=== PATIENT | male | born 1965 | race Caucasian/White ===

== ENCOUNTER 2020-01-07 09:20 | Outpatient (CLI) | payer MEDICARE, SELFPAY | END 2020-01-07 09:21 | disposition home or self-care (01) | LOC: ONCMED 09:27 | PROVIDERS: Family Provider Internal Medicine; Visit Provider Internal Medicine Medical Oncology | DX: Z45.2 Encounter for adjustment and management of vascular access device (principal) | CPT/HCPCS: 96523 ==

== ENCOUNTER 2020-01-28 11:39 | Outpatient (CLI) | payer MEDICARE, SELFPAY ==
[2020-01-28 12:18] LABS: Basophils # 0.1 10^3/uL (0.0-0.1); Basophils % 0.7 %; Eosinophils # 0.8 10^3/uL (0.0-0.8); Eosinophils % 7.6 %; Hematocrit 38.4 % (42.0-52.0); Hemoglobin 12.4 g/dL (11.7-16.6); Lymphocytes # 4.8 10^3/uL (0.8-4.8); Lymphocytes % 44.1 %; Mean Corpuscular HGB Conc 32.3 g/dL (30.0-36.0); Mean Corpuscular Hemoglobin 28.2 pg (28.0-34.0); Mean Corpuscular Volume 87.3 fL (80-94); Mean Platelet Volume 11.1 fL (7.4-10.4); Monocytes # 0.7 10^3/uL (0.2-0.9); Neutrophils # 4.4 10^3/uL (1.8-7.7); Neutrophils % 41.2 %; Nucleated Red Blood Cells % 0 %; Platelet Count 157 10^3/cmm (130-400); Red Cell Distribution Width 13.9 % (12.1-15.1); White Blood Count 10.8 10^3/uL (4.0-10.0)
[2020-01-28 12:34] LABS: Alanine Aminotransferase 32 U/L (0-41); Albumin Level 3.8 g/dL (3.5-5.2); Alkaline Phosphatase 72 IU/L (40-130); Anion Gap 15.8 (5-19); Aspartate Amino Transferase 24 U/L (0-40); Blood Urea Nitrogen 21 mg/dL (6-20); Calcium 9.6 mg/dL (8.5-10.5); Carbon Dioxide 25 mmol/L (22-29); Chloride 102 mmol/L (98-107); Globulin 3.2 g/dL (1.3-4.6); Glomerular Filtration Rate 45.3 mL/min (90-130); Glucose 115 mg/dL (65-115); Lactate Dehydrogenase 172 U/L (135-225); Potassium 3.8 mmol/L (3.5-5.1); Sodium 139 mmol/L (136-145); Total Bilirubin 0.3 mg/dL (0.15-1.2)
--- NOTE | 2020-01-29 15:24 | ONC FU_ITS ---
Dr. Kirkland Patient Follow-Up Note Patient: Panda Rivera Unit #: [id number]: [id number] Dicatated By: Kumar Kirkland M.D.Date of Visit:Jan 28, 2020 Onc Med Follow-up/Prog Note Chief Complaint: Chronic lymphocytic leukemia. History of Present Illness: This is a 54 year-old man with chronic lymphocytic leukemia. The leukemia was diagnosed in March of 2003. He appeared to have Holcomb stage I disease, and he was initially managed with observation. He was treated with 6 cycles of fludarabine/Rituxan between August of 2008 and March of 2009. At that time his objective parameters did not meet usual criteria for treatment, but he had experienced a significant decline in performance status which appeared to be disease related. He did show a good clinical response, and he was then followed on observation. I had seen him for a follow-up visit in October 2015. At that time, his performance status appeared to be declining, and he also appeared to have some small cervical lymph nodes bilaterally. He also had shown a slight increase in his lymphocyte count. He underwent upper GI endoscopy and colonoscopy on 11/11/2015. The upper endoscopy showed mild esophagitis. There was moderate localized inflammation in the gastric body with a single ulcer present. There is a chronic appearing ulcer in the antrum. There was moderate patchy inflammation in the duodenal bulb with a few superficial benign-appearing ulcers. All the biopsies were benign, and the CLOtest was negative. He was found to have a rectal polyp on colonoscopy. It was removed endoscopically. There were no other abnormal findings. Pathology showed hyperplastic polyp. He had staging CT scans of the chest/abdomen/pelvis in November 2015. The most significant finding was the presence of bilateral lower lung zone bronchial wall thickening with scattered tree-in-bud nodular opacities. The primary consideration was atypical pneumonia or aspiration pneumonitis. There were slightly enlarged subcarinal lymph nodes which appeared reactive. Left axillary and left hilar adenopathy was unchanged compared to July 2008. There was no adenopathy in the abdomen/pelvis region. He underwent bronchoscopy on 12/30/2015. It showed generalized edema and endobronchial thickening throughout the tracheobronchial tree. There were no discrete endobronchial lesions identified. Transbronchial biopsy showed benign bronchial mucosa/submucosa with reactive lymphoid hyperplasia. All of the microbiology studies were negative. Given those findings he had just remained on observation/expectant management. In August 2018 he was taken to the emergency room after he had been found unresponsive at home. On evaluation, it was felt that he was most likely postictal from a seizure.a noncontrast head CT at that time reported no acute intracranial abnormality. The following morning around 4:30 AM he had a witnessed clonic seizure. He was taken to the emergency room and treated with IV Ativan. On a repeat PET/CT the brain volume appeared greater than typical, raising a question of cerebral edema. With that finding, he was transferred to [facility] for further management. Subsequent brain MRI showed no evidence of acute infarction, hemorrhage, or parenchymal mass lesion. Spinal tap showed just slightly elevated CSF protein of 46 mg/dL. Cell count showed 2 WBC, both lymphocytes, and 1 RBC. A cytology report was not provided. His CBC at that time did show elevated white count at 21,600 with the differential showing 43% neutrophils, 43% lymphocytes, 8% monocytes, and 4% eosinophils. The hemoglobin was borderline at 12.5 g with hematocrit 38.3%. The platelet count was normal at 187,000. His comprehensive metabolic profile was unremarkable. He was discharged home on Keppra. As of his followup visit on 09/05/2018 he was still having some cognitive dysfunction and he complained that he was awfully sore. His repeat CBC on 09/08/2018 showed only slightly increased white blood cell count at 14,000 with hemoglobin borderline at 12.7 g and platelet count normal at 182,000. Subsequent to that visit, he had neurology consultation with Dr. Jaya Gamble in [place]. He continued on treatment with Keppra 1000 mg twice a day. On 12/24/2018 he had another seizure. His Keppra dosage was increased to 1500 mg twice a day, but later adjusted to 1000 mg in the morning and 1500 mg in the evening. He continued to complain of having a bad headache above his right eye, and he then developed double vision. He was seen by Dr. Londono on 01/23/2019. 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 He was then seen by Dr. Evans, and he had further evaluation with a noncontrast head CT scan. 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 There were no other acute findings. I had seen him for a follow-up visit on 01/26/2018. A repeat [facility] at [facility] on 01/28/2019 showed no evidence of an acute intracranial process. He subsequently had a follow-up visit with Dr. Jaya Gamble, and it was felt that he was likely suffering from diabetic mononeuropathy. He was treated with gabapentin, and his symptoms gradually improved. He continued observation/expectant management for the chronic lymphocytic leukemia. His medical illnesses include hypertension, hyperlipidemia, type 2 diabetes, and GERD. He also degenerative arthritis, and he has had chronic back pain following a previous back injury. He is a nonsmoker. INTERIM HISTORY: He was seen for a scheduled follow-up visit on 05/21/2019. At that point he appeared stable clinically, though he was having increasing problems with his knees. On 06/08/2019 he underwent left total knee arthroplasty. He experienced no complications with the procedure. On 06/30/2019 he was seen in the emergency room with a febrile illness. According to his , one of their sons had initially become ill with fever, headache, and vomiting about June 25. Two days later a second son developed similar symptoms, and the following day Panda developed fever with generalized aching, nausea, and diarrhea. The fever persisted over the next several days, and it went as high as 103.4???. On evaluation in the emergency room, he was mildly anemic. His white blood cell count was normal at 8700 with the differential showing 62% neutrophils. Platelet count was normal at 150,000. His chem profile showed normal liver enzymes. His BUN and creatinine were elevated at 21 and 1.8 mg/dL. Urinalysis was unremarkable, and chest x-ray was unrevealing. He was given IV hydration he began on IV antibiotic therapy. His blood cultures have remained negative. His symptoms gradually improved on conservative management, and it did appear that he likely had a viral syndrome. On 08/02/2019 he sustained a nondisplaced fracture of the tip of the lateral malleolus. It was managed conservatively. He is seen for a follow-up visit. He has been feeling pretty good generally. His main complaint is that he had another spell 2 days ago which he thinks may have been a seizure. He got very dizzy to the point of nearly blacking out after getting up off the stool. He was able to recover after getting to the couch and resting, but he felt bad for the rest of that day. His energy has otherwise been pretty good. His ECOG score is 1. He has good appetite. He has no fever or night sweats. Within the past couple of weeks he has developed buzzing and ringing in both ears. He has had no mouth sores. He has cough productive of clear sputum. He has no shortness of breath or chest pain. He has had a little bit of nausea. He has no other GI or complaints. He has his normal back and joint pain. He has not been having headache. He has otherwise not had dizziness. He has a little numbness in his right hand. He has no other focal neurologic symptoms. Medications: Allopurinol 1 Tablet (of 300 mg) Oral daily, AmLODIPine Besylate 1 (10 mg) Tablet Oral daily, Aspirin 1 Tablet (of 81 mg) Oral daily, Atorvastatin Calcium 1 (40 mg) Tablet Oral at bedtime, Benadryl Allergy 1 Tablet (of 25 mg) Oral daily, Gabapentin 1 Capsule (of 300 mg) Oral t.i.d., GlipiZIDE 1 Tablet (of 10 mg) Oral daily, Hydrochlorothiazide 1 (25 mg) Tablet Oral daily, Keppra (500 mg) Tablet Oral Take as Directed, Lantus 90 (100 Units/mL) Subcutaneous b.i.d., Lisinopril 1 (40 mg) Tablet Oral daily, Loratadine 1 Tablet (of 10 mg) Oral daily PRN, Multivitamin Men 50+ 1 Tablet Oral daily, NovoLOG 15 (100 Units/mL) Subcutaneous t.i.d., Omeprazole 1 (40 ) Capsule Delayed Release Oral daily, Osteo Bi-Flex Regular Strength 1 Tablet Oral daily, Oxycodone-Acetaminophen 1 (5-325 mg) Tablet Oral t.i.d., Vistaril 1 (25 mg) Capsule Oral q 6 hours, Zonisamide 1 Capsule (of 100 mg) Oral t.i.d. Allergies: No Known Allergies. Review of Systems: Constitutional - His energy has been pretty good. He does light work at home. His appetite is good and his weight is stable. No fever, chills, hot flashes, or night sweats. ECOG score is 1, ENMT - He has sinus congestion/drainage with a cough. No mouth sores. No sore throat or difficulty swallowing. He has had buzzing and ringing in his ears, that started a couple weeks ago, Hematologic/Lymphatic - He bruises and bleeds easily, Respiratory - No shortness of breath. No pleuritic pain or hemoptysis, Cardiovascular - No angina pain. No palpitations, Gastrointestinal - He did have a stomach bug that lasted a day or so. No nausea or vomiting. No heartburn or acid reflux. No diarrhea or constipation. No blood in the stool or black stools, Genitourinary (M) - No dysuria or hematuria. No urinary frequency. No urgency or incontinence, Musculoskeletal - He continues to have back pain, Integumentary - No skin complications, Neurologic - No headache. He had a dizzy spell this past Saturday, where he felt like he was going to pass out. He has not had any problems, otherwise. He has some numbness and tingling in his right hand, Psychiatric - He has some anxiety and depression. He does not sleep well at night. Vital Signs: Performed on Jan 28, 2020 13:05 Height - 70.00 in Weight - 322 lbs (LOW) BSA - 2.56 sq.m BMI - 46.20 (HIGH) Temperature - 97.8 F (LOW) Pulse - 84 /min Respiration - 17 /min BP - 146/84 mm(hg) (HIGH) O2 Sat - 97 % Pain - 3 Physical Examination: Constitutional - He looks pretty good generally, Eyes - Sclerae nonicteric. Conjunctivae clear, ENMT - No lesions noted in the oral cavity, Hematologic/Lymphatic - No cervical, clavicular, or axillary adenopathy, Respiratory - Lungs sound clear with diminished air movement bilaterally, Cardiovascular - Heart rhythm is regular. There is no murmur, gallop, or rub noted, Abdomen - Moderately distended. Liver and spleen are not enlarged. There is no abdominal mass or ascites noted and there is no inguinal adenopathy, Extremities - Slight edema, Neurologic - There are no focal neurologic deficits noted. Lab/Imaging: Test performed on Jan 28, 2020 12:05 LDH (Total) 172 U/L Sodium 139 mmol/L Potassium 3.8 mmol/L Chloride 102 mmol/L CO2 25 mmol/L Anion Gap 15.8 BUN 21 mg/dL Creatinine 1.6 mg/dL Cr Clearance (Est) 106.6700 mL/min eGFR 45.3 mL/min Glucose 115 mg/dL Calcium 9.6 mg/dL Protein, Total 7.0 g/dL Albumin 3.8 g/dL Globulin 3.2 g/dL Bilirubin, Total 0.3 mg/dL ALT (SGPT) 32 U/L AST (SGOT) 24 U/L Alkaline Phosphatase 72 IU/L WBC 10.8 10 3/uL RBC 4.40 10 6/uL HGB 12.4 g/dL HCT 38.4 % MCV 87.3 fL MCH 28.2 pg MCHC 32.3 g/dL RDW 13.9 % Platelet Count 157 10 3/cmm MPV 11.1 fL Neutrophils 4.4 10 3/uL Lymphocytes 4.8 10 3/uL Monocytes 0.7 10 3/uL Eosinophils 0.8 10 3/uL Basophils 0.1 10 3/uL Neutrophil % 41.2 % Lymphocyte % 44.1 % Monocyte % 6.0 % Eosinophil % 7.6 % Basophils % 0.7 % Test performed on Nov 05, 2019 11:20 Est Avg Glucose (eAG) 169 mg/dL Hemoglobin A1C % 7.5 % Impression: 1. Patient with chronic lymphocytic leukemia, initially diagnosed in 2002 and managed with observation. 2. He ultimately did have treatment with 6 cycles of fludarabine/Rituxan, which he completed in March 2009. He had a very good clinical response. 3. He has since then continued on observation/expectant management, thus far with no obvious disease progression. 4. By October 2015 he had shown some decline in performance status. He had a fairly extensive evaluation. The most significant finding was CT evidence of bilateral lower lobe pulmonary parenchymal opacities. A subsequent bronchoscopy was nondiagnostic, and a specific cause for that was not determined. His other medical illnesses include: 4. Hypertension. 5. Hyperlipidemia. 6. Type II diabetes. 7. Chronic kidney disease. 8. GERD. 9. Degenerative arthritis/degenerative disease of the spine. During followup he had become mildly anemic. His serum iron studies were suggestive of iron deficiency despite the fact that he had been on oral iron supplementation. He was given parenteral iron replacement with a single infusion of Injectafer on 04/08/2018. He had a very good clinical response. He continued on observation/expectant management for the CLL. In August 2018 he had presented with new onset of seizures. His evaluation at [facility] included brain MRI and lumbar puncture, and a specific cause for the seizures was not determined. In the absence of any other evidence of disease progression, I felt that BLOOD [employer]LOOD [employer]CHNICIAN involvement with chronic lymphocytic leukemia was very unlikely, and I had just recommended continued observation/expectant management. On 12/24/2018 he had another seizure, requiring increasing his Keppra dosage. He had subsequently presented with a partial right third cranial nerve palsy. He has had follow-up with Dr. Gamble, and this was presumed to be a diabetic mononeuropathy. He improved on treatment with gabapentin. During followup he has had no further neurologic symptoms and no further seizures. On 06/08/2019 he underwent left total knee arthroplasty. He had no complications with the procedure. In June he was seen in the emergency room with a febrile illness. This was most likely a viral syndrome, and it resolved with conservative management. He had then sustained a fracture of the right fibular tip after stepping in a hole. It was managed conservatively. During followup it was suspected that he was having small seizures, requiring adjustment in his anticonvulsant medication. He had otherwise been stable clinically. Recently he had an episode of significant lightheadedness, thought to possibly have been due to seizure activity. Within the past couple of weeks he has also developed significant tinnitus. There has been no evidence, though, of recurrence/progression of the chronic lymphocytic leukemia. Plan: He remains on observation/expectant management for the chronic lymphocytic leukemia. At Dr. Gamble's request, we have drawn levels for monitoring his anticonvulsants. Those results will be forwarded to him. He will have further evaluation as indicated. He may require ENT referral for the tinnitus. I will tentatively plan a follow-up visit here in 6 months. Signed By: Kumar Kirkland M.D. <<Signature on File>>
== END 2020-01-28 11:40 | disposition home or self-care (01) ==
LOC: ONCMED 11:39
PROVIDERS: Family Provider Internal Medicine; PCP Internal Medicine; Visit Provider Internal Medicine Medical Oncology
DX: C91.10 Chronic lymphocytic leukemia of B-cell type not having achieved remission (principal); E78.5 Hyperlipidemia, unspecified; E11.9 Type 2 diabetes mellitus without complications; K21.9 Gastro-esophageal reflux disease without esophagitis; M19.90 Unspecified osteoarthritis, unspecified site; G89.29 Other chronic pain; M54.9 Dorsalgia, unspecified; R56.9 Unspecified convulsions; E11.22 Type 2 diabetes mellitus with diabetic chronic kidney disease; I12.9 Hypertensive chronic kidney disease with stage 1 through stage 4 chronic kidney disease, or unspecified chronic kidney disease; N18.9 Chronic kidney disease, unspecified; Z79.82 Long term (current) use of aspirin; Z79.891 Long term (current) use of opiate analgesic; Z92.25 Personal history of immunosuppression therapy; Z96.652 Presence of left artificial knee joint
CPT/HCPCS: 36591; 80053; 80177; 80203; 83615; 85025; 99214

== ENCOUNTER 2020-03-07 15:32 | Outpatient (CLI) | payer MEDICARE, SELFPAY | END 2020-03-07 15:33 | disposition home or self-care (01) | PROVIDERS: Family Provider Internal Medicine; PCP Internal Medicine; Visit Provider Internal Medicine Medical Oncology | DX: Z45.2 Encounter for adjustment and management of vascular access device (principal) | CPT/HCPCS: 96523 ==

== ENCOUNTER 2020-04-04 14:21 | Outpatient (CLI) | payer MEDICARE, SELFPAY | END 2020-04-04 14:22 | disposition home or self-care (01) | PROVIDERS: PCP Internal Medicine; Visit Provider Internal Medicine Medical Oncology | DX: Z45.2 Encounter for adjustment and management of vascular access device (principal); D50.8 Other iron deficiency anemias | CPT/HCPCS: 96523 ==

== ENCOUNTER 2020-04-29 10:49 | Outpatient (CLI) | payer MEDICARE, SELFPAY ==
[2020-04-29 11:48] LABS: Basophils # 0.1 10^3/uL (0.0-0.1); Basophils % 0.6 %; Eosinophils # 0.4 10^3/uL (0.0-0.8); Eosinophils % 4.4 %; Hematocrit 40.5 % (42.0-52.0); Hemoglobin 12.9 g/dL (11.7-16.6); Lymphocytes # 3.7 10^3/uL (0.8-4.8); Mean Corpuscular HGB Conc 31.9 g/dL (30.0-36.0); Mean Corpuscular Hemoglobin 28.7 pg (28.0-34.0); Mean Corpuscular Volume 90.2 fL (80-94); Mean Platelet Volume 10.7 fL (7.4-10.4); Monocytes # 0.4 10^3/uL (0.2-0.9); Monocytes % 4.6 %; Neutrophils # 4.7 10^3/uL (1.8-7.7); Neutrophils % 50.1 %; Nucleated Red Blood Cells % 0 %; Platelet Count 186 10^3/cmm (130-400); Red Blood Count 4.49 10^6/uL (4.1-5.3); Red Cell Distribution Width 13.8 % (12.1-15.1); White Blood Count 9.3 10^3/uL (4.0-10.0)
[2020-04-29 12:11] LABS: Alanine Aminotransferase 28 U/L (0-41); Albumin Level 4.3 g/dL (3.5-5.2); Alkaline Phosphatase 90 IU/L (40-130); Anion Gap 16.9 (5-19); Aspartate Amino Transferase 23 U/L (0-40); Blood Urea Nitrogen 28 mg/dL (6-20); Calcium 9.9 mg/dL (8.5-10.5); Carbon Dioxide 24 mmol/L (22-29); Chloride 105 mmol/L (98-107); Chol HDL Ratio 4.39 mg/dL (1.0-5.00); Cholesterol 145 mg/dL (0-200); Free T4 Free Thyroxine 1.22 ng/dL (0.82-1.77); Globulin 2.7 g/dL (1.3-4.6); Glomerular Filtration Rate 39.4 mL/min (90-130); Glucose 103 mg/dL (65-115); HDL Cholesterol 33 mg/dL (60-100); LDL Cholesterol Calculated 91 mg/dL (50-129); LDL Cholesterol Direct 91 mg/dL (0-100); LDL HDL Ratio 2.76 RATIO (0.00-3.22); Osmolality Calculated 291 mOsm/kg (285-295); Potassium 3.9 mmol/L (3.5-5.1); Sodium 142 mmol/L (136-145); Thyroid Stimulating Hormone 1.92 uIU/mL (0.27-4.20); Total Bilirubin 0.4 mg/dL (0.15-1.2); Triglycerides 107 mg/dL (0-150)
[2020-04-29 12:16] LABS: Estmated Average Glucose 154
[2020-04-29 14:46] LABS: Vitamin B12 531 pg/mL (232-1245)
[2020-05-04 10:51] LABS: Zonisamide (Zonegran) 22.9 mcg/mL (10.0-40.0)
== END 2020-04-29 10:50 | disposition home or self-care (01) ==
LOC: ONCMED 10:52
PROVIDERS: Psychiatry & Neurology Neurology; PCP Internal Medicine; Visit Provider Internal Medicine Medical Oncology
DX: C91.10 Chronic lymphocytic leukemia of B-cell type not having achieved remission (principal); D50.9 Iron deficiency anemia, unspecified; E03.9 Hypothyroidism, unspecified; E11.9 Type 2 diabetes mellitus without complications; F41.9 Anxiety disorder, unspecified; F32.9 Major depressive disorder, single episode, unspecified; K21.9 Gastro-esophageal reflux disease without esophagitis; E78.5 Hyperlipidemia, unspecified; I10 Essential (primary) hypertension
CPT/HCPCS: 36591; 80053; 80061; 80177; 80203; 82607; 83036; 83721; 84439; 84443; 85025

== ENCOUNTER 2020-06-16 10:32 | Outpatient (CLI) | payer MEDICARE, SELFPAY | END 2020-06-16 10:33 | disposition home or self-care (01) | LOC: ONCMED 10:37 | PROVIDERS: PCP Internal Medicine; Visit Provider Internal Medicine Medical Oncology | DX: Z45.2 Encounter for adjustment and management of vascular access device (principal) | CPT/HCPCS: 96523 ==

== ENCOUNTER 2020-07-14 11:17 | Outpatient (CLI) | payer MEDICARE, SELFPAY ==
[2020-07-14 11:57] LABS: Basophils # 0.1 10^3/uL (0.0-0.1); Basophils % 0.7 %; Eosinophils # 0.6 10^3/uL (0.0-0.8); Eosinophils % 5.3 %; Hematocrit 38.1 % (42.0-52.0); Lymphocytes # 4.4 10^3/uL (0.8-4.8); Lymphocytes % 38.1 %; Mean Corpuscular HGB Conc 31.5 g/dL (30.0-36.0); Mean Corpuscular Hemoglobin 28.6 pg (28.0-34.0); Mean Corpuscular Volume 90.9 fL (80-94); Mean Platelet Volume 10.8 fL (7.4-10.4); Monocytes # 0.6 10^3/uL (0.2-0.9); Monocytes % 5.4 %; Neutrophils # 5.67 10^3/uL (1.8-7.7); Neutrophils % 49.1 %; Nucleated Red Blood Cells % 0 %; Platelet Count 213 10^3/cmm (130-400); Red Blood Count 4.19 10^6/uL (4.1-5.3); Red Cell Distribution Width 13.9 % (12.1-15.1); White Blood Count 11.6 10^3/uL (4.0-10.0)
[2020-07-14 12:20] LABS: Alanine Aminotransferase 26 U/L (0-41); Albumin Level 4.1 g/dL (3.5-5.2); Alkaline Phosphatase 99 IU/L (40-130); Anion Gap 14.6 (5-19); Aspartate Amino Transferase 16 U/L (0-40); Blood Urea Nitrogen 30 mg/dL (6-20); Calcium 8.7 mg/dL (8.5-10.5); Carbon Dioxide 24 mmol/L (22-29); Chloride 105 mmol/L (98-107); Globulin 3.4 g/dL (1.3-4.6); Glucose 111 mg/dL (65-115); Lactate Dehydrogenase 142 U/L (135-225); Osmolality Calculated 288 mOsm/kg (285-295); Potassium 3.6 mmol/L (3.5-5.1); Sodium 140 mmol/L (136-145); Total Bilirubin 0.2 mg/dL (0.15-1.2); Total Protein 7.5 g/dL (6.6-8.7)
[2020-07-14 13:52] LABS: Estmated Average Glucose 143; Hemoglobin A1C 6.6 % (4.0-6.0)
--- NOTE | 2020-07-16 17:03 | ONC FU_ITS ---
Dr. Kirkland Patient Follow-Up Note Patient: Panda Rivera Unit #: [id number]: 1965 Dicatated By: Kumar Kirkland M.D.Date of Visit:Jul 14, 2020 Onc Med Follow-up/Prog Note Chief Complaint: Chronic lymphocytic leukemia. History of Present Illness: This is a 55 year-old man with chronic lymphocytic leukemia. The leukemia was diagnosed in March of 2003. He appeared to have Holcomb stage I disease, and he was initially managed with observation. He was treated with 6 cycles of fludarabine/Rituxan between August of 2008 and March of 2009. At that time his objective parameters did not meet usual criteria for treatment, but he had experienced a significant decline in performance status which appeared to be disease related. He did show a good clinical response, and he was then followed on observation. I had seen him for a follow-up visit in October 2015. At that time, his performance status appeared to be declining, and he also appeared to have some small cervical lymph nodes bilaterally. He also had shown a slight increase in his lymphocyte count. He underwent upper GI endoscopy and colonoscopy on 11/11/2015. The upper endoscopy showed mild esophagitis. There was moderate localized inflammation in the gastric body with a single ulcer present. There is a chronic appearing ulcer in the antrum. There was moderate patchy inflammation in the duodenal bulb with a few superficial benign-appearing ulcers. All the biopsies were benign, and the CLOtest was negative. He was found to have a rectal polyp on colonoscopy. It was removed endoscopically. There were no other abnormal findings. Pathology showed hyperplastic polyp. He had staging CT scans of the chest/abdomen/pelvis in November 2015. The most significant finding was the presence of bilateral lower lung zone bronchial wall thickening with scattered tree-in-bud nodular opacities. The primary consideration was atypical pneumonia or aspiration pneumonitis. There were slightly enlarged subcarinal lymph nodes which appeared reactive. Left axillary and left hilar adenopathy was unchanged compared to July 2008. There was no adenopathy in the abdomen/pelvis region. He underwent bronchoscopy on 12/30/2015. It showed generalized edema and endobronchial thickening throughout the tracheobronchial tree. There were no discrete endobronchial lesions identified. Transbronchial biopsy showed benign bronchial mucosa/submucosa with reactive lymphoid hyperplasia. All of the microbiology studies were negative. Given those findings he had just remained on observation/expectant management. In August 2018 he was taken to the emergency room after he had been found unresponsive at home. On evaluation, it was felt that he was most likely postictal from a seizure.a noncontrast head CT at that time reported no acute intracranial abnormality. The following morning around 4:30 AM he had a witnessed clonic seizure. He was taken to the emergency room and treated with IV Ativan. On a repeat PET/CT the brain volume appeared greater than typical, raising a question of cerebral edema. With that finding, he was transferred to [facility] for further management. Subsequent brain MRI showed no evidence of acute infarction, hemorrhage, or parenchymal mass lesion. Spinal tap showed just slightly elevated CSF protein of 46 mg/dL. Cell count showed 2 WBC, both lymphocytes, and 1 RBC. A cytology report was not provided. His CBC at that time did show elevated white count at 21,600 with the differential showing 43% neutrophils, 43% lymphocytes, 8% monocytes, and 4% eosinophils. The hemoglobin was borderline at 12.5 g with hematocrit 38.3%. The platelet count was normal at 187,000. His comprehensive metabolic profile was unremarkable. He was discharged home on Keppra. As of his followup visit on 09/05/2018 he was still having some cognitive dysfunction and he complained that he was awfully sore. His repeat CBC on 09/08/2018 showed only slightly increased white blood cell count at 14,000 with hemoglobin borderline at 12.7 g and platelet count normal at 182,000. Subsequent to that visit, he had neurology consultation with Dr. Jaya Gamble in [place]. He continued on treatment with Keppra 1000 mg twice a day. On 12/24/2018 he had another seizure. His Keppra dosage was increased to 1500 mg twice a day, but later adjusted to 1000 mg in the morning and 1500 mg in the evening. He continued to complain of having a bad headache above his right eye, and he then developed double vision. He was seen by Dr. Londono on 01/23/2019. 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 He was then seen by Dr. Evans, and he had further evaluation with a noncontrast head CT scan. 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 There were no other acute findings. I had seen him for a follow-up visit on 01/26/2018. A repeat brain MRI at [facility] on 01/28/2019 showed no evidence of an acute intracranial process. He subsequently had a follow-up visit with Dr. Jaya Gamble, and it was felt that he was likely suffering from diabetic mononeuropathy. He was treated with gabapentin, and his symptoms gradually improved. He continued observation/expectant management for the chronic lymphocytic leukemia. His medical illnesses include hypertension, hyperlipidemia, type 2 diabetes, and GERD. He also degenerative arthritis, and he has had chronic back pain following a previous back injury. On 06/08/2019 he underwent left total knee arthroplasty. He experienced no complications with the procedure. He is a nonsmoker. INTERIM HISTORY: On 06/30/2019 he was seen in the emergency room with a febrile illness. According to his , one of their sons had initially become ill with fever, headache, and vomiting about June 25. Two days later a second son developed similar symptoms, and the following day Panda developed fever with generalized aching, nausea, and diarrhea. The fever persisted over the next several days, and it went as high as 103.4???. On evaluation in the emergency room, he was mildly anemic. His white blood cell count was normal at 8700 with the differential showing 62% neutrophils. Platelet count was normal at 150,000. His chem profile showed normal liver enzymes. His BUN and creatinine were elevated at 21 and 1.8 mg/dL. Urinalysis was unremarkable, and chest x-ray was unrevealing. He was given IV hydration he began on IV antibiotic therapy. His blood cultures remained negative. His symptoms gradually improved on conservative management, and it appeared to have most likely been a viral syndrome. On 08/02/2019 he sustained a nondisplaced fracture of the tip of the lateral malleolus. It was managed conservatively. He is seen for a follow-up visit. He indicates that on the and on 03 of July he experienced episodes which were suspected to have been strokes. During the start of the episodes he was constantly repeating himself, and he then could not talk at all and just made a moaning sound. He went and laid down on the couch and gradually resolved. Since then he just has not felt good, like there is something wrong up in his head. He feels lightheaded and he also feels a little dizzy, as if he is drunk. His energy is poor, and he has limited activity. ECOG score is 2. Appetite is fair. He has lost some weight. He does not have fever or night sweats. He has a lot of sinus drainage and he has cough associated with it. He does not have shortness of breath or chest pain. He has no GI or complaints. He has his normal back and leg pain. He has not had headache, and he has no focal neurologic symptoms. He has been very emotional and anxious, though not depressed. He has not been sleeping well for the past 3 months. Medications: Allopurinol 1 Tablet (of 300 mg) Oral daily, AmLODIPine Besylate 1 (10 mg) Tablet Oral daily, Aspirin 1 Tablet (of 325 mg) Tablet, enteric coated Oral daily, Atorvastatin Calcium 1 (40 mg) Tablet Oral at bedtime, Benadryl Allergy 1 Tablet (of 25 mg) Oral daily, Gabapentin 1 Capsule (of 300 mg) Oral t.i.d., GlipiZIDE 1 Tablet (of 10 mg) Oral daily, Hydrochlorothiazide 1 (25 mg) Tablet Oral daily, Keppra (500 mg) Tablet Oral Take as Directed, Lantus 90 (100 Units/mL) Subcutaneous b.i.d., Lisinopril 1 (40 mg) Tablet Oral daily, Loratadine 1 Tablet (of 10 mg) Oral daily PRN, Multivitamin Men 50+ 1 Tablet Oral daily, NovoLOG 15 (100 Units/mL) Subcutaneous t.i.d., Omeprazole 1 (40 ) Capsule Delayed Release Oral daily, Osteo Bi-Flex Regular Strength 1 Tablet Oral daily, Oxycodone-Acetaminophen 1 (5-325 mg) Tablet Oral t.i.d., Vistaril 1 (25 mg) Capsule Oral q 6 hours, Zonisamide 1 Capsule (of 100 mg) Oral t.i.d. Allergies: No Known Allergies. Review of Systems: Constitutional - He feels okay. He is not doing much at home. His appetite is fair and his weight is down 16 pounds from last visit. No fever, night sweats, or hot flashes. ECOG score is 2, ENMT - He has chronic sinus congestion/drainage. No mouth sores. No sore throat or difficulty swallowing, Hematologic/Lymphatic - No abnormal bruising or bleeding, Respiratory - No shortness of breath. No cough. No pleuritic pain or hemoptysis, Cardiovascular - No angina pain. No palpitations, Gastrointestinal - No nausea or vomiting. No heartburn or acid reflux. No diarrhea or constipation. No blood in the stool or black stools, Genitourinary (M) - No dysuria or hematuria. No urinary frequency. No urgency or incontinence, Musculoskeletal - He has chronic pain in his back and legs, Integumentary - No skin complications, Neurologic - He has headaches with dizziness. He reports having a very strange feeling in the head. He feels drunk all the time. No numbness or tingling. He had 2 recent episodes which were suspected to have been strokes, Psychiatric - He has anxiety. No depression. He does not sleep well. Vital Signs: Performed on Jul 14, 2020 12:36 Height - 70.00 in Weight - 306.8 lbs (LOW) BSA - 2.50 sq.m BMI - 44.02 (HIGH) Temperature - 98.4 F Pulse - 93 /min Respiration - 19 /min BP - 121/72 mm(hg) O2 Sat - 98 % Pain - 5 Fatigue - 6 Physical Examination: Constitutional - He does not appear acutely ill, Eyes - Sclerae nonicteric. Conjunctivae clear, ENMT - No lesions noted in the oral cavity, Hematologic/Lymphatic - No cervical, clavicular, or axillary adenopathy, Respiratory - Lungs sound clear with diminished air movement bilaterally, Cardiovascular - Heart rhythm is regular. There is no murmur, gallop, or rub noted, Abdomen - Moderately distended. Liver and spleen are not enlarged. There is no abdominal mass or ascites noted and there is no inguinal adenopathy, Extremities - No edema, Neurologic - There are no focal neurologic deficits noted. Lab/Imaging: Test performed on Jul 14, 2020 11:27 LDH (Total) 142 U/L Sodium 140 mmol/L Potassium 3.6 mmol/L Chloride 105 mmol/L CO2 24 mmol/L Anion Gap 14.6 BUN 30 mg/dL Creatinine 1.9 mg/dL Cr Clearance (Est) 88.7800 mL/min eGFR 37.0 mL/min Glucose 111 mg/dL Calcium 8.7 mg/dL Protein, Total 7.5 g/dL Albumin 4.1 g/dL Globulin 3.4 g/dL Bilirubin, Total 0.2 mg/dL ALT (SGPT) 26 U/L AST (SGOT) 16 U/L Alkaline Phosphatase 99 IU/L Hemoglobin A1C % 6.6 % WBC 11.6 10 3/uL RBC 4.19 10 6/uL HGB 12.0 g/dL HCT 38.1 % MCV 90.9 fL MCH 28.6 pg MCHC 31.5 g/dL RDW 13.9 % Platelet Count 213 10 3/cmm MPV 10.8 fL Neutrophils 5.67 10 3/uL Lymphocytes 4.4 10 3/uL Monocytes 0.6 10 3/uL Eosinophils 0.6 10 3/uL Basophils 0.1 10 3/uL Neutrophil % 49.1 % Lymphocyte % 38.1 % Monocyte % 5.4 % Eosinophil % 5.3 % Basophils % 0.7 % NRBC % 0 % Impression: 1. Patient with chronic lymphocytic leukemia, initially diagnosed in 2002 and managed with observation. 2. He ultimately did have treatment with 6 cycles of fludarabine/Rituxan, which he completed in March 2009. He had a very good clinical response. 3. He has since then continued on observation/expectant management, thus far with no obvious disease progression. 4. By October 2015 he had shown some decline in performance status. He had a fairly extensive evaluation. The most significant finding was CT evidence of bilateral lower lobe pulmonary parenchymal opacities. A subsequent bronchoscopy was nondiagnostic, and a specific cause for that was not determined. His other medical illnesses include: 4. Hypertension. 5. Hyperlipidemia. 6. Type II diabetes. 7. Chronic kidney disease. 8. GERD. 9. Degenerative arthritis/degenerative disease of the spine. During followup he had become mildly anemic. His serum iron studies were suggestive of iron deficiency despite the fact that he had been on oral iron supplementation. He was given parenteral iron replacement with a single infusion of Injectafer on 04/08/2018. He had a very good clinical response. He continued on observation/expectant management for the CLL. In August 2018 he had presented with new onset of seizures. His evaluation at [facility] included brain MRI and lumbar puncture, and a specific cause for the seizures was not determined. In the absence of any other evidence of disease progression, I felt that [employer] involvement with chronic lymphocytic leukemia was very unlikely, and I had just recommended continued observation/expectant management. On 12/24/2018 he had another seizure, requiring increasing his Keppra dosage. He had subsequently presented with a partial right third cranial nerve palsy. He has had follow-up with Dr. Gamble, and this was presumed to be a diabetic mononeuropathy. He improved on treatment with gabapentin. During followup he has had no further neurologic symptoms and no further seizures. On 06/08/2019 he underwent left total knee arthroplasty. He had no complications with the procedure. In June he was seen in the emergency room with a febrile illness. This was most likely a viral syndrome, and it resolved with conservative management. He had then sustained a fracture of the right fibular tip after stepping in a hole. It was managed conservatively. During followup it was suspected that he was having small seizures, requiring adjustment in his anticonvulsant medication. He had otherwise been stable clinically. However, he describes having 2 recent episodes which were suspected to have possibly been strokes. Since then he does has not felt right in the head, and he has had decline in his performance status. There has been no evidence, though, of progression of the chronic lymphocytic leukemia and I still feel it is very unlikely that the leukemia would be contributing in any way to his [employer] symptoms. Plan: He remains on observation/expectant management for the chronic lymphocytic leukemia. He is scheduled to see his neurologist, Dr. Singh, on 08/03/2020. I will check with our office to see whether or not he wants any studies done prior to the visit. I will also ask about possibly starting him on trazodone for the insomnia. I will see him again in 3 months, or sooner as needed. Signed By: Kumar Kirkland M.D. <<Signature on File>>
== END 2020-07-14 11:18 | disposition home or self-care (01) ==
LOC: ONCMED 11:20
PROVIDERS: PCP Internal Medicine; Visit Provider Internal Medicine Medical Oncology
DX: Z08 Encounter for follow-up examination after completed treatment for malignant neoplasm (principal); Z85.6 Personal history of leukemia; I10 Essential (primary) hypertension; E78.5 Hyperlipidemia, unspecified; E11.22 Type 2 diabetes mellitus with diabetic chronic kidney disease; N18.9 Chronic kidney disease, unspecified; K21.9 Gastro-esophageal reflux disease without esophagitis; M47.9 Spondylosis, unspecified; D50.9 Iron deficiency anemia, unspecified; Z92.25 Personal history of immunosuppression therapy
CPT/HCPCS: 36591; 80053; 83036; 83615; 85025; 99214

== ENCOUNTER 2020-09-23 06:04 | Outpatient (CLI) | payer MEDICARE, SELFPAY | END 2020-09-23 06:05 | disposition home or self-care (01) | LOC: ONCMED 06:04 | PROVIDERS: PCP Internal Medicine; Visit Provider Internal Medicine Medical Oncology | DX: Z45.2 Encounter for adjustment and management of vascular access device (principal) | CPT/HCPCS: 96523 ==

== ENCOUNTER 2020-10-17 12:08 | Outpatient (CLI) | payer MEDICARE, SELFPAY ==
[2020-10-17] MEDS: alteplase 1 mg/mL SDV 2 mL 2 MG IV ×2 (12:30→14:35)
[2020-10-17 13:04] LABS: Basophils % 0.4 %; Eosinophils # 0.4 10^3/uL (0.0-0.8); Eosinophils % 4.7 %; Hematocrit 39.2 % (42.0-52.0); Hemoglobin 12.6 g/dL (11.7-16.6); Lymphocytes # 3.6 10^3/uL (0.8-4.8); Lymphocytes % 40.4 %; Mean Corpuscular HGB Conc 32.1 g/dL (30.0-36.0); Mean Corpuscular Hemoglobin 29.4 pg (28.0-34.0); Mean Corpuscular Volume 91.6 fL (80-94); Monocytes # 0.8 10^3/uL (0.2-0.9); Monocytes % 8.4 %; Neutrophils # 4.09 10^3/uL (1.8-7.7); Neutrophils % 45.7 %; Nucleated Red Blood Cells % 0 %; Platelet Count 144 10^3/cmm (130-400); Red Blood Count 4.28 10^6/uL (4.1-5.3); Red Cell Distribution Width 13.4 % (12.1-15.1)
[2020-10-17 13:21] LABS: Alanine Aminotransferase 20 U/L (0-41); Alkaline Phosphatase 80 IU/L (40-130); Anion Gap 12.9 (5-19); Aspartate Amino Transferase 17 U/L (0-40); Blood Urea Nitrogen 21 mg/dL (6-20); Calcium 9.5 mg/dL (8.5-10.5); Carbon Dioxide 27 mmol/L (22-29); Chloride 104 mmol/L (98-107); Globulin 2.3 g/dL (1.3-4.6); Glomerular Filtration Rate 48.6 mL/min (90-130); Glucose 129 mg/dL (65-115); Lactate Dehydrogenase 169 U/L (135-225); Osmolality Calculated 295 mOsm/kg (285-295); Potassium 3.9 mmol/L (3.5-5.1); Sodium 140 mmol/L (136-145); Total Bilirubin 0.3 mg/dL (0.15-1.2); Total Protein 6.3 g/dL (6.6-8.7)
[2020-10-17 20:01] LABS: Ferritin 382 ng/mL (30-400); Iron 67 ug/dL (59-158); Percent Saturation 27.1 % (20-50); Total Iron Binding Capacity 247 mcg/dl; Unsaturated Iron Binding 180 ug/dL (112-347)
--- NOTE | 2020-10-21 09:08 | ONC FU_ITS ---
Dr. Kirkland Patient Follow-Up Note Patient: Panda Rivera Unit #: [id number]: 1965 Dicatated By: Kumar Kirkland M.D.Date of Visit:Oct 17, 2020 Onc Med Follow-up/Prog Note Chief Complaint: Chronic lymphocytic leukemia. History of Present Illness: This is a 55 year-old man with chronic lymphocytic leukemia. The leukemia was diagnosed in March of 2003. He appeared to have Holcomb stage I disease, and he was initially managed with observation. He was treated with 6 cycles of fludarabine/Rituxan between August of 2008 and March of 2009. At that time his objective parameters did not meet usual criteria for treatment, but he had experienced a significant decline in performance status which appeared to be disease related. He did show a good clinical response, and he was then followed on observation. I had seen him for a follow-up visit in October 2015. At that time, his performance status appeared to be declining, and he also appeared to have some small cervical lymph nodes bilaterally. He also had shown a slight increase in his lymphocyte count. He underwent upper GI endoscopy and colonoscopy on 11/11/2015. The upper endoscopy showed mild esophagitis. There was moderate localized inflammation in the gastric body with a single ulcer present. There is a chronic appearing ulcer in the antrum. There was moderate patchy inflammation in the duodenal bulb with a few superficial benign-appearing ulcers. All the biopsies were benign, and the CLOtest was negative. He was found to have a rectal polyp on colonoscopy. It was removed endoscopically. There were no other abnormal findings. Pathology showed hyperplastic polyp. He had staging CT scans of the chest/abdomen/pelvis in November 2015. The most significant finding was the presence of bilateral lower lung zone bronchial wall thickening with scattered tree-in-bud nodular opacities. The primary consideration was atypical pneumonia or aspiration pneumonitis. There were slightly enlarged subcarinal lymph nodes which appeared reactive. Left axillary and left hilar adenopathy was unchanged compared to July 2008. There was no adenopathy in the abdomen/pelvis region. He underwent bronchoscopy on 12/30/2015. It showed generalized edema and endobronchial thickening throughout the tracheobronchial tree. There were no discrete endobronchial lesions identified. Transbronchial biopsy showed benign bronchial mucosa/submucosa with reactive lymphoid hyperplasia. All of the microbiology studies were negative. Given those findings he had just remained on observation/expectant management. In August 2018 he was taken to the emergency room after he had been found unresponsive at home. On evaluation, it was felt that he was most likely postictal from a seizure.a noncontrast head CT at that time reported no acute intracranial abnormality. The following morning around 4:30 AM he had a witnessed clonic seizure. He was taken to the emergency room and treated with IV Ativan. On a repeat PET/CT the brain volume appeared greater than typical, raising a question of cerebral edema. With that finding, he was transferred to [facility] for further management. Subsequent brain MRI showed no evidence of acute infarction, hemorrhage, or parenchymal mass lesion. Spinal tap showed just slightly elevated CSF protein of 46 mg/dL. Cell count showed 2 WBC, both lymphocytes, and 1 RBC. A cytology report was not provided. His CBC at that time did show elevated white count at 21,600 with the differential showing 43% neutrophils, 43% lymphocytes, 8% monocytes, and 4% eosinophils. The hemoglobin was borderline at 12.5 g with hematocrit 38.3%. The platelet count was normal at 187,000. His comprehensive metabolic profile was unremarkable. He was discharged home on Keppra. As of his followup visit on 09/05/2018 he was still having some cognitive dysfunction and he complained that he was awfully sore. His repeat CBC on 09/08/2018 showed only slightly increased white blood cell count at 14,000 with hemoglobin borderline at 12.7 g and platelet count normal at 182,000. Subsequent to that visit, he had neurology consultation with Dr. Jaya Gamble in [place]. He continued on treatment with Keppra 1000 mg twice a day. On 12/24/2018 he had another seizure. His Keppra dosage was increased to 1500 mg twice a day, but later adjusted to 1000 mg in the morning and 1500 mg in the evening. He continued to complain of having a bad headache above his right eye, and he then developed double vision. He was seen by Dr. Londono on 01/23/2019. 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 He was then seen by Dr. Evans, and he had further evaluation with a noncontrast head CT scan. 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 There were no other acute findings. I had seen him for a follow-up visit on 01/26/2018. A repeat brain MRI at [facility] on 01/28/2019 showed no evidence of an acute intracranial process. He subsequently had a follow-up visit with Dr. Jaya Gamble, and it was felt that he was likely suffering from diabetic mononeuropathy. He was treated with gabapentin, and his symptoms gradually improved. He continued observation/expectant management for the chronic lymphocytic leukemia. His medical illnesses include hypertension, hyperlipidemia, type 2 diabetes, and GERD. He also degenerative arthritis, and he has had chronic back pain following a previous back injury. On 06/08/2019 he underwent left total knee arthroplasty. He experienced no complications with the procedure. He is a nonsmoker. INTERIM HISTORY: On 06/30/2019 he was seen in the emergency room with a febrile illness. According to his , one of their sons had initially become ill with fever, headache, and vomiting about June 25. Two days later a second son developed similar symptoms, and the following day Panda developed fever with generalized aching, nausea, and diarrhea. The fever persisted over the next several days, and it went as high as 103.4???. On evaluation in the emergency room, he was mildly anemic. His white blood cell count was normal at 8700 with the differential showing 62% neutrophils. Platelet count was normal at 150,000. His chem profile showed normal liver enzymes. His BUN and creatinine were elevated at 21 and 1.8 mg/dL. Urinalysis was unremarkable, and chest x-ray was unrevealing. He was given IV hydration he began on IV antibiotic therapy. His blood cultures remained negative. His symptoms gradually improved on conservative management, and it appeared to have most likely been a viral syndrome. On 08/02/2019 he sustained a nondisplaced fracture of the tip of the lateral malleolus. It was managed conservatively. He is seen for a follow-up visit. I had last seen him in June. At that time he was still having problems related to his seizure disorder, but that problem has improved significantly with some changes in his medication regimen. However, he also is scheduled to have further evaluation at [facility]. He says he is feeling fairly good now. He is able to do light work. ECOG score is 1. He has good appetite. He has gained weight. He does not have fever or night sweats. He has some sinus drainage and he has cough productive of clear sputum. He does not complain of shortness of breath or chest pain. He has no GI or complaints. He continues to have pain in his back and right shoulder, and he also complains that at times he has pain all over. He does not complain of headache. He says his dizziness is better. He has some numbness in the right hand associated with carpal tunnel syndrome. He has no other focal neurologic symptoms. Medications: Allopurinol 1 Tablet (of 300 mg) Oral daily, AmLODIPine Besylate 1 (10 mg) Tablet Oral daily, Aspirin 1 Tablet (of 325 mg) Tablet, enteric coated Oral daily, Atorvastatin Calcium 1 (40 mg) Tablet Oral at bedtime, Benadryl Allergy 1 Tablet (of 25 mg) Oral daily, Depakote ER 3 Tablet (of 500 mg) Tablet SR 24 HR Oral at bedtime, GlipiZIDE 1 Tablet (of 10 mg) Oral daily, Hydrochlorothiazide 1 (25 mg) Tablet Oral daily, Keppra 1 Tablet (of 500 mg) Oral b.i.d., Lantus 90 (100 Units/mL) Subcutaneous b.i.d., Lisinopril 1 (40 mg) Tablet Oral daily, Loratadine 1 Tablet (of 10 mg) Oral daily PRN, Multivitamin Men 50+ 1 Tablet Oral daily, NovoLOG 15 (100 Units/mL) Subcutaneous t.i.d., Omeprazole 1 (40 ) Capsule Delayed Release Oral daily, Oxycodone-Acetaminophen 1 (5-325 mg) Tablet Oral t.i.d. PRN, Zonisamide 1 Capsule (of 100 mg) Oral b.i.d. Allergies: No Known Allergies. Review of Systems: Constitutional - He has been feeling fairly good since his anticonvulsant therapy was changed. He is able to do light work at home. He has good appetite. He has gained weight. He does not have fever or night sweats. ECOG score is 1, ENMT - He has sinus drainage. No mouth sores. No sore throat or difficulty swallowing, Hematologic/Lymphatic - He has easy bruising and he has noticed that he bleeds a little more easily, Respiratory - No shortness of breath. He has cough productive of clear sputum. No pleuritic pain or hemoptysis, Cardiovascular - No angina pain. No palpitations, Gastrointestinal - No nausea or vomiting. No heartburn or acid reflux. No diarrhea or constipation. No blood in the stool or black stools, Genitourinary (M) - No dysuria or hematuria. No urinary frequency. No urgency or incontinence, Musculoskeletal - He has pain in his back and right shoulder and he sometimes has pain all over, Integumentary - No skin rash, Neurologic - No headache. His dizziness is better. He has numbness in his right hand associated with carpal tunnel syndrome. No other focal neurologic symptoms, Psychiatric - He has anxiety/depression. He has been sleeping better lately. Vital Signs: Performed on Oct 17, 2020 13:56 Height - 70.00 in Weight - 320.6 lbs (HIGH) BSA - 2.55 sq.m BMI - 46.00 (HIGH) Temperature - 98.6 F Pulse - 87 /min Respiration - 22 /min BP - 135/80 mm(hg) O2 Sat - 98 % Pain - 6 Physical Examination: Constitutional - He looks pretty good generally, Eyes - Sclerae nonicteric. Conjunctivae clear, ENMT - No lesions noted in the oral cavity, Hematologic/Lymphatic - No cervical, clavicular, or axillary adenopathy, Respiratory - Lungs sound clear with some decrease in air movement bilaterally, Cardiovascular - Heart rhythm is regular. There is no murmur, gallop, or rub noted, Abdomen - Moderately distended. Liver and spleen are not enlarged. There is no abdominal mass or ascites noted and there is no inguinal adenopathy, Extremities - No edema, Neurologic - No focal neurologic deficits noted. Lab/Imaging: Test performed on Oct 17, 2020 12:35 Ferritin 382 ng/mL Iron 67 mcg/dL LDH (Total) 169 U/L Sodium 140 mmol/L Iron Binding Capacity (TIBC) 247 mcg/dl Potassium 3.9 mmol/L % Iron Saturation 27.1 % Chloride 104 mmol/L CO2 27 mmol/L UIBC 180 mcg/dL Anion Gap 12.9 BUN 21 mg/dL Creatinine 1.5 mg/dL Cr Clearance (Est) 112.4600 mL/min eGFR 48.6 mL/min Glucose 129 mg/dL Osmolality - Calculated 295 mOsm/kg Calcium 9.5 mg/dL Protein, Total 6.3 g/dL Albumin 4.0 g/dL Globulin 2.3 g/dL Bilirubin, Total 0.3 mg/dL ALT (SGPT) 20 U/L AST (SGOT) 17 U/L Alkaline Phosphatase 80 IU/L WBC 9.0 10 3/uL RBC 4.28 10 6/uL HGB 12.6 g/dL HCT 39.2 % MCV 91.6 fL MCH 29.4 pg MCHC 32.1 g/dL RDW 13.4 % Platelet Count 144 10 3/cmm MPV 11.0 fL Neutrophils 4.09 10 3/uL Lymphocytes 3.6 10 3/uL Monocytes 0.8 10 3/uL Eosinophils 0.4 10 3/uL Basophils 0.0 10 3/uL Neutrophil % 45.7 % Lymphocyte % 40.4 % Monocyte % 8.4 % Eosinophil % 4.7 % Basophils % 0.4 % NRBC % 0 % Impression: 1. Patient with chronic lymphocytic leukemia, initially diagnosed in 2002 and managed with observation. 2. He ultimately did have treatment with 6 cycles of fludarabine/Rituxan, which he completed in March 2009. He had a very good clinical response. 3. He has since then continued on observation/expectant management, thus far with no obvious disease progression. 4. By October 2015 he had shown some decline in performance status. He had a fairly extensive evaluation. The most significant finding was CT evidence of bilateral lower lobe pulmonary parenchymal opacities. A subsequent bronchoscopy was nondiagnostic, and a specific cause for that was not determined. His other medical illnesses include: 4. Hypertension. 5. Hyperlipidemia. 6. Type II diabetes. 7. Chronic kidney disease. 8. GERD. 9. Degenerative arthritis/degenerative disease of the spine. In March 2018 he had become mildly anemic. His serum iron studies were suggestive of iron deficiency. As he had already been on oral iron supplementation, he was given parenteral iron replacement with a single infusion of Injectafer. He had a very good clinical response. He continued on observation/expectant management for the CLL. In August 2018 he had presented with new onset of seizures. His evaluation at [facility] included brain MRI and lumbar puncture, and a specific cause for the seizures was not determined. In the absence of any other evidence of disease progression, I felt that [employer] involvement with chronic lymphocytic leukemia was very unlikely, and I had just recommended continued observation/expectant management. On 12/24/2018 he had another seizure, requiring increasing his Keppra dosage. He had subsequently presented with a partial right third cranial nerve palsy. He had follow-up with Dr. Gamble, and this was presumed to be a diabetic mononeuropathy. He improved on treatment with gabapentin. During subsequent followup he was having small seizures again. His neurology care was transferred to Dr. Chino Singh, and with adjustments in his medication regimen, his seizures now appear to be adequately controlled. However, he is scheduled to have further evaluation at [facility]. Plan: He remains on observation/expectant management for the chronic lymphocytic leukemia. I will see him again in 3 months. Signed By: Kumar Kirkland M.D. <<Signature on File>>
== END 2020-10-17 12:09 | disposition home or self-care (01) ==
LOC: ONCMED 12:10
PROVIDERS: PCP Internal Medicine; Visit Provider Internal Medicine Medical Oncology
DX: Z85.6 Personal history of leukemia (principal); Z08 Encounter for follow-up examination after completed treatment for malignant neoplasm; E11.22 Type 2 diabetes mellitus with diabetic chronic kidney disease; I12.9 Hypertensive chronic kidney disease with stage 1 through stage 4 chronic kidney disease, or unspecified chronic kidney disease; N18.9 Chronic kidney disease, unspecified; E78.5 Hyperlipidemia, unspecified; Z79.4 Long term (current) use of insulin
CPT/HCPCS: 36415; 36593; 80053; 82728; 83540; 83550; 83615; 85025; 96374; 96376; G0463; J2997

== ENCOUNTER 2020-11-24 12:48 | Outpatient (CLI) | payer MEDICARE, SELFPAY | END 2020-11-24 12:49 | disposition home or self-care (01) | LOC: ONCMED 12:51 | PROVIDERS: PCP Internal Medicine; Visit Provider Internal Medicine Medical Oncology | DX: Z45.2 Encounter for adjustment and management of vascular access device (principal) | CPT/HCPCS: 96523 ==

== ENCOUNTER 2021-03-27 08:04 | Outpatient (CLI) | payer MEDICARE, SELFPAY ==
[2021-03-27 09:04] LABS: Basophils # 0.1 10^3/uL (0.0-0.1); Basophils % 0.6 %; Eosinophils # 0.5 10^3/uL (0.0-0.8); Hematocrit 39.4 % (42.0-52.0); Hemoglobin 12.7 g/dL (11.7-16.6); Lymphocytes # 7.1 10^3/uL (0.8-4.8); Lymphocytes % 54.1 %; Mean Corpuscular HGB Conc 32.2 g/dL (30.0-36.0); Mean Corpuscular Hemoglobin 29.1 pg (28.0-34.0); Mean Corpuscular Volume 90.4 fL (80-94); Monocytes # 0.9 10^3/uL (0.2-0.9); Monocytes % 7.1 %; Neutrophils # 4.42 10^3/uL (1.8-7.7); Neutrophils % 33.6 %; Nucleated Red Blood Cells % 0 %; Platelet Count 151 10^3/cmm (130-400); Red Blood Count 4.36 10^6/uL (4.1-5.3); Red Cell Distribution Width 14.1 % (12.1-15.1); White Blood Count 13.2 10^3/uL (4.0-10.0)
[2021-03-27 09:30] LABS: Alanine Aminotransferase 31 U/L (0-41); Albumin Level 3.9 g/dL (3.5-5.2); Alkaline Phosphatase 70 IU/L (40-130); Chloride 104 mmol/L (98-107); Lactate Dehydrogenase 207 U/L (135-225); Potassium 3.3 mmol/L (3.5-5.1); Sodium 141 mmol/L (136-145)
[2021-03-27 09:57] LABS: Anion Gap 13.3 (5-19); Aspartate Amino Transferase 19 U/L (0-40); Blood Urea Nitrogen 20 mg/dL (6-20); Calcium 8.4 mg/dL (8.5-10.5); Carbon Dioxide 27 mmol/L (22-29); Globulin 2.2 g/dL (1.3-4.6); Glomerular Filtration Rate 48.4 mL/min (90-130); Glucose 66 mg/dL (65-115); Osmolality Calculated 293 mOsm/kg (285-295); Total Bilirubin 0.3 mg/dL (0.15-1.2); Total Protein 6.1 g/dL (6.6-8.7)
[2021-03-27 10:53] LABS: Ferritin 341 ng/mL (30-400); Iron 55 ug/dL (59-158); Thyroid Stimulating Hormone 2.43 uIU/mL (0.27-4.20); Total Iron Binding Capacity 250 mcg/dl; Unsaturated Iron Binding 195 ug/dL (112-347); Vitamin B12 666 pg/mL (232-1245)
--- NOTE | 2021-03-30 06:43 | ONC FU_ITS ---
Dr. Kirkland Patient Follow-Up Note Patient: Panda Rivera Unit #: [id number]: 1965 Dicatated By: Kumar Kirkland M.D.Date of Visit:March 27, 2021 Onc Med Follow-up/Prog Note Chief Complaint: Chronic lymphocytic leukemia. History of Present Illness: This is a 56 year-old man with chronic lymphocytic leukemia. The leukemia was diagnosed in March of 2003. He appeared to have Holcomb stage I disease, and he was initially managed with observation. He was treated with 6 cycles of fludarabine/Rituxan between August of 2008 and March of 2009. At that time his objective parameters did not meet usual criteria for treatment, but he had experienced a significant decline in performance status which appeared to be disease related. He did show a good clinical response, and he was then followed on observation. I had seen him for a follow-up visit in October 2015. At that time, his performance status appeared to be declining, and he also appeared to have some small cervical lymph nodes bilaterally. He also had shown a slight increase in his lymphocyte count. He underwent upper GI endoscopy and colonoscopy on 11/11/2015. The upper endoscopy showed mild esophagitis. There was moderate localized inflammation in the gastric body with a single ulcer present. There is a chronic appearing ulcer in the antrum. There was moderate patchy inflammation in the duodenal bulb with a few superficial benign-appearing ulcers. All the biopsies were benign, and the CLOtest was negative. He was found to have a rectal polyp on colonoscopy. It was removed endoscopically. There were no other abnormal findings. Pathology showed hyperplastic polyp. He had staging CT scans of the chest/abdomen/pelvis in November 2015. The most significant finding was the presence of bilateral lower lung zone bronchial wall thickening with scattered tree-in-bud nodular opacities. The primary consideration was atypical pneumonia or aspiration pneumonitis. There were slightly enlarged subcarinal lymph nodes which appeared reactive. Left axillary and left hilar adenopathy was unchanged compared to July 2008. There was no adenopathy in the abdomen/pelvis region. He underwent bronchoscopy on 12/30/2015. It showed generalized edema and endobronchial thickening throughout the tracheobronchial tree. There were no discrete endobronchial lesions identified. Transbronchial biopsy showed benign bronchial mucosa/submucosa with reactive lymphoid hyperplasia. All of the microbiology studies were negative. Given those findings he had just remained on observation/expectant management. In August 2018 he was taken to the emergency room after he had been found unresponsive at home. On evaluation, it was felt that he was most likely postictal from a seizure.a noncontrast head CT at that time reported no acute intracranial abnormality. The following morning around 4:30 AM he had a witnessed clonic seizure. He was taken to the emergency room and treated with IV Ativan. On a repeat PET/CT the brain volume appeared greater than typical, raising a question of cerebral edema. With that finding, he was transferred to [facility] for further management. Subsequent brain MRI showed no evidence of acute infarction, hemorrhage, or parenchymal mass lesion. Spinal tap showed just slightly elevated CSF protein of 46 mg/dL. Cell count showed 2 WBC, both lymphocytes, and 1 RBC. A cytology report was not provided. His CBC at that time did show elevated white count at 21,600 with the differential showing 43% neutrophils, 43% lymphocytes, 8% monocytes, and 4% eosinophils. The hemoglobin was borderline at 12.5 g with hematocrit 38.3%. The platelet count was normal at 187,000. His comprehensive metabolic profile was unremarkable. He was discharged home on Keppra. As of his followup visit on 09/05/2018 he was still having some cognitive dysfunction and he complained that he was awfully sore. His repeat CBC on 09/08/2018 showed only slightly increased white blood cell count at 14,000 with hemoglobin borderline at 12.7 g and platelet count normal at 182,000. Subsequent to that visit, he had neurology consultation with Dr. Jaya Gamble in [place]. He continued on treatment with Keppra 1000 mg twice a day. On 12/24/2018 he had another seizure. His Keppra dosage was increased to 1500 mg twice a day, but later adjusted to 1000 mg in the morning and 1500 mg in the evening. He continued to complain of having a bad headache above his right eye, and he then developed double vision. He was seen by Dr. Londono on 01/23/2019. 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 He was then seen by Dr. Evans, and he had further evaluation with a noncontrast head CT scan. 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 There were no other acute findings. I had seen him for a follow-up visit on 01/26/2018. A repeat brain MRI at [facility] on 01/28/2019 showed no evidence of an acute intracranial process. He subsequently had a follow-up visit with Dr. Jaya Gamble, and it was felt that he was likely suffering from diabetic mononeuropathy. He was treated with gabapentin, and his symptoms gradually improved. He continued observation/expectant management for the chronic lymphocytic leukemia. His other medical illnesses include hypertension, hyperlipidemia, type 2 diabetes, and GERD. He also degenerative arthritis, and he has had chronic back pain following a previous back injury. On 06/08/2019 he underwent left total knee arthroplasty. He experienced no complications with the procedure. He is a nonsmoker. INTERIM HISTORY: He had subsequently continued his follow-up here at 3-6 month intervals. As of his visit on 10/17/2020 there is no obvious progression of the CLL, and he continued expectant management. However, during that time he had ongoing issues with seizures. He ultimately sought treatment at [facility] in [place]. He was hospitalized there for a week in January. He is now scheduled to be seen there for follow-up in April. He says he has not been feeling good generally. He has been tired a lot and he has had a decrease in his activity tolerance. His ECOG score is 2. He has good appetite, and he has gained weight. At least some of that is due to being less active. He does not have fever or night sweats. He reports having clear sinus drainage. He has some associated cough. He does not complain of shortness of breath or chest pain. He has no GI/ complaints other than occasional heartburn. He has his normal back pain. He does not complain of headache. He tends to feel lightheaded, somewhat like his head is in a cloud. His notes that his memory is getting worse. He has numbness in his right hand associated with carpal tunnel syndrome. He has no other focal neurologic symptoms. Medications: Allopurinol 1 Tablet (of 300 mg) Oral daily, AmLODIPine Besylate 1 (10 mg) Tablet Oral daily, Aspirin 1 Tablet (of 325 mg) Tablet, enteric coated Oral daily, Atorvastatin Calcium 1 (40 mg) Tablet Oral at bedtime, Benadryl Allergy 1 Tablet (of 25 mg) Oral daily, Depakote ER 3 Tablet (of 500 mg) Tablet SR 24 HR Oral at bedtime, GlipiZIDE 1 Tablet (of 10 mg) Oral daily, Hydrochlorothiazide 1 (25 mg) Tablet Oral daily, Keppra 1 Tablet (of 500 mg) Oral b.i.d., Lantus 90 (100 Units/mL) Subcutaneous b.i.d., Lisinopril 1 (40 mg) Tablet Oral daily, Loratadine 1 Tablet (of 10 mg) Oral daily PRN, Multivitamin Men 50+ 1 Tablet Oral daily, NovoLOG 15 (100 Units/mL) Subcutaneous t.i.d., Omeprazole 1 (40 ) Capsule Delayed Release Oral daily, Oxycodone-Acetaminophen 1 (5-325 mg) Tablet Oral t.i.d. PRN, Zonisamide (100 mg) Capsule Oral Take as Directed Allergies: No Known Allergies. Vital Signs: Performed on March 27, 2021 09:36 Height - 70.00 in Weight - 335.8 lbs (HIGH) BSA - 2.60 sq.m BMI - 48.18 (HIGH) Temperature - 98.1 F (LOW) Pulse - 83 /min Respiration - 18 /min BP - 128/77 mm(hg) O2 Sat - 98 % Pain - 5 Fatigue - 0 Physical Examination: Constitutional - He looks pretty good generally, Eyes - Sclerae nonicteric. Conjunctivae clear, ENMT - No lesions noted in the oral cavity, Hematologic/Lymphatic - No cervical, clavicular, or axillary adenopathy, Respiratory - Lungs sound clear with some decrease in air movement bilaterally, Cardiovascular - Heart rhythm is regular. There is no murmur, gallop, or rub noted, Abdomen - Moderately distended. Liver and spleen are not enlarged. There is no abdominal mass or ascites noted and there is no inguinal adenopathy, Extremities - No edema, Neurologic - No focal neurologic deficits noted. Lab/Imaging: Test performed on March 27, 2021 08:20 Ferritin 341 ng/mL Iron 55 mcg/dL LDH (Total) 207 U/L Sodium 141 mmol/L TSH 2.43 uIU/mL Vitamin B12 666 pg/mL Iron Binding Capacity (TIBC) 250 mcg/dl Potassium 3.3 mmol/L % Iron Saturation 22.0 % Chloride 104 mmol/L CO2 27 mmol/L UIBC 195 mcg/dL Anion Gap 13.3 BUN 20 mg/dL Creatinine 1.5 mg/dL Cr Clearance (Est) 111.1300 mL/min eGFR 48.4 mL/min Glucose 66 mg/dL Osmolality - Calculated 293 mOsm/kg Calcium 8.4 mg/dL Protein, Total 6.1 g/dL Albumin 3.9 g/dL Globulin 2.2 g/dL Bilirubin, Total 0.3 mg/dL ALT (SGPT) 31 U/L AST (SGOT) 19 U/L Alkaline Phosphatase 70 IU/L WBC 13.2 10 3/uL RBC 4.36 10 6/uL HGB 12.7 g/dL HCT 39.4 % MCV 90.4 fL MCH 29.1 pg MCHC 32.2 g/dL RDW 14.1 % Platelet Count 151 10 3/cmm MPV 11.0 fL Neutrophils 4.42 10 3/uL Lymphocytes 7.1 10 3/uL Monocytes 0.9 10 3/uL Eosinophils 0.5 10 3/uL Basophils 0.1 10 3/uL Neutrophil % 33.6 % Lymphocyte % 54.1 % Monocyte % 7.1 % Eosinophil % 4.0 % Basophils % 0.6 % NRBC % 0 % Problem List: 1. Chronic lymphocytic leukemia, initially diagnosed in 2002 and managed with observation. 2. Hypertension. 3. Hyperlipidemia. 4. Type II diabetes. 5. Chronic kidney disease. 6. GERD. 7. Degenerative arthritis/degenerative disease of the spine. 8. In March 2018 he required treatment for iron deficiency anemia. 9. In August 2018 he had presented with new onset of epilepsy, presumed idiopathic. Problems Addressed with this Encounter and Plan: Patient with chronic lymphocytic leukemia. His disease was Holcomb stage I at initial diagnosis in 2002, and he was managed with observation. He ultimately did have treatment with 6 cycles of fludarabine/Rituxan, completed in March 2009. At that time he still appeared to have early stage disease, but he had become symptomatic. He had a very good clinical response. He has since then continued on expectant management. During follow-up he has had ongoing problems associated with the seizure disorder and he has been showing decline in his performance status. It is uncertain to what extent that decline may be related to the underlying CLL. Recently has been showing some increase in his lymphocyte count, but there has been no other evidence of progression of the CLL, and it is extremely unlikely that he would have associated [employer] involvement. At least for now he will remain on observation/expectant management. I will see him again in 3 months, or sooner as needed. Signed By: Kumar Kirkland M.D. <<Signature on File>>
== END 2021-03-27 08:05 | disposition home or self-care (01) ==
LOC: ONCMED 08:08
PROVIDERS: PCP Internal Medicine; Visit Provider Internal Medicine Medical Oncology
DX: Z08 Encounter for follow-up examination after completed treatment for malignant neoplasm (principal); C91.11 Chronic lymphocytic leukemia of B-cell type in remission; I10 Essential (primary) hypertension; E78.5 Hyperlipidemia, unspecified; E11.22 Type 2 diabetes mellitus with diabetic chronic kidney disease; N18.9 Chronic kidney disease, unspecified; K21.9 Gastro-esophageal reflux disease without esophagitis; M47.9 Spondylosis, unspecified; D50.9 Iron deficiency anemia, unspecified; G40.909 Epilepsy, unspecified, not intractable, without status epilepticus; Z79.899 Other long term (current) drug therapy; Z92.21 Personal history of antineoplastic chemotherapy
CPT/HCPCS: 36591; 80053; 82607; 82728; 83540; 83550; 83615; 84443; 85025; 99214

== ENCOUNTER 2021-05-01 14:57 | Outpatient (CLI) | payer MEDICARE, SELFPAY | END 2021-05-01 14:58 | disposition home or self-care (01) | LOC: ONCMED 15:00 | PROVIDERS: PCP Internal Medicine; Visit Provider Nurse Practitioner | DX: Z45.2 Encounter for adjustment and management of vascular access device (principal) | CPT/HCPCS: 96523 ==

== ENCOUNTER 2021-05-03 14:36 | Outpatient (CLI) | payer MEDICARE, SELFPAY ==
[2021-05-03 16:03] LABS: Basophils # 0.1 10^3/uL (0.0-0.1); Basophils % 0.5 %; Eosinophils # 0.3 10^3/uL (0.0-0.8); Eosinophils % 3.3 %; Hematocrit 38.4 % (42.0-52.0); Hemoglobin 12.5 g/dL (11.7-16.6); Lymphocytes # 4.1 10^3/uL (0.8-4.8); Lymphocytes % 40.8 %; Mean Corpuscular HGB Conc 32.6 g/dL (30.0-36.0); Mean Corpuscular Hemoglobin 29.3 pg (28.0-34.0); Mean Corpuscular Volume 89.9 fL (80-94); Mean Platelet Volume 11.4 fL (7.4-10.4); Monocytes # 0.8 10^3/uL (0.2-0.9); Monocytes % 8.1 %; Neutrophils % 46.4 %; Nucleated Red Blood Cells % 0 %; Platelet Count 119 10^3/cmm (130-400); Positive M 1; Red Blood Count 4.27 10^6/uL (4.1-5.3); Red Cell Distribution Width 14.2 % (12.1-15.1); White Blood Count 10.1 10^3/uL (4.0-10.0)
[2021-05-03 16:47] LABS: Alanine Aminotransferase 22 U/L (0-41); Albumin Level 3.8 g/dL (3.5-5.2); Alkaline Phosphatase 67 IU/L (40-130); Anion Gap 13.7 (5-19); Aspartate Amino Transferase 18 U/L (0-40); Blood Urea Nitrogen 21 mg/dL (6-20); Calcium 8.6 mg/dL (8.5-10.5); Carbon Dioxide 26 mmol/L (22-29); Chloride 101 mmol/L (98-107); Ferritin 387 ng/mL (30-400); Globulin 2.2 g/dL (1.3-4.6); Glomerular Filtration Rate 48.4 mL/min (90-130); Glucose 187 mg/dL (65-115); Iron 48 ug/dL (59-158); Osmolality Calculated 292 mOsm/kg (285-295); Percent Saturation 18.8 % (20-50); Potassium 3.7 mmol/L (3.5-5.1); Sodium 137 mmol/L (136-145); Total Bilirubin 0.3 mg/dL (0.15-1.2); Total Iron Binding Capacity 255 mcg/dl; Unsaturated Iron Binding 207 ug/dL (112-347)
[2021-05-03 16:58] LABS: Slide Review Slide Review Perform
[2021-05-03 20:00] LABS: Folate Level 12.1 ng/mL (4.5-32.2)
== END 2021-05-03 14:37 | disposition home or self-care (01) ==
LOC: ONCMED 14:37
PROVIDERS: PCP Internal Medicine; Visit Provider Internal Medicine Medical Oncology
DX: C91.10 Chronic lymphocytic leukemia of B-cell type not having achieved remission (principal); D50.9 Iron deficiency anemia, unspecified; Z79.899 Other long term (current) drug therapy
CPT/HCPCS: 36591; 80053; 82728; 82746; 83540; 83550; 85025

== ENCOUNTER 2021-05-30 15:23 | Outpatient (CLI) | payer MEDICARE, SELFPAY | END 2021-05-30 15:24 | disposition home or self-care (01) | LOC: ONCMED 15:25 | PROVIDERS: PCP Internal Medicine; Visit Provider Nurse Practitioner | DX: Z45.2 Encounter for adjustment and management of vascular access device (principal) | CPT/HCPCS: 96523 ==

== ENCOUNTER 2021-07-12 12:31 | Outpatient (CLI) | payer MEDICARE, SELFPAY ==
[2021-07-12 13:32] LABS: Basophils # 0.1 10^3/uL (0.0-0.1); Basophils % 0.4 %; Eosinophils # 0.4 10^3/uL (0.0-0.8); Eosinophils % 3.8 %; Hemoglobin 12.1 g/dL (11.7-16.6); Lymphocytes # 4.9 10^3/uL (0.8-4.8); Lymphocytes % 42.2 %; Mean Corpuscular HGB Conc 31.8 g/dL (30.0-36.0); Mean Corpuscular Hemoglobin 28.9 pg (28.0-34.0); Mean Corpuscular Volume 90.9 fl (80-94); Mean Platelet Volume 11.3 fL (7.4-10.4); Monocytes # 0.7 10^3/uL (0.2-0.9); Monocytes % 6.2 %; Neutrophils # 5.44 10^3/uL (1.8-7.7); Neutrophils % 46.4 %; Nucleated Red Blood Cells % 0 %; Platelet Count 142 10^3/cmm (130-400); Red Blood Count 4.18 10^6/uL (4.1-5.3); Red Cell Distribution Width 14.6 % (12.1-15.1); White Blood Count 11.7 10^3/uL (4.0-10.0)
[2021-07-12 13:54] LABS: Alanine Aminotransferase 27 U/L (0-41); Albumin Level 3.6 g/dL (3.5-5.2); Alkaline Phosphatase 73 IU/L (40-130); Anion Gap 13.8 (5-19); Aspartate Amino Transferase 18 U/L (0-40); Blood Urea Nitrogen 25 mg/dL (6-20); Calcium 8.4 mg/dL (8.5-10.5); Carbon Dioxide 26 mmol/L (22-29); Chloride 101 mmol/L (98-107); Globulin 2.4 g/dL (1.3-4.6); Glomerular Filtration Rate 48.4 mL/min (90-130); Glucose 150 mg/dL (65-115); Lactate Dehydrogenase 160 U/L (135-225); Osmolality Calculated 291 mOsm/kg (285-295); Potassium 3.8 mmol/L (3.5-5.1); Sodium 137 mmol/L (136-145); Total Bilirubin 0.2 mg/dL (0.15-1.2)
--- NOTE | 2021-07-12 19:56 | ONC FU_ITS ---
Dr. Kirkland Patient Follow-Up Note Patient: Panda Rivera Unit #: [id number]: [id number] Dicatated By: Kumar Kirkland M.D.Date of Visit:Jul 12, 2021 Onc Med Follow-up/Prog Note Chief Complaint: Chronic lymphocytic leukemia. History of Present Illness: This is a 56 year-old man with chronic lymphocytic leukemia. The leukemia was diagnosed in March of 2003. He appeared to have Holcomb stage I disease, and he was initially managed with observation. Between August of 2008 and March of 2009 he was treated with 6 cycles of fludarabine/Rituxan. At that time his objective parameters did not meet usual criteria for treatment, but he had experienced a significant decline in performance status which appeared to be disease related. He did show a good clinical response, and he was then followed on observation. I had seen him for a follow-up visit in October 2015. At that time, his performance status appeared to be declining, and he also appeared to have some small cervical lymph nodes bilaterally. He also had shown a slight increase in his lymphocyte count. He underwent upper GI endoscopy and colonoscopy on 11/11/2015. The upper endoscopy showed mild esophagitis. There was moderate localized inflammation in the gastric body with a single ulcer present. There was a chronic appearing ulcer in the antrum. There was moderate patchy inflammation in the duodenal bulb with a few superficial benign-appearing ulcers. All the biopsies were benign, and the CLOtest was negative. He was found to have a rectal polyp on colonoscopy. It was removed endoscopically. There were no other abnormal findings. Pathology showed hyperplastic polyp. He had staging CT scans of the chest/abdomen/pelvis in November 2015. The most significant finding was the presence of bilateral lower lung zone bronchial wall thickening with scattered tree-in-bud nodular opacities. The primary consideration was atypical pneumonia or aspiration pneumonitis. There were slightly enlarged subcarinal lymph nodes which appeared reactive. Left axillary and left hilar adenopathy was unchanged compared to July 2008. There was no adenopathy in the abdomen/pelvis region. He underwent bronchoscopy on 12/30/2015. It showed generalized edema and endobronchial thickening throughout the tracheobronchial tree. There were no discrete endobronchial lesions identified. Transbronchial biopsy showed benign bronchial mucosa/submucosa with reactive lymphoid hyperplasia. All of the microbiology studies were negative. Given those findings he had just remained on observation/expectant management. In August 2018 he was taken to the emergency room after he had been found unresponsive at home. On evaluation, it was felt that he was most likely postictal from a seizure. A noncontrast head CT at that time reported no acute intracranial abnormality. The following morning around 4:30 AM he had a witnessed clonic seizure. He was taken to the emergency room and transferred to [facility] for further management. Subsequent brain MRI showed no evidence of acute infarction, hemorrhage, or parenchymal mass lesion. Spinal tap showed just slightly elevated CSF protein of 46 mg/dL. Cell count showed 2 WBC, both lymphocytes, and 1 RBC. A cytology report was not provided. His CBC at that time did show elevated white count at 21,600 with the differential showing 43% neutrophils, 43% lymphocytes, 8% monocytes, and 4% eosinophils. The hemoglobin was borderline at 12.5 g with hematocrit 38.3%. The platelet count was normal at 187,000. His comprehensive metabolic profile was unremarkable. He was discharged home on Keppra. During subsequent follow-up he had further seizures, requiring changes in his medication regimen. 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 A repeat brain MRI at [facility] on 01/28/2019 showed no evidence of an acute intracranial process. Ultimately it was felt to be due to diabetic mononeuropathy. He was treated with gabapentin, and his symptoms gradually improved. He continued observation/expectant management for the chronic lymphocytic leukemia. His other medical illnesses include hypertension, hyperlipidemia, type 2 diabetes, and GERD. He also degenerative arthritis, and he has had chronic back pain following a previous back injury. On 06/08/2019 he underwent left total knee arthroplasty. He experienced no complications with the procedure. He is a nonsmoker. INTERIM HISTORY: As of his visit here on 10/17/2020 there was no obvious progression of the CLL, and he continued expectant management. However, he had ongoing issues with seizures, and he then began treatment for it at [facility] in [place]. In May 2021 he was diagnosed with COVID-19 virus infection. He had pretty mild symptoms, and he recovered uneventfully. He is seen for a follow-up visit. He says his energy is bad. He feels tired and worn out, and he has very limited activity. He has been feeling that way, though, even before the COVID-19 infection. His ECOG score is 2. He has good appetite. He does appear to be gaining weight. He is not having fever now, and he does not complain of night sweating. He has a lot of sinus drainage. He has just a little bit of cough. He does not complain of shortness of breath or chest pain. He has no GI complaints. He has frequent urination. He does have a lot of joint pain, and he also has chronic back pain. He does not complain of headache. He does have some dizziness. He has numbness/tingling in his right hand. He has easy bruising and his says that he also bleeds very easily from minor cuts. Medications: Allopurinol 1 Tablet (of 300 mg) Oral daily, AmLODIPine Besylate 1 (10 mg) Tablet Oral daily, Aspirin 1 Tablet (of 325 mg) Tablet, enteric coated Oral daily, Atorvastatin Calcium 1 (40 mg) Tablet Oral at bedtime, Benadryl Allergy 1 Tablet (of 25 mg) Oral daily, Depakote ER 3 Tablet (of 500 mg) Tablet SR 24 HR Oral at bedtime, GlipiZIDE 1 Tablet (of 10 mg) Oral daily, Hydrochlorothiazide 1 (25 mg) Tablet Oral daily, Keppra 1 Tablet (of 500 mg) Oral b.i.d., Lantus 90 (100 Units/mL) Subcutaneous b.i.d., Lisinopril 1 (40 mg) Tablet Oral daily, Loratadine 1 Tablet (of 10 mg) Oral daily PRN, Multivitamin Men 50+ 1 Tablet Oral daily, NovoLOG 15 (100 Units/mL) Subcutaneous t.i.d., Omeprazole 1 (40 ) Capsule Delayed Release Oral daily, Oxycodone-Acetaminophen 1 (5-325 mg) Tablet Oral t.i.d. PRN, Zonisamide (100 mg) Capsule Oral Take as Directed Allergies: No Known Allergies. Vital Signs: Performed on Jul 12, 2021 14:22 Height - 70.00 in Weight - 334.4 lbs (LOW) BSA - 2.60 sq.m BMI - 47.98 (HIGH) Temperature - 98.6 F Pulse - 98 /min Respiration - 18 /min BP - 150/81 mm(hg) (HIGH) O2 Sat - 98 % Pain - 5 Fatigue - 7 Physical Examination: Constitutional - He looks pretty good generally, Eyes - Sclerae nonicteric. Conjunctivae clear, ENMT - No lesions noted in the oral cavity, Hematologic/Lymphatic - No cervical, clavicular, or axillary adenopathy, Respiratory - Lungs sound clear, Cardiovascular - Heart rhythm is regular. There is no murmur, gallop, or rub noted, Abdomen - Moderately distended. Liver and spleen are not enlarged. There is no abdominal mass or ascites noted and there is no inguinal adenopathy, Extremities - Slight edema, Neurologic - No focal neurologic deficits noted. Lab/Imaging: Test performed on Jul 12, 2021 12:53 LDH (Total) 160 U/L Sodium 137 mmol/L Potassium 3.8 mmol/L Chloride 101 mmol/L CO2 26 mmol/L Anion Gap 13.8 BUN 25 mg/dL Creatinine 1.5 mg/dL Cr Clearance (Est) 111.1300 mL/min eGFR 48.4 mL/min Glucose 150 mg/dL Osmolality - Calculated 291 mOsm/kg Calcium 8.4 mg/dL Protein, Total 6.0 g/dL Albumin 3.6 g/dL Globulin 2.4 g/dL Bilirubin, Total 0.2 mg/dL ALT (SGPT) 27 U/L AST (SGOT) 18 U/L Alkaline Phosphatase 73 IU/L WBC 11.7 10 3/uL RBC 4.18 10 6/uL HGB 12.1 g/dL HCT 38.0 % MCV 90.9 fl MCH 28.9 pg MCHC 31.8 g/dL RDW 14.6 % Platelet Count 142 10 3/cmm MPV 11.3 fL Neutrophils 5.44 10 3/uL Lymphocytes 4.9 10 3/uL Monocytes 0.7 10 3/uL Eosinophils 0.4 10 3/uL Basophils 0.1 10 3/uL Neutrophil % 46.4 % Lymphocyte % 42.2 % Monocyte % 6.2 % Eosinophil % 3.8 % Basophils % 0.4 % NRBC % 0 % Problem List: 1. Chronic lymphocytic leukemia, initially diagnosed in 2002 and managed with observation. 2. Hypertension. 3. Hyperlipidemia. 4. Type II diabetes. 5. Chronic kidney disease. 6. GERD. 7. Degenerative arthritis/degenerative disease of the spine. 8. In March 2018 he required treatment for iron deficiency anemia. 9. In August 2018 he had presented with new onset of epilepsy, presumed idiopathic. Problems Addressed with this Encounter and Plan: Patient with chronic lymphocytic leukemia. His disease was Holcomb stage I at initial diagnosis in 2002, and he was managed with observation. He ultimately did have treatment with 6 cycles of fludarabine/Rituxan, completed in March 2009. At that time he still appeared to have early stage disease by objective parameters, but he had become symptomatic. He had a very good clinical response. He has since continued expectant management. During follow-up he has had ongoing problems associated with the seizure disorder. He is now receiving treatment for it through [facility]. He also has been showing gradual decline in his performance status. It is uncertain to what extent any of that may be due to the chronic lymphocytic leukemia. At this point he will be scheduled for restaging CT scans of the chest, abdomen, and pelvis. In the absence of any objective evidence of disease progression, I will just continue with expectant management for the CLL. Signed By: Kumar Kirkland M.D. <<Signature on File>>
== END 2021-07-12 12:32 | disposition home or self-care (01) ==
LOC: ONCMED 12:33
PROVIDERS: PCP Internal Medicine; Visit Provider Internal Medicine Medical Oncology
DX: C91.10 Chronic lymphocytic leukemia of B-cell type not having achieved remission (principal); G40.909 Epilepsy, unspecified, not intractable, without status epilepticus
CPT/HCPCS: 36591; 80053; 83615; 85025; 99214

== ENCOUNTER 2021-07-27 12:35 | Outpatient (CLI) | payer MEDICARE, SELFPAY ==
--- NOTE | 2021-07-27 12:39 | CT_ITS ---
WS: [id number] CT CHEST, ABDOMEN, AND PELVIS TECHNIQUE: Contrast-enhanced CT of the chest, abdomen, and pelvis with coronal and sagittal reformatt ed images. CLINICAL INFORMATION: CLL COMPARISON: CT September 25, 2016 and November 2015. DLP: 3543.[address] scans at [facility] use at least one of these dose optimization techniques: automated e xposure control; mA and/or kV adjustment per patient size (includes targeted exams where dose is matc hed to clinical indication); or iterative reconstruction. CT CHEST: Both lungs are well aerated. No acute pulmonary infiltrates. No focal pneumonia or pleural fluid. No suspicious pulmonary parenchymal opacities. Calcified granuloma left lower lobe. Numerous prominent bilateral axillary lymph nodes most with pres erved fatty gato. Largest on the right measures 14 mm. These are slightly progressed compared to 2016 . Normal caliber thoracic aorta. 4 mm noncalcified pulmonary nodules right lower lobe and right upper lobe unchanged since 2016. No ne w suspicious pulmonary parenchymal opacities. CT ABDOMEN AND PELVIS: Hepatomegaly. Diffuse fatty infiltration the liver. Normal gallbladder. Normal portal vein and spleni c vein. Small esophageal hiatal hernia. Normal spleen. Small splenule. Normal pancreas. Enlarged lymp h nodes along the adriana hepatis the largest measuring 10 to 11 mm in short axis dimension. These have progressed since 2016 CT. Numerous and a few enlarged left periaortic lymph nodes also progressed si nce 2016 largest measuring 11 x 15 mm. Additional shotty periaortic lymph nodes. Prominent bilateral common iliac lymph nodes measuring up to 10-11 mm. Numerous and prominent bilater al inguinal lymph nodes some with preserved fatty gato. The largest measuring 14-16 mm. Inguinal lymp h nodes progressed since 2016 Normal sigmoid colon. No evidence of small or large bowel obstruction. No free fluid in the pelvis. E nlarged lymph nodes along the central mesentery and right lower quadrant. Hypertrophic changes thorac ic spine. Disc osteophyte complexes L4-L5 and L5-S1. CT/CT chest abd pel w con* IMPRESSION: 1. No acute pulmonary infiltrates. Two stable 4 mm right upper and right lower lobe pulmonary nodules unchanged since 2016 2. Prominent bilateral axillary lymph nodes some with preserved fatty gato. La rgest axillary lymph node on the right measures 13 mm. 3. Prominent left AP window lymph node measuring 10 mm. 4. Enlarged lymph nodes in the adriana hepatis progressed since 2016. 5. Numerous periaortic lymph nodes a few of which are pathologically enlarged largest measuring 11 x 15 mm. 6. Slightly enlarged bilateral common iliac lymph nodes measuring up to 10-11 mm 7. Slightly enlarged bilateral inguinal lymph nodes some with preserved fatty gato. Largest lymph nodes on the left measuring 14-16 mm.
[2021-07-27] MEDS: iohexol 300 mg/mL 50 mL Btl PO (12:40)
[2021-07-27] MEDS: iodixanol 320 mg/mL 100mL Btl IV (14:11)
== END 2021-07-27 12:36 | disposition home or self-care (01) ==
PROVIDERS: PCP Internal Medicine; Visit Provider Internal Medicine Medical Oncology
DX: C91.10 Chronic lymphocytic leukemia of B-cell type not having achieved remission (principal); R91.8 Other nonspecific abnormal finding of lung field; R59.0 Localized enlarged lymph nodes
CPT/HCPCS: 71260; 74177; Q9967

== ENCOUNTER 2021-08-17 14:10 | Outpatient (CLI) | payer MEDICARE, SELFPAY ==
[2021-08-17 14:58] LABS: Basophils # 0.1 10^3/uL (0.0-0.1); Basophils % 0.4 %; Eosinophils # 0.4 10^3/uL (0.0-0.8); Eosinophils % 3.1 %; Lymphocytes # 3.8 10^3/uL (0.8-4.8); Lymphocytes % 29.6 %; Mean Corpuscular HGB Conc 31.6 g/dL (30.0-36.0); Mean Corpuscular Volume 91.8 fl (80-94); Mean Platelet Volume 11.2 fL (7.4-10.4); Monocytes # 0.6 10^3/uL (0.2-0.9); Neutrophils # 7.75 10^3/uL (1.8-7.7); Nucleated Red Blood Cells % 0 %; Platelet Count 122 10^3/cmm (130-400); Red Blood Count 4.14 10^6/uL (4.1-5.3); Red Cell Distribution Width 15.2 % (12.1-15.1); White Blood Count 12.7 10^3/uL (4.0-10.0)
[2021-08-17 15:41] LABS: Alanine Aminotransferase 34 U/L (0-41); Albumin Level 3.8 g/dL (3.5-5.2); Alkaline Phosphatase 71 IU/L (40-130); Aspartate Amino Transferase 27 U/L (0-40); Blood Urea Nitrogen 25 mg/dL (6-20); Calcium 9.5 mg/dL (8.5-10.5); Carbon Dioxide 25 mmol/L (22-29); Chloride 100 mmol/L (98-107); Ferritin 447 ng/mL (30-400); Globulin 2.4 g/dL (1.3-4.6); Glomerular Filtration Rate 48.4 mL/min (90-130); Glucose 264 mg/dL (65-115); Iron 56 ug/dL (59-158); Lactate Dehydrogenase 184 U/L (135-225); Osmolality Calculated 300 mOsm/kg (285-295); Percent Saturation 19.6 % (20-50); Sodium 138 mmol/L (136-145); Total Bilirubin 0.2 mg/dL (0.15-1.2); Total Iron Binding Capacity 285 mcg/dl; Total Protein 6.2 g/dL (6.6-8.7); Unsaturated Iron Binding 229 ug/dL (112-347)
--- NOTE | 2021-08-18 06:48 | ONC FU_ITS ---
Dr. Kirkland Patient Follow-Up Note Patient: Panda Rivera Unit #: [id number]: 1965 Dicatated By: Kumar Kirkland M.D.Date of Visit:Aug 17, 2021 Onc Med Follow-up/Prog Note Chief Complaint: Chronic lymphocytic leukemia. History of Present Illness: This is a 56 year-old man with chronic lymphocytic leukemia. The leukemia was diagnosed in March of 2003. He appeared to have Holcomb stage I disease, and he was initially managed with observation. Between August of 2008 and March of 2009 he was treated with 6 cycles of fludarabine/Rituxan. At that time his objective parameters did not meet usual criteria for treatment, but he had experienced a significant decline in performance status which appeared to be disease related. He did show a good clinical response, and he was then followed on observation. I had seen him for a follow-up visit in October 2015. At that time, his performance status appeared to be declining, and he also appeared to have some small cervical lymph nodes bilaterally. He also had shown a slight increase in his lymphocyte count. He underwent upper GI endoscopy and colonoscopy on 11/11/2015. The upper endoscopy showed mild esophagitis. There was moderate localized inflammation in the gastric body with a single ulcer present. There was a chronic appearing ulcer in the antrum. There was moderate patchy inflammation in the duodenal bulb with a few superficial benign-appearing ulcers. All the biopsies were benign, and the CLOtest was negative. He was found to have a rectal polyp on colonoscopy. It was removed endoscopically. There were no other abnormal findings. Pathology showed hyperplastic polyp. He had staging CT scans of the chest/abdomen/pelvis in November 2015. The most significant finding was the presence of bilateral lower lung zone bronchial wall thickening with scattered tree-in-bud nodular opacities. The primary consideration was atypical pneumonia or aspiration pneumonitis. There were slightly enlarged subcarinal lymph nodes which appeared reactive. Left axillary and left hilar adenopathy was unchanged compared to July 2008. There was no adenopathy in the abdomen/pelvis region. He underwent bronchoscopy on 12/30/2015. It showed generalized edema and endobronchial thickening throughout the tracheobronchial tree. There were no discrete endobronchial lesions identified. Transbronchial biopsy showed benign bronchial mucosa/submucosa with reactive lymphoid hyperplasia. All of the microbiology studies were negative. Given those findings he had just remained on observation/expectant management. In August 2018 he was taken to the emergency room after he had been found unresponsive at home. On evaluation, it was felt that he was most likely postictal from a seizure. A noncontrast head CT at that time reported no acute intracranial abnormality. The following morning around 4:30 AM he had a witnessed clonic seizure. He was taken to the emergency room and transferred to [facility] for further management. Subsequent brain MRI showed no evidence of acute infarction, hemorrhage, or parenchymal mass lesion. Spinal tap showed just slightly elevated CSF protein of 46 mg/dL. Cell count showed 2 WBC, both lymphocytes, and 1 RBC. A cytology report was not provided. His CBC at that time did show elevated white count at 21,600 with the differential showing 43% neutrophils, 43% lymphocytes, 8% monocytes, and 4% eosinophils. The hemoglobin was borderline at 12.5 g with hematocrit 38.3%. The platelet count was normal at 187,000. His comprehensive metabolic profile was unremarkable. He was discharged home on Keppra. During subsequent follow-up he had further seizures, requiring changes in his medication regimen. 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 A repeat brain MRI at [facility] on 01/28/2019 showed no evidence of an acute intracranial process. Ultimately it was felt to be due to diabetic mononeuropathy. He was treated with gabapentin, and his symptoms gradually improved. He continued, though, to have issues with the seizure disorder, and he has since then been undergoing evaluation at [facility]. He has continued expectant management for the chronic lymphocytic leukemia. His other medical illnesses include hypertension, hyperlipidemia, type 2 diabetes, and GERD. He also degenerative arthritis, and he has had chronic back pain following a previous back injury. On 06/08/2019 he underwent left total knee arthroplasty. He experienced no complications with the procedure. He is a nonsmoker. INTERIM HISTORY: In May 2021 he was diagnosed with COVID-19 virus infection. He had pretty mild symptoms, and he recovered uneventfully. Restaging CT scans of the chest, abdomen, and pelvis on 07/27/2021 showed prominent axillary lymph nodes bilaterally, some with preserved fatty agto and the largest measuring 13 mm on the right. Also noted were prominent left AP window lymph nodes, enlarged adriana hepatis lymph nodes, numerous periaortic lymph nodes measuring up to 11 x 15 mm, slightly enlarged bilateral common iliac lymph nodes measuring up to 11 mm, and slightly enlarged bilateral inguinal lymph nodes, the largest on the left measuring up to 16 mm. Two small nodules in the right lung measuring 4 mm appeared unchanged dating back to 2015. He is seen for a follow-up visit. He continues to the complain that he feels worn out and tired. He feels drained after any activity. His says he is not sleeping well at night. His ECOG score is 2. His appetite has been okay. He has had low-grade fever off and on, in the range of 100 to 101 degrees. He does not have night sweating. He sometimes gets cold or clammy. He has a lot of sinus drainage and he has some cough associated with it. He has not had sore mouth or throat. He does not complain of shortness of breath or chest pain. For the past couple of months his stomach has been bothering him with occasional episodes of vomiting. He also has sometimes had diarrhea. He has frequent urination. He has generalized aching along with chronic back pain. He does not complain of headache. He sometimes has dizziness. He has numbness in his right hand and in his left foot. Medications: Allopurinol 1 Tablet (of 300 mg) Oral daily, AmLODIPine Besylate 1 (10 mg) Tablet Oral daily, Aspirin 1 Tablet (of 325 mg) Tablet, enteric coated Oral daily, Atorvastatin Calcium 1 (40 mg) Tablet Oral at bedtime, Benadryl Allergy 1 Tablet (of 25 mg) Oral daily, Depakote ER 3 Tablet (of 500 mg) Tablet SR 24 HR Oral at bedtime, GlipiZIDE 1 Tablet (of 10 mg) Oral daily, Hydrochlorothiazide 1 (25 mg) Tablet Oral daily, Keppra 1 Tablet (of 500 mg) Oral b.i.d., Lantus 90 (100 Units/mL) Subcutaneous b.i.d., Lisinopril 1 (40 mg) Tablet Oral daily, Loratadine 1 Tablet (of 10 mg) Oral daily PRN, Multivitamin Men 50+ 1 Tablet Oral daily, NovoLOG 15 (100 Units/mL) Subcutaneous t.i.d., Omeprazole 1 (40 ) Capsule Delayed Release Oral daily, Oxycodone-Acetaminophen 1 (5-325 mg) Tablet Oral t.i.d. PRN, Zonisamide (100 mg) Capsule Oral Take as Directed Allergies: No Known Allergies. Vital Signs: Performed on Aug 17, 2021 16:06 Height - 70.00 in Weight - 331.2 lbs (LOW) BSA - 2.59 sq.m BMI - 47.52 (HIGH) Temperature - 99.9 F (HIGH) Pulse - 111 /min (HIGH) Respiration - 18 /min BP - 145/88 mm(hg) (HIGH) O2 Sat - 95 % (LOW) Pain - 4 Fatigue - 5 Physical Examination: Constitutional - He looks pretty good generally, Eyes - Sclerae nonicteric. Conjunctivae clear, ENMT - No lesions noted in the oral cavity, Hematologic/Lymphatic - There are small posterior cervical nodes palpable bilaterally. I do not feel any clavicular or axillary adenopathy, Respiratory - Lungs sound clear, Cardiovascular - Heart rhythm is regular. There is no murmur, gallop, or rub noted, Abdomen - Moderately distended. Liver and spleen are not enlarged. There is no abdominal mass or ascites noted and there is no inguinal adenopathy, Extremities - There is mild edema. Dorsalis pedis pulses are palpable bilaterally, Neurologic - No focal neurologic deficits noted. Lab/Imaging: Test performed on Aug 17, 2021 14:48 Ferritin 447 ng/mL Iron 56 mcg/dL LDH (Total) 184 U/L Sodium 138 mmol/L Iron Binding Capacity (TIBC) 285 mcg/dl Potassium 4.0 mmol/L % Iron Saturation 19.6 % Chloride 100 mmol/L CO2 25 mmol/L UIBC 229 mcg/dL Anion Gap 17.0 BUN 25 mg/dL Creatinine 1.5 mg/dL Cr Clearance (Est) 111.1300 mL/min eGFR 48.4 mL/min Glucose 264 mg/dL Osmolality - Calculated 300 mOsm/kg Calcium 9.5 mg/dL Protein, Total 6.2 g/dL Albumin 3.8 g/dL Globulin 2.4 g/dL Bilirubin, Total 0.2 mg/dL ALT (SGPT) 34 U/L AST (SGOT) 27 U/L Alkaline Phosphatase 71 IU/L WBC 12.7 10 3/uL RBC 4.14 10 6/uL HGB 12.0 g/dL HCT 38.0 % MCV 91.8 fl MCH 29.0 pg MCHC 31.6 g/dL RDW 15.2 % Platelet Count 122 10 3/cmm MPV 11.2 fL Neutrophils 7.75 10 3/uL Lymphocytes 3.8 10 3/uL Monocytes 0.6 10 3/uL Eosinophils 0.4 10 3/uL Basophils 0.1 10 3/uL Neutrophil % 61.0 % Lymphocyte % 29.6 % Monocyte % 5.0 % Eosinophil % 3.1 % Basophils % 0.4 % NRBC % 0 % Problem List: 1. Chronic lymphocytic leukemia, initially diagnosed in 2002 and managed with observation. 2. Hypertension. 3. Hyperlipidemia. 4. Type II diabetes. 5. Chronic kidney disease. 6. GERD. 7. Degenerative arthritis/degenerative disease of the spine. 8. In March 2018 he required treatment for iron deficiency anemia. 9. In August 2018 he had presented with new onset of epilepsy, presumed idiopathic. Problems Addressed with this Encounter and Plan: Patient with chronic lymphocytic leukemia. His disease was Holcomb stage I at initial diagnosis in 2002, and he was managed with observation. He ultimately did have treatment with 6 cycles of fludarabine/Rituxan, completed in March 2009. At that time he still appeared to have early stage disease by objective parameters, but he had become symptomatic. He had a very good clinical response. He was then managed expectantly. During follow-up he has had ongoing problems associated with his seizure disorder. He is now receiving treatment for it through [facility]. He has had gradually worsening fatigue and declining performance status. It is uncertain to what extent that may be due to the medications for his seizure disorder or to the chronic lymphocytic leukemia. However, at this point I suspect that at least some component is related to the CLL, as his CT scans are showing evidence of disease progression with increase in generalized lymphadenopathy. The adenopathy, though, is not bulky, and in and of itself it would not be an indication for treatment. Nonetheless, his performance status has been declining in a very similar fashion to what he had experienced back in 2008, and on that basis I think it would be very reasonable for him to begin second line treatment for the CLL. My recommendation would be to use a standard venetoclax/rituximab regimen for 2 years, and I did review potential side effects associated with that regimen. He is going to think about it, but at least for now he prefers to continue with expectant management. I will see him again in 3 months, or sooner as needed. Signed By: Kumar Kirkland M.D. <<Signature on File>>
== END 2021-08-17 14:11 | disposition home or self-care (01) ==
PROVIDERS: PCP Internal Medicine; Visit Provider Internal Medicine Medical Oncology
DX: C91.10 Chronic lymphocytic leukemia of B-cell type not having achieved remission (principal); E11.22 Type 2 diabetes mellitus with diabetic chronic kidney disease; I12.9 Hypertensive chronic kidney disease with stage 1 through stage 4 chronic kidney disease, or unspecified chronic kidney disease; N18.9 Chronic kidney disease, unspecified; E78.5 Hyperlipidemia, unspecified; K21.9 Gastro-esophageal reflux disease without esophagitis; M47.9 Spondylosis, unspecified; D50.9 Iron deficiency anemia, unspecified; Z79.899 Other long term (current) drug therapy; Z79.82 Long term (current) use of aspirin; Z79.4 Long term (current) use of insulin
CPT/HCPCS: 36591; 80053; 82728; 83540; 83550; 83615; 85025; 99214

== ENCOUNTER 2021-10-05 13:28 | Outpatient (CLI) | payer MEDICARE, SELFPAY | END 2021-10-05 13:29 | disposition home or self-care (01) | LOC: ONCMED 13:32 | PROVIDERS: PCP Internal Medicine; Visit Provider Internal Medicine Medical Oncology | DX: Z45.2 Encounter for adjustment and management of vascular access device (principal) | CPT/HCPCS: 96523 ==

== ENCOUNTER 2021-10-24 13:24 | Outpatient (CLI) | payer MEDICARE, SELFPAY ==
[2021-10-24 14:20] LABS: Basophils # 0.1 10^3/uL (0.0-0.1); Basophils % 0.6 %; Eosinophils # 0.6 10^3/uL (0.0-0.8); Eosinophils % 4.8 %; Hematocrit 38.3 % (42.0-52.0); Hemoglobin 12.7 g/dL (11.7-16.6); Lymphocytes # 5.5 10^3/uL (0.8-4.8); Lymphocytes % 44.4 %; Mean Corpuscular HGB Conc 33.2 g/dL (30.0-36.0); Mean Corpuscular Hemoglobin 29.5 pg (28.0-34.0); Mean Corpuscular Volume 88.9 fl (80-94); Mean Platelet Volume 10.9 fL (7.4-10.4); Monocytes # 0.7 10^3/uL (0.2-0.9); Monocytes % 5.8 %; Neutrophils # 5.38 10^3/uL (1.8-7.7); Neutrophils % 43.6 %; Nucleated Red Blood Cells % 0 %; Platelet Count 154 10^3/cmm (130-400); Red Blood Count 4.31 10^6/uL (4.1-5.3); Red Cell Distribution Width 14.7 % (12.1-15.1); White Blood Count 12.3 10^3/uL (4.0-10.0)
[2021-10-24 14:42] LABS: Alanine Aminotransferase 29 U/L (0-41); Alkaline Phosphatase 74 IU/L (40-130); Aspartate Amino Transferase 20 U/L (0-40); Blood Urea Nitrogen 26 mg/dL (6-20); Calcium 8.5 mg/dL (8.5-10.5); Carbon Dioxide 22 mmol/L (22-29); Chloride 106 mmol/L (98-107); Globulin 1.8 g/dL (1.3-4.6); Glomerular Filtration Rate 41.9 mL/min (90-130); Glucose 94 mg/dL (65-115); Lactate Dehydrogenase 200 U/L (135-225); Osmolality Calculated 297 mOsm/kg (285-295); Sodium 141 mmol/L (136-145); Total Bilirubin 0.2 mg/dL (0.15-1.2); Total Protein 5.8 g/dL (6.6-8.7)
== END 2021-10-24 13:25 | disposition home or self-care (01) ==
LOC: ONCMED 13:26
PROVIDERS: Internal Medicine Medical Oncology; PCP Internal Medicine; Visit Provider Nurse Practitioner Family
DX: C91.10 Chronic lymphocytic leukemia of B-cell type not having achieved remission (principal); D50.9 Iron deficiency anemia, unspecified
CPT/HCPCS: 36591; 80053; 83615; 85025

== ENCOUNTER 2021-10-31 09:26 | Outpatient (CLI) | payer MEDICARE, SELFPAY ==
[2021-10-31 10:07] LABS: Basophils # 0.1 10^3/uL (0.0-0.1); Basophils % 0.5 %; Eosinophils # 0.4 10^3/uL (0.0-0.8); Eosinophils % 4.2 %; Hematocrit 36.9 % (42.0-52.0); Lymphocytes # 3.7 10^3/uL (0.8-4.8); Lymphocytes % 37.2 %; Mean Corpuscular HGB Conc 32.5 g/dL (30.0-36.0); Mean Corpuscular Hemoglobin 29.1 pg (28.0-34.0); Mean Corpuscular Volume 89.3 fl (80-94); Mean Platelet Volume 10.6 fL (7.4-10.4); Monocytes # 0.8 10^3/uL (0.2-0.9); Monocytes % 8.1 %; Neutrophils # 4.88 10^3/uL (1.8-7.7); Neutrophils % 49.1 %; Nucleated Red Blood Cells % 0 %; Platelet Count 141 10^3/cmm (130-400); Red Blood Count 4.13 10^6/uL (4.1-5.3); Red Cell Distribution Width 14.7 % (12.1-15.1); White Blood Count 9.9 10^3/uL (4.0-10.0)
[2021-10-31 10:33] LABS: Alanine Aminotransferase 26 U/L (0-41); Albumin Level 3.7 g/dL (3.5-5.2); Alkaline Phosphatase 66 IU/L (40-130); Anion Gap 16.4 (5-19); Aspartate Amino Transferase 20 U/L (0-40); Blood Urea Nitrogen 20 mg/dL (6-20); Calcium 8.4 mg/dL (8.5-10.5); Carbon Dioxide 24 mmol/L (22-29); Chloride 102 mmol/L (98-107); Globulin 2.2 g/dL (1.3-4.6); Glomerular Filtration Rate 48.4 mL/min (90-130); Glucose 120 mg/dL (65-115); Osmolality Calculated 292 mOsm/kg (285-295); Potassium 3.4 mmol/L (3.5-5.1); Sodium 139 mmol/L (136-145); Total Bilirubin 0.2 mg/dL (0.15-1.2); Total Protein 5.9 g/dL (6.6-8.7)
== END 2021-10-31 09:27 | disposition home or self-care (01) ==
PROVIDERS: PCP Internal Medicine; Visit Provider Nurse Practitioner Family
DX: Z08 Encounter for follow-up examination after completed treatment for malignant neoplasm (principal); Z85.6 Personal history of leukemia; I10 Essential (primary) hypertension; E78.5 Hyperlipidemia, unspecified; E11.22 Type 2 diabetes mellitus with diabetic chronic kidney disease; N18.9 Chronic kidney disease, unspecified; K21.9 Gastro-esophageal reflux disease without esophagitis; M47.9 Spondylosis, unspecified; G40.802 Other epilepsy, not intractable, without status epilepticus; Z86.2 Personal history of diseases of the blood and blood-forming organs and certain disorders involving the immune mechanism; Z92.21 Personal history of antineoplastic chemotherapy
CPT/HCPCS: 36591; 80053; 85025; 99214

== ENCOUNTER 2021-11-14 06:25 | Outpatient (RCR) | payer MEDICARE, SELFPAY ==
[2021-11-07 13:38] LABS: Basophils % 0.4 %; Eosinophils # 0.4 10^3/uL (0.0-0.8); Eosinophils % 4.1 %; Hematocrit 36.3 % (42.0-52.0); Hemoglobin 11.7 g/dL (11.7-16.6); Lymphocytes # 3.4 10^3/uL (0.8-4.8); Lymphocytes % 40.1 %; Mean Corpuscular HGB Conc 32.2 g/dL (30.0-36.0); Mean Corpuscular Hemoglobin 29.1 pg (28.0-34.0); Mean Corpuscular Volume 90.3 fl (80-94); Mean Platelet Volume 11.1 fL (7.4-10.4); Monocytes # 0.7 10^3/uL (0.2-0.9); Monocytes % 8.6 %; Neutrophils # 3.89 10^3/uL (1.8-7.7); Neutrophils % 46.1 %; Nucleated Red Blood Cells % 0 %; Platelet Count 137 10^3/cmm (130-400); Red Blood Count 4.02 10^6/uL (4.1-5.3); Red Cell Distribution Width 14.6 % (12.1-15.1); White Blood Count 8.5 10^3/uL (4.0-10.0)
[2021-11-07 13:53] LABS: Alanine Aminotransferase 26 U/L (0-41); Albumin Level 3.6 g/dL (3.5-5.2); Alkaline Phosphatase 70 IU/L (40-130); Anion Gap 17.7 (5-19); Aspartate Amino Transferase 19 U/L (0-40); Blood Urea Nitrogen 18 mg/dL (6-20); Calcium 7.6 mg/dL (8.5-10.5); Carbon Dioxide 22 mmol/L (22-29); Chloride 106 mmol/L (98-107); Globulin 2.1 g/dL (1.3-4.6); Glomerular Filtration Rate 48.4 mL/min (90-130); Glucose 254 mg/dL (65-115); Osmolality Calculated 305 mOsm/kg (285-295); Potassium 3.7 mmol/L (3.5-5.1); Sodium 142 mmol/L (136-145); Total Bilirubin 0.2 mg/dL (0.15-1.2); Total Protein 5.7 g/dL (6.6-8.7)
[2021-11-13 11:29] LABS: Basophils % 0.3 %; Eosinophils # 0.2 10^3/uL (0.0-0.8); Hematocrit 35.5 % (42.0-52.0); Hemoglobin 11.7 g/dL (11.7-16.6); Lymphocytes # 4.1 10^3/uL (0.8-4.8); Lymphocytes % 44.9 %; Mean Corpuscular Hemoglobin 29.7 pg (28.0-34.0); Mean Corpuscular Volume 90.1 fl (80-94); Mean Platelet Volume 10.2 fL (7.4-10.4); Monocytes # 0.9 10^3/uL (0.2-0.9); Monocytes % 9.3 %; Neutrophils # 3.87 10^3/uL (1.8-7.7); Neutrophils % 42.5 %; Nucleated Red Blood Cells % 0 %; Platelet Count 155 10^3/cmm (130-400); Red Blood Count 3.94 10^6/uL (4.1-5.3); Red Cell Distribution Width 14.6 % (12.1-15.1); White Blood Count 9.1 10^3/uL (4.0-10.0)
[2021-11-13 12:03] LABS: Alanine Aminotransferase 23 U/L (0-41); Albumin Level 3.4 g/dL (3.5-5.2); Alkaline Phosphatase 66 IU/L (40-130); Anion Gap 17.5 (5-19); Aspartate Amino Transferase 16 U/L (0-40); Blood Urea Nitrogen 19 mg/dL (6-20); Calcium 7.8 mg/dL (8.5-10.5); Carbon Dioxide 22 mmol/L (22-29); Chloride 102 mmol/L (98-107); Globulin 2.1 g/dL (1.3-4.6); Glomerular Filtration Rate 44.9 mL/min (90-130); Glucose 230 mg/dL (65-115); Osmolality Calculated 296 mOsm/kg (285-295); Potassium 3.5 mmol/L (3.5-5.1); Sodium 138 mmol/L (136-145); Total Bilirubin 0.2 mg/dL (0.15-1.2); Total Protein 5.5 g/dL (6.6-8.7)
--- NOTE | 2021-11-14 18:33 | ONC FU_ITS ---
Dr. Kirkland Patient Follow-Up Note Patient: Panda Rivera Unit #: [id number]: 1965 Dicatated By: Kumar Kirkland M.D.Date of Visit:Nov 14, 2021 Onc Med Follow-up/Prog Note Chief Complaint: Chronic lymphocytic leukemia. History of Present Illness: This is a 56 year-old man with chronic lymphocytic leukemia. The leukemia was diagnosed in March of 2003. He appeared to have Holcomb stage I disease, and he was initially managed with observation. Between August of 2008 and March of 2009 he was treated with 6 cycles of fludarabine/Rituxan. At that time his objective parameters did not meet usual criteria for treatment, but he had experienced a significant decline in performance status which appeared to be disease related. He did show a good clinical response, and he was then followed on observation. I had seen him for a follow-up visit in October 2015. At that time, his performance status appeared to be declining, and he also appeared to have some small cervical lymph nodes bilaterally. He also had shown a slight increase in his lymphocyte count. He underwent upper GI endoscopy and colonoscopy on 11/11/2015. The upper endoscopy showed mild esophagitis. There was moderate localized inflammation in the gastric body with a single ulcer present. There was a chronic appearing ulcer in the antrum. There was moderate patchy inflammation in the duodenal bulb with a few superficial benign-appearing ulcers. All the biopsies were benign, and the CLOtest was negative. He was found to have a rectal polyp on colonoscopy. It was removed endoscopically. There were no other abnormal findings. Pathology showed hyperplastic polyp. He had staging CT scans of the chest/abdomen/pelvis in November 2015. The most significant finding was the presence of bilateral lower lung zone bronchial wall thickening with scattered tree-in-bud nodular opacities. The primary consideration was atypical pneumonia or aspiration pneumonitis. There were slightly enlarged subcarinal lymph nodes which appeared reactive. Left axillary and left hilar adenopathy was unchanged compared to July 2008. There was no adenopathy in the abdomen/pelvis region. He underwent bronchoscopy on 12/30/2015. It showed generalized edema and endobronchial thickening throughout the tracheobronchial tree. There were no discrete endobronchial lesions identified. Transbronchial biopsy showed benign bronchial mucosa/submucosa with reactive lymphoid hyperplasia. All of the microbiology studies were negative. Given those findings he had just remained on observation/expectant management. In August 2018 he was taken to the emergency room after he had been found unresponsive at home. On evaluation, it was felt that he was most likely postictal from a seizure. A noncontrast head CT at that time reported no acute intracranial abnormality. The following morning around 4:30 AM he had a witnessed clonic seizure. He was taken to the emergency room and transferred to [facility] for further management. Subsequent brain MRI showed no evidence of acute infarction, hemorrhage, or parenchymal mass lesion. Spinal tap showed just slightly elevated CSF protein of 46 mg/dL. Cell count showed 2 WBC, both lymphocytes, and 1 RBC. A cytology report was not provided. His CBC at that time did show elevated white count at 21,600 with the differential showing 43% neutrophils, 43% lymphocytes, 8% monocytes, and 4% eosinophils. The hemoglobin was borderline at 12.5 g with hematocrit 38.3%. The platelet count was normal at 187,000. His comprehensive metabolic profile was unremarkable. He was discharged home on Keppra. During subsequent follow-up he had further seizures, requiring changes in his medication regimen. 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 A repeat brain MRI at [facility] on 01/28/2019 showed no evidence of an acute intracranial process. Ultimately it was felt to be due to diabetic mononeuropathy. He was treated with gabapentin, and his symptoms gradually improved. He continued, though, to have issues with the seizure disorder, and he has since then been undergoing evaluation at [facility]. He has continued expectant management for the chronic lymphocytic leukemia. His other medical illnesses include hypertension, hyperlipidemia, type 2 diabetes, and GERD. He also degenerative arthritis, and he has had chronic back pain following a previous back injury. On 06/08/2019 he underwent left total knee arthroplasty. He experienced no complications with the procedure. He is a nonsmoker. INTERIM HISTORY: In May 2021 he was diagnosed with COVID-19 virus infection. He had pretty mild symptoms, and he recovered uneventfully. Restaging CT scans of the chest, abdomen, and pelvis on 07/27/2021 showed prominent axillary lymph nodes bilaterally, some with preserved fatty gato and the largest measuring 13 mm on the right. Also noted were prominent left AP window lymph nodes, enlarged adriana hepatis lymph nodes, numerous periaortic lymph nodes measuring up to 11 x 15 mm, slightly enlarged bilateral common iliac lymph nodes measuring up to 11 mm, and slightly enlarged bilateral inguinal lymph nodes, the largest on the left measuring up to 16 mm. Two small nodules in the right lung measuring 4 mm appeared unchanged dating back to 2015. He was having increasing symptoms, predominantly fatigue, and I did opt to have him restart treatment for the CLL with the second line venetoclax/rituximab combination regimen. He began the venetoclax dose escalation on 10/25/2021. He will now be starting his 4th week of treatment with the dosage increased to 200 mg daily. Thus far he has been tolerating it well other than it had initially caused him to have some low blood sugars, and he has had to adjust his insulin regimen. His energy is variable. At times he does feel exhausted. He mostly is able to do light work. ECOG score is 1. He has good appetite. He had low-grade fever, maximum 100.4 degrees, when he initially started the venetoclax. The fever subsequently resolved. He still sometimes has sweating. He is having a lot of clear sinus drainage and he has associated cough productive of clear sputum. He has been using a nasal spray, Benadryl, and Claritin. He does not complain of shortness of breath or chest pain. He says his stomach occasionally feels queasy. He has had a little diarrhea at times he also complains of having intestinal gas. He is also having more frequent urination. He has chronic musculoskeletal pain, which is about the same. He does not complain of headache. He has a little bit of dizziness. He has had a little bit of numbness in his right hand. His notes that he also has some mild tremor. He has had occasional zoning out , but he has had no generalized seizures. Medications: Allopurinol 1 Tablet (of 300 mg) Oral daily, AmLODIPine Besylate 1 (10 mg) Tablet Oral daily, Aspirin 1 Tablet (of 325 mg) Tablet, enteric coated Oral daily, Atorvastatin Calcium 1 (40 mg) Tablet Oral at bedtime, Benadryl Allergy 1 Tablet (of 25 mg) Oral daily, Depakote ER 3 Tablet (of 500 mg) Tablet SR 24 HR Oral at bedtime, GlipiZIDE 1 Tablet (of 10 mg) Oral daily, Hydrochlorothiazide 1 (25 mg) Tablet Oral daily, Keppra 1 Tablet (of 500 mg) Oral b.i.d., Lantus 90 (100 Units/mL) Subcutaneous b.i.d., Lisinopril 1 (40 mg) Tablet Oral daily, Loratadine 1 Tablet (of 10 mg) Oral daily PRN, Multivitamin Men 50+ 1 Tablet Oral daily, NovoLOG 15 (100 Units/mL) Subcutaneous t.i.d., Omeprazole 1 (40 ) Capsule Delayed Release Oral daily, Oxycodone-Acetaminophen 1 (5-325 mg) Tablet Oral t.i.d. PRN, Zonisamide (100 mg) Capsule Oral Take as Directed Allergies: No Known Allergies. Vital Signs: Performed on Nov 14, 2021 08:58 Height - 70.00 in Weight - 338.0 lbs (HIGH) BSA - 2.61 sq.m BMI - 48.50 (HIGH) Temperature - 98.6 F Pulse - 94 /min Respiration - 16 /min BP - 145/83 mm(hg) (HIGH) O2 Sat - 96 % Pain - 5 Fatigue - 6 Physical Examination: Constitutional - He looks pretty good generally, Eyes - Sclerae nonicteric. Conjunctivae clear, ENMT - No lesions noted in the oral cavity, Hematologic/Lymphatic - There are small posterior cervical nodes palpable bilaterally. I do not feel any clavicular or axillary adenopathy, Respiratory - Lungs sound clear, Cardiovascular - Heart rhythm is regular. There is no murmur, gallop, or rub noted, Abdomen - Moderately distended. Liver and spleen are not enlarged. There is no abdominal mass or ascites noted and there is no inguinal adenopathy, Extremities - There are venous stasis changes bilaterally. There is slight edema, Neurologic - No focal neurologic deficits noted. Lab/Imaging: CBC shows hemoglobin 11.7 g, white blood cell count 9100, and platelet count 155,000. Comprehensive metabolic profile shows stable renal function with BUN 19 and creatinine 1.6 mg/dL. Bilirubin and liver enzymes are normal. Problem List: 1. Chronic lymphocytic leukemia, initially diagnosed in 2002 and managed with observation. 2. Hypertension. 3. Hyperlipidemia. 4. Type II diabetes. 5. Chronic kidney disease. 6. GERD. 7. Degenerative arthritis/degenerative disease of the spine. 8. In March 2018 he required treatment for iron deficiency anemia. 9. In August 2018 he had presented with new onset of epilepsy, presumed idiopathic. Problems Addressed with this Encounter and Plan: Patient with chronic lymphocytic leukemia. His disease was Holcomb stage I at initial diagnosis in 2002, and he was managed with observation. He ultimately did have treatment with 6 cycles of fludarabine/Rituxan, completed in March 2009. At that time he still appeared to have early stage disease by objective parameters, but he had become symptomatic. He had a very good clinical response. He was then managed expectantly. During follow-up he had ongoing problems associated with his seizure disorder. He is receiving treatment for it through [facility]. He also had gradually worsening fatigue and declining performance status. It was uncertain to what extent his symptoms may have been due to the medications for his seizure disorder or to the chronic lymphocytic leukemia. However, I did appear that at least some component was related to the CLL, as his restaging CT scans had shown evidence of disease progression with increase in generalized lymphadenopathy. With those findings, he was recommended to begin second line treatment with the venetoclax/rituximab combination regimen. He began the venetoclax dose escalation on 10/25/2021. He is due to begin his 4th week of treatment tomorrow with the venetoclax dosage increased to 200 mg daily. Thus far he has been tolerating it well. He will return in 2 weeks. At that point the venetoclax will increase to 400 mg a day also will begin his first cycle of rituximab. In the meantime, I also will try adding montelukast 10 mg at bedtime. Signed By: Kumar Kirkland M.D. <<Signature on File>>
== END 2021-11-24 23:59 | disposition home or self-care (01) ==
LOC: ONCMED 06:25
PROVIDERS: Nurse Practitioner Family; PCP Internal Medicine; Visit Provider Internal Medicine Medical Oncology
DX: C91.10 Chronic lymphocytic leukemia of B-cell type not having achieved remission (principal); E78.5 Hyperlipidemia, unspecified; I12.9 Hypertensive chronic kidney disease with stage 1 through stage 4 chronic kidney disease, or unspecified chronic kidney disease; E11.22 Type 2 diabetes mellitus with diabetic chronic kidney disease; N18.9 Chronic kidney disease, unspecified; K21.9 Gastro-esophageal reflux disease without esophagitis; G31.89 Other specified degenerative diseases of nervous system; D50.9 Iron deficiency anemia, unspecified; G40.802 Other epilepsy, not intractable, without status epilepticus; Z79.899 Other long term (current) drug therapy; Z79.84 Long term (current) use of oral hypoglycemic drugs
CPT/HCPCS: 36591; 80053; 85025; 99214

== ENCOUNTER 2021-12-18 06:39 | Outpatient (RCR) | payer MEDICARE, SELFPAY ==
[2021-11-28 10:49] LABS: Basophils % 0.5 %; Eosinophils % 0.5 %; Hematocrit 36.2 % (42.0-52.0); Hemoglobin 11.7 g/dL (11.7-16.6); Lymphocytes # 2.1 10^3/uL (0.8-4.8); Lymphocytes % 31.9 %; Mean Corpuscular HGB Conc 32.3 g/dL (30.0-36.0); Mean Corpuscular Volume 89.8 fl (80-94); Mean Platelet Volume 10.8 fL (7.4-10.4); Monocytes # 0.7 10^3/uL (0.2-0.9); Monocytes % 10.1 %; Neutrophils # 3.76 10^3/uL (1.8-7.7); Neutrophils % 56.7 %; Nucleated Red Blood Cells % 0 %; Platelet Count 128 10^3/cmm (130-400); Red Blood Count 4.03 10^6/uL (4.1-5.3); Red Cell Distribution Width 14.4 % (12.1-15.1); White Blood Count 6.6 10^3/uL (4.0-10.0)
[2021-11-28 11:08] LABS: Alanine Aminotransferase 32 U/L (0-41); Albumin Level 3.6 g/dL (3.5-5.2); Alkaline Phosphatase 62 IU/L (40-130); Anion Gap 17.7 (5-19); Aspartate Amino Transferase 26 U/L (0-40); Blood Urea Nitrogen 21 mg/dL (6-20); Calcium 8.5 mg/dL (8.5-10.5); Carbon Dioxide 23 mmol/L (22-29); Chloride 102 mmol/L (98-107); Globulin 2.5 g/dL (1.3-4.6); Glomerular Filtration Rate 52.4 mL/min (90-130); Glucose 143 mg/dL (65-115); Lactate Dehydrogenase 186 U/L (135-225); Osmolality Calculated 293 mOsm/kg (285-295); Potassium 3.7 mmol/L (3.5-5.1); Sodium 139 mmol/L (136-145); Total Bilirubin 0.3 mg/dL (0.15-1.2); Total Protein 6.1 g/dL (6.6-8.7)
[2021-11-29] MEDS: sodium chloride 0.9% 500 ML 75 ML IV (08:35)
[2021-11-29] MEDS: acetaminophen 325 mg Tablet 650 MG PO (08:35)
[2021-11-29] MEDS: diphenhydrAMINE 50 mg/mL SDV 1mL 25 MG IVP (08:38)
[2021-11-29 09:22] LABS: Hepatitis A Antibody IgM Non-Reactive (Nonreactive); Hepatitis B Core AB, Total Non-Reactive (Nonreactive); Hepatitis B Surface AB 3.5 (11.5-1000); Hepatitis B Surface Antigen Non-Reactive (Nonreactive); Hepatitis C Virus Antibody Non-Reactive (Nonreactive)
[2021-12-04 08:38] LABS: Basophils % 0.4 %; Eosinophils % 0.4 %; Hematocrit 36.2 % (42.0-52.0); Hemoglobin 11.9 g/dL (11.7-16.6); Lymphocytes # 1.5 10^3/uL (0.8-4.8); Lymphocytes % 30.6 %; Mean Corpuscular HGB Conc 32.9 g/dL (30.0-36.0); Mean Corpuscular Hemoglobin 29.2 pg (28.0-34.0); Mean Corpuscular Volume 88.9 fl (80-94); Mean Platelet Volume 10.7 fL (7.4-10.4); Monocytes # 0.6 10^3/uL (0.2-0.9); Monocytes % 11.9 %; Neutrophils # 2.65 10^3/uL (1.8-7.7); Neutrophils % 55.7 %; Nucleated Red Blood Cells % 0 %; Platelet Count 124 10^3/cmm (130-400); Red Blood Count 4.07 10^6/uL (4.1-5.3); Red Cell Distribution Width 14.2 % (12.1-15.1); White Blood Count 4.8 10^3/uL (4.0-10.0)
[2021-12-04 08:54] LABS: Alanine Aminotransferase 39 U/L (0-41); Albumin Level 3.7 g/dL (3.5-5.2); Alkaline Phosphatase 62 IU/L (40-130); Anion Gap 17.4 (5-19); Aspartate Amino Transferase 29 U/L (0-40); Blood Urea Nitrogen 21 mg/dL (6-20); Calcium 9.4 mg/dL (8.5-10.5); Carbon Dioxide 23 mmol/L (22-29); Chloride 104 mmol/L (98-107); Globulin 2.2 g/dL (1.3-4.6); Glomerular Filtration Rate 57.1 mL/min (90-130); Glucose 102 mg/dL (65-115); Osmolality Calculated 295 mOsm/kg (285-295); Potassium 3.4 mmol/L (3.5-5.1); Sodium 141 mmol/L (136-145); Total Bilirubin 0.2 mg/dL (0.15-1.2); Total Protein 5.9 g/dL (6.6-8.7)
--- NOTE | 2021-12-04 18:15 | ONC FU_ITS ---
Dr. Kirkland Patient Follow-Up Note Patient: Panda Rivera Unit #: [id number]: 1965 Dicatated By: Kumar Kirkland M.D.Date of Visit:Dec 04, 2021 Onc Med Follow-up/Prog Note Chief Complaint: Chronic lymphocytic leukemia. History of Present Illness: This is a 56 year-old man with chronic lymphocytic leukemia. The leukemia was diagnosed in March of 2003. He appeared to have Holcomb stage I disease, and he was initially managed with observation. Between August of 2008 and March of 2009 he was treated with 6 cycles of fludarabine/Rituxan. At that time his objective parameters did not meet usual criteria for treatment, but he had experienced a significant decline in performance status which appeared to be disease related. He did show a good clinical response, and he was then followed on observation. I had seen him for a follow-up visit in October 2015. At that time, his performance status appeared to be declining, and he also appeared to have some small cervical lymph nodes bilaterally. He also had shown a slight increase in his lymphocyte count. He underwent upper GI endoscopy and colonoscopy on 11/11/2015. The upper endoscopy showed mild esophagitis. There was moderate localized inflammation in the gastric body with a single ulcer present. There was a chronic appearing ulcer in the antrum. There was moderate patchy inflammation in the duodenal bulb with a few superficial benign-appearing ulcers. All the biopsies were benign, and the CLOtest was negative. He was found to have a rectal polyp on colonoscopy. It was removed endoscopically. There were no other abnormal findings. Pathology showed hyperplastic polyp. He had staging CT scans of the chest/abdomen/pelvis in November 2015. The most significant finding was the presence of bilateral lower lung zone bronchial wall thickening with scattered tree-in-bud nodular opacities. The primary consideration was atypical pneumonia or aspiration pneumonitis. There were slightly enlarged subcarinal lymph nodes which appeared reactive. Left axillary and left hilar adenopathy was unchanged compared to July 2008. There was no adenopathy in the abdomen/pelvis region. He underwent bronchoscopy on 12/30/2015. It showed generalized edema and endobronchial thickening throughout the tracheobronchial tree. There were no discrete endobronchial lesions identified. Transbronchial biopsy showed benign bronchial mucosa/submucosa with reactive lymphoid hyperplasia. All of the microbiology studies were negative. Given those findings he had just remained on observation/expectant management. In August 2018 he was taken to the emergency room after he had been found unresponsive at home. On evaluation, it was felt that he was most likely postictal from a seizure. A noncontrast head CT at that time reported no acute intracranial abnormality. The following morning around 4:30 AM he had a witnessed clonic seizure. He was taken to the emergency room and transferred to [facility] for further management. Subsequent brain MRI showed no evidence of acute infarction, hemorrhage, or parenchymal mass lesion. Spinal tap showed just slightly elevated CSF protein of 46 mg/dL. Cell count showed 2 WBC, both lymphocytes, and 1 RBC. A cytology report was not provided. His CBC at that time did show elevated white count at 21,600 with the differential showing 43% neutrophils, 43% lymphocytes, 8% monocytes, and 4% eosinophils. The hemoglobin was borderline at 12.5 g with hematocrit 38.3%. The platelet count was normal at 187,000. His comprehensive metabolic profile was unremarkable. He was discharged home on Keppra. During subsequent follow-up he had further seizures, requiring changes in his medication regimen. 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 A repeat brain MRI at [facility] on 01/28/2019 showed no evidence of an acute intracranial process. Ultimately it was felt to be due to diabetic mononeuropathy. He was treated with gabapentin, and his symptoms gradually improved. He continued, though, to have issues with the seizure disorder, and he has since then been undergoing evaluation at [facility]. He has continued expectant management for the chronic lymphocytic leukemia. His other medical illnesses include hypertension, hyperlipidemia, type 2 diabetes, and GERD. He also degenerative arthritis, and he has had chronic back pain following a previous back injury. On 06/08/2019 he underwent left total knee arthroplasty. He experienced no complications with the procedure. He is a nonsmoker. INTERIM HISTORY: In May 2021 he was diagnosed with COVID-19 virus infection. He had pretty mild symptoms, and he recovered uneventfully. Restaging CT scans of the chest, abdomen, and pelvis on 07/27/2021 showed prominent axillary lymph nodes bilaterally, some with preserved fatty gato and the largest measuring 13 mm on the right. Also noted were prominent left AP window lymph nodes, enlarged adriana hepatis lymph nodes, numerous periaortic lymph nodes measuring up to 11 x 15 mm, slightly enlarged bilateral common iliac lymph nodes measuring up to 11 mm, and slightly enlarged bilateral inguinal lymph nodes, the largest on the left measuring up to 16 mm. Two small nodules in the right lung measuring 4 mm appeared unchanged dating back to 2015. He was having increasing symptoms, predominantly fatigue, and I did opt to have him restart treatment for the CLL with the second line venetoclax/rituximab combination regimen. He began the venetoclax dose escalation on 10/25/2021. He tolerated the venetoclax without adverse effect other than hypoglycemia, necessitating a reduction in his insulin dosage. As of 11/29/2021 he was tolerating it at 400 mg daily, and he then began cycle 1 of rituximab. He had some chills during the infusion, which resolved with some extra Benadryl and a dose of IV Solu-Medrol. He otherwise tolerated it well. He is seen for a follow-up visit. He has been feeling pretty good generally, though he has been tired and he has not been sleeping well. He has limited activity, but he is able to do some light work. ECOG score is 1. He has good appetite. He has no fever or night sweats. He has some sinus drainage, that has improved with allergy medication. He has not had sore mouth or throat. He has just a little bit of cough. He does not complain of shortness of breath or chest pain. He occasionally has a little bit of nausea. He has no other GI or complaints. He has generalized joint pain and chronic back pain, but that has not changed significantly. He does not complain of headache. He occasionally has dizziness. He has a little bit of numbness in his right hand. He has no other focal neurologic symptoms. He did have a blackout on [place], presumed to have been a minor seizure. He has not had any other seizure activity. Medications: Allopurinol 1 Tablet (of 300 mg) Oral daily, AmLODIPine Besylate 1 (10 mg) Tablet Oral daily, Aspirin 1 Tablet (of 325 mg) Tablet, enteric coated Oral daily, Atorvastatin Calcium 1 (40 mg) Tablet Oral at bedtime, Benadryl Allergy 1 Tablet (of 25 mg) Oral daily, Depakote ER 3 Tablet (of 500 mg) Tablet SR 24 HR Oral at bedtime, GlipiZIDE 1 Tablet (of 10 mg) Oral daily, Hydrochlorothiazide 1 (25 mg) Tablet Oral daily, Keppra (500 mg) Tablet Oral Take as Directed, Lantus 90 (100 Units/mL) Subcutaneous b.i.d., Lisinopril 1 (40 mg) Tablet Oral daily, Loratadine 1 Tablet (of 10 mg) Oral daily PRN, Multivitamin Men 50+ 1 Tablet Oral daily, NovoLOG 15 (100 Units/mL) Subcutaneous t.i.d., Omeprazole 1 (40 ) Capsule Delayed Release Oral daily, Oxycodone-Acetaminophen 1 (5-325 mg) Tablet Oral t.i.d. PRN, Zonisamide (100 mg) Capsule Oral Take as Directed Allergies: No Known Allergies. Vital Signs: Performed on Dec 04, 2021 09:31 Height - 70.00 in Weight - 336.8 lbs (LOW) BSA - 2.60 sq.m BMI - 48.33 (HIGH) Temperature - 97.1 F (LOW) Pulse - 98 /min Respiration - 19 /min BP - 129/79 mm(hg) O2 Sat - 98 % Pain - 4 Fatigue - 4 Physical Examination: Constitutional - He looks pretty good generally, Eyes - Sclerae nonicteric. Conjunctivae clear, ENMT - No lesions noted in the oral cavity, Hematologic/Lymphatic - I do not feel any cervical, clavicular, or axillary adenopathy, Respiratory - Lungs sound clear, Cardiovascular - Heart rhythm is regular. There is no murmur, gallop, or rub noted, Abdomen - Moderately distended. Liver and spleen are not enlarged. There is no abdominal mass or ascites noted and there is no inguinal adenopathy, Extremities - There are venous stasis changes bilaterally. There is slight edema, Neurologic - No focal neurologic deficits noted. Lab/Imaging: Test performed on Dec 04, 2021 08:16 Sodium 141 mmol/L Potassium 3.4 mmol/L Chloride 104 mmol/L CO2 23 mmol/L Anion Gap 17.4 BUN 21 mg/dL Creatinine 1.3 mg/dL Cr Clearance (Est) 137.3500 mL/min eGFR 57.1 mL/min Glucose 102 mg/dL Osmolality - Calculated 295 mOsm/kg Calcium 9.4 mg/dL Protein, Total 5.9 g/dL Albumin 3.7 g/dL Globulin 2.2 g/dL Bilirubin, Total 0.2 mg/dL ALT (SGPT) 39 U/L AST (SGOT) 29 U/L Alkaline Phosphatase 62 IU/L WBC 4.8 10 3/uL RBC 4.07 10 6/uL HGB 11.9 g/dL HCT 36.2 % MCV 88.9 fl MCH 29.2 pg MCHC 32.9 g/dL RDW 14.2 % Platelet Count 124 10 3/cmm MPV 10.7 fL Neutrophils 2.65 10 3/uL Lymphocytes 1.5 10 3/uL Monocytes 0.6 10 3/uL Eosinophils 0.0 10 3/uL Basophils 0.0 10 3/uL Neutrophil % 55.7 % Lymphocyte % 30.6 % Monocyte % 11.9 % Eosinophil % 0.4 % Basophils % 0.4 % NRBC % 0 % Problem List: 1. Chronic lymphocytic leukemia, initially diagnosed in 2002 and managed with observation. 2. Hypertension. 3. Hyperlipidemia. 4. Type II diabetes. 5. Chronic kidney disease. 6. GERD. 7. Degenerative arthritis/degenerative disease of the spine. 8. In March 2018 he required treatment for iron deficiency anemia. 9. In August 2018 he had presented with new onset of epilepsy, presumed idiopathic. Problems Addressed with this Encounter and Plan: Patient with chronic lymphocytic leukemia. His disease was Holcomb stage I at initial diagnosis in 2002, and he was managed with observation. He ultimately did have treatment with 6 cycles of fludarabine/Rituxan, completed in March 2009. At that time he still appeared to have early stage disease by objective parameters, but he had become symptomatic. He had a very good clinical response. He was then managed expectantly. During follow-up he had ongoing problems associated with his seizure disorder. He is receiving treatment for it through [facility]. He also had gradually worsening fatigue and declining performance status. It was uncertain to what extent his symptoms may have been due to the medications for his seizure disorder or to the chronic lymphocytic leukemia. However, I did appear that at least some component was related to the CLL, as his restaging CT scans had shown evidence of disease progression with increase in generalized lymphadenopathy. With those findings, he was recommended to begin second line treatment with the venetoclax/rituximab combination regimen. He began the venetoclax dose escalation on 10/25/2021. During treatment he required a reduction in his insulin dosage due to hypoglycemia. He had no other adverse effects. As of 11/29/2021 he was tolerating it at the 400 mg dosage, and he then began cycle 1 of rituximab. It caused a mild infusion reaction, managed adequately with extra Benadryl and a dose of IV Solu-Medrol. Overall, he appears to be tolerating his treatment well, and he does appear to be showing response. He continues venetoclax 400 mg daily. He will be scheduled for a repeat CBC in 2 weeks and for a follow-up visit at a 4-week interval from the rituximab infusion. Signed By: Kumar Kirkland M.D. <<Signature on File>>
[2021-12-18 14:11] LABS: Basophils % 0.2 %; Hematocrit 35.5 % (42.0-52.0); Hemoglobin 11.7 g/dL (11.7-16.6); Lymphocytes # 1.4 10^3/uL (0.8-4.8); Lymphocytes % 28.5 %; Mean Corpuscular Hemoglobin 29.5 pg (28.0-34.0); Mean Corpuscular Volume 89.6 fl (80-94); Mean Platelet Volume 10.4 fL (7.4-10.4); Monocytes # 0.5 10^3/uL (0.2-0.9); Monocytes % 9.1 %; Neutrophils # 3.05 10^3/uL (1.8-7.7); Neutrophils % 61.8 %; Nucleated Red Blood Cells % 0 %; Platelet Count 144 10^3/cmm (130-400); Red Blood Count 3.96 10^6/uL (4.1-5.3); Red Cell Distribution Width 14.5 % (12.1-15.1); White Blood Count 4.9 10^3/uL (4.0-10.0)
== END 2021-12-25 23:59 | disposition home or self-care (01) ==
LOC: ONCMED 06:39
PROVIDERS: PCP Internal Medicine; Visit Provider Internal Medicine Medical Oncology
DX: Z51.12 Encounter for antineoplastic immunotherapy (principal); C91.10 Chronic lymphocytic leukemia of B-cell type not having achieved remission; E11.22 Type 2 diabetes mellitus with diabetic chronic kidney disease; I12.9 Hypertensive chronic kidney disease with stage 1 through stage 4 chronic kidney disease, or unspecified chronic kidney disease; N18.9 Chronic kidney disease, unspecified; E78.5 Hyperlipidemia, unspecified; K21.9 Gastro-esophageal reflux disease without esophagitis; M19.90 Unspecified osteoarthritis, unspecified site; M47.9 Spondylosis, unspecified; D50.9 Iron deficiency anemia, unspecified; G40.909 Epilepsy, unspecified, not intractable, without status epilepticus; E11.649 Type 2 diabetes mellitus with hypoglycemia without coma; Z79.899 Other long term (current) drug therapy; Z79.4 Long term (current) use of insulin; Z79.52 Long term (current) use of systemic steroids; Z20.5 Contact with and (suspected) exposure to viral hepatitis; Z01.89 Encounter for other specified special examinations
CPT/HCPCS: 36591; 80053; 83615; 85025; 86705; 86706; 86709; 86803; 87340; 96375; 96413; 96415; 99214; 99215; J1200; J2920; J7040; J9312

== ENCOUNTER → 2022-01-01 12:00 | Outpatient (BNVA) | payer MEDICARE, SELFPAY | PROVIDERS: PCP Internal Medicine; Visit Provider Internal Medicine Medical Oncology | DX: Z20.828 Contact with and (suspected) exposure to other viral communicable diseases (principal) | CPT/HCPCS: 87635 ==

== ENCOUNTER 2022-01-09 16:49 | Outpatient (CLI) | payer MEDICARE, SELFPAY ==
--- NOTE | 2022-01-09 16:54 | XR_ITS ---
WS: [id number] CHEST 2 VIEWS HISTORY: covid COMPARISON: 06/30/2019 Lungs: Lungs are clear. Benign granuloma at the LEFT costophrenic angle. No pneumonia. Normal vascula ture. Cardiac size: Normal. Mediastinum/Aorta: Normal mediastinum. Bones: Normal. LEFT subclavian Mediport with tip in the distal SVC is similar to the prior study. XR/XR chest 2V* [id number] IMPRESSION: Normal chest.
[2022-01-09 17:33] LABS: Basophils % 0.4 %; Eosinophils % 0.2 %; Hematocrit 38.8 % (42.0-52.0); Hemoglobin 12.6 g/dL (11.7-16.6); Lymphocytes # 2.3 10^3/uL (0.8-4.8); Lymphocytes % 27.6 %; Mean Corpuscular HGB Conc 32.5 g/dL (30.0-36.0); Mean Corpuscular Hemoglobin 29.3 pg (28.0-34.0); Mean Corpuscular Volume 90.2 fl (80-94); Mean Platelet Volume 10.5 fL (7.4-10.4); Monocytes # 1.1 10^3/uL (0.2-0.9); Monocytes % 13.3 %; Neutrophils # 4.77 10^3/uL (1.8-7.7); Neutrophils % 57.4 %; Nucleated Red Blood Cells % 0 %; Platelet Count 165 10^3/cmm (130-400); Red Cell Distribution Width 14.7 % (12.1-15.1); White Blood Count 8.3 10^3/uL (4.0-10.0)
== END 2022-01-09 16:50 | disposition home or self-care (01) ==
PROVIDERS: PCP Internal Medicine; Visit Provider Nurse Practitioner
DX: U07.1 COVID-19 (principal)
CPT/HCPCS: 36415; 71046; 85025

== ENCOUNTER 2022-01-17 06:54 | Outpatient (RCR) | payer MEDICARE, SELFPAY ==
[2021-12-27 07:46] LABS: Basophils % 0.4 %; Eosinophils % 0.2 %; Hematocrit 35.7 % (42.0-52.0); Hemoglobin 11.6 g/dL (11.7-16.6); Lymphocytes # 1.7 10^3/uL (0.8-4.8); Mean Corpuscular HGB Conc 32.5 g/dL (30.0-36.0); Mean Corpuscular Hemoglobin 29.6 pg (28.0-34.0); Mean Corpuscular Volume 91.1 fl (80-94); Mean Platelet Volume 10.6 fL (7.4-10.4); Monocytes # 0.7 10^3/uL (0.2-0.9); Monocytes % 13.6 %; Neutrophils # 2.47 10^3/uL (1.8-7.7); Neutrophils % 50.8 %; Nucleated Red Blood Cells % 0 %; Platelet Count 139 10^3/cmm (130-400); Red Blood Count 3.92 10^6/uL (4.1-5.3); Red Cell Distribution Width 14.4 % (12.1-15.1); White Blood Count 4.9 10^3/uL (4.0-10.0)
[2021-12-27 08:21] LABS: Alanine Aminotransferase 29 U/L (0-41); Albumin Level 3.6 g/dL (3.5-5.2); Alkaline Phosphatase 78 IU/L (40-130); Anion Gap 18.5 (5-19); Aspartate Amino Transferase 22 U/L (0-40); Blood Urea Nitrogen 24 mg/dL (6-20); Calcium 9.3 mg/dL (8.5-10.5); Carbon Dioxide 23 mmol/L (22-29); Chloride 107 mmol/L (98-107); Globulin 2.3 g/dL (1.3-4.6); Glomerular Filtration Rate 41.9 mL/min (90-130); Glucose 129 mg/dL (65-115); Osmolality Calculated 306 mOsm/kg (285-295); Potassium 3.5 mmol/L (3.5-5.1); Sodium 145 mmol/L (136-145); Total Bilirubin 0.2 mg/dL (0.15-1.2); Total Protein 5.9 g/dL (6.6-8.7)
--- NOTE | 2021-12-27 10:53 | ONC FU_ITS ---
Dr. Kirkland Patient Follow-Up Note Patient: Panda Rivera Unit #: [id number]: [id number] Dicatated By: Kumar Kirkland M.D.Date of Visit:Dec 27, 2021 Onc Med Follow-up/Prog Note Chief Complaint: Chronic lymphocytic leukemia. History of Present Illness: This is a 56 year-old man with chronic lymphocytic leukemia. The leukemia was diagnosed in March of 2003. He appeared to have Holcomb stage I disease, and he was initially managed with observation. Between August of 2008 and March of 2009 he was treated with 6 cycles of fludarabine/Rituxan. At that time his objective parameters did not meet usual criteria for treatment, but he had experienced a significant decline in performance status which appeared to be disease related. He did show a good clinical response, and he was then followed on observation. I had seen him for a follow-up visit in October 2015. At that time, his performance status appeared to be declining, and he also appeared to have some small cervical lymph nodes bilaterally. He also had shown a slight increase in his lymphocyte count. He underwent upper GI endoscopy and colonoscopy on 11/11/2015. The upper endoscopy showed mild esophagitis. There was moderate localized inflammation in the gastric body with a single ulcer present. There was a chronic appearing ulcer in the antrum. There was moderate patchy inflammation in the duodenal bulb with a few superficial benign-appearing ulcers. All the biopsies were benign, and the CLOtest was negative. He was found to have a rectal polyp on colonoscopy. It was removed endoscopically. There were no other abnormal findings. Pathology showed hyperplastic polyp. He had staging CT scans of the chest/abdomen/pelvis in November 2015. The most significant finding was the presence of bilateral lower lung zone bronchial wall thickening with scattered tree-in-bud nodular opacities. The primary consideration was atypical pneumonia or aspiration pneumonitis. There were slightly enlarged subcarinal lymph nodes which appeared reactive. Left axillary and left hilar adenopathy was unchanged compared to July 2008. There was no adenopathy in the abdomen/pelvis region. He underwent bronchoscopy on 12/30/2015. It showed generalized edema and endobronchial thickening throughout the tracheobronchial tree. There were no discrete endobronchial lesions identified. Transbronchial biopsy showed benign bronchial mucosa/submucosa with reactive lymphoid hyperplasia. All of the microbiology studies were negative. Given those findings he had just remained on observation/expectant management. In August 2018 he was taken to the emergency room after he had been found unresponsive at home. On evaluation, it was felt that he was most likely postictal from a seizure. A noncontrast head CT at that time reported no acute intracranial abnormality. The following morning around 4:30 AM he had a witnessed clonic seizure. He was taken to the emergency room and transferred to [facility] for further management. Subsequent brain MRI showed no evidence of acute infarction, hemorrhage, or parenchymal mass lesion. Spinal tap showed just slightly elevated CSF protein of 46 mg/dL. Cell count showed 2 WBC, both lymphocytes, and 1 RBC. A cytology report was not provided. His CBC at that time did show elevated white count at 21,600 with the differential showing 43% neutrophils, 43% lymphocytes, 8% monocytes, and 4% eosinophils. The hemoglobin was borderline at 12.5 g with hematocrit 38.3%. The platelet count was normal at 187,000. His comprehensive metabolic profile was unremarkable. He was discharged home on Kera. During subsequent follow-up he had further seizures, requiring changes in his medication regimen. 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 A repeat brain MRI at [facility] on 01/28/2019 showed no evidence of an acute intracranial process. Ultimately it was felt to be due to diabetic mononeuropathy. He was treated with gabapentin, and his symptoms gradually improved. He continued, though, to have issues with the seizure disorder, and he has since then been undergoing evaluation at [facility]. He has continued expectant management for the chronic lymphocytic leukemia. His other medical illnesses include hypertension, hyperlipidemia, type 2 diabetes, and GERD. He also degenerative arthritis, and he has had chronic back pain following a previous back injury. On 06/08/2019 he underwent left total knee arthroplasty. He experienced no complications with the procedure. He is a nonsmoker. INTERIM HISTORY: In May 2021 he was diagnosed with COVID-19 virus infection. He had pretty mild symptoms, and he recovered uneventfully. Restaging CT scans of the chest, abdomen, and pelvis on 07/27/2021 showed prominent axillary lymph nodes bilaterally, some with preserved fatty gato and the largest measuring 13 mm on the right. Also noted were prominent left AP window lymph nodes, enlarged adriana hepatis lymph nodes, numerous periaortic lymph nodes measuring up to 11 x 15 mm, slightly enlarged bilateral common iliac lymph nodes measuring up to 11 mm, and slightly enlarged bilateral inguinal lymph nodes, the largest on the left measuring up to 16 mm. Two small nodules in the right lung measuring 4 mm appeared unchanged dating back to 2015. He was having increasing symptoms, predominantly fatigue, and I did opt to have him restart treatment for the CLL with the second line venetoclax/rituximab combination regimen. He began the venetoclax dose escalation on 10/25/2021. He tolerated the venetoclax without adverse effect other than hypoglycemia, necessitating a reduction in his insulin dosage. As of 11/29/2021 he was tolerating it at 400 mg daily, and he then began cycle 1 of rituximab. He had some chills during the infusion, which resolved with some extra Benadryl and a dose of IV Solu-Medrol. He otherwise tolerated it well. He then continued the venetoclax at 400 mg daily. He is seen for a follow-up visit. He has been feeling pretty good generally. His energy is somewhat variable. He tends to be tired by evening, and some days he feels completely wore out. His activity is also limited due to his back pain. He is able to do some light work. ECOG score is 1. He has good appetite. He has no fever or night sweats. He has had occasional episodes in which she spaces out for a few minutes. He has not had any generalized seizures. He has a little bit of sinus drainage, and he does have some cough associated with it. He does not complain of shortness of breath or chest pain. He has a little bit of nausea and he also reports having some gas and some diarrhea, but that is all tolerable. Bladder function has been okay. He says his back pain is bad, and he also has some joint pain. He does not complain of headache. He occasionally has lightheadedness and he sometimes has difficulty with balance. He has some numbness in his right hand. He has no other focal neurologic symptoms. Medications: Allopurinol 1 Tablet (of 300 mg) Oral daily, AmLODIPine Besylate 1 (10 mg) Tablet Oral daily, Aspirin 1 Tablet (of 325 mg) Tablet, enteric coated Oral daily, Atorvastatin Calcium 1 (40 mg) Tablet Oral at bedtime, Benadryl Allergy 1 Tablet (of 25 mg) Oral daily, Depakote ER 3 Tablet (of 500 mg) Tablet SR 24 HR Oral at bedtime, GlipiZIDE 1 Tablet (of 10 mg) Oral daily, Hydrochlorothiazide 1 (25 mg) Tablet Oral daily, Keppra (500 mg) Tablet Oral Take as Directed, Lantus 90 (100 Units/mL) Subcutaneous b.i.d., Lisinopril 1 (40 mg) Tablet Oral daily, Loratadine 1 Tablet (of 10 mg) Oral daily PRN, Multivitamin Men 50+ 1 Tablet Oral daily, NovoLOG 15 (100 Units/mL) Subcutaneous t.i.d., Omeprazole 1 (40 ) Capsule Delayed Release Oral daily, Oxycodone-Acetaminophen 1 (5-325 mg) Tablet Oral t.i.d. PRN, Zonisamide (100 mg) Capsule Oral Take as Directed Allergies: No Known Allergies. Vital Signs: Performed on Dec 27, 2021 08:48 Height - 70.00 in Weight - 335 lbs (LOW) BSA - 2.60 sq.m BMI - 48.07 (HIGH) Temperature - 98.0 F (LOW) Pulse - 93 /min Respiration - 18 /min BP - 138/79 mm(hg) O2 Sat - 98 % Pain - 5 Fatigue - 2 Physical Examination: Constitutional - He looks pretty good generally, Eyes - Sclerae nonicteric. Conjunctivae clear, ENMT - No lesions noted in the oral cavity, Hematologic/Lymphatic - I do not feel any cervical, clavicular, or axillary adenopathy, Respiratory - Lungs sound clear, Cardiovascular - Heart rhythm is regular. There is no murmur, gallop, or rub noted, Abdomen - Moderately distended. Liver and spleen are not enlarged. There is no abdominal mass or ascites noted and there is no inguinal adenopathy, Extremities - There are venous stasis changes bilaterally. There is mild edema, Neurologic - No focal neurologic deficits noted. Lab/Imaging: CBC shows hemoglobin 11.6 g, white blood cell count 4900, and platelet count 139,000. The absolute neutrophil count is 2500. Comprehensive metabolic profile shows a decline in renal function with BUN 24 and creatinine 1.7 mg/dL. Bilirubin and liver enzymes are normal. Problem List: 1. Chronic lymphocytic leukemia, initially diagnosed in 2002 and managed with observation. 2. Hypertension. 3. Hyperlipidemia. 4. Type II diabetes. 5. Chronic kidney disease. 6. GERD. 7. Degenerative arthritis/degenerative disease of the spine. 8. In March 2018 he required treatment for iron deficiency anemia. 9. In August 2018 he had presented with new onset of epilepsy, presumed idiopathic. Problems Addressed with this Encounter and Plan: Patient with chronic lymphocytic leukemia. His disease was Holcomb stage I at initial diagnosis in 2002, and he was managed with observation. He ultimately did have treatment with 6 cycles of fludarabine/Rituxan, completed in March 2009. At that time he still appeared to have early stage disease by objective parameters, but he had become symptomatic. He had a very good clinical response. He was then managed expectantly. During follow-up he had ongoing problems associated with his seizure disorder. He is receiving treatment for it through [facility]. He also had gradually worsening fatigue and declining performance status. It was uncertain to what extent his symptoms may have been due to the medications for his seizure disorder or to the chronic lymphocytic leukemia. However, I did appear that at least some component was related to the CLL, as his restaging CT scans had shown evidence of disease progression with increase in generalized lymphadenopathy. With those findings, he was recommended to begin second line treatment with the venetoclax/rituximab combination regimen. He began the venetoclax dose escalation on 10/25/2021. During treatment he required a reduction in his insulin dosage due to hypoglycemia. He had no other adverse effects. As of 11/29/2021 he was tolerating it at the 400 mg dosage, and he then began cycle 1 of rituximab. It caused a mild infusion reaction, managed adequately with extra Benadryl and a dose of IV Solu-Medrol. He then continued the venetoclax at 400 mg daily. During follow-up his blood counts have remained adequate and he has continued to tolerate the venetoclax with no significant adverse effects. He will return later this week for cycle 2 of rituximab at 375 mg/m??? by IV infusion. He will continue venetoclax 400 mg daily. He will have a repeat CBC in 2 weeks, and he will be scheduled for a follow-up visit in 4 weeks. Signed By: Kumar Kirkland M.D. <<Signature on File>>
[2022-01-16 15:19] LABS: Basophils % 0.7 %; Eosinophils # 0.1 10^3/uL (0.0-0.8); Eosinophils % 1.3 %; Hematocrit 36.8 % (42.0-52.0); Hemoglobin 11.8 g/dL (11.7-16.6); Lymphocytes # 1.3 10^3/uL (0.8-4.8); Mean Corpuscular HGB Conc 32.1 g/dL (30.0-36.0); Mean Corpuscular Hemoglobin 29.4 pg (28.0-34.0); Mean Corpuscular Volume 91.8 fl (80-94); Mean Platelet Volume 10.8 fL (7.4-10.4); Monocytes % 18.7 %; Neutrophils # 2.87 10^3/uL (1.8-7.7); Neutrophils % 53.6 %; Nucleated Red Blood Cells % 0 %; Platelet Count 132 10^3/cmm (130-400); Red Blood Count 4.01 10^6/uL (4.1-5.3); White Blood Count 5.4 10^3/uL (4.0-10.0)
[2022-01-16 15:45] LABS: Alanine Aminotransferase 45 U/L (0-41); Albumin Level 4.1 g/dL (3.5-5.2); Alkaline Phosphatase 69 IU/L (40-130); Anion Gap 14.8 (5-19); Aspartate Amino Transferase 36 U/L (0-40); Blood Urea Nitrogen 29 mg/dL (6-20); Calcium 9.2 mg/dL (8.5-10.5); Carbon Dioxide 27 mmol/L (22-29); Chloride 102 mmol/L (98-107); Globulin 2.6 g/dL (1.3-4.6); Glomerular Filtration Rate 48.4 mL/min (90-130); Glucose 124 mg/dL (65-115); Lactate Dehydrogenase 306 U/L (135-225); Osmolality Calculated 297 mOsm/kg (285-295); Potassium 3.8 mmol/L (3.5-5.1); Sodium 140 mmol/L (136-145); Total Bilirubin 0.2 mg/dL (0.15-1.2); Total Protein 6.7 g/dL (6.6-8.7)
--- NOTE | 2022-01-17 10:36 | ONC FU_ITS ---
Dr. Kirkland Patient Follow-Up Note Patient: Panda Rivera Unit #: [id number]: 1965 Dicatated By: Kumar Kirkland M.D.Date of Visit:Jan 17, 2022 Onc Med Follow-up/Prog Note Chief Complaint: Chronic lymphocytic leukemia. History of Present Illness: This is a 56 year-old man with chronic lymphocytic leukemia. The leukemia was diagnosed in March of 2003. He appeared to have Holcomb stage I disease, and he was initially managed with observation. Between August of 2008 and March of 2009 he was treated with 6 cycles of fludarabine/Rituxan. At that time his objective parameters did not meet usual criteria for treatment, but he had experienced a significant decline in performance status which appeared to be disease related. He did show a good clinical response, and he was then followed on observation. I had seen him for a follow-up visit in October 2015. At that time, his performance status appeared to be declining, and he also appeared to have some small cervical lymph nodes bilaterally. He also had shown a slight increase in his lymphocyte count. He underwent upper GI endoscopy and colonoscopy on 11/11/2015. The upper endoscopy showed mild esophagitis. There was moderate localized inflammation in the gastric body with a single ulcer present. There was a chronic appearing ulcer in the antrum. There was moderate patchy inflammation in the duodenal bulb with a few superficial benign-appearing ulcers. All the biopsies were benign, and the CLOtest was negative. He was found to have a rectal polyp on colonoscopy. It was removed endoscopically. There were no other abnormal findings. Pathology showed hyperplastic polyp. He had staging CT scans of the chest/abdomen/pelvis in November 2015. The most significant finding was the presence of bilateral lower lung zone bronchial wall thickening with scattered tree-in-bud nodular opacities. The primary consideration was atypical pneumonia or aspiration pneumonitis. There were slightly enlarged subcarinal lymph nodes which appeared reactive. Left axillary and left hilar adenopathy was unchanged compared to July 2008. There was no adenopathy in the abdomen/pelvis region. He underwent bronchoscopy on 12/30/2015. It showed generalized edema and endobronchial thickening throughout the tracheobronchial tree. There were no discrete endobronchial lesions identified. Transbronchial biopsy showed benign bronchial mucosa/submucosa with reactive lymphoid hyperplasia. All of the microbiology studies were negative. Given those findings he had just remained on observation/expectant management. In August 2018 he was taken to the emergency room after he had been found unresponsive at home. On evaluation, it was felt that he was most likely postictal from a seizure. A noncontrast head CT at that time reported no acute intracranial abnormality. The following morning around 4:30 AM he had a witnessed clonic seizure. He was taken to the emergency room and transferred to [facility] for further management. Subsequent brain MRI showed no evidence of acute infarction, hemorrhage, or parenchymal mass lesion. Spinal tap showed just slightly elevated CSF protein of 46 mg/dL. Cell count showed 2 WBC, both lymphocytes, and 1 RBC. A cytology report was not provided. His CBC at that time did show elevated white count at 21,600 with the differential showing 43% neutrophils, 43% lymphocytes, 8% monocytes, and 4% eosinophils. The hemoglobin was borderline at 12.5 g with hematocrit 38.3%. The platelet count was normal at 187,000. His comprehensive metabolic profile was unremarkable. He was discharged home on [place]. During subsequent follow-up he had further seizures, requiring changes in his medication regimen. 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 A repeat brain MRI at [facility] on 01/28/2019 showed no evidence of an acute intracranial process. Ultimately it was felt to be due to diabetic mononeuropathy. He was treated with gabapentin, and his symptoms gradually improved. He continued, though, to have issues with the seizure disorder, and he has since then been undergoing evaluation at [facility]. He has continued expectant management for the chronic lymphocytic leukemia. His other medical illnesses include hypertension, hyperlipidemia, type 2 diabetes, and GERD. He also degenerative arthritis, and he has had chronic back pain following a previous back injury. On 06/08/2019 he underwent left total knee arthroplasty. He experienced no complications with the procedure. He is a nonsmoker. INTERIM HISTORY: In May 2021 he was diagnosed with COVID-19 virus infection. He had pretty mild symptoms, and he recovered uneventfully. Restaging CT scans of the chest, abdomen, and pelvis on 07/27/2021 showed prominent axillary lymph nodes bilaterally, some with preserved fatty gato and the largest measuring 13 mm on the right. Also noted were prominent left AP window lymph nodes, enlarged adriana hepatis lymph nodes, numerous periaortic lymph nodes measuring up to 11 x 15 mm, slightly enlarged bilateral common iliac lymph nodes measuring up to 11 mm, and slightly enlarged bilateral inguinal lymph nodes, the largest on the left measuring up to 16 mm. Two small nodules in the right lung measuring 4 mm appeared unchanged dating back to 2015. He was having increasing symptoms, predominantly fatigue, and I did opt to have him restart treatment for the CLL with the second line venetoclax/rituximab combination regimen. He began the venetoclax dose escalation on 10/25/2021. He tolerated the venetoclax without adverse effect other than hypoglycemia, necessitating a reduction in his insulin dosage. As of 11/29/2021 he was tolerating it at 400 mg daily, and he then began cycle 1 of rituximab. He had some chills during the infusion, which resolved with some extra Benadryl and a dose of IV Solu-Medrol. He otherwise tolerated it well. He then continued the venetoclax at 400 mg daily. As of 01/01/2022 his treatment was put on hold, as he tested positive for COVID-19 virus infection. He was treated with Paxlovid for 5 days. He is seen for a follow-up visit. He had doing pretty well until last evening, but since then he just has not felt good. He has had a slight fever and he has just felt tired and blah. He had chills during the night. He has always had some aching in the right shoulder, recently he has had pretty severe burning pain which is mainly in the area of the right shoulder blade. He had been doing light work until this started. ECOG score is 1. Appetite has still been good. He has been having sinus drainage and he has been having lots of cough, but it is productive of clear sputum. He is not having shortness of breath or chest pain. He has had a little nausea. Bowel and bladder function have been okay. He has pain in his left knee off and on and he has his normal back pain. He does not complain of headache. He occasionally has dizziness. He has numbness in his right arm, which is chronic. Medications: Allopurinol 1 Tablet (of 300 mg) Oral daily, AmLODIPine Besylate 1 (10 mg) Tablet Oral daily, Aspirin 1 Tablet (of 325 mg) Tablet, enteric coated Oral daily, Benadryl Allergy 1 Tablet (of 25 mg) Oral daily, Depakote ER 3 Tablet (of 500 mg) Tablet SR 24 HR Oral at bedtime, GlipiZIDE 1 Tablet (of 10 mg) Oral daily, Hydrochlorothiazide 1 (25 mg) Tablet Oral daily, Insulin Lispro 15 Unit(s) (of 100 Units/mL) Subcutaneous t.i.d., Keppra (500 mg) Tablet Oral Take as Directed, Lantus 90 (100 Units/mL) Subcutaneous b.i.d., Lisinopril 1 (40 mg) Tablet Oral daily, Montelukast Sodium 1 Tablet (of 5 mg) Tablet, chewable Oral daily, Multivitamin Men 50+ 1 Tablet Oral daily, Omeprazole 1 (40 ) Capsule Delayed Release Oral daily, Oxycodone-Acetaminophen 1 (5-325 mg) Tablet Oral t.i.d. PRN, Zonisamide (100 mg) Capsule Oral Take as Directed Allergies: No Known Allergies. Vital Signs: Performed on Jan 17, 2022 08:00 Height - 70.00 in BP - 179/100 mm(hg) (HIGH) Performed on Jan 17, 2022 08:00 Height - 70.00 in Weight - 339.6 lbs (HIGH) BSA - 2.61 sq.m BMI - 48.73 (HIGH) Temperature - 99.5 F (HIGH) Pulse - 105 /min (HIGH) Respiration - 20 /min BP - 188/110 mm(hg) (HIGH) O2 Sat - 93 % (LOW) Pain - 9 Fatigue - 7 Physical Examination: Constitutional - He looks pretty good generally, Eyes - Sclerae nonicteric. Conjunctivae clear, ENMT - No lesions noted in the oral cavity, Hematologic/Lymphatic - No cervical, clavicular, or axillary adenopathy, Respiratory - Lungs sound clear, Cardiovascular - Heart rhythm is regular. There is no murmur, gallop, or rub noted, Abdomen - Moderately distended. Liver and spleen are not enlarged. There is no abdominal mass or ascites noted and there is no inguinal adenopathy, Extremities - There are venous stasis changes bilaterally and there is mild lower extremity edema, Neurologic - No focal neurologic deficits noted. Lab/Imaging: CBC shows hemoglobin 11.8 g, white blood cell count 5400, and platelet count 132,000. The absolute neutrophil count is 2800. Comprehensive metabolic profile shows stable renal function with BUN 29 and creatinine 1.5 mg/dL. SGOT is slightly elevated at 45/41 U/L. The other liver enzymes are normal. Problem List: 1. Chronic lymphocytic leukemia, initially diagnosed in 2002 and managed with observation. 2. Hypertension. 3. Hyperlipidemia. 4. Type II diabetes. 5. Chronic kidney disease. 6. GERD. 7. Degenerative arthritis/degenerative disease of the spine. 8. In March 2018 he required treatment for iron deficiency anemia. 9. In August 2018 he had presented with new onset of epilepsy, presumed idiopathic. Problems Addressed with this Encounter and Plan: Patient with chronic lymphocytic leukemia. His disease was Holcomb stage I at initial diagnosis in 2002, and he was managed with observation. He ultimately did have treatment with 6 cycles of fludarabine/Rituxan, completed in March 2009. At that time he still appeared to have early stage disease by objective parameters, but he had become symptomatic. He had a very good clinical response. He was then managed expectantly. During follow-up he had ongoing problems associated with his seizure disorder. He is receiving treatment for it through [facility]. He also had gradually worsening fatigue and declining performance status. It was uncertain to what extent his symptoms may have been due to the medications for his seizure disorder or to the chronic lymphocytic leukemia. However, I did appear that at least some component was related to the CLL, as his restaging CT scans had shown evidence of disease progression with increase in generalized lymphadenopathy. With those findings, he was recommended to begin second line treatment with the venetoclax/rituximab combination regimen. He began the venetoclax dose escalation on 10/25/2021. During treatment he required a reduction in his insulin dosage due to hypoglycemia. He had no other adverse effects. As of 11/29/2021 he was tolerating it at the 400 mg dosage, and he then began cycle 1 of rituximab. It caused a mild infusion reaction, managed adequately with extra Benadryl and a dose of IV Solu-Medrol. He then continued the venetoclax at 400 mg daily. During follow-up his blood counts remained adequate and he continued to tolerate the venetoclax with no significant adverse effects. However, ss of 01/01/2022 his treatment was put on hold, as he had tested positive for COVID-19 virus infection. He was treated with Paxlovid for 5 days. He recovered uneventfully, but his treatment thus far has remained on hold. He was scheduled to proceed with his cycle 2 of rituximab today, but within the past 24 hours he has developed new symptoms including fatigue, malaise, low-grade fever, and chills. He has some sinus drainage and cough, but his symptoms thus far do not seem to warrant antibiotic therapy. His treatment, though, will remain on hold, and he will be scheduled to return for treatment next week. Signed By: Kumar iKrkland M.D. <<Signature on File>>
== END 2022-01-18 09:00 | disposition home or self-care (01) ==
LOC: ONCMED 06:54
PROVIDERS: PCP Internal Medicine; Visit Provider Internal Medicine Medical Oncology
DX: C91.10 Chronic lymphocytic leukemia of B-cell type not having achieved remission (principal); I12.9 Hypertensive chronic kidney disease with stage 1 through stage 4 chronic kidney disease, or unspecified chronic kidney disease; E78.5 Hyperlipidemia, unspecified; E11.22 Type 2 diabetes mellitus with diabetic chronic kidney disease; N18.9 Chronic kidney disease, unspecified; K21.9 Gastro-esophageal reflux disease without esophagitis; G31.89 Other specified degenerative diseases of nervous system; G40.802 Other epilepsy, not intractable, without status epilepticus; Z86.2 Personal history of diseases of the blood and blood-forming organs and certain disorders involving the immune mechanism; Z79.899 Other long term (current) drug therapy
CPT/HCPCS: 36591; 80053; 83615; 85025; 99214; 99215

== ENCOUNTER 2022-01-18 21:01 | Emergency (ER) | payer MEDICARE, SELFPAY ==
[2022-01-18 21:15] VITALS: BP 169/94; PULSE 101; RESP 20; TEMP 37.2; O2SAT 97; BMI 48.0
--- NOTE | 2022-01-18 21:34 | USR_ITS ---
PROCEDURE INFORMATION: Exam: US Duplex Left Lower Extremity Veins, Limited Exam date and time: 01/18/2022 9:34 PM Age: 56 years old Clinical indication: Pain; Edema, localized; Lower extremity, left; Leg, upper; Patient HX: PT has diabetes and leukemia and has recovered from covid approximately 4-5 weeks prior; Additional info: Redness, swelling TECHNIQUE: Imaging protocol: Real-time Duplex ultrasound of the Left Lower Extremity with 2-D abdullahi scale, color Doppler flow and spectral waveform analysis with image documentation. Limited exam focused on the left lower extremity veins. COMPARISON: CR (LOW EXM, ) 01/18/2022 9:53 PM FINDINGS: Left deep veins: There is decreased venous flow in the proximal profunda femoral vein and mid femoral vein with at least partial compressibility. The common femoral, proximal and distal femoral, and popliteal veins are patent without thrombus. Normal Doppler waveforms. Normal compressibility and/or augmentation response. Left superficial veins: Unremarkable. Saphenofemoral junction is patent without thrombus. Soft tissues: Unremarkable. US/CV venous duplex [facility] [id number] IMPRESSION: 1. Findings are suspicious for partial nonocclusive thrombus in the proximal profunda femoral vein and mid femoral vein.
--- NOTE | 2022-01-18 21:37 | XRR_ITS ---
PROCEDURE INFORMATION: Exam: XR Chest Exam date and time: 01/18/2022 9:37 PM Age: 56 years old Clinical indication: Fever; Prior surgery; Surgery date: 6+ months; Surgery type: Port; Additional info: Fevers TECHNIQUE: Imaging protocol: XR of the chest. Views: 1 view. COMPARISON: CR XR chest 2V* [id number] 01/09/2022 5:07 PM FINDINGS: Tubes, catheters and devices: Stable left [id number] with tip over the proximal SVC. Lungs: Calcified granuloma in the left lung base. The lungs are otherwise clear. Pleural spaces: Unremarkable. No pleural effusion. No pneumothorax. Heart/Mediastinum: Unremarkable. No cardiomegaly. Bones/joints: Unremarkable. XR/XR chest 1V portable [id number] IMPRESSION: No acute findings.
--- NOTE | 2022-01-18 21:37 | XRR_ITS ---
PROCEDURE INFORMATION: Exam: XR Left Toe(s) Exam date and time: 01/18/2022 9:37 PM Age: 56 years old Clinical indication: Pain; Toes; Left; Additional info: Infection; 2nd toe TECHNIQUE: Imaging protocol: XR Left toes. Views: Minimum 2 views. COMPARISON: No relevant prior studies available. FINDINGS: Bones/joints: The bones appear intact and in normal alignment. No fracture or bone destruction identified. Soft tissues: Soft tissue swelling in the dorsal foot and toes. No visualized foreign body. XR/XR toe LT min 2V [id number] IMPRESSION: No acute skeletal abnormality.
--- NOTE | 2022-01-18 21:42 | ED_ITS ---
Documented by User: GENE Rios 01/19/22 00:59 HPI - Extremity Problem General: Chief complaint: Extremity Problem,Nontraumatic Stated complaint: Left Side Toe infection up to Groin Time Seen by Provider: 01/18/22 21:22 Source: patient and family () Mode of arrival: ambulatory Limitations: no limitations History of Present Illness: Patient is a nice 56-year-old male with a history of morbid obesity, diabetes, HTN, HLD, CKD, and CLL (being followed by Dr. Kirkland) here along with his for concerns of infection to his left lower extremity. states that he began noticing some redness to his right second toe 2 to 3 days ago and states this has progressively worsened. She states today she began noticing redness and swelling to his foot and ankle and also noticed red streaking up his left leg. Patient states he has been having low-grade fevers as high as 100.4 over the past few days and generally has felt unwell. He does not complain of abdominal pain, nausea, vomiting. No URI symptoms. No cough. No rash. states he is undergoing chemotherapy treatment for his CLL. MD Complaint: extremity pain and extremity swelling Onset (ago): hour(s) Pain Consistency: constant Location: left and lower extremity Radiation: proximal Relieving factors: nothing Exacerbating factors: nothing Associated symptoms: Reports fever(s) and other (fever); Deny chest pain Review of Systems Const: Reports: fever(s) and malaise ENMT: Denies: throat pain, odynophagia, nasal discharge or nasal congestion Card: Denies: chest pain Resp: Denies: dyspnea, productive cough, non-productive cough or chest congestion GI: Denies: abdominal pain, nausea or vomiting Musc: Reports: extremity pain and extremity swelling; Denies: neck pain, back pain, joint pain or joint swelling Neuro: Denies: headache(s), numbness in extremities, weakness in extremities or sensory changes PFSH ED PFSH: Medical History Chronic lymphocytic leukemia Diabetes Social History Smoking and tobacco status: never smoked Physical Exam Const: COMMON NORMALS: no acute distress, patient oriented x3, no limitations and alert GENERAL APPEARANCE: cooperative NUTRITIONAL APPEARANCE: obese ORIENTATION/CONSCIOUSNESS: Yes awake, Yes oriented to person, Yes oriented to place and Yes oriented to time HENMT: COMMON NORMALS: normocephalic and atraumatic HEAD & SCALP: normocephalic and atraumatic Lymph: LYMPHATIC: no lymphadenopathy noted Resp: COMMON NORMALS: normal respiratory effort and clear to auscultation bilaterally AUSCULTATION: clear to auscultation bilaterally Cardio: COMMON NORMALS: regular rate and regular rhythm RATE: regular rate RHYTHM: regular rhythm GI: COMMON NORMALS: Normal to inspection, nondistended, normoactive bowel sounds present, Soft to palpation, non-tender, No hepatosplenomegaly present and no masses PALPATION: Yes Soft to palpation and Yes No hepatosplenomegaly present Extremity: GENERAL: Yes normal exam except as noted LEFT LOWER EXTREMITY: Yes upper leg, Yes lower leg, Yes ankle joint and Yes foot & digits OTHER: pt has edema and erythema noted to dorsum of R 2nd toe; he has generalized edema and warmth affecting foot, ankle and calf; calf appears swollen when compared to L; he has lymphangitic streaking to his mid medial thigh; no inguinal lymphadenopathy palpated Neuro: ROSS COMA SCALE: document GCS findings Ross coma scale eye opening: Spontaneous [place] coma scale verbal response: Orientated Ross coma scale motor response: Obey commands Ross coma scale total score: 15 COMMON NORMALS: patient oriented x3, moves all extremities, no focal motor deficits and no sensory deficits noted SENSORIUM/ORIENTATION: Yes alert, Yes oriented to person, Yes oriented to place and Yes oriented to time Skin: NARRATIVE SKIN EXAM: see extremity assessment for pertinent skin findings Course Consultations: Consultation #1: Dr. Hartmann-recommends adding IV Zosyn; accepts admit Vital Signs: Vital signs: Vital Signs Temperature 98.9 F 01/18/22 21:15 Pulse Rate 96 01/19/22 00:58 Respiratory Rate 18 01/19/22 00:58 Blood Pressure 165/92 01/19/22 00:58 Pulse Oximetry 97 01/19/22 00:58 MDM - Extremity (Nontraumatic) Medical Decision Making Patient is a nice 56-year-old male here with his for concerns of a left lower extremity infection. On exam he does have a severely edematous and erythematous left second toe could be early osteonecrosis. XR shows no bony involvement. He has edema to the foot, ankle, and calf with overlying warmth. He is lymphangitis to his mid medial thigh. I think given his comorbidities he would benefit from hospitalization. Dr. Heller has also evaluated patient and agrees. I spoke to Dr. Hartmann who recommends IV Zofran in addition to the IV vancomycin he was started on here. US venous of [place] ASH[place] pending. Lab Data : 01/18/22 22:05 01/18/22 22:05 Radiology Impressions Venous Duplex 01/18/22 21:34 IMPRESSION: 1. Findings are suspicious for partial nonocclusive thrombus in the proximal profunda femoral vein and mid femoral vein. ADDENDUM: 01/19/22 0015 THIS REPORT CONTAINS FINDINGS THAT MAY BE CRITICAL TO PATIENT CARE. The findings were verbally communicated via telephone conference with Mallika Murdock at 12:13 AM CHEST PAIN COORDINATOR on 01/19/2022. The findings were acknowledged and understood. Chest X-Ray 01/18/22 21:37 IMPRESSION: No acute findings. Toe X-Ray 01/18/22 21:37 IMPRESSION: No acute skeletal abnormality. Laboratory Results WBC 5.4 10^3/uL (4.0-10.0) 01/18/22 22:05 RBC 3.93 10^6/uL (4.1-5.3) L 01/18/22 22:05 Hgb 11.7 g/dL (11.7-16.6) 01/18/22 22:05 Hct 35.5 % (42.0-52.0) L 01/18/22 22:05 MCV 90.3 fl (80-94) 01/18/22 22:05 MCH 29.8 pg (28.0-34.0) 01/18/22 22:05 MCHC 33.0 g/dL (30.0-36.0) 01/18/22 22:05 RDW 15.2 % (12.1-15.1) H 01/18/22 22:05 Plt Count 122 10^3/cmm (130-400) L 01/18/22 22:05 MPV 10.7 fL (7.4-10.4) H 01/18/22 22:05 Neut % (Auto) 53.7 % 01/18/22 22:05 Lymph % (Auto) 23.0 % 01/18/22 22:05 [place] % (Auto) 20.3 % 01/18/22 22:05 Eos % (Auto) 0.9 % 01/18/22 22:05 Baso % (Auto) 0.4 % 01/18/22 22:05 Neut # (Auto) 2.89 10^3/uL (1.8-7.7) 01/18/22 22:05 Lymph # (Auto) 1.2 10^3/uL (0.8-4.8) 01/18/22 22:05 [place] # (Auto) 1.1 10^3/uL (0.2-0.9) H 01/18/22 22:05 Eos # (Auto) 0.1 10^3/uL (0.0-0.8) 01/18/22 22:05 Baso # (Auto) 0.0 10^3/uL (0.0-0.1) 01/18/22 22:05 Nucleated RBC % (auto) 0 % 01/18/22 22:05 Nucleated RBCs # 0.0 /100WBC 01/18/22 22:05 ESR 33 mm/hr (0-10) H 01/18/22 22:05 Sodium 140 mmol/L (136-145) 01/18/22 22:05 Potassium 3.7 mmol/L (3.5-5.1) 01/18/22 22:05 Chloride 101 mmol/L (98-107) 01/18/22 22:05 Carbon Dioxide 24 mmol/L (22-29) 01/18/22 22:05 Anion Gap 18.7 (5-19) 01/18/22 22:05 BUN 21 mg/dL (6-20) H 01/18/22 22:05 Creatinine 1.8 mg/dL (0.7-1.2) H 01/18/22 22:05 GFR Calculation 39.2 mL/min (90-130) L 01/18/22 22:05 Glucose 221 mg/dL (65-115) H 01/18/22 22:05 Calculated Osmolality 300 mOsm/kg (285-295) H 01/18/22 22:05 Lactic Acid 1.9 mmol/L (0.5-2.2) 01/18/22 22:05 Calcium 9.1 mg/dL (8.5-10.5) 01/18/22 22:05 Total Bilirubin 0.2 mg/dL (0.15-1.2) 01/18/22 22:05 AST 22 U/L (0-40) 01/18/22 22:05 ALT 33 U/L (0-41) 01/18/22 22:05 Alkaline Phosphatase 74 IU/L (40-130) 01/18/22 22:05 C-Reactive Protein 55.3 mg/L (0.0-4.9) H 01/18/22 22:05 Total Protein 6.5 g/dL (6.6-8.7) L 01/18/22 22:05 Albumin 4.0 g/dL (3.5-5.2) 01/18/22 22: Globulin 2.5 g/dL (1.3-4.6) 01/18/22 22: Urine Color Yellow (Yellow) 01/18/22: Urine Appearance Clear (CLEAR) 01/18/22: Urine pH 5 (5-7) 01/18/22:25 Ur Specific [place] 1.015 (1.005-1.030) 01/18/22: Urine Protein 2+ (Negative) H 01/18/22: Urine Glucose (UA) 2+ (Normal) H 01/18/22: Urine Ketones Negative (Negative) 01/18/22: Urine Blood 2+ (Negative) H 01/18/22: Urine Nitrate Negative (Negative) 01/18/22: Urine Bilirubin Neg (Negative) 01/18/22: Urine Urobilinogen 1 mg/dL (Negative) H 01/18/22 22:25 Ur Leukocyte Esterase Negative (Negative) 01/18/22 22: Urine RBC 0-4 /hpf (0-2) H 01/18/22 22:25 Urine WBC 0-4 /hpf (0-5) H 01/18/22 22:25 Ur Squamous Epith Cells 0-4 /hpf (0-5) H 01/18/22 22:25 Amorphous Sediment Not Reportable 01/18/22: Urine Bacteria Trace /hpf (NONE) 01/18/22 22: Discharge Plan Discharge Patient Disposition: Left Against Medical Advice Clinical Impression: Acute lymphangitis of left lower limb, Cellulitis of left toe, Diabetes, 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 Condition: Stable Prescriptions: No Action Lantus U-100 Insulin 100 unit/mL solution 90 unit SUBCUT BID 0RF insulin aspart U-100 [Novolog Flexpen U-100 Insulin] 100 unit/mL (3 mL) insulin pen 20 unit SUBCUT TID 0RF atorvastatin 40 mg tablet 40 mg PO DAILY 0RF montelukast [Singulair] 10 mg tablet 10 mg PO DAILY 0RF aspirin [Adult Aspirin Regimen] 81 mg tablet,delayed release (DR/EC) 81 mg PO DAILY 0RF allopurinol 300 mg tablet 300 mg PO DAILY 0RF omeprazole 40 mg capsule,delayed release(DR/EC) 40 mg PO BID 0RF lisinopril 40 mg tablet 40 mg PO DAILY 0RF amlodipine 10 mg tablet 10 mg PO DAILY 0RF hydrochlorothiazide 25 mg tablet 25 mg PO DAILY 0RF levetiracetam 500 mg tablet 500 mg PO BID 0RF zonisamide 100 mg capsule 100 mg PO BID 0RF rituximab 10 mg/mL concentrate IV 0RF Venclexta 50 mg tablet 50 mg PO DAILY 0RF Referrals: Kumar Evans DO [Primary Care Provider] - Patient Instructions: Opioid Safety Coding Level of Care Code ED Coding Clerk for Chg Fwd Exam Comprehensive Documented by User: Sonido Morgan MD 01/26/22 11:45 HPI - Extremity Problem General: Chief complaint: Extremity Problem,Nontraumatic Stated complaint: Left Side Toe infection up to Groin Time Seen by Provider: 01/18/22 21:22 [facility] ED PFSH: Medical History Chronic lymphocytic leukemia Diabetes Social History Smoking and tobacco status: never smoked Physical Exam Neuro: ROSS COMA SCALE: document GCS findings Ross coma scale total score: 15 Course Vital Signs: Vital signs: Vital Signs Temperature 98.9 F 01/18/22 21:15 Pulse Rate 96 01/19/22 00:58 Respiratory Rate 18 01/19/22 00:58 Blood Pressure 165/92 01/19/22 00:58 Pulse Oximetry 97 01/19/22 00:58 MDM - Extremity (Nontraumatic) Medical Decision Making Patient is a nice 56-year-old male here with his for concerns of a left lower extremity infection. On exam he does have a severely edematous and erythematous left second toe could be early osteonecrosis. XR shows no bony involvement. He has edema to the foot, ankle, and calf with overlying warmth. He is lymphangitis to his mid medial thigh. I think given his comorbidities he would benefit from hospitalization. Dr. Heller has also evaluated patient and agrees. I spoke to Dr. Hartmann who recommends IV Zofran in addition to the IV vancomycin he was started on here. US venous of L LE pending. I discussed this case with GENE Rios. I personally saw and evaluated the patient, I reperformed moyer portions of E/M. I recommended admission for IV antibiotics. Patient initially agreeable to admission however apparently changed his mind and ended up leaving AGAINST MEDICAL ADVICE. Sonido Morgan MD Emergency Medicine Lab Data : 01/18/22 22:05 01/18/22 22:05 Radiology Impressions Venous Duplex 01/18/22 21:34 IMPRESSION: 1. Findings are suspicious for partial nonocclusive thrombus in the proximal profunda femoral vein and mid femoral vein. ADDENDUM: 01/19/22 0015 THIS REPORT CONTAINS FINDINGS THAT MAY BE CRITICAL TO PATIENT CARE. The findings were verbally communicated via telephone conference with Mallika Murdock at 12:13 AM CHEST PAIN COORDINATOR on 01/19/2022. The findings were acknowledged and understood. Chest X-Ray 01/18/22 21:37 IMPRESSION: No acute findings. Toe X-Ray 01/18/22 21:37 IMPRESSION: No acute skeletal abnormality. Laboratory Results WBC 5.4 10^3/uL (4.0-10.0) 01/18/22 22:05 RBC 3.93 10^6/uL (4.1-5.3) L 01/18/22 22:05 Hgb 11.7 g/dL (11.7-16.6) 01/18/22 22:05 Hct 35.5 % (42.0-52.0) L 01/18/22 22:05 MCV 90.3 fl (80-94) 01/18/22 22:05 MCH 29.8 pg (28.0-34.0) 01/18/22:05 MCHC 33.0 g/dL (30.0-36.0) 01/18/22 22:05 RDW 15.2 % (12.1-15.1) H 01/18/22 22:05 Plt Count 122 10^3/cmm (130-400) L 01/18/22:05 MPV 10.7 fL (7.4-10.4) H 01/18/22 22:05 Neut % (Auto) 53.7 % 01/18/22:05 Lymph % (Auto) 23.0 % 01/18/22:05 [place] % (Auto) 20.3 % 01/18/22 22:05 Eos % (Auto) 0.9 % 01/18/22 22:05 Baso % (Auto) 0.4 % 01/18/22:05 Neut # (Auto) 2.89 10^3/uL (1.8-7.7) 01/18/22 22:05 Lymph # (Auto) 1.2 10^3/uL (0.8-4.8) 01/18/22:05 [place] # (Auto) 1.1 10^3/uL (0.2-0.9) H 01/18/22 22:05 Eos # (Auto) 0.1 10^3/uL (0.0-0.8) 01/18/22 22:05 Baso # (Auto) 0.0 10^3/uL (0.0-0.1) 01/18/22 22:05 Nucleated RBC % (auto) 0 % 01/18/22:05 Nucleated RBCs # 0.0 /100WBC 01/18/22 22:05 ESR 33 mm/hr (0-10) H 01/18/22 22:05 Sodium 140 mmol/L (136-145) 01/18/22 22:05 Potassium 3.7 mmol/L (3.5-5.1) 01/18/22 22:05 Chloride 101 mmol/L (98-107) 01/18/22 22:05 Carbon Dioxide 24 mmol/L (22-29) 01/18/22 22:05 Anion Gap 18.7 (5-19) 01/18/22 22:05 BUN 21 mg/dL (6-20) H 01/18/22 22:05 Creatinine 1.8 mg/dL (0.7-1.2) H 01/18/22 22:05 GFR Calculation 39.2 mL/min (90-130) L 01/18/22 22:05 Glucose 221 mg/dL (65-115) H 01/18/22 22:05 Calculated Osmolality 300 mOsm/kg (285-295) H 01/18/22 22:05 Lactic Acid 1.9 mmol/L (0.5-2.2) 01/18/22 22:05 Calcium 9.1 mg/dL (8.5-10.5) 01/18/22 22:05 Total Bilirubin 0.2 mg/dL (0.15-1.2) 01/18/22 22:05 AST 22 U/L (0-40) 01/18/22 22:05 ALT 33 U/L (0-41) 01/18/22 22:05 Alkaline Phosphatase 74 IU/L (40-130) 01/18/22 22:05 C-Reactive Protein 55.3 mg/L (0.0-4.9) H 01/18/22 22:05 Total Protein 6.5 g/dL (6.6-8.7) L 01/18/22 22:05 Albumin 4.0 g/dL (3.5-5.2) 01/18/22 22:05 Globulin 2.5 g/dL (1.3-4.6) 01/18/22 22:05 Urine Color Yellow (Yellow) 01/18/22:25 Urine Appearance Clear (CLEAR) 01/18/22:25 Urine pH 5 (5-7) 01/18/22 22:25 Ur Specific [place] 1.015 (1.005-1.030) 01/18/22:25 Urine Protein 2+ (Negative) H 02/24/22 22:25 Urine Glucose (UA) 2+ (Normal) H 01/18/22 22:25 Urine Ketones Negative (Negative) 01/18/22 22:25 Urine Blood 2+ (Negative) H 01/18/22 22:25 Urine Nitrate Negative (Negative) 01/18/22 22:25 Urine Bilirubin Neg (Negative) 01/18/22 22:25 Urine Urobilinogen 1 mg/dL (Negative) H 01/18/22 22:25 Ur Leukocyte Esterase Negative (Negative) 01/18/22 22:25 Urine RBC 0-4 /hpf (0-2) H 01/18/22 22:25 Urine WBC 0-4 /hpf (0-5) H 01/18/22 22:25 Ur Squamous Epith Cells 0-4 /hpf (0-5) H 01/18/22 22:25 Amorphous Sediment Not Reportable 01/18/22 22:25 Urine Bacteria Trace /hpf (NONE) 01/18/22 22:25 Discharge Plan Discharge Patient Disposition: Left Against Medical Advice Clinical Impression: Acute lymphangitis of left lower limb, Cellulitis of left toe, Diabetes, Chronic lymphocytic leukemia Condition: Stable Prescriptions: No Action Lantus U-100 Insulin 100 unit/mL solution 90 unit SUBCUT BID 0RF insulin aspart U-100 [Novolog Flexpen U-100 Insulin] 100 unit/mL (3 mL) insuli n pen 20 unit SUBCUT TID 0RF atorvastatin 40 mg tablet 40 mg PO DAILY 0RF montelukast [Singulair] 10 mg tablet 10 mg PO DAILY 0RF aspirin [Adult Aspirin Regimen] 81 mg tablet,delayed release (DR/EC) 81 mg PO DAILY 0RF allopurinol 300 mg tablet 300 mg PO DAILY 0RF omeprazole 40 mg capsule,delayed release(DR/EC) 40 mg PO BID 0RF lisinopril 40 mg tablet 40 mg PO DAILY 0RF amlodipine 10 mg tablet 10 mg PO DAILY 0RF hydrochlorothiazide 25 mg tablet 25 mg PO DAILY 0RF levetiracetam 500 mg tablet 500 mg PO BID 0RF zonisamide 100 mg capsule 100 mg PO BID 0RF rituximab 10 mg/mL concentrate IV 0RF Venclexta 50 mg tablet 50 mg PO DAILY 0RF Referrals: Kumar Evans DO [Primary Care Provider] - Patient Instructions: Opioid Safety Coding Level of Care Code ED Coding Clerk for Chg Fwd Exam Comprehensive
[2022-01-18] MEDS: vancomycin 1,000 MG in sodium chloride 0.9% 250 ML 250 MG IV (22:06)
[2022-01-18 22:28] LABS: Basophils % 0.4 %; Eosinophils # 0.1 10^3/uL (0.0-0.8); Eosinophils % 0.9 %; Hematocrit 35.5 % (42.0-52.0); Hemoglobin 11.7 g/dL (11.7-16.6); Lymphocytes # 1.2 10^3/uL (0.8-4.8); Mean Corpuscular Hemoglobin 29.8 pg (28.0-34.0); Mean Corpuscular Volume 90.3 fl (80-94); Mean Platelet Volume 10.7 fL (7.4-10.4); Monocytes # 1.1 10^3/uL (0.2-0.9); Monocytes % 20.3 %; Neutrophils # 2.89 10^3/uL (1.8-7.7); Neutrophils % 53.7 %; Nucleated Red Blood Cells % 0 %; Platelet Count 122 10^3/cmm (130-400); Red Blood Count 3.93 10^6/uL (4.1-5.3); Red Cell Distribution Width 15.2 % (12.1-15.1); White Blood Count 5.4 10^3/uL (4.0-10.0)
[2022-01-18 22:42] LABS: Add Urine Culture? No; Add Urine Microscopic? YES; Bacteria Urine TRACE /hpf; Bilirubin Urine Neg (Negative); Blood Urine 2+ (Negative); Glucose Urine UA 2+ (Normal); Ketones Urine Negative (Negative); Leukocyte Esterase Urine Negative (Negative); Nitrate Urine Negative (Negative); Protein Urine 2+ (Negative); RBC Urine 0-4 /hpf (0-2); Specific Gravity, Urine 1.015 (1.005-1.030); Squamous Epithelial Cell Urine 0-4 /hpf (0-5); Urine Appearance Clear (CLEAR); Urine Color Yellow (Yellow); Urobilinogen Urine 1 mg/dL (Negative); WBC Urine 0-4 /hpf (0-5); pH Urine 5 (5-7)
[2022-01-18 22:47] LABS: Lactic Sepsis W/Reflex 1.9 mmol/L (0.5-2.2)
[2022-01-18 22:48] LABS: Alanine Aminotransferase 33 U/L (0-41); Alkaline Phosphatase 74 IU/L (40-130); Anion Gap 18.7 (5-19); Aspartate Amino Transferase 22 U/L (0-40); Blood Urea Nitrogen 21 mg/dL (6-20); C Reactive Protein 55.3 mg/L (0.0-4.9); Calcium 9.1 mg/dL (8.5-10.5); Carbon Dioxide 24 mmol/L (22-29); Chloride 101 mmol/L (98-107); Globulin 2.5 g/dL (1.3-4.6); Glomerular Filtration Rate 39.2 mL/min (90-130); Glucose 221 mg/dL (65-115); Osmolality Calculated 300 mOsm/kg (285-295); Potassium 3.7 mmol/L (3.5-5.1); Sodium 140 mmol/L (136-145); Total Bilirubin 0.2 mg/dL (0.15-1.2); Total Protein 6.5 g/dL (6.6-8.7)
[2022-01-18 22:55] LABS: Erythrocyte Sedimentation Rate 33 mm/hr (0-10)
[2022-01-18] MEDS: piperacillin-tazobactam 3.375 GM in sodium chloride 0.9% (plus) 50 ML IV (23:40)
[2022-01-19 00:36] VITALS: BP 161/94; PULSE 100; RESP 18; O2SAT 97
[2022-01-19] MEDS: enoxaparin 150 mg/mL Syringe SUBCUT (00:38)
[2022-01-19 00:58] VITALS: BP 165/92; PULSE 96; RESP 18; O2SAT 97
== END 2022-01-19 01:00 | disposition left against medical advice (07) ==
PROVIDERS: Emergency Provider Physician Assistant; PCP Internal Medicine
DX: L03.126 Acute lymphangitis of left lower limb (principal); L03.032 Cellulitis of left toe; E11.9 Type 2 diabetes mellitus without complications; C91.10 Chronic lymphocytic leukemia of B-cell type not having achieved remission; Z79.82 Long term (current) use of aspirin; Z79.4 Long term (current) use of insulin; I10 Essential (primary) hypertension; E78.5 Hyperlipidemia, unspecified; R60.0 Localized edema
CPT/HCPCS: 71045; 73660; 80053; 81001; 83605; 85025; 85651; 86140; 87040; 93971; 96365; 96367; 96372; 99284; J1650; J2543; J3370; J7050

== ENCOUNTER 2022-01-22 07:26 | Outpatient (RCR) | payer MEDICARE, SELFPAY ==
[2022-01-20 12:28] VITALS: BP 165/86; PULSE 90; RESP 18; TEMP 37.3; O2SAT 98
--- NOTE | 2022-01-20 12:37 | PC.NURSE ---
PORT ACCESSED PER PROTOCOL
--- NOTE | 2022-01-20 13:00 | PC.NURSE ---
PORT ACCESS KEPT IN PLACE FOR INFUSION TOMORROW.
[2022-01-21 10:53] VITALS: BP 149/82; PULSE 89; RESP 16; TEMP 36.6; O2SAT 96
--- NOTE | 2022-01-21 11:57 | PC.NURSE ---
Deacces port per protocol. Patient tolerated well.
[2022-01-22] MEDS: alteplase 1 mg/mL SDV 2 mL 2 MG IV ×2 (11:05→12:17)
--- NOTE | 2022-01-30 10:40 | ONC FU_ITS ---
Dr. Kirkland Patient Follow-Up Note Patient: Panda Rivera Unit #: [id number]: 1965 Dicatated By: Kumar Kirkland M.D.Date of Visit:Jan 19, 2022 Onc Med Follow-up/Prog Note Chief Complaint: Chronic lymphocytic leukemia. History of Present Illness: This is a 56 year-old man with chronic lymphocytic leukemia. The leukemia was diagnosed in March of 2003. He appeared to have Holcomb stage I disease, and he was initially managed with observation. Between August of 2008 and March of 2009 he was treated with 6 cycles of fludarabine/Rituxan. At that time his objective parameters did not meet usual criteria for treatment, but he had experienced a significant decline in performance status which appeared to be disease related. He did show a good clinical response, and he was then followed on observation. I had seen him for a follow-up visit in October 2015. At that time, his performance status appeared to be declining, and he also appeared to have some small cervical lymph nodes bilaterally. He also had shown a slight increase in his lymphocyte count. He underwent upper GI endoscopy and colonoscopy on 11/11/2015. The upper endoscopy showed mild esophagitis. There was moderate localized inflammation in the gastric body with a single ulcer present. There was a chronic appearing ulcer in the antrum. There was moderate patchy inflammation in the duodenal bulb with a few superficial benign-appearing ulcers. All the biopsies were benign, and the CLOtest was negative. He was found to have a rectal polyp on colonoscopy. It was removed endoscopically. There were no other abnormal findings. Pathology showed hyperplastic polyp. He had staging CT scans of the chest/abdomen/pelvis in November 2015. The most significant finding was the presence of bilateral lower lung zone bronchial wall thickening with scattered tree-in-bud nodular opacities. The primary consideration was atypical pneumonia or aspiration pneumonitis. There were slightly enlarged subcarinal lymph nodes which appeared reactive. Left axillary and left hilar adenopathy was unchanged compared to July 2008. There was no adenopathy in the abdomen/pelvis region. He underwent bronchoscopy on 12/30/2015. It showed generalized edema and endobronchial thickening throughout the tracheobronchial tree. There were no discrete endobronchial lesions identified. Transbronchial biopsy showed benign bronchial mucosa/submucosa with reactive lymphoid hyperplasia. All of the microbiology studies were negative. Given those findings he had just remained on observation/expectant management. In August 2018 he was taken to the emergency room after he had been found unresponsive at home. On evaluation, it was felt that he was most likely postictal from a seizure. A noncontrast head CT at that time reported no acute intracranial abnormality. The following morning around 4:30 AM he had a witnessed clonic seizure. He was taken to the emergency room and transferred to [facility] for further management. Subsequent brain MRI showed no evidence of acute infarction, hemorrhage, or parenchymal mass lesion. Spinal tap showed just slightly elevated CSF protein of 46 mg/dL. Cell count showed 2 WBC, both lymphocytes, and 1 RBC. A cytology report was not provided. His CBC at that time did show elevated white count at 21,600 with the differential showing 43% neutrophils, 43% lymphocytes, 8% monocytes, and 4% eosinophils. The hemoglobin was borderline at 12.5 g with hematocrit 38.3%. The platelet count was normal at 187,000. His comprehensive metabolic profile was unremarkable. He was discharged home on [place]. During subsequent follow-up he had further seizures, requiring changes in his medication regimen. 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 A repeat brain MRI at [facility] on 01/28/2019 showed no evidence of an acute intracranial process. Ultimately it was felt to be due to diabetic mononeuropathy. He was treated with gabapentin, and his symptoms gradually improved. He continued, though, to have issues with the seizure disorder, and he has since then been undergoing evaluation at [facility]. He has continued expectant management for the chronic lymphocytic leukemia. His other medical illnesses include hypertension, hyperlipidemia, type 2 diabetes, and GERD. He also degenerative arthritis, and he has had chronic back pain following a previous back injury. On 06/08/2019 he underwent left total knee arthroplasty. He experienced no complications with the procedure. He is a nonsmoker. INTERIM HISTORY: In May 2021 he was diagnosed with COVID-19 virus infection. He had pretty mild symptoms, and he recovered uneventfully. Restaging CT scans of the chest, abdomen, and pelvis on 07/27/2021 showed prominent axillary lymph nodes bilaterally, some with preserved fatty gato and the largest measuring 13 mm on the right. Also noted were prominent left AP window lymph nodes, enlarged adriana hepatis lymph nodes, numerous periaortic lymph nodes measuring up to 11 x 15 mm, slightly enlarged bilateral common iliac lymph nodes measuring up to 11 mm, and slightly enlarged bilateral inguinal lymph nodes, the largest on the left measuring up to 16 mm. Two small nodules in the right lung measuring 4 mm appeared unchanged dating back to 2015. He was having increasing symptoms, predominantly fatigue, and I did opt to have him restart treatment for the CLL with the second line venetoclax/rituximab combination regimen. He began the venetoclax dose escalation on 10/25/2021. He tolerated the venetoclax without adverse effect other than hypoglycemia, necessitating a reduction in his insulin dosage. As of 11/29/2021 he was tolerating it at 400 mg daily, and he then began cycle 1 of rituximab. He had some chills during the infusion, which resolved with some extra Benadryl and a dose of IV Solu-Medrol. He otherwise tolerated it well. He then continued the venetoclax at 400 mg daily. As of 01/01/2022 his treatment was put on hold, as he tested positive for COVID-19 virus infection. He was treated with Paxlovid for 5 days. As of his follow-up visit on 01/17/2022 he was still having low-grade fever, and I opted to keep his treatment on hold. Yesterday he was seen in the emergency room after his temperature had gone back up to 100.4 degrees and he noticed some redness in his second left toe. He also had increased swelling in the left leg and pain in the medial aspect of the left thigh. His evaluation was suspicious for cellulitis/lymphangitis. His x-ray of the left toes showed no acute skeletal abnormality. His venous Doppler, though, did show evidence of nonocclusive thrombosis thrombus in the proximal profunda femoral vein and mid femoral vein. His CRP was significantly elevated at 55.3 mg/L. He was given a Lovenox injection and he began on antibiotic coverage with Zosyn and vancomycin. He refused hospital admission. He is feeling pretty good today. He says his energy is not bad. He has good appetite. He has had no recurrence of fever, and he has not been having chills or sweating. He does not complain of sore mouth or throat. He does have some cough. He has not been having shortness of breath or chest pain. He has no GI or complaints. He is still having some pain in the left thigh and he has his normal back pain. Medications: Allopurinol 1 Tablet (of 300 mg) Oral daily, AmLODIPine Besylate 1 (10 mg) Tablet Oral daily, Aspirin 1 Tablet (of 325 mg) Tablet, enteric coated Oral daily, Benadryl Allergy 1 Tablet (of 25 mg) Oral daily, Depakote ER 3 Tablet (of 500 mg) Tablet SR 24 HR Oral at bedtime, GlipiZIDE 1 Tablet (of 10 mg) Oral daily, Hydrochlorothiazide 1 (25 mg) Tablet Oral daily, Insulin Lispro 15 Unit(s) (of 100 Units/mL) Subcutaneous t.i.d., Keppra (500 mg) Tablet Oral Take as Directed, Lantus 90 (100 Units/mL) Subcutaneous b.i.d., Lisinopril 1 (40 mg) Tablet Oral daily, Montelukast Sodium 1 Tablet (of 5 mg) Tablet, chewable Oral daily, Multivitamin Men 50+ 1 Tablet Oral daily, Omeprazole 1 (40 ) Capsule Delayed Release Oral daily, Oxycodone-Acetaminophen 1 (5-325 mg) Tablet Oral t.i.d. PRN, Zonisamide (100 mg) Capsule Oral Take as Directed Allergies: No Known Allergies. Vital Signs: Performed on Jan 19, 2022 09:53 Height - 70.00 in Weight - 336.2 lbs (LOW) BSA - 2.60 sq.m BMI - 48.24 (HIGH) Temperature - 98.3 F (LOW) Pulse - 97 /min Respiration - 97 /min (HIGH) BP - 145/86 mm(hg) (HIGH) O2 Sat - 97 % Pain - 6 Fatigue - 0 Physical Examination: Constitutional - He does not appear acutely ill, Eyes - Sclerae nonicteric. Conjunctivae clear, ENMT - No lesions noted in the oral cavity, Hematologic/Lymphatic - No cervical, clavicular, or axillary adenopathy, Respiratory - Lungs sound clear, Cardiovascular - Heart rhythm is regular. There is no murmur, gallop, or rub noted, Abdomen - Moderately distended. Liver and spleen are not enlarged. There is no abdominal mass or ascites noted and there is no inguinal adenopathy, Extremities - There are venous stasis changes bilaterally. There is mild lower extremity edema. It is a little worse on the left. There is bright erythema involving the second left toe, and the left foot is warm to touch. There is a palpable dorsalis pedis pulse, Neurologic - No focal neurologic deficits noted. Lab/Imaging: CBC shows hemoglobin 11.7 g, white blood cell count 5400, and platelet count 122,000. Problem List: 1. Chronic lymphocytic leukemia, initially diagnosed in 2002 and managed with observation. 2. Hypertension. 3. Hyperlipidemia. 4. Type II diabetes. 5. Chronic kidney disease. 6. GERD. 7. Degenerative arthritis/degenerative disease of the spine. 8. In March 2018 he required treatment for iron deficiency anemia. 9. In August 2018 he had presented with new onset of epilepsy, presumed idiopathic. Problems Addressed with this Encounter and Plan: Patient with chronic lymphocytic leukemia. His disease was Holcomb stage I at initial diagnosis in 2002, and he was managed with observation. He ultimately did have treatment with 6 cycles of fludarabine/Rituxan, completed in March 2009. At that time he still appeared to have early stage disease by objective parameters, but he had become symptomatic. He had a very good clinical response. He was then managed expectantly. During follow-up he had ongoing problems associated with his seizure disorder. He is receiving treatment for it through [facility]. He also had gradually worsening fatigue and declining performance status. It was uncertain to what extent his symptoms may have been due to the medications for his seizure disorder or to the chronic lymphocytic leukemia. However, I did appear that at least some component was related to the CLL, as his restaging CT scans had shown evidence of disease progression with increase in generalized lymphadenopathy. With those findings, he was recommended to begin second line treatment with the venetoclax/rituximab combination regimen. He began the venetoclax dose escalation on 10/25/2021. During treatment he required a reduction in his insulin dosage due to hypoglycemia. He had no other adverse effects. As of 11/29/2021 he was tolerating it at the 400 mg dosage, and he then began cycle 1 of rituximab. It caused a mild infusion reaction, managed adequately with extra Benadryl and a dose of IV Solu-Medrol. He then continued the venetoclax at 400 mg daily. During follow-up his blood counts remained adequate and he continued to tolerate the venetoclax with no significant adverse effects. However, as of 01/01/2022 his treatment was put on hold, as he had tested positive for COVID-19 virus infection. He was treated with Paxlovid for 5 days. He recovered uneventfully, but his treatment thus far has remained on hold. In the meantime, he was seen in the emergency room yesterday with persistence of low-grade fever and with development of new erythema in his second left toe. The appearance is consistent with cellulitis. In addition, he had pain in the medial left thigh, and his venous Doppler did show evidence of nonocclusive thrombus in the left proximal profunda femoral vein and mid femoral vein. He was given an injection of Lovenox and he was started on antibiotic coverage with Zosyn and vancomycin. He declined hospital admission. He has since then remained afebrile. Given the appearance of the left second toe, I will have him continue antibiotic coverage with Invanz 1 g IV daily for 7 days. He will start anticoagulation with apixaban, 10 mg twice daily for 7 days then 5 mg twice daily. I will see him for follow-up visit next week. Signed By: Kumar Kirkland M.D. <<Signature on File>>
== END 2022-01-22 23:59 | disposition home or self-care (01) ==
LOC: OPS 07:26
PROVIDERS: PCP Internal Medicine; Visit Provider Nurse Practitioner
DX: D50.8 Other iron deficiency anemias (principal); C91.10 Chronic lymphocytic leukemia of B-cell type not having achieved remission
CPT/HCPCS: 36593; 96365; J1335; J2997

== ENCOUNTER 2022-02-20 06:47 | Outpatient (RCR) | payer MEDICARE, SELFPAY ==
[2022-01-23] MEDS: ertapenem 1,000 MG in sodium chloride 0.9% (100 ml) 100 ML 250 MG IV (11:55)
[2022-01-24] MEDS: ertapenem 1,000 MG in sodium chloride 0.9% (100 ml) 100 ML 200 MG IV (11:16)
[2022-01-25] MEDS: ertapenem 1,000 MG in sodium chloride 0.9% (100 ml) 100 ML 200 MG IV (10:55)
[2022-01-25] MEDS: sodium chloride 0.9% (100 ml) 100 ML 200 ML (10:55)
[2022-01-30 08:57] LABS: Basophils % 0.4 %; Eosinophils # 0.3 10^3/uL (0.0-0.8); Eosinophils % 4.7 %; Hematocrit 33.3 % (42.0-52.0); Hemoglobin 10.9 g/dL (11.7-16.6); Lymphocytes # 1.7 10^3/uL (0.8-4.8); Mean Corpuscular HGB Conc 32.7 g/dL (30.0-36.0); Mean Corpuscular Hemoglobin 29.9 pg (28.0-34.0); Mean Corpuscular Volume 91.2 fl (80-94); Mean Platelet Volume 10.4 fL (7.4-10.4); Monocytes # 0.6 10^3/uL (0.2-0.9); Neutrophils # 4.52 10^3/uL (1.8-7.7); Neutrophils % 63.2 %; Nucleated Red Blood Cells % 0 %; Platelet Count 216 10^3/cmm (130-400); Red Blood Count 3.65 10^6/uL (4.1-5.3); Red Cell Distribution Width 14.9 % (12.1-15.1); White Blood Count 7.2 10^3/uL (4.0-10.0)
[2022-01-30] MEDS: sodium chloride 0.9% 500 ML 75 ML IV (09:00)
[2022-01-30] MEDS: diphenhydrAMINE 50 mg/mL SDV 1mL 25 MG IVP (09:05)
[2022-01-30] MEDS: acetaminophen 325 mg Tablet 650 MG PO (09:10)
[2022-01-30 09:17] LABS: Alanine Aminotransferase 24 U/L (0-41); Albumin Level 3.8 g/dL (3.5-5.2); Alkaline Phosphatase 72 IU/L (40-130); Anion Gap 15.5 (5-19); Aspartate Amino Transferase 19 U/L (0-40); Blood Urea Nitrogen 28 mg/dL (6-20); Calcium 9.3 mg/dL (8.5-10.5); Carbon Dioxide 24 mmol/L (22-29); Chloride 103 mmol/L (98-107); Globulin 2.4 g/dL (1.3-4.6); Glomerular Filtration Rate 48.4 mL/min (90-130); Glucose 167 mg/dL (65-115); Lactate Dehydrogenase 215 U/L (135-225); Osmolality Calculated 297 mOsm/kg (285-295); Potassium 3.5 mmol/L (3.5-5.1); Sodium 139 mmol/L (136-145); Total Bilirubin 0.2 mg/dL (0.15-1.2); Total Protein 6.2 g/dL (6.6-8.7)
[2022-01-30 09:38] LABS: Erythrocyte Sedimentation Rate 23 mm/hr (0-10)
--- NOTE | 2022-01-30 11:11 | ONC FU_ITS ---
Dr. Kirkland Patient Follow-Up Note Patient: Panda Rivera Unit #: [id number]: 1965 Dicatated By: Kumar Kirkland M.D.Date of Visit:Jan 30, 2022 Onc Med Follow-up/Prog Note Chief Complaint: Chronic lymphocytic leukemia. History of Present Illness: This is a 56 year-old man with chronic lymphocytic leukemia. The leukemia was diagnosed in March of 2003. He appeared to have Holcomb stage I disease, and he was initially managed with observation. Between August of 2008 and March of 2009 he was treated with 6 cycles of fludarabine/Rituxan. At that time his objective parameters did not meet usual criteria for treatment, but he had experienced a significant decline in performance status which appeared to be disease related. He did show a good clinical response, and he was then followed on observation. I had seen him for a follow-up visit in October 2015. At that time, his performance status appeared to be declining, and he also appeared to have some small cervical lymph nodes bilaterally. He also had shown a slight increase in his lymphocyte count. He underwent upper GI endoscopy and colonoscopy on 11/11/2015. The upper endoscopy showed mild esophagitis. There was moderate localized inflammation in the gastric body with a single ulcer present. There was a chronic appearing ulcer in the antrum. There was moderate patchy inflammation in the duodenal bulb with a few superficial benign-appearing ulcers. All the biopsies were benign, and the CLOtest was negative. He was found to have a rectal polyp on colonoscopy. It was removed endoscopically. There were no other abnormal findings. Pathology showed hyperplastic polyp. He had staging CT scans of the chest/abdomen/pelvis in November 2015. The most significant finding was the presence of bilateral lower lung zone bronchial wall thickening with scattered tree-in-bud nodular opacities. The primary consideration was atypical pneumonia or aspiration pneumonitis. There were slightly enlarged subcarinal lymph nodes which appeared reactive. Left axillary and left hilar adenopathy was unchanged compared to July 2008. There was no adenopathy in the abdomen/pelvis region. He underwent bronchoscopy on 12/30/2015. It showed generalized edema and endobronchial thickening throughout the tracheobronchial tree. There were no discrete endobronchial lesions identified. Transbronchial biopsy showed benign bronchial mucosa/submucosa with reactive lymphoid hyperplasia. All of the microbiology studies were negative. Given those findings he had just remained on observation/expectant management. In August 2018 he was taken to the emergency room after he had been found unresponsive at home. On evaluation, it was felt that he was most likely postictal from a seizure. A noncontrast head CT at that time reported no acute intracranial abnormality. The following morning around 4:30 AM he had a witnessed clonic seizure. He was taken to the emergency room and transferred to [facility] for further management. Subsequent brain MRI showed no evidence of acute infarction, hemorrhage, or parenchymal mass lesion. Spinal tap showed just slightly elevated CSF protein of 46 mg/dL. Cell count showed 2 WBC, both lymphocytes, and 1 RBC. A cytology report was not provided. His CBC at that time did show elevated white count at 21,600 with the differential showing 43% neutrophils, 43% lymphocytes, 8% monocytes, and 4% eosinophils. The hemoglobin was borderline at 12.5 g with hematocrit 38.3%. The platelet count was normal at 187,000. His comprehensive metabolic profile was unremarkable. He was discharged home on Keppra. During subsequent follow-up he had further seizures, requiring changes in his medication regimen. 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 A repeat brain MRI at [facility] on 01/28/2019 showed no evidence of an acute intracranial process. Ultimately it was felt to be due to diabetic mononeuropathy. He was treated with gabapentin, and his symptoms gradually improved. He continued, though, to have issues with the seizure disorder, and he has since then been undergoing evaluation at [facility]. He has continued expectant management for the chronic lymphocytic leukemia. His other medical illnesses include hypertension, hyperlipidemia, type 2 diabetes, and GERD. He also degenerative arthritis, and he has had chronic back pain following a previous back injury. On 06/08/2019 he underwent left total knee arthroplasty. He experienced no complications with the procedure. He is a nonsmoker. INTERIM HISTORY: In May 2021 he was diagnosed with COVID-19 virus infection. He had pretty mild symptoms, and he recovered uneventfully. Restaging CT scans of the chest, abdomen, and pelvis on 07/27/2021 showed prominent axillary lymph nodes bilaterally, some with preserved fatty gato and the largest measuring 13 mm on the right. Also noted were prominent left AP window lymph nodes, enlarged adriana hepatis lymph nodes, numerous periaortic lymph nodes measuring up to 11 x 15 mm, slightly enlarged bilateral common iliac lymph nodes measuring up to 11 mm, and slightly enlarged bilateral inguinal lymph nodes, the largest on the left measuring up to 16 mm. Two small nodules in the right lung measuring 4 mm appeared unchanged dating back to 2015. He was having increasing symptoms, predominantly fatigue, and I did opt to have him restart treatment for the CLL with the second line venetoclax/rituximab combination regimen. He began the venetoclax dose escalation on 10/25/2021. He tolerated the venetoclax without adverse effect other than hypoglycemia, necessitating a reduction in his insulin dosage. As of 11/29/2021 he was tolerating it at 400 mg daily, and he then began cycle 1 of rituximab. He had some chills during the infusion, which resolved with some extra Benadryl and a dose of IV Solu-Medrol. He otherwise tolerated it well. He then continued the venetoclax at 400 mg daily. As of 01/01/2022 his treatment was put on hold, as he had tested positive for COVID-19 virus infection. He was treated with Paxlovid for 5 days. As of his follow-up visit on 01/17/2022 he was still having low-grade fever, and I opted to keep his treatment on hold. On 01/18/2022 he was seen in the emergency room with pain and swelling in the left leg. He had clinical evidence of cellulitis involving the left second toe. His venous Doppler showed findings suspicious for partial nonocclusive thrombus involving the proximal profunda femoral vein and mid femoral vein. He declined hospital admission. He was seen in the office the following day, and at that point he began antibiotic coverage with IV Invanz daily for 7 days. He also started anticoagulation with apixaban. He is seen now for a follow-up visit. He has been off antibiotics since . Thus far there has been no recurrence of fever. His energy is fair. He is doing light work. He has good appetite. He has no fever or night sweats. He still has a little sinus drainage and cough. He does not complain of shortness of breath or chest pain. He has no GI or complaints. He has some joint pain and some chronic back pain, which is the same. He does not complain of headache. He occasionally has dizziness. He thinks he is still having minor seizure activity, but he has had no major seizures. He has some numbness in his right hand. Medications: Allopurinol 1 Tablet (of 300 mg) Oral daily, AmLODIPine Besylate 1 (10 mg) Tablet Oral daily, Aspirin 1 Tablet (of 325 mg) Tablet, enteric coated Oral daily, Benadryl Allergy 1 Tablet (of 25 mg) Oral daily, Depakote ER 3 Tablet (of 500 mg) Tablet SR 24 HR Oral at bedtime, GlipiZIDE 1 Tablet (of 10 mg) Oral daily, Hydrochlorothiazide 1 (25 mg) Tablet Oral daily, Insulin Lispro 15 Unit(s) (of 100 Units/mL) Subcutaneous t.i.d., Keppra (500 mg) Tablet Oral Take as Directed, Lantus 90 (100 Units/mL) Subcutaneous b.i.d., Lisinopril 1 (40 mg) Tablet Oral daily, Montelukast Sodium 1 Tablet (of 5 mg) Tablet, chewable Oral daily, Multivitamin Men 50+ 1 Tablet Oral daily, Omeprazole 1 (40 ) Capsule Delayed Release Oral daily, Oxycodone-Acetaminophen 1 (5-325 mg) Tablet Oral t.i.d. PRN, Zonisamide (100 mg) Capsule Oral Take as Directed Allergies: No Known Allergies. Vital Signs: Performed on Jan 30, 2022 08:40 Height - 70.00 in Weight - 337.4 lbs (HIGH) BSA - 2.61 sq.m BMI - 48.41 (HIGH) Temperature - 98.0 F (LOW) Pulse - 83 /min Respiration - 18 /min BP - 144/83 mm(hg) (HIGH) O2 Sat - 98 % Pain - 4 Fatigue - 3 Physical Examination: Constitutional - He looks pretty good generally, Eyes - Sclerae nonicteric. Conjunctivae clear, ENMT - No lesions noted in the oral cavity, Hematologic/Lymphatic - No cervical, clavicular, or axillary adenopathy, Respiratory - Lungs sound clear, Cardiovascular - Heart rhythm is regular. There is no murmur, gallop, or rub noted, Abdomen - Moderately distended. Liver and spleen are not enlarged. There is no abdominal mass or ascites noted and there is no inguinal adenopathy, Extremities - There are venous stasis changes bilaterally. There is mild lower extremity edema. There is some desquamation and some mild residual erythema involving the left second toe, Neurologic - No focal neurologic deficits noted. Lab/Imaging: Test performed on Jan 30, 2022 08:20 LDH (Total) 215 U/L Sodium 139 mmol/L Potassium 3.5 mmol/L Chloride 103 mmol/L CO2 24 mmol/L Anion Gap 15.5 BUN 28 mg/dL Creatinine 1.5 mg/dL Cr Clearance (Est) 119.0300 mL/min eGFR 48.4 mL/min Glucose 167 mg/dL Osmolality - Calculated 297 mOsm/kg Calcium 9.3 mg/dL Protein, Total 6.2 g/dL Albumin 3.8 g/dL Globulin 2.4 g/dL Bilirubin, Total 0.2 mg/dL ALT (SGPT) 24 U/L AST (SGOT) 19 U/L Alkaline Phosphatase 72 IU/L ESR (Sed Rate) 23 mm/hr WBC 7.2 10 3/uL RBC 3.65 10 6/uL HGB 10.9 g/dL HCT 33.3 % MCV 91.2 fl MCH 29.9 pg MCHC 32.7 g/dL RDW 14.9 % Platelet Count 216 10 3/cmm MPV 10.4 fL Neutrophils 4.52 10 3/uL Lymphocytes 1.7 10 3/uL Monocytes 0.6 10 3/uL Eosinophils 0.3 10 3/uL Basophils 0.0 10 3/uL Neutrophil % 63.2 % Lymphocyte % 23.0 % Monocyte % 8.0 % Eosinophil % 4.7 % Basophils % 0.4 % NRBC % 0 % Problem List: 1. Chronic lymphocytic leukemia, initially diagnosed in 2002 and managed with observation. 2. Hypertension. 3. Hyperlipidemia. 4. Type II diabetes. 5. Chronic kidney disease. 6. GERD. 7. Degenerative arthritis/degenerative disease of the spine. 8. In March 2018 he required treatment for iron deficiency anemia. 9. In August 2018 he had presented with new onset of epilepsy, presumed idiopathic. Problems Addressed with this Encounter and Plan: 1. Patient with chronic lymphocytic leukemia. His disease was Holcomb stage I at initial diagnosis in 2002, and he was managed with observation. He ultimately did have treatment with 6 cycles of fludarabine/Rituxan, completed in March 2009. At that time he still appeared to have early stage disease by objective parameters, but he had become symptomatic. He had a very good clinical response. He was then managed expectantly. During follow-up he had ongoing problems associated with his seizure disorder. He is receiving treatment for it through [facility]. He also had gradually worsening fatigue and declining performance status. It was uncertain to what extent his symptoms may have been due to the medications for his seizure disorder or to the chronic lymphocytic leukemia. However, I did appear that at least some component was related to the CLL, as his restaging CT scans had shown evidence of disease progression with increase in generalized lymphadenopathy. With those findings, he was recommended to begin second line treatment with the venetoclax/rituximab combination regimen. He began the venetoclax dose escalation on 10/25/2021. During treatment he required a reduction in his insulin dosage due to hypoglycemia. He had no other adverse effects. As of 11/29/2021 he was tolerating it at the 400 mg dosage, and he then began cycle 1 of rituximab. It caused a mild infusion reaction, managed adequately with extra Benadryl and a dose of IV Solu-Medrol. He then continued the venetoclax at 400 mg daily. During follow-up his blood counts remained adequate and he continued to tolerate the venetoclax with no significant adverse effects. However, as of 01/01/2022 his treatment was put on hold, as he had tested positive for COVID-19 virus infection. He was treated with Paxlovid for 5 days. He recovered uneventfully, but his treatment remained on hold due to persistent, low-grade fever. Initially there did not appear to be any obvious cause for the fever. However, on 01/18/2022 he presented to the emergency room with pain and swelling in the left leg. He had clinical evidence of cellulitis involving the left second toe. With those findings, he was given antibiotic coverage with Invanz 1 g daily for 7 day. He is now afebrile and there has been significant improvement in the appearance of the cellulitis. As a precaution, I will have him continue antibiotic coverage with Bactrim for another couple of weeks. In the meantime, he will now proceed with cycle 2 of rituximab at 375 mg/m??? by IV infusion. He will restart venetoclax, initially at 100 mg daily for 7 days, then increasing to 200 mg daily. Blood counts will be monitored weekly. He will be scheduled for a follow-up visit in 4 weeks. 2. His venous Doppler on 01/18/2022 was suspicious for partial nonocclusive thrombus involving the proximal profundofemoral vein and mid femoral vein. He began on anticoagulation with apixaban. He will continue the apixaban at 5 mg twice daily, subject to verification of insurance coverage. Signed By: Kumar Kirkland M.D. <<Signature on File>>
[2022-02-06 13:43] LABS: Basophils % 0.4 %; Eosinophils # 0.1 10^3/uL (0.0-0.8); Eosinophils % 2.7 %; Hematocrit 34.6 % (42.0-52.0); Hemoglobin 11.1 g/dL (11.7-16.6); Lymphocytes # 1.1 10^3/uL (0.8-4.8); Lymphocytes % 23.3 %; Mean Corpuscular HGB Conc 32.1 g/dL (30.0-36.0); Mean Corpuscular Hemoglobin 29.3 pg (28.0-34.0); Mean Corpuscular Volume 91.3 fl (80-94); Mean Platelet Volume 10.4 fL (7.4-10.4); Monocytes # 0.7 10^3/uL (0.2-0.9); Monocytes % 14.5 %; Neutrophils # 2.84 10^3/uL (1.8-7.7); Neutrophils % 58.7 %; Nucleated Red Blood Cells % 0 %; Platelet Count 162 10^3/cmm (130-400); Red Blood Count 3.79 10^6/uL (4.1-5.3); Red Cell Distribution Width 15.5 % (12.1-15.1); White Blood Count 4.8 10^3/uL (4.0-10.0)
[2022-02-13 15:10] LABS: Basophils % 0.5 %; Eosinophils # 0.2 10^3/uL (0.0-0.8); Hematocrit 34.7 % (42.0-52.0); Hemoglobin 11.3 g/dL (11.7-16.6); Lymphocytes # 1.5 10^3/uL (0.8-4.8); Lymphocytes % 25.1 %; Mean Corpuscular HGB Conc 32.6 g/dL (30.0-36.0); Mean Corpuscular Hemoglobin 29.3 pg (28.0-34.0); Mean Corpuscular Volume 89.9 fl (80-94); Mean Platelet Volume 11.1 fL (7.4-10.4); Monocytes # 0.8 10^3/uL (0.2-0.9); Monocytes % 12.8 %; Neutrophils # 3.47 10^3/uL (1.8-7.7); Neutrophils % 57.8 %; Nucleated Red Blood Cells % 0 %; Platelet Count 126 10^3/cmm (130-400); Red Blood Count 3.86 10^6/uL (4.1-5.3); Red Cell Distribution Width 15.1 % (12.1-15.1)
[2022-02-20 15:54] LABS: Basophils % 0.6 %; Eosinophils # 0.2 10^3/uL (0.0-0.8); Eosinophils % 3.5 %; Hematocrit 35.2 % (42.0-52.0); Hemoglobin 11.5 g/dL (11.7-16.6); Lymphocytes # 1.7 10^3/uL (0.8-4.8); Lymphocytes % 27.3 %; Mean Corpuscular HGB Conc 32.7 g/dL (30.0-36.0); Mean Corpuscular Hemoglobin 29.8 pg (28.0-34.0); Mean Corpuscular Volume 91.2 fl (80-94); Mean Platelet Volume 10.4 fL (7.4-10.4); Monocytes # 0.8 10^3/uL (0.2-0.9); Monocytes % 12.3 %; Neutrophils # 3.46 10^3/uL (1.8-7.7); Neutrophils % 55.3 %; Nucleated Red Blood Cells % 0 %; Platelet Count 165 10^3/cmm (130-400); Red Blood Count 3.86 10^6/uL (4.1-5.3); Red Cell Distribution Width 15.3 % (12.1-15.1); White Blood Count 6.3 10^3/uL (4.0-10.0)
== END 2022-02-22 23:59 | disposition home or self-care (01) ==
LOC: ONCMED 06:47
PROVIDERS: PCP Internal Medicine; Visit Provider Internal Medicine Medical Oncology
DX: Z51.12 Encounter for antineoplastic immunotherapy (principal); C91.10 Chronic lymphocytic leukemia of B-cell type not having achieved remission; I12.9 Hypertensive chronic kidney disease with stage 1 through stage 4 chronic kidney disease, or unspecified chronic kidney disease; E78.5 Hyperlipidemia, unspecified; E11.22 Type 2 diabetes mellitus with diabetic chronic kidney disease; N18.9 Chronic kidney disease, unspecified; K21.9 Gastro-esophageal reflux disease without esophagitis; M19.90 Unspecified osteoarthritis, unspecified site; M47.9 Spondylosis, unspecified; D50.9 Iron deficiency anemia, unspecified; G40.909 Epilepsy, unspecified, not intractable, without status epilepticus; Z79.01 Long term (current) use of anticoagulants; Z79.899 Other long term (current) drug therapy
CPT/HCPCS: 36591; 80053; 83615; 85025; 85651; 96365; 96367; 96413; 96415; 99215; J1200; J1335; J2920; J7040; J9312

== ENCOUNTER 2022-03-13 06:44 | Outpatient (RCR) | payer MEDICARE, SELFPAY ==
[2022-02-27 08:19] LABS: Basophils # 0.1 10^3/uL (0.0-0.1); Eosinophils # 0.1 10^3/uL (0.0-0.8); Eosinophils % 2.3 %; Hematocrit 34.6 % (42.0-52.0); Lymphocytes # 1.5 10^3/uL (0.8-4.8); Lymphocytes % 28.1 %; Mean Corpuscular HGB Conc 31.8 g/dL (30.0-36.0); Mean Corpuscular Hemoglobin 29.2 pg (28.0-34.0); Mean Corpuscular Volume 91.8 fl (80-94); Mean Platelet Volume 11.2 fL (7.4-10.4); Monocytes # 0.7 10^3/uL (0.2-0.9); Neutrophils # 2.87 10^3/uL (1.8-7.7); Neutrophils % 54.8 %; Nucleated Red Blood Cells % 0 %; Platelet Count 133 10^3/cmm (130-400); Red Blood Count 3.77 10^6/uL (4.1-5.3); Red Cell Distribution Width 15.3 % (12.1-15.1); White Blood Count 5.2 10^3/uL (4.0-10.0)
[2022-02-27 08:31] LABS: Alanine Aminotransferase 41 U/L (0-41); Albumin Level 3.9 g/dL (3.5-5.2); Alkaline Phosphatase 69 IU/L (40-130); Anion Gap 16.2 (5-19); Aspartate Amino Transferase 32 U/L (0-40); Blood Urea Nitrogen 29 mg/dL (6-20); Carbon Dioxide 23 mmol/L (22-29); Chloride 103 mmol/L (98-107); Globulin 2.1 g/dL (1.3-4.6); Glomerular Filtration Rate 26.8 mL/min (90-130); Glucose 155 mg/dL (65-115); Lactate Dehydrogenase 180 U/L (135-225); Osmolality Calculated 295 mOsm/kg (285-295); Potassium 4.2 mmol/L (3.5-5.1); Sodium 138 mmol/L (136-145); Total Bilirubin 0.2 mg/dL (0.15-1.2)
--- NOTE | 2022-02-27 09:14 | ONC FU_ITS ---
Sarah Sevilla Progress Note Patient: Panda Rivera Unit #: [id number]: 1965 Dicatated By: Sarah Sevilla N.P.Date of Visit:Feb 27, 2022 Onc MED Follow-up/Prog Note Chief Complaint: Chronic lymphocytic leukemia. History of Present Illness: This is a 56 year-old man with chronic lymphocytic leukemia. The leukemia was diagnosed in March of 2003. He appeared to have Holcomb stage I disease, and he was initially managed with observation. Between August of 2008 and March of 2009 he was treated with 6 cycles of fludarabine/Rituxan. At that time his objective parameters did not meet usual criteria for treatment, but he had experienced a significant decline in performance status which appeared to be disease related. He did show a good clinical response, and he was then followed on observation. I had seen him for a follow-up visit in October 2015. At that time, his performance status appeared to be declining, and he also appeared to have some small cervical lymph nodes bilaterally. He also had shown a slight increase in his lymphocyte count. He underwent upper GI endoscopy and colonoscopy on 11/11/2015. The upper endoscopy showed mild esophagitis. There was moderate localized inflammation in the gastric body with a single ulcer present. There was a chronic appearing ulcer in the antrum. There was moderate patchy inflammation in the duodenal bulb with a few superficial benign-appearing ulcers. All the biopsies were benign, and the CLOtest was negative. He was found to have a rectal polyp on colonoscopy. It was removed endoscopically. There were no other abnormal findings. Pathology showed hyperplastic polyp. He had staging CT scans of the chest/abdomen/pelvis in November 2015. The most significant finding was the presence of bilateral lower lung zone bronchial wall thickening with scattered tree-in-bud nodular opacities. The primary consideration was atypical pneumonia or aspiration pneumonitis. There were slightly enlarged subcarinal lymph nodes which appeared reactive. Left axillary and left hilar adenopathy was unchanged compared to July 2008. There was no adenopathy in the abdomen/pelvis region. He underwent bronchoscopy on 12/30/2015. It showed generalized edema and endobronchial thickening throughout the tracheobronchial tree. There were no discrete endobronchial lesions identified. Transbronchial biopsy showed benign bronchial mucosa/submucosa with reactive lymphoid hyperplasia. All of the microbiology studies were negative. Given those findings he had just remained on observation/expectant management. In August 2018 he was taken to the emergency room after he had been found unresponsive at home. On evaluation, it was felt that he was most likely postictal from a seizure. A noncontrast head CT at that time reported no acute intracranial abnormality. The following morning around 4:30 AM he had a witnessed clonic seizure. He was taken to the emergency room and transferred to [facility] for further management. Subsequent brain MRI showed no evidence of acute infarction, hemorrhage, or parenchymal mass lesion. Spinal tap showed just slightly elevated CSF protein of 46 mg/dL. Cell count showed 2 WBC, both lymphocytes, and 1 RBC. A cytology report was not provided. His CBC at that time did show elevated white count at 21,600 with the differential showing 43% neutrophils, 43% lymphocytes, 8% monocytes, and 4% eosinophils. The hemoglobin was borderline at 12.5 g with hematocrit 38.3%. The platelet count was normal at 187,000. His comprehensive metabolic profile was unremarkable. He was discharged home on Keppra. During subsequent follow-up he had further seizures, requiring changes in his medication regimen. 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 A repeat brain MRI at [facility] on 01/28/2019 showed no evidence of an acute intracranial process. Ultimately it was felt to be due to diabetic mononeuropathy. He was treated with gabapentin, and his symptoms gradually improved. He continued, though, to have issues with the seizure disorder, and he has since then been undergoing evaluation at [facility]. He has continued expectant management for the chronic lymphocytic leukemia. His other medical illnesses include hypertension, hyperlipidemia, type 2 diabetes, and GERD. He also degenerative arthritis, and he has had chronic back pain following a previous back injury. On 06/08/2019 he underwent left total knee arthroplasty. He experienced no complications with the procedure. He is a nonsmoker. INTERIM HISTORY: In May 2021 he was diagnosed with COVID-19 virus infection. He had pretty mild symptoms, and he recovered uneventfully. Restaging CT scans of the chest, abdomen, and pelvis on 07/27/2021 showed prominent axillary lymph nodes bilaterally, some with preserved fatty gato and the largest measuring 13 mm on the right. Also noted were prominent left AP window lymph nodes, enlarged adriana hepatis lymph nodes, numerous periaortic lymph nodes measuring up to 11 x 15 mm, slightly enlarged bilateral common iliac lymph nodes measuring up to 11 mm, and slightly enlarged bilateral inguinal lymph nodes, the largest on the left measuring up to 16 mm. Two small nodules in the right lung measuring 4 mm appeared unchanged dating back to 2015. He was having increasing symptoms, predominantly fatigue, and I did opt to have him restart treatment for the CLL with the second line venetoclax/rituximab combination regimen. He began the venetoclax dose escalation on 10/25/2021. He tolerated the venetoclax without adverse effect other than hypoglycemia, necessitating a reduction in his insulin dosage. As of 11/29/2021 he was tolerating it at 400 mg daily, and he then began cycle 1 of rituximab. He had some chills during the infusion, which resolved with some extra Benadryl and a dose of IV Solu-Medrol. He otherwise tolerated it well. He then continued the venetoclax at 400 mg daily. As of 01/01/2022 his treatment was put on hold, as he had tested positive for COVID-19 virus infection. He was treated with Paxlovid for 5 days. As of his follow-up visit on 01/17/2022 he was still having low-grade fever, and I opted to keep his treatment on hold. On 01/18/2022 he was seen in the emergency room with pain and swelling in the left leg. He had clinical evidence of cellulitis involving the left second toe. His venous Doppler showed findings suspicious for partial nonocclusive thrombus involving the proximal profunda femoral vein and mid femoral vein. He declined hospital admission. He was seen in the office the following day, and at that point he began antibiotic coverage with IV Invanz daily for 7 days. He also started anticoagulation with apixaban. Patient presents today for follow-up. He states he has been feeling pretty good. He is able to participate in some activity his ECOG is 1. His appetite has been good. He denies fever, chills, night sweats. No sinus drainage or sore throat. No shortness of breath, cough, chest pain. No GI problems no problems he has generalized joint pain and back pain which is chronic. He has numbness in his right hand secondary to carpal tunnel. He is currently on venetoclax 100 mg p.o. daily. Review Of Symptoms: See above. Past Medical History: Anxiety Chronic back pain Depression (Treated) Diabetes type II (Treated) Gastroesophageal reflux disease (Treated) Hyperlipidemia (Treated) Hypertension (Treated) Iron deficiency anemia Covid in 2020 Flu vaccine in 2013 Past Surgical History: Left total knee arthroplasty in 2019 FLu vaccine 2018 in 2017 Pneumovac 23 in 2017 Arthroscopic left knee surgery in 2017 Carpal tunnel surgery in 2016 Flu Vaccine in 2015 Flu vaccine in 2014 Flu vaccine in 2013 Pneumovaccine in 2012 Bone marrow aspiration/biopsy in 2010 Placement of Port-A-Cath venous access device in 2007 Allergies: No Known Allergies. Medications: Allopurinol 1 Tablet (of 300 mg) Oral daily AmLODIPine Besylate 1 (10 mg) Tablet Oral daily Aspirin 1 Tablet (of 325 mg) Tablet, enteric coated Oral daily Benadryl Allergy 1 Tablet (of 25 mg) Oral daily Depakote ER 3 Tablet (of 500 mg) Tablet SR 24 HR Oral at bedtime GlipiZIDE 1 Tablet (of 10 mg) Oral daily Hydrochlorothiazide 1 (25 mg) Tablet Oral daily Insulin Lispro 15 Unit(s) (of 100 Units/mL) Subcutaneous t.i.d. Keppra (500 mg) Tablet Oral Take as Directed Lantus 90 (100 Units/mL) Subcutaneous b.i.d. Lisinopril 1 (40 mg) Tablet Oral daily Montelukast Sodium 1 Tablet (of 5 mg) Tablet, chewable Oral daily Multivitamin Men 50+ 1 Tablet Oral daily Omeprazole 1 (40 ) Capsule Delayed Release Oral daily Oxycodone-Acetaminophen 1 (5-325 mg) Tablet Oral t.i.d. PRN Zonisamide (100 mg) Capsule Oral Take as Directed Family History: Father of cerebral aneurysm. Mother of lung cancer. A brother has diabetes. Social History: Mr. Rivera is and he is an on disability. Mr. Rivera has never smoked. Mr. Rivera reports the following support systems: lives with spouse, significant other, family, or friends, lives in own house, supportive family/friends willing to assist with needs, and adequate transportation available for expected visits. His diet consists of regular meals. He indicates his activity level as: daily activities. He is a nonsmoker. He does not drink alcohol. Physical Examination: Performed on Feb 27, 2022 08:52: Height - 70.00 in, Weight - 334 lbs (LOW), BSA - 2.60 sq.m, BMI - 47.92 (HIGH), Temperature - 98.4 F, Pulse - 82 /min, Respiration - 20 /min, BP - 115/74 mm(hg), O2 Sat - 96 %, Pain - 4, and Fatigue - 5. Performance Status: 1 - No physically strenuous activity, but ambulatory and able to carry out light or sedentary work (e.g. office work, light house work). (ECOG) Constitutional Alert, cooperative, oriented. Mood and affect appropriate. Appears close to chronological age. Well nourished. Well developed. Head Normocephalic; no scars. Respiratory Lungs are clear to auscultation without rhonchi or wheezing. Cardiovascular Regular rate and rhythm of heart without murmurs, gallops or rubs. Abdomen Non-tender, non-distended, no masses, ascites or hepatosplenomegaly. Good bowel sounds. No guarding or rebound tenderness. Extremities 1+ edema bilateral lower extremities Musculoskeletal No tenderness or swelling, normal range of motion without obvious weakness. Psychiatric Alert and oriented times three. Coherent speech. Verbalizes understanding of our discussions today. Laboratory: Test performed on Feb 27, 2022 07:55 LDH (Total) 180 U/L Sodium 138 mmol/L Potassium 4.2 mmol/L Chloride 103 mmol/L CO2 23 mmol/L Anion Gap 16.2 BUN 29 mg/dL Creatinine 2.5 mg/dL Cr Clearance (Est) 70.5700 mL/min eGFR 26.8 mL/min Glucose 155 mg/dL Osmolality - Calculated 295 mOsm/kg Calcium 9.0 mg/dL Protein, Total 6.0 g/dL Albumin 3.9 g/dL Globulin 2.1 g/dL Bilirubin, Total 0.2 mg/dL ALT (SGPT) 41 U/L AST (SGOT) 32 U/L Alkaline Phosphatase 69 IU/L WBC 5.2 10 3/uL RBC 3.77 10 6/uL HGB 11.0 g/dL HCT 34.6 % MCV 91.8 fl MCH 29.2 pg MCHC 31.8 g/dL RDW 15.3 % Platelet Count 133 10 3/cmm MPV 11.2 fL Neutrophils 2.87 10 3/uL Lymphocytes 1.5 10 3/uL Monocytes 0.7 10 3/uL Eosinophils 0.1 10 3/uL Basophils 0.1 10 3/uL Neutrophil % 54.8 % Lymphocyte % 28.1 % Monocyte % 13.0 % Eosinophil % 2.3 % Basophils % 1.0 % NRBC % 0 % Test performed on Jan 30, 2022 08:20 ESR (Sed Rate) 23 mm/hr Test performed on Nov 29, 2021 08:20 Hepatitis A Ab, IgM Non-Reactive Hepatitis B Core Ab, Total Non-Reactive Hepatitis B Surf Antigen Non-Reactive Hepatitis B Surface Ab 3.5 STATUS of IMMUINITY Inconsistent with Immunity 0.0 - 8.4 mIU/mL Consistent with Indeterminate Immunity 8.5 - 11.4 mIU/mL Consistent with Immunity >= 11.5 mIU/mL Hepatitis C Ab Non-Reactive Test performed on Nov 07, 2021 14:48 Manual Lymphocytes 40.1 % Manual Monocytes 8.6 % Manual Eosinophils 4.1 % Manual Basophils 0.4 % Test performed on Oct 31, 2021 14:54 NRBC 0 /100 WBC Impression: 1. Chronic lymphocytic leukemia, initially diagnosed in 2002 and managed with observation. 2. Hypertension. 3. Hyperlipidemia. 4. Type II diabetes. 5. Chronic kidney disease. 6. GERD. 7. Degenerative arthritis/degenerative disease of the spine. 8. In March 2018 he required treatment for iron deficiency anemia. 9. In August 2018 he had presented with new onset of epilepsy, presumed idiopathic. Plan: 1. Patient with chronic lymphocytic leukemia. His disease was Holcomb stage I at initial diagnosis in 2002, and he was managed with observation. He ultimately did have treatment with 6 cycles of fludarabine/Rituxan, completed in March 2009. At that time he still appeared to have early stage disease by objective parameters, but he had become symptomatic. He had a very good clinical response. He was then managed expectantly. During follow-up he had ongoing problems associated with his seizure disorder. He is receiving treatment for it through [facility]. He also had gradually worsening fatigue and declining performance status. It was uncertain to what extent his symptoms may have been due to the medications for his seizure disorder or to the chronic lymphocytic leukemia. However, I did appear that at least some component was related to the CLL, as his restaging CT scans had shown evidence of disease progression with increase in generalized lymphadenopathy. With those findings, he was recommended to begin second line treatment with the venetoclax/rituximab combination regimen. He began the venetoclax dose escalation on 10/25/2021. During treatment he required a reduction in his insulin dosage due to hypoglycemia. He had no other adverse effects. As of 11/29/2021 he was tolerating it at the 400 mg dosage, and he then began cycle 1 of rituximab. It caused a mild infusion reaction, managed adequately with extra Benadryl and a dose of IV Solu-Medrol. He then continued the venetoclax at 400 mg daily. During follow-up his blood counts remained adequate and he continued to tolerate the venetoclax with no significant adverse effects. However, as of 01/01/2022 his treatment was put on hold, as he had tested positive for COVID-19 virus infection. He was treated with Paxlovid for 5 days. He recovered uneventfully, but his treatment remained on hold due to persistent, low-grade fever. Initially there did not appear to be any obvious cause for the fever. However, on 01/18/2022 he presented to the emergency room with pain and swelling in the left leg. He had clinical evidence of cellulitis involving the left second toe. With those findings, he was given antibiotic coverage with Invanz 1 g daily for 7 day. Patient presents today for follow-up. He is currently taking venetoclax 100 mg p.o. daily. Labs were reviewed and his creatinine is elevated at 2.5 his BUN is 29. 1 month ago it was 28 and creatinine was 1.5. Patient denies any changes in medications. We will hold his Rituxan treatment today and refer him to nephrology to be evaluated RYAN. He will continue his venetoclax at 100 mg p.o. daily. We will monitor renal function every 2 weeks until evaluated by nephrology. He will follow-up in 1 month. Patient has a history of seizure disorder and is followed by neurologist in [place]. He continues to have seizures 1-2 times per month. He was last evaluated yesterday and medication was adjusted. 2. His venous Doppler on 01/18/2022 was suspicious for partial nonocclusive thrombus involving the proximal profundofemoral vein and mid femoral vein. He began on anticoagulation with apixaban. He will continue the apixaban at 5 mg twice daily. Signed By: Sarah Sevilla NJennifer <<Signature on File>>
[2022-03-13 11:47] LABS: Basophils % 0.4 %; Eosinophils # 0.2 10^3/uL (0.0-0.8); Eosinophils % 3.2 %; Hematocrit 33.2 % (42.0-52.0); Hemoglobin 10.8 g/dL (11.7-16.6); Lymphocytes # 1.3 10^3/uL (0.8-4.8); Lymphocytes % 23.5 %; Mean Corpuscular HGB Conc 32.5 g/dL (30.0-36.0); Mean Corpuscular Hemoglobin 29.7 pg (28.0-34.0); Mean Corpuscular Volume 91.2 fl (80-94); Mean Platelet Volume 10.5 fL (7.4-10.4); Monocytes # 0.7 10^3/uL (0.2-0.9); Neutrophils # 3.39 10^3/uL (1.8-7.7); Neutrophils % 59.8 %; Nucleated Red Blood Cells % 0 %; Platelet Count 122 10^3/cmm (130-400); Red Blood Count 3.64 10^6/uL (4.1-5.3); Red Cell Distribution Width 15.8 % (12.1-15.1); White Blood Count 5.7 10^3/uL (4.0-10.0)
[2022-03-13 12:26] LABS: Alanine Aminotransferase 37 U/L (0-41); Albumin Level 3.9 g/dL (3.5-5.2); Alkaline Phosphatase 59 IU/L (40-130); Anion Gap 15.7 (5-19); Aspartate Amino Transferase 32 U/L (0-40); Blood Urea Nitrogen 28 mg/dL (6-20); Calcium 9.3 mg/dL (8.5-10.5); Carbon Dioxide 24 mmol/L (22-29); Chloride 105 mmol/L (98-107); Globulin 2.8 g/dL (1.3-4.6); Glomerular Filtration Rate 36.7 mL/min (90-130); Glucose 123 mg/dL (65-115); Osmolality Calculated 299 mOsm/kg (285-295); Potassium 3.7 mmol/L (3.5-5.1); Sodium 141 mmol/L (136-145); Total Bilirubin 0.3 mg/dL (0.15-1.2); Total Protein 6.7 g/dL (6.6-8.7)
== END 2022-03-24 23:59 | disposition home or self-care (01) ==
LOC: ONCMED 06:44
PROVIDERS: Nurse Practitioner Family; PCP Internal Medicine; Visit Provider Internal Medicine Medical Oncology
DX: C91.10 Chronic lymphocytic leukemia of B-cell type not having achieved remission (principal); I12.9 Hypertensive chronic kidney disease with stage 1 through stage 4 chronic kidney disease, or unspecified chronic kidney disease; E78.5 Hyperlipidemia, unspecified; E11.22 Type 2 diabetes mellitus with diabetic chronic kidney disease; N18.9 Chronic kidney disease, unspecified; K21.9 Gastro-esophageal reflux disease without esophagitis; M19.90 Unspecified osteoarthritis, unspecified site; M47.9 Spondylosis, unspecified; G40.802 Other epilepsy, not intractable, without status epilepticus; Z86.2 Personal history of diseases of the blood and blood-forming organs and certain disorders involving the immune mechanism; I82.419 Acute embolism and thrombosis of unspecified femoral vein; I82.890 Acute embolism and thrombosis of other specified veins; Z79.01 Long term (current) use of anticoagulants; Z79.899 Other long term (current) drug therapy
CPT/HCPCS: 36591; 80053; 83615; 85025; 99214

== ENCOUNTER 2022-03-28 08:00 | Oncology outpatient (recurring) (ONCR) | payer MEDICARE, SELFPAY ==
[2022-03-28 09:02] LABS: Basophils % 0.4 %; Eosinophils # 0.1 10^3/uL (0.0-0.8); Eosinophils % 1.7 %; Hematocrit 34.5 % (42.0-52.0); Hemoglobin 11.2 g/dL (11.7-16.6); Lymphocytes # 1.5 10^3/uL (0.8-4.8); Mean Corpuscular HGB Conc 32.5 g/dL (30.0-36.0); Mean Corpuscular Hemoglobin 29.8 pg (28.0-34.0); Mean Corpuscular Volume 91.8 fl (80-94); Mean Platelet Volume 10.4 fL (7.4-10.4); Monocytes # 0.6 10^3/uL (0.2-0.9); Monocytes % 11.2 %; Neutrophils # 3.14 10^3/uL (1.8-7.7); Neutrophils % 57.8 %; Nucleated Red Blood Cells % 0 %; Platelet Count 146 10^3/cmm (130-400); Red Blood Count 3.76 10^6/uL (4.1-5.3); Red Cell Distribution Width 15.4 % (12.1-15.1); White Blood Count 5.4 10^3/uL (4.0-10.0)
[2022-03-28 09:13] LABS: Alanine Aminotransferase 36 U/L (0-41); Albumin Level 3.9 g/dL (3.5-5.2); Alkaline Phosphatase 71 IU/L (40-130); Anion Gap 15.5 (5-19); Aspartate Amino Transferase 24 U/L (0-40); Blood Urea Nitrogen 21 mg/dL (6-20); Calcium 9.1 mg/dL (8.5-10.5); Carbon Dioxide 25 mmol/L (22-29); Chloride 101 mmol/L (98-107); Globulin 2.1 g/dL (1.3-4.6); Glomerular Filtration Rate 41.8 mL/min (90-130); Glucose 231 mg/dL (65-115); Osmolality Calculated 296 mOsm/kg (285-295); Potassium 3.5 mmol/L (3.5-5.1); Sodium 138 mmol/L (136-145); Total Bilirubin 0.2 mg/dL (0.15-1.2)
--- NOTE | 2022-03-28 10:27 | PC.NURSE ---
Vitals signs obtained by office nurse
--- NOTE | 2022-03-28 15:36 | PC.NURSE ---
Rituxan tx on hold per Dr. Kirkland till pt sees kidney specialist in [place]
== END 2022-04-24 23:59 | disposition home or self-care (01) ==
PROVIDERS: Nurse Practitioner Family; PCP Internal Medicine; Visit Provider Internal Medicine Medical Oncology
DX: C91.10 Chronic lymphocytic leukemia of B-cell type not having achieved remission (principal); R53.82 Chronic fatigue, unspecified; N28.89 Other specified disorders of kidney and ureter; G40.909 Epilepsy, unspecified, not intractable, without status epilepticus; I82.412 Acute embolism and thrombosis of left femoral vein; Z79.01 Long term (current) use of anticoagulants; Z79.899 Other long term (current) drug therapy; Z86.16 Personal history of COVID-19; Z92.25 Personal history of immunosuppression therapy
CPT/HCPCS: 36591; 80053; 85025; 99214; 99999

== ENCOUNTER 2022-05-07 13:00 | Outpatient (CLI) | payer MEDICARE, SELFPAY | END 2022-05-07 13:01 | disposition home or self-care (01) | LOC: SLEEP 05-08 10:25 | PROVIDERS: PCP Internal Medicine; Visit Provider Internal Medicine | DX: G47.33 Obstructive sleep apnea (adult) (pediatric) (principal) | CPT/HCPCS: G0399 ==

== ENCOUNTER 2022-05-09 12:15 | Oncology outpatient (recurring) (ONCR) | payer MEDICARE, SELFPAY ==
[2022-05-09 12:45] LABS: Basophils % 0.5 %; Eosinophils # 0.4 10^3/uL (0.0-0.8); Hematocrit 34.6 % (42.0-52.0); Hemoglobin 11.6 g/dL (11.7-16.6); Lymphocytes # 1.3 10^3/uL (0.8-4.8); Lymphocytes % 21.1 %; Mean Corpuscular HGB Conc 33.5 g/dL (30.0-36.0); Mean Corpuscular Hemoglobin 29.8 pg (28.0-34.0); Mean Corpuscular Volume 88.9 fl (80-94); Mean Platelet Volume 10.8 fL (7.4-10.4); Monocytes # 0.7 10^3/uL (0.2-0.9); Monocytes % 10.5 %; Neutrophils # 3.75 10^3/uL (1.8-7.7); Neutrophils % 59.3 %; Nucleated Red Blood Cells % 0 %; Platelet Count 138 10^3/cmm (130-400); Red Blood Count 3.89 10^6/uL (4.1-5.3); Red Cell Distribution Width 15.6 % (12.1-15.1); White Blood Count 6.3 10^3/uL (4.0-10.0)
[2022-05-09 13:17] LABS: Alanine Aminotransferase 41 U/L (0-41); Albumin Level 3.9 g/dL (3.5-5.2); Alkaline Phosphatase 69 IU/L (40-130); Anion Gap 14.5 (5-19); Aspartate Amino Transferase 35 U/L (0-40); Blood Urea Nitrogen 29 mg/dL (6-20); Calcium 9.2 mg/dL (8.5-10.5); Carbon Dioxide 26 mmol/L (22-29); Chloride 101 mmol/L (98-107); Globulin 2.4 g/dL (1.3-4.6); Glomerular Filtration Rate 41.8 mL/min (90-130); Glucose 219 mg/dL (65-115); Lactate Dehydrogenase 187 U/L (135-225); Osmolality Calculated 299 mOsm/kg (285-295); Potassium 3.5 mmol/L (3.5-5.1); Sodium 138 mmol/L (136-145); Total Bilirubin 0.2 mg/dL (0.15-1.2); Total Protein 6.3 g/dL (6.6-8.7)
== END 2022-05-24 23:59 | disposition home or self-care (01) ==
PROVIDERS: PCP Internal Medicine; Visit Provider Internal Medicine Medical Oncology
DX: C91.10 Chronic lymphocytic leukemia of B-cell type not having achieved remission (principal); I82.412 Acute embolism and thrombosis of left femoral vein; Z79.01 Long term (current) use of anticoagulants
CPT/HCPCS: 36591; 80053; 83615; 85025; 99214

== ENCOUNTER → 2022-05-24 15:24 | Outpatient (BNVA) | payer MEDICARE, SELFPAY | PROVIDERS: PCP Internal Medicine; Visit Provider Internal Medicine Medical Oncology | DX: C91.10 Chronic lymphocytic leukemia of B-cell type not having achieved remission (principal); R53.83 Other fatigue; N28.89 Other specified disorders of kidney and ureter; Z79.899 Other long term (current) drug therapy; Z92.25 Personal history of immunosuppression therapy | CPT/HCPCS: 99214 ==

== ENCOUNTER 2022-06-19 13:38 | Oncology outpatient (recurring) (ONCR) | payer MEDICARE, SELFPAY ==
[2022-06-19 14:46] LABS: Hematocrit 32.2 % (42.0-52.0); Hemoglobin 10.4 g/dL (11.7-16.6); Mean Corpuscular HGB Conc 32.3 g/dL (30.0-36.0); Mean Corpuscular Hemoglobin 29.1 pg (28.0-34.0); Mean Corpuscular Volume 90.2 fl (80-94); Mean Platelet Volume 10.6 fL (7.4-10.4); Platelet Count 190 10^3/cmm (130-400); Red Blood Count 3.57 10^6/uL (4.1-5.3); Red Cell Distribution Width 15.4 % (12.1-15.1)
[2022-06-19 15:05] LABS: Urine Creatinine 129 mg/dL (39-259)
[2022-06-19 15:09] LABS: Alanine Aminotransferase 40 U/L (0-41); Albumin Level 3.7 g/dL (3.5-5.2); Alkaline Phosphatase 75 IU/L (40-130); Anion Gap 15.7 (5-19); Aspartate Amino Transferase 31 U/L (0-40); Blood Urea Nitrogen 36 mg/dL (6-20); Calcium 9.2 mg/dL (8.5-10.5); Carbon Dioxide 25 mmol/L (22-29); Chloride 104 mmol/L (98-107); Globulin 2.4 g/dL (1.3-4.6); Glomerular Filtration Rate 41.8 mL/min (90-130); Glucose 161 mg/dL (65-115); Osmolality Calculated 304 mOsm/kg (285-295); Phosphorus 3.2 mg/dL (2.5-4.5); Potassium 3.7 mmol/L (3.5-5.1); Sodium 141 mmol/L (136-145); Total Bilirubin 0.2 mg/dL (0.15-1.2); Total Protein 6.1 g/dL (6.6-8.7)
[2022-06-19 15:19] LABS: UPRO/UCREAT Ratio 1.57 mg/mg CR; Urine Protein Random 203 mg/dL
[2022-06-19 15:48] LABS: Slide Review Slide Review Perform; Total Cells Counted 100 (0-100)
[2022-06-19 15:49] LABS: Absolute Eosinophils 0.4 10^3/cmm (0.0-0.7); Absolute Segmented Neutrophil 6.7 10/cmm (1.6-7.1); Eosinophils 4 %; Lymphocytes 16 %; Lymphocytes Absolute 2.2 10^3/cmm (1.2-3.4); Monocytes Absolute 0.5 10^3/cmm (0.1-0.6); Segmented Neutrophils 67 %
[2022-06-19 15:50] LABS: Absolute Neutrophil 6.7 10^3/cmm (1.4-6.5); Platelet Estimate Normal (Normal)
== END 2022-06-24 23:59 | disposition home or self-care (01) ==
PROVIDERS: Internal Medicine Nephrology; PCP Internal Medicine; Visit Provider Internal Medicine Medical Oncology
DX: C91.10 Chronic lymphocytic leukemia of B-cell type not having achieved remission (principal)
CPT/HCPCS: 36591; 80053; 80069; 82570; 84156; 85007; 85025

== ENCOUNTER 2022-07-05 09:06 | Oncology outpatient (recurring) (ONCR) | payer MEDICARE, SELFPAY ==
[2022-07-05] MEDS: sodium chloride 0.9% 500 ML 999 ML IV (10:04)
[2022-07-05 10:05] LABS: Basophils % 0.5 %; Eosinophils # 0.5 10^3/uL (0.0-0.8); Eosinophils % 8.4 %; Hematocrit 32.5 % (42.0-52.0); Hemoglobin 10.3 g/dL (11.7-16.6); Lymphocytes # 1.4 10^3/uL (0.8-4.8); Lymphocytes % 21.1 %; Mean Corpuscular HGB Conc 31.7 g/dL (30.0-36.0); Mean Corpuscular Hemoglobin 28.7 pg (28.0-34.0); Mean Corpuscular Volume 90.5 fl (80-94); Mean Platelet Volume 10.3 fL (7.4-10.4); Monocytes # 0.7 10^3/uL (0.2-0.9); Monocytes % 11.2 %; Neutrophils # 3.74 10^3/uL (1.8-7.7); Neutrophils % 57.9 %; Nucleated Red Blood Cells % 0 %; Platelet Count 145 10^3/cmm (130-400); Red Blood Count 3.59 10^6/uL (4.1-5.3); Red Cell Distribution Width 15.9 % (12.1-15.1); White Blood Count 6.5 10^3/uL (4.0-10.0)
[2022-07-05] MEDS: ondansetron 2 mg/ML SDV 2 mL 8 MG IVP (10:05)
[2022-07-05 10:09] LABS: Bilirubin Urine Neg (Negative); Blood Urine Neg (Negative); Glucose Urine UA Norm (Normal); Ketones Urine Negative (Negative); Leukocyte Esterase Urine Negative (Negative); Nitrate Urine Negative (Negative); Protein Urine 3+ (Negative); Specific Gravity, Urine 1.025 (1.005-1.030); Urine Appearance Clear (CLEAR); Urine Color Yellow (Yellow); Urobilinogen Urine Norm (Negative); pH Urine 5 (5-7)
[2022-07-05 10:10] LABS: Add Urine Microscopic? YES
[2022-07-05 10:12] LABS: Add Urine Culture? No; RBC Urine 0-4 /hpf (0-2); Squamous Epithelial Cell Urine 0-4 /hpf (0-5); WBC Urine 0-4 /hpf (0-5)
[2022-07-05 10:45] VITALS: BP 126/76; PULSE 74; RESP 18; TEMP 36.2; O2SAT 98
[2022-07-05 10:48] LABS: Alanine Aminotransferase 34 U/L (0-41); Albumin Level 3.8 g/dL (3.5-5.2); Alkaline Phosphatase 61 IU/L (40-130); Anion Gap 16.8 (5-19); Aspartate Amino Transferase 32 U/L (0-40); Blood Urea Nitrogen 20 mg/dL (6-20); Calcium 9.4 mg/dL (8.5-10.5); Carbon Dioxide 25 mmol/L (22-29); Chloride 103 mmol/L (98-107); Globulin 2.5 g/dL (1.3-4.6); Glomerular Filtration Rate 48.2 mL/min (90-130); Glucose 153 mg/dL (65-115); Iron 51 ug/dL (59-158); Lactate Dehydrogenase 187 U/L (135-225); Osmolality Calculated 298 mOsm/kg (285-295); Percent Saturation 18.4 % (20-50); Potassium 3.8 mmol/L (3.5-5.1); Sodium 141 mmol/L (136-145); Thyroid Stimulating Hormone 2.67 uIU/mL (0.27-4.20); Total Bilirubin 0.2 mg/dL (0.15-1.2); Total Iron Binding Capacity 276 mcg/dl; Total Protein 6.3 g/dL (6.6-8.7); Unsaturated Iron Binding 225 ug/dL (112-347); Vitamin B12 858 pg/mL (232-1245)
[2022-07-05 18:14] LABS: Ferritin 178 ng/mL (30-400)
== END 2022-07-25 23:59 | disposition home or self-care (01) ==
PROVIDERS: PCP Internal Medicine; Visit Provider Internal Medicine Medical Oncology
DX: C91.10 Chronic lymphocytic leukemia of B-cell type not having achieved remission (principal)
CPT/HCPCS: 80053; 81001; 82607; 82728; 83540; 83550; 83615; 84443; 85025; 96365; 99214; J2405; J7040

== ENCOUNTER 2022-07-18 08:25 | Outpatient (CLI) | payer MEDICARE, SELFPAY ==
--- NOTE | 2022-07-18 08:33 | US_ITS ---
WS: [id number] ULTRASOUND RENAL TECHNIQUE: Ultrasound examination of both kidneys. CLINICAL INFORMATION: RENAL INSUFFICIENCY/STAGE 3B CHRONIC KIDNEY DZ COMPARISON: CT July 27, 2021 FINDINGS: RIGHT: Right kidney is normal in size and appearance. Echogenicity: Normal. Cortical thickness: 1.9 cm; Normal. Hydronephrosis: None. Perinephric fluid: None. Right kidney measures: 13.4 cm x 7.3 cm x 6.4 cm. LEFT: Slightly complex lobulated inferior pole LEFT renal cyst measuring 2.5 x 2 0. x 1.2 cm with a few sep tations. Echogenicity: Normal. Cortical thickness: 2.0 cm; Normal. Hydronephrosis: None. Perinephric fluid: None. Left kidney measures: 13.7 cm x 5.8 cm x 6.7 cm. Normal visualized aorta. Normal bladder. US/US renal BI* [id number] IMPRESSION: 1. Normal RIGHT kidney. 2. Slightly complex lobulated inferior pole LEFT renal cyst measuring 2.5 x 2 0. x 1.2 cm with a few septations. Recommend 12 month follow-up. 3. No hydronephrosis in either kidney. 4. Normal bladder.
== END 2022-07-18 08:26 | disposition home or self-care (01) ==
LOC: RAD 08:26
PROVIDERS: PCP Internal Medicine; Visit Provider Internal Medicine Nephrology
DX: Z96.652 Presence of left artificial knee joint (principal); T84.50XA Infection and inflammatory reaction due to unspecified internal joint prosthesis, initial encounter
CPT/HCPCS: 73560; 73565; 76770; 80503; 87070; 87075; 87077; 87186; 87205; 89050; 99214

== ENCOUNTER 2022-07-20 08:36 | Day surgery (SDC) | payer MEDICARE, SELFPAY ==
[2022-07-20 08:40] VITALS: BP 177/78; PULSE 110; RESP 18; TEMP 36.1; O2SAT 96; BMI 47.9
--- NOTE | 2022-07-20 08:44 | XR_ITS ---
WS: [id number] Left knee, 3 views, 07/20/2022 Clinical Data: L knee pain; hx of replacement Comparison: AP both knees, left knee, 07/18/2022. Findings: The arthroplastic components are in good position. No fractures or dislocations are seen. The soft tissues are unremarkable. No loosening is seen. XR/XR knee LT 3V* [id number] Impression: No change in left knee arthroplasty.
--- NOTE | 2022-07-20 08:45 | W.ED.EXTPRO ---
HPI - Extremity Problem General: Chief complaint: Extremity Injury, Lower Stated complaint: Left knee pain Time Seen by Provider: 07/20/22 08:45 Source: patient Mode of arrival: ambulatory Limitations: no limitations History of Present Illness: 57-year-old male presents to the ER today for worsening left knee pain. Patient reports a history of a left knee replacement. Review of Systems General: Reports: 10 or more systems reviewed and unremarkable except in HPI and below PFSH ED PFSH: Medical History Acute embolism and thrombosis of left femoral vein Chronic kidney disease Chronic lymphocytic leukemia Degenerative arthritis Degenerative arthritis of spine Diabetes mellitus, type II Epilepsy In August 2018 he had presented with new onset of epilepsy, presumed idiopathic GERD (gastroesophageal reflux disease) Hyperlipidemia Hypertension Iron deficiency anemia In March 2018 he required treatment for iron deficiency anemia Surgical History S/P total knee arthroplasty (~05/2019) Family History Mother Cancer Lung Unknown Cancer Aunt - Leukemia, AML Brother Diabetes Hypertension Sister Hypertension Denies family history of CAD (coronary artery disease) Clotting disorder Dementia Hyperlipidemia Psychiatric illness Chronic kidney disease (CKD) Suicide Anesthesia complication Bleeding disorder Lung disease Stroke Social History Smoking and tobacco status: never smoked Alcohol intake: current Alcohol intake frequency: holidays/special occasions only Course Vital Signs: Vital signs: Vital Signs Temperature 97 F L 07/20/22 08:40 Pulse Rate 110 H 07/20/22 08:40 Respiratory Rate 18 07/20/22 08:40 Blood Pressure 177/78 07/20/22 08:40 Pulse Oximetry 96 07/20/22 08:40 Oxygen Delivery Me thod 07/20/22 08:40 Critical Care Time Critical Care Time: Critical Care Time: No Discharge Plan Discharge Condition: Stable Prescriptions: No Action Lantus U-100 Insulin 100 unit/mL solution 100 unit SUBCUT BID atorvastatin 40 mg tablet 40 mg PO DAILY aspirin [Adult Aspirin Regimen] 81 mg tablet,delayed release (DR/EC) 81 mg PO DAILY allopurinol 300 mg tablet 300 mg PO DAILY omeprazole 40 mg capsule,delayed release(DR/EC) 40 mg PO BID amlodipine 10 mg tablet 10 mg PO DAILY levetiracetam 500 mg tablet 500 mg PO BID zonisamide 100 mg capsule 100 mg PO BID Eliquis 5 mg tablet 5 mg PO DAILY montelukast [Singulair] 10 mg tablet 10 mg PO DAILY Qty: 90 2RF insulin lispro [Humalog U-100 Insulin] 100 unit/mL solution See Rx Instructions SUBCUT TID Rx Instructions: Up to 25 units per sliding scale SUBCUT three times daily; divalproex 500 mg tablet,delayed release (DR/EC) 1,500 mg PO BEDTIME Rx Instructions: 1500mg at bedtime PO twice a day; spironolactone 25 mg tablet 50 mg PO DAILY Rx Instructions: strength unknown orally daily; hydrocodone-acetaminophen 5-325 mg tablet 1 tab PO Q4H PRN (Reason: pain) 7 Days Qty: 30 0RF Benadryl 25 mg Capsule 25 mg PO DAILY Calcium + Vitamin D 600 mg calcium- 200 unit Tablet 1 tab PO DAILY One-A-Day Men's 50 Plus 400-20-370 mcg Tablet 1 tab PO DAILY duloxetine 30 mg Capsule, Delayed Rel Sprinkle 30 mg PO DAILY Referrals: Kumar Evans DO [Primary Care Provider] - Coding Level of Care Code ED Private Duty Aide for Sheyla Cha
--- NOTE | 2022-07-20 08:49 | ED_ITS ---
HPI - Extremity Problem General: Chief complaint: Extremity Injury, Lower Stated complaint: Left knee pain Time Seen by Provider: 07/20/22 08:45 History of Present Illness: Mr. Rivera is a 57-year-old gentleman with history of CLL, diabetes, obesity, hypertension, hyperlipidemia who presents to the ER for worsening knee pain. Underwent knee replacement approximately 2 years ago and was doing well until approximately 6 months ago. He developed a toe infection and subsequently DVT treated with Eliquis. He subsequently developed knee pain which has been progressively worsening. He was evaluated in the outpatient clinic by Dr. Lanza and arthrocentesis concerning for septic joint. He has moderate to severe intensity pain worse with ambulation. Denies signs of systemic illness. Overall course is worsened. No other specific changes in health, exacerbating, or alleviating factors identified. Onset (ago): week(s) Pain Consistency: constant Location: left and knee Radiation: none Exacerbating factors: weight bearing and walking Associated symptoms: Reports no associated symptoms Review of Systems General: Reports: 10 or more systems reviewed and unremarkable except in HPI and below PFSH ED PFSH: Medical History Acute embolism and thrombosis of left femoral vein Chronic kidney disease Chronic lymphocytic leukemia Degenerative arthritis Degenerative arthritis of spine Diabetes mellitus, type II Epilepsy In August 2018 he had presented with new onset of epilepsy, presumed idiopathic GERD (gastroesophageal reflux disease) Hyperlipidemia Hypertension Iron deficiency anemia In March 2018 he required treatment for iron deficiency anemia Surgical History History of left knee replacement S/P total knee arthroplasty (~05/2019) Family History Mother Cancer Lung Unknown Cancer Aunt - Leukemia, AML Brother Diabetes Hypertension Sister Hypertension Denies family history of CAD (coronary artery disease) Clotting disorder Dementia Hyperlipidemia Psychiatric illness Chronic kidney disease (CKD) Suicide Anesthesia complication Bleeding disorder Lung disease Stroke Social History Smoking and tobacco status: never smoked Alcohol intake: current Alcohol intake frequency: holidays/special occasions only Physical Exam Const: COMMON NORMALS: alert GENERAL APPEARANCE: cooperative and well developed HENMT: COMMON NORMALS: normocephalic and atraumatic HEAD & SCALP: normocephalic and atraumatic Eye: COMMON NORMALS: conjunctivae normal CONJUNCTIVA: Yes conjunctivae normal SCLERA: sclerae normal Neck/C-Spine: COMMON NORMALS: supple GENERAL: Yes trachea midline Resp: COMMON NORMALS: normal respiratory effort and clear to auscultation bilaterally EFFORT & INSPECTION: Yes able to speak in complete sentences AUSCULTATION: clear to auscultation bilaterally Cardio: COMMON NORMALS: regular rhythm RATE: tachycardic RHYTHM: regular rhythm GI: COMMON NORMALS: Soft to palpation PALPATION: Yes Soft to palpation and No Tenderness to palpation present (GI) Extremity: NARRATIVE EXTREMITY EXAM: Warmth and swelling noted to left knee, distal CMS intact GENERAL: Yes normal exam except as noted and No edema Neuro: COMMON NORMALS: moves all extremities SENSORIUM/ORIENTATION: Yes alert and No Orientation impaired Psych: COMMON NORMALS: mental status grossly normal and Normal thought process present THOUGHT PROCESS: Normal thought process present Course ED course: - Patient was seen and evaluated by me at bedside - Patient placed on cardiac monitors, IV access obtained - Initial evaluation notable for exam as above. Arthrocentesis results reviewed. - Labs personally interpreted by me -Analgesia given - Labs notable for leukocytosis, elevated inflammatory markers. CKD. -Prior imaging reviewed - Upon serial reexamination after treatment the patient was improved - Based on patient history, evaluation, and testing as interpreted the most likely cause of the patient's condition is septic joint with prosthetic joint history - The results of ED evaluation were discussed with the patient including plan for admission due to requirement for level of care not available if discharged to prevent significant worsening/deterioration. - Admitting service was contacted and Dr Lanza with orthopedic service agreed to admit the patient. Infectious disease/hospital service also consulted. - Patient was admitted without further deterioration or significant events. Note: Click bubbles or prepopulated marcano in note writing are used for assistance with data collection and billing and are inherently more limited than narrative and other text portions of this note. Please use narrative for additional clinical history and defer to narrative/free test for any case of contradictory information. If information appears in only free text or click bubble it should be considered present or absent as reported. Please contact note automatic typewriter inspector for clarifications of clinical information or contradictory information. MDM is a brief summary, contradictory or erroneous seeming information should be clarified and full note should be reviewed. Vital Signs: Vital signs: Vital Signs Temperature 97 F L 07/20/22 08:40 Pulse Rate 110 H 07/20/22 08:40 Respiratory Rate 16 07/20/22 10:05 Blood Pressure 177/78 07/20/22 08:40 Pulse Oximetry 97 07/20/22 10:05 Oxygen Delivery Me thod 07/20/22 08:40 MDM - Extremity (Nontraumatic) Medical Decision Making 57-year-old gentleman with remote history of knee replacement presenting with outpatient evaluation concerning for septic joint. Admitted for further management. Medical Records I reviewed the patient's medical records. Lab Data I reviewed the patient's lab results. : 07/20/22 09:45 07/20/22 09:45 Radiology Impressions Knee X-Ray 07/20/22 08:44 Impression: No change in left knee arthroplasty. Laboratory Results WBC 10.4 10^3/uL (4.0-10.0) H 07/20/22 09:45 RBC 3.47 10^6/uL (4.1-5.3) L 07/20/22 09:45 Hgb 10.0 g/dL (11.7-16.6) L 07/20/22 09:45 Hct 30.8 % (42.0-52.0) L 07/20/22 09:45 MCV 88.8 fl (80-94) 07/20/22 09:45 MCH 28.8 pg (28.0-34.0) 07/20/22 09:45 MCHC 32.5 g/dL (30.0-36.0) 07/20/22 09:45 RDW 15.6 % (12.1-15.1) H 07/20/22 09:45 Plt Count 255 10^3/cmm (130-400) 07/20/22 09:45 MPV 9.8 fL (7.4-10.4) 07/20/22 09:45 Neut % (Auto) 70.3 % 07/20/22 09:45 Lymph % (Auto) 13.8 % 07/20/22 09:45 [place] % (Auto) 9.5 % 07/20/22 09:45 Eos % (Auto) 4.9 % 07/20/22 09:45 Baso % (Auto) 0.4 % 07/20/22 09:45 Neut # (Auto) 7.29 10^3/uL (1.8-7.7) 07/20/22 09:45 Lymph # (Auto) 1.4 10^3/uL (0.8-4.8) 07/20/22 09:45 [place] # (Auto) 1.0 10^3/uL (0.2-0.9) H 07/20/22 09:45 Eos # (Auto) 0.5 10^3/uL (0.0-0.8) 07/20/22 09:45 Baso # (Auto) 0.0 10^3/uL (0.0-0.1) 07/20/22 09:45 Nucleated RBC % (auto) 0 % 07/20/22 09:45 Nucleated RBCs # 0.0 /100WBC 07/20/22 09:45 ESR 72 mm/hr (0-10) H 07/20/22 09:45 PT 13.70 SECONDS (12.1-14.9) 07/20/22 09:45 INR 1.02 (0.8-1.2) 07/20/22 09:45 APTT 35.6 SECONDS (23.9-36.7) 07/20/22 09:45 Sodium 138 mmol/L (136-145) 07/20/22 09:45 Potassium 4.3 mmol/L (3.5-5.1) 07/20/22 09:45 Chloride 100 mmol/L (98-107) 07/20/22 09:45 Carbon Dioxide 26 mmol/L (22-29) 07/20/22 09:45 Anion Gap 16.3 (5-19) 07/20/22 09:45 BUN 26 mg/dL (6-20) H 07/20/22 09:45 Creatinine 1.7 mg/dL (0.7-1.2) H 07/20/22 09:45 GFR Calculation 41.8 mL/min (90-130) L 07/20/22 09:45 Glucose 134 mg/dL (65-115) H 07/20/22 09:45 POC Glucose 251 mg/dL (70-110) H 07/20/22 18:48 Calculated Osmolality 293 mOsm/kg (285-295) 07/20/22 09:45 Lactate 1.4 mmol/L (0.5-2.2) 07/20/22 09:45 Calcium 9.3 mg/dL (8.5-10.5) 07/20/22 09:45 Total Bilirubin 0.2 mg/dL (0.15-1.2) 07/20/22 09:45 AST 18 U/L (0-40) 07/20/22 09:45 ALT 24 U/L (0-41) 07/20/22 09:45 Alkaline Phosphatase 76 U/L (40-130) 07/20/22 09:45 C-Reactive Protein 103.9 mg/L (0.0-4.9) H 07/20/22 09:45 Total Protein 7.1 g/dL (6.6-8.7) 07/20/22 09:45 Albumin 3.5 g/dL (3.5-5.2) 07/20/22 09:45 Globulin 3.6 g/dL (1.3-4.6) 07/20/22 09:45 Procalcitonin 0.20 ng/mL (0-0.5) 07/20/22 09:45 Discharge Plan Discharge Patient Disposition: Admitted As Inpatient Clinical Impression: Septic joint of left knee joint Condition: Stable Coding Level of Care Code ED Jacquard Loom Card Changer for Sheyla Fwyan Exam Comprehensive
--- NOTE | 2022-07-20 09:54 | PC.PHAR ---
PT AND HIS STATED CHANGES IN DOSAGE ON - LEVETIRACETAM AND ZONISAMIDE IN LATE MAY EARLY JUNE. PT ALSO STATES ELIQUIS AND 81MG ASPIRIN ON HOLD OF A FEW DAYS AGO. ALSO DISC. LISINOPRIL 40MG DAILY AND HYDROCHLOROTHIAZIDE 25MG DAILY AND REPLACED THESE TWO MEDS WITH SPIRONOLACTONE 50MG ONCE DAILY
[2022-07-20 10:02] LABS: Basophils % 0.4 %; Eosinophils # 0.5 10^3/uL (0.0-0.8); Eosinophils % 4.9 %; Hematocrit 30.8 % (42.0-52.0); Lymphocytes # 1.4 10^3/uL (0.8-4.8); Lymphocytes % 13.8 %; Mean Corpuscular HGB Conc 32.5 g/dL (30.0-36.0); Mean Corpuscular Hemoglobin 28.8 pg (28.0-34.0); Mean Corpuscular Volume 88.8 fl (80-94); Mean Platelet Volume 9.8 fL (7.4-10.4); Monocytes % 9.5 %; Neutrophils # 7.29 10^3/uL (1.8-7.7); Neutrophils % 70.3 %; Nucleated Red Blood Cells % 0 %; Platelet Count 255 10^3/cmm (130-400); Red Blood Count 3.47 10^6/uL (4.1-5.3); Red Cell Distribution Width 15.6 % (12.1-15.1); White Blood Count 10.4 10^3/uL (4.0-10.0)
[2022-07-20 10:05] VITALS: RESP 16; O2SAT 97
[2022-07-20] MEDS: morphine 4 mg/mL SDV 1 mL IVP (10:05)
[2022-07-20 10:15] LABS: INR 1.02 (0.8-1.2)
[2022-07-20 10:16] LABS: Partial Thromboplastin Time 35.6 SECONDS (23.9-36.7)
[2022-07-20 10:19] LABS: Lactate (Lactic Acid level) 1.4 mmol/L (0.5-2.2)
[2022-07-20 10:32] LABS: Alanine Aminotransferase 24 U/L (0-41); Albumin Level 3.5 g/dL (3.5-5.2); Alkaline Phosphatase 76 U/L (40-130); Anion Gap 16.3 (5-19); Aspartate Amino Transferase 18 U/L (0-40); Blood Urea Nitrogen 26 mg/dL (6-20); C Reactive Protein 103.9 mg/L (0.0-4.9); Calcium 9.3 mg/dL (8.5-10.5); Carbon Dioxide 26 mmol/L (22-29); Chloride 100 mmol/L (98-107); Globulin 3.6 g/dL (1.3-4.6); Glomerular Filtration Rate 41.8 mL/min (90-130); Glucose 134 mg/dL (65-115); Osmolality Calculated 293 mOsm/kg (285-295); Potassium 4.3 mmol/L (3.5-5.1); Sodium 138 mmol/L (136-145); Total Bilirubin 0.2 mg/dL (0.15-1.2); Total Protein 7.1 g/dL (6.6-8.7)
--- NOTE | 2022-07-20 11:10 | P.HP_ITS ---
Providers/Chief Complaint Primary Care Provider: Kumar Evans DO Chief Complaint: Left knee pain History of Present Illness This is an established 57 year old male patient, he is here today for an evaluation of his left knee pain. He is known to our clinic after an elective left total knee arthroplasty on 06/08/2019.? He had a completely unremarkable course.? He used a cane no more than a few days and had no problems.? He states he was doing well until 2 weeks ago when he developed a severe pain in the left knee.? He describes associated swelling.? He describes the pain as constant and so bad that he feels he would want to cut his leg. ? He denies any trauma.? He has a fairly complicated history.? He has a history of chronic lymphocytic B cell leukemia.? He also has a history of gout which is involved his left foot in the past.? In December of this year he was seen in the emergency room with low- grade temperatures as high as 100.4.? erythema and swelling of the second toe and lymphangitis extending up he has leg.? Patient left the emergency room AGAINST MEDICAL ADVICE.? He states he was treated a 7-day course of IV Invanz per direction of Dr. Kirkland. He was started on apixaban for treatment of the deep venous thrombosis. He was seen in my clinic on 07/18/2022. The knee was aspirated with greater than 108,000 white blood cells. Cultures at this point are showing slow growing presumptive Streptococcus species. A single uric accident Crystal was seen on polarized light microscopy. Patient presents today complaining of increasing pain today. He states he is absolutely miserable and requires treatment Medications/Allergies Home Medications Medication Instructions Recorded Confirmed Last Taken Type allopurinol 300 mg tablet 300 mg PO DAILY 01/09/22 07/20/22 07/20/22 History amlodipine 10 mg tablet 10 mg PO DAILY 01/09/22 07/20/22 07/20/22 History aspirin 81 mg tablet,delayed 81 mg PO DAILY 01/09/22 07/20/22 01/19/22 History release (Adult Aspirin Regimen) atorvastatin 40 mg tablet 40 mg PO BEDTIME 01/09/22 07/20/22 07/19/22 History insulin glargine 100 unit/mL 100 unit SUBCUT BID 01/09/22 07/20/22 07/19/22 History subcutaneous solution (Lantus U-100 Insulin) levetiracetam 500 mg tablet 1,000 mg PO BID 01/09/22 07/20/22 07/20/22 History omeprazole 40 mg capsule,delayed 40 mg PO DAILY 01/09/22 07/20/22 07/20/22 History release zonisamide 100 mg capsule 200 mg PO BEDTIME 01/09/22 07/20/22 07/19/22 History apixaban 5 mg tablet (Eliquis) 5 mg PO BID 03/28/22 07/20/22 07/18/22 History montelukast 10 mg tablet 10 mg PO DAILY #90 tabs 03/28/22 07/20/22 07/20/22 Rx (Singulair) spironolactone 25 mg tablet 50 mg PO DAILY 07/05/22 07/20/22 07/20/22 History hydrocodone 5 mg-acetaminophen 325 1 tab PO Q4H PRN pain 7 days #30 07/18/22 07/20/22 07/20/22 Rx mg tablet tabs calcium carb-ergocalciferol (vit 1 tab PO DAILY 07/19/22 07/20/22 07/20/22 History D2) 600 mg calcium-200 unit tablet diphenhydramine HCl 25 mg capsule 25 mg PO DAILY 07/19/22 07/20/22 07/20/22 History (Benadryl) duloxetine 30 mg capsule,delayed 30 mg PO DAILY 07/19/22 07/20/22 07/20/22 History release sprinkle wpbeklsdzbgq-dme-yslnz acid-vit 1 tab PO DAILY 07/19/22 07/20/22 07/20/22 History K-lycop 400 mcg-20 mcg-370 mcg tablet (One-A-Day Men's 50 Plus) divalproex 500 mg tablet,delayed 1,500 mg PO BEDTIME 07/20/22 07/20/22 07/19/22 History release insulin lispro 200 unit/mL (3 mL) 25 unit SUBCUT TID 07/20/22 07/20/22 07/19/22 History subcutaneous pen (Humalog KwikPen U-200 Insulin) Allergies Allergy/AdvReac Type Severity Reaction Status Date / Time No Known Allergies Allergy Verified 07/20/22 09:54 PFSH Acute PFSH: Medical History Acute embolism and thrombosis of left femoral vein Chronic kidney disease Chronic lymphocytic leukemia Degenerative arthritis Degenerative arthritis of spine Diabetes mellitus, type II Epilepsy In August 2018 he had presented with new onset of epilepsy, presumed idiopathic GERD (gastroesophageal reflux disease) Hyperlipidemia Hypertension Iron deficiency anemia In March 2018 he required treatment for iron deficiency anemia Surgical History S/P total knee arthroplasty (~05/2019) Family History Mother Cancer Lung Unknown Cancer Aunt - Leukemia, AML Brother Diabetes Hypertension Sister Hypertension Denies family history of CAD (coronary artery disease) Clotting disorder Dementia Hyperlipidemia Psychiatric illness Chronic kidney disease (CKD) Suicide Anesthesia complication Bleeding disorder Lung disease Stroke Social History Smoking and tobacco status: never smoked Alcohol intake: current Alcohol intake frequency: holidays/special occasions only Vitals/I&O/Wt Last Vital Signs Temp 97 F L 07/20/22 08:40 Pulse 110 H 07/20/22 08:40 Resp 16 07/20/22 10:05 BP 177/78 07/20/22 08:40 Pulse Ox 97 07/20/22 10:05 O2 Del Method 07/20/22 08:40 Weight last 48 hrs Weight 334 lb Physical Exam Narrative: HEAD: Normocephalic/atraumatic. NECK: Soft supple nontender. HEART: Normal heart sounds, regular rhythm. CHEST: Clear to auscultation. ABDOMEN: Soft nontender nondistended. On examination of the left knee there is clear swelling about the knee and what appears to be a palpable effusion. There is no erythema over the overlying skin. His knee can be fully extended and flexed to 70 degrees with some pain with all extremes of motion Cruciate and collateral ligaments are stable. His patella tracks well. He has a palpable dorsalis pedis pulse. Is no ulcerations or erythema over his left foot that I can see. Data : 07/20/22 09:45 07/20/22 09:45 Micro: Microbiology 07/20/22 09:49 Blood Culture - Preliminary Blood SPECIMEN COLLECTED 07/20/22 09:45 Blood Culture - Preliminary Blood SPECIMEN COLLECTED A&P Assessment and plan (1) Infection of total left knee replacement: Panda appears to have infection left total knee. I suspect the source would have been the left foot infection that occurred earlier this year. There is some level of immunocompromise with his B cell lymphoma. There has been some duration of time since the initial infection. I told Panda that is extremely unlikely that we would be able to save his current components. I think the best option at this point would be a two-stage exchange. We need to go to the operating room and aggressively address the infection. This will include an aggressive debridement and removal of components. We can place antibiotic spacers. We will need to consider reimplantation once the infection is completely eradicated. I discussed the magnitude of the procedure with him. I discussed the risk of a recurrent infection even despite aggressive debridement, local treatment with antibiotics, and prolonged IV antibiotics. I discussed the complexity of revision and possible need even for amputation in the future. He understands all these and agrees to to proceed. I have spoken to Dr. Veronica her infectious disease specialist who will assist with his care. Status: Acute Attestations Medical Necessity Statement*: Patient needs aggressive debridement of a left knee infection and initiation of long-term IV antibiotics. Coding Level of Care Code Acute Production Associate for Sheyla Cha Diagnoses Infection of total left knee replacement T84.54XA
[2022-07-20 11:19] LABS: Glucose Point of Care 125 mg/dL (70-110)
[2022-07-20 11:24] LABS: Erythrocyte Sedimentation Rate 72 mm/hr (0-10)
--- NOTE | 2022-07-20 17:00 | PM.CONSULT ---
Providers/Reason For Consult Consulting Physician/Specialty*: Susannah Veronica, Infectious Disease Reason for Consult*: Prosthetic joint infection Requesting Physician: Dr. Lanza Attending Physician: Nirmal Lanza MD Primary Care Provider: Kumar Evans DO History of Present Illness History of Present Illness Panda Rivera is a 57 year old male with a past medical history of CLL, status post fludarabine/rituximab until March 2009, found to have disease progression in July 2021 status post venetoclax and rituximab between November to March 2022 with multiple interruptions in therapy due to COVID-19, CKD, declining performance status. In Dec 2021 he was seen in the emergency room with pain and swelling in the left leg.? He had clinical evidence of cellulitis involving the left second toe.? His venous Doppler showed findings suspicious for partial nonocclusive thrombus involving the proximal profunda femoral vein and mid femoral vein.? He declined hospital admission.? He was seen in the oncology office the following day, and at that point he began antibiotic coverage with IV Invanz daily for 7 days.? He also started anticoagulation with apixaban.? He is currently admitted after developing severe pain in his left knee 2 weeks ago. he has a h/o elective left total knee arthroplasty on 06/08/2019 from which he recovered well. He also has a history of gout which is involved his left foot in the past. He was seen by Dr. Lanza from [facility] on 07/18 as outpatient and underwent knee aspiration which showed greater than 108,000 white blood cells. Cultures thus far with slow growing presumptive Streptococcus species. Susceptibility awaited. ? A single uric accident Crystal was seen. ROS + for subjective low grade fever. He was admitted today and is undergoing Removal infected left total knee with placement of articulating antibiotic spacer blocks. Review of Systems General: Reports: Other (patient unable to be seen as he is in the OR. Chart reveiwed. ) Medications/Allergies Home Medications Medication Instructions Recorded Confirmed Last Taken Type allopurinol 300 mg tablet 300 mg PO DAILY 01/09/22 07/20/22 07/20/22 History amlodipine 10 mg tablet 10 mg PO DAILY 01/09/22 07/20/22 07/20/22 History atorvastatin 40 mg tablet 40 mg PO BEDTIME 01/09/22 07/20/22 07/20/22 History insulin glargine 100 unit/mL 100 unit SUBCUT BID 01/09/22 07/20/22 07/19/22 History subcutaneous solution (Lantus U-100 Insulin) levetiracetam 500 mg tablet 1,000 mg PO BID 01/09/22 07/20/22 07/20/22 History (Keppra) omeprazole 40 mg capsule,delayed 40 mg PO DAILY 01/09/22 07/20/22 07/20/22 History release zonisamide 100 mg capsule 200 mg PO BEDTIME 01/09/22 07/20/22 07/19/22 History (Zonegran) apixaban 5 mg tablet (Eliquis) 5 mg PO BID 03/28/22 07/20/22 07/18/22 History montelukast 10 mg tablet 10 mg PO DAILY #90 tabs 03/28/22 07/20/22 07/20/22 Rx (Singulair) spironolactone 25 mg tablet 50 mg PO DAILY 07/05/22 07/20/22 07/20/22 History hydrocodone 5 mg-acetaminophen 325 1 tab PO Q4H PRN pain 7 days #30 07/18/22 07/20/22 07/20/22 Rx mg tablet tabs calcium carb-ergocalciferol (vit 1 tab PO DAILY 07/19/22 07/20/22 07/20/22 History D2) 600 mg calcium-200 unit tablet diphenhydramine HCl 25 mg capsule 25 mg PO DAILY 07/19/22 07/20/22 07/20/22 History (Benadryl) jiavoojtjchm-kwk-mcris acid-vit 1 tab PO DAILY 07/19/22 07/20/22 07/20/22 History K-lycop 400 mcg-20 mcg-370 mcg tablet (One-A-Day Men's 50 Plus) divalproex 500 mg tablet,delayed 1,500 mg PO BEDTIME 07/20/22 07/21/22 07/19/22 History release (Depakote) insulin lispro 200 unit/mL (3 mL) 25 unit SUBCUT TID 07/20/22 07/21/22 07/19/22 History subcutaneous pen (Humalog KwikPen U-200 Insulin) albuterol sulfate 90 mcg/actuation 2 puff inhalation Q4H PRN 07/21/22 07/21/22 Unknown History aerosol inhaler Shortness Of Breath aspirin 325 mg tablet 325 mg PO DAILY 07/21/22 07/21/22 Unknown History duloxetine 30 mg capsule,delayed 30 mg PO DAILY 07/21/22 07/21/22 Unknown History release Allergies Allergy/AdvReac Type Severity Reaction Status Date / Time No Known Allergies Allergy Verified 07/20/22 09:54 PFSH Acute PFSH: Medical History Acute embolism and thrombosis of left femoral vein Chronic kidney disease Chronic lymphocytic leukemia Degenerative arthritis Degenerative arthritis of spine Diabetes mellitus, type II Epilepsy In August 2018 he had presented with new onset of epilepsy, presumed idiopathic GERD (gastroesophageal reflux disease) Hyperlipidemia Hypertension Iron deficiency anemia In March 2018 he required treatment for iron deficiency anemia Surgical History S/P total knee arthroplasty (~05/2019) Family History Mother Cancer Lung Unknown Cancer Aunt - Leukemia, AML Brother Diabetes Hypertension Sister Hypertension Denies family history of CAD (coronary artery disease) Clotting disorder Dementia Hyperlipidemia Psychiatric illness Chronic kidney disease (CKD) Suicide Anesthesia complication Bleeding disorder Lung disease Stroke Social History Smoking and tobacco status: never smoked Alcohol intake: current Alcohol intake frequency: holidays/special occasions only Vitals/I&O/Wt Last Vital Signs Temp 97 F L 07/20/22 08:40 Pulse 110 H 07/20/22 08:40 Resp 16 07/20/22 10:05 BP 177/78 07/20/22 08:40 Pulse Ox 97 07/20/22 10:05 O2 Del Method 07/20/22 08:40 Weight last 48 hrs Weight 151.5 kg Physical Exam Narrative: Attempt made twice to see patient, however he is in the OR therefore not seen and examined today. Data : 07/20/22 09:45 07/20/22 09:45 Micro: Microbiology 07/20/22 09:49 Blood Culture - Preliminary Blood SPECIMEN COLLECTED 07/20/22 09:45 Blood Culture - Preliminary Blood SPECIMEN COLLECTED A&P Assessment and plan (1) Infection of total left knee replacement: Status: Acute (2) Septic joint of left knee joint: Status: Acute Plan Patient admitted today for PJI of the left knee. Outpatient aspirate cx thus far with anerobic streptococcus ap, awaiting final identification Blood cx taken today Pending OR cx from today received iv vancomycin perioperatively Will add ceftriaxone 2g iv q24h while awaiting culture date ESR 72, CRP 103 Consult Attestations Medical Necessity Statement: prothetic joint inection, need for surgery and iv abx Coding Level of Care Code Acute Crocheter Hand for [facility] Hayley Diagnoses Infection of total left knee replacement T84.54XA Septic joint of left knee joint M00.9
[2022-07-20 17:35] LABS: Glucose Point of Care 247 mg/dL (70-110)
[2022-07-20 18:52] LABS: Glucose Point of Care 251 mg/dL (70-110)
--- NOTE | 2022-07-21 12:55 | P.PN_ITS ---
Subjective Subjective: Overnight events reviewed. It appears that patient overnight had an episode of left hand numbness for which stroke evaluation was performed. NIH stroke scale was 2, no tPA was indicated at the time. He will be undergoing an MRI of the brain. Cardiac echo TTE was with poor windows. Valves were not well visualized. 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
== END 2022-07-20 10:52 ==
LOC: ER 10:21 → OR 10:52
PROVIDERS: Emergency Provider Emergency Medicine; PCP Internal Medicine; Visit Provider Orthopaedic Surgery
DX: T84.54XA Infection and inflammatory reaction due to internal left knee prosthesis, initial encounter (principal); M00.9 Pyogenic arthritis, unspecified; Z96.652 Presence of left artificial knee joint; I12.9 Hypertensive chronic kidney disease with stage 1 through stage 4 chronic kidney disease, or unspecified chronic kidney disease; E11.22 Type 2 diabetes mellitus with diabetic chronic kidney disease; N18.9 Chronic kidney disease, unspecified; Z79.4 Long term (current) use of insulin; K21.9 Gastro-esophageal reflux disease without esophagitis; E78.5 Hyperlipidemia, unspecified
CPT/HCPCS: 36415; 36416; 73562; 80053; 82962; 83605; 84145; 85025; 85610; 85651; 85730; 86140; 87040; 87077; 87186; 87205; J2270

== ENCOUNTER 2022-07-20 16:25 | Inpatient (IN) | payer MEDICARE, SELFPAY ==
[2022-07-19 13:30] VITALS: BMI 47.6
--- NOTE | 2022-07-19 13:55 | ECG_ITS ---
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 Measurements Intervals [place] Rate: 87 P: 54 [place]: 169 QRS: -7 QRSD: 94 T: 52 QT: 345 QTc: 417 Interpretive Statements SINUS RHYTHM NONSPECIFIC T-WAVE ABNORMALITY Compared to ECG 05/29/2019 11:30:25 T-wave abnormality now present Electronically Signed On 07-20-2022 6:29:40 CDT by Alice Marquis M.D. [email or web address] [email or web address] Direct [id number]
[2022-07-19 14:01] LABS: Basophils % 0.5 %; Eosinophils # 0.5 10^3/uL (0.0-0.8); Eosinophils % 5.5 %; Hematocrit 31.2 % (42.0-52.0); Hemoglobin 9.8 g/dL (11.7-16.6); Lymphocytes # 1.4 10^3/uL (0.8-4.8); Lymphocytes % 15.3 %; Mean Corpuscular HGB Conc 31.4 g/dL (30.0-36.0); Mean Corpuscular Volume 89.1 fl (80-94); Mean Platelet Volume 9.8 fL (7.4-10.4); Monocytes # 0.9 10^3/uL (0.2-0.9); Monocytes % 10.2 %; Neutrophils # 5.91 10^3/uL (1.8-7.7); Neutrophils % 67.1 %; Nucleated Red Blood Cells % 0 %; Platelet Count 229 10^3/cmm (130-400); Red Cell Distribution Width 15.6 % (12.1-15.1); White Blood Count 8.8 10^3/uL (4.0-10.0)
[2022-07-19 14:23] LABS: Anion Gap 16.5 (5-19); Blood Urea Nitrogen 23 mg/dL (6-20); Carbon Dioxide 25 mmol/L (22-29); Chloride 101 mmol/L (98-107); Glomerular Filtration Rate 39.1 mL/min (90-130); Glucose 231 mg/dL (65-115); Osmolality Calculated 297 mOsm/kg (285-295); Potassium 4.5 mmol/L (3.5-5.1); Sodium 138 mmol/L (136-145)
[2022-07-19 15:39] LABS: INR 1.04 (0.8-1.2)
--- NOTE | 2022-07-19 16:33 | P.ANESASSM_ITS ---
Pre-Anesthetic Assessment Height/Weight: Height 1.78 m Weight 150.593 kg Operation Date: 07/20/22 12:00 Proposed Procedures p removal of left total knee prosthesis and insertion of spacer/ 03220,T84.50XA(Left) - Nirmal Lanza MD Familial anesthetic complications: None Was Beta Rosa taken within 24 hours: N/A Was Clonidine taken within 24 hours: N/A Social No alcohol and No tobacco Exam alert, oriented x 3, clear to auscultation bilaterally and regular rate & rhythm Airway Submandibular: within normal limits Cervical ROM: within normal limits Mallampati: Class I Dentition: chipped Pulmonary Sleep Apnea CV/HEM Anemia, Coronary Artery Disease, Deep Vein Thrombosis and Hypertension leukemia Chronic Renal Insufficiency Cr 1.8 GI Gastroesophageal Reflux Disease Metabolic Diabetes Mellitus, Hyperlipidemia and Morbid Obesity Musc/skel Lower Back Pain and Osteoarthritis/DJD Anesthetic Plan ASA status: 3 Anesthesia: General and Regional (specify below) (Discussed SAB as option pending lab--WBC not elevated, afebrile and no shift in diff) Medications/Allergies Home Medications Medication Instructions Recorded Confirmed Last Taken Type allopurinol 300 mg tablet 300 mg PO DAILY 01/09/22 07/19/22 01/19/22 History amlodipine 10 mg tablet 10 mg PO DAILY 01/09/22 07/19/22 01/19/22 History aspirin 81 mg tablet,delayed 81 mg PO DAILY 01/09/22 07/19/22 01/19/22 History release (Adult Aspirin Regimen) atorvastatin 40 mg tablet 40 mg PO DAILY 01/09/22 07/19/22 01/19/22 History insulin glargine 100 unit/mL 100 unit SUBCUT BID 01/09/22 07/19/22 01/19/22 History subcutaneous solution (Lantus U-100 Insulin) levetiracetam 500 mg tablet 500 mg PO BID 01/09/22 07/19/22 01/19/22 History omeprazole 40 mg capsule,delayed 40 mg PO BID 01/09/22 07/19/22 01/19/22 History release zonisamide 100 mg capsule 100 mg PO BID 01/09/22 07/19/22 01/19/22 History apixaban 5 mg tablet (Eliquis) 5 mg PO DAILY 03/28/22 07/19/22 07/18/22 History montelukast 10 mg tablet 10 mg PO DAILY #90 tabs 03/28/22 07/19/22 Unknown Rx (Singulair) divalproex 500 mg tablet,delayed 1,500 mg PO BEDTIME 05/24/22 07/19/22 Unknown History release insulin lispro 100 unit/mL See Rx Instructions SUBCUT TID 05/24/22 07/19/22 Unknown History subcutaneous solution (Humalog U-100 Insulin) spironolactone 25 mg tablet 50 mg PO DAILY 07/05/22 07/19/22 Unknown History hydrocodone 5 mg-acetaminophen 325 1 tab PO Q4H PRN pain 7 days #30 07/18/22 07/19/22 Unknown Rx mg tablet tabs calcium carb-ergocalciferol (vit 1 tab PO DAILY 07/19/22 07/19/22 Unknown History D2) 600 mg calcium-200 unit tablet diphenhydramine HCl 25 mg capsule 25 mg PO DAILY 07/19/22 07/19/22 Unknown History (Benadryl) duloxetine 30 mg capsule,delayed 30 mg PO DAILY 07/19/22 07/19/22 Unknown History release sprinkle yysxjwpezdtc-ahi-nqhgo acid-vit 1 tab PO DAILY 07/19/22 07/19/22 Unknown History K-lycop 400 mcg-20 mcg-370 mcg tablet (One-A-Day Men's 50 Plus) Allergies Allergy/AdvReac Type Severity Reaction Status Date / Time No Known Allergies Allergy Verified 07/18/22 09:48 [facility] Anesthesia Medical History Acute embolism and thrombosis of left femoral vein Chronic kidney disease Chronic lymphocytic leukemia Degenerative arthritis Degenerative arthritis of spine Diabetes mellitus, type II Epilepsy In August 2018 he had presented with new onset of epilepsy, presumed idiopathic GERD (gastroesophageal reflux disease) Hyperlipidemia Hypertension Iron deficiency anemia In March 2018 he required treatment for iron deficiency anemia Surgical History S/P total knee arthroplasty (~05/2019) Family History Mother Cancer Lung Unknown Cancer Aunt - Leukemia, AML Brother Diabetes Hypertension Sister Hypertension Denies family history of CAD (coronary artery disease) Clotting disorder Dementia Hyperlipidemia Psychiatric illness Chronic kidney disease (CKD) Suicide Anesthesia complication Bleeding disorder Lung disease Stroke Social History Smoking and tobacco status: never smoked Alcohol intake: current Alcohol intake frequency: holidays/special occasions only Data Anesthesia : 07/19/22 13:44 07/19/22 13:44 Short CBC 07/19/22 Range/Units 13:44 WBC 8.8 (4.0-10.0) 10^3/uL Hgb 9.8 L (11.7-16.6) g/dL Hct 31.2 L (42.0-52.0) % MCV 89.1 (80-94) fl Plt Count 229 (130-400) 10^3/cmm Neut % (Auto) 67.1 % Neut # (Auto) 5.91 (1.8-7.7) 10^3/uL BMP 07/19/22 13:44 Sodium 138 Potassium 4.5 Chloride 101 Carbon Dioxide 25 BUN 23 H Creatinine 1.8 H Glucose 231 H Calcium 9.0 Coags 07/19/22 13:44 PT 13.90 INR 1.04 Cardiac Studies: No Data to Display
[2022-07-20] VITALS (26 sets, daily range): BP systolic 107–182; BP diastolic 57–141; PULSE 76–112; RESP 9–20; TEMP 36.4–36.8; O2SAT 92–99; BMI 48.1
--- NOTE | 2022-07-20 09:49 | P.ANESUD_ITS ---
Pre-Anesthetic Update Pre-Anesthetic Assessment: Date of Surgery/Procedure: 07/20/22 Preop Joan gnosis: knee infection Proposed Procedure: Operation Date: 07/20/22 12:00 Proposed Procedures p removal of left total knee prosthesis and insertion of spacer/ 33520,T84.50XA(Left) - Nirmal Lanza MD Any changes to Pre-Anesthetic Assessment?: No Changes from Pre-Anesthetic Assessment: Went to ED for poorly controlled pain Last Intake: 07/19/22 Labs Last 48hrs: Short CBC 07/19/22 Range/Units 13:44 WBC 8.8 (4.0-10.0) 10^3/ uL Hgb 9.8 L (11.7-16.6) g/dL Hct 31.2 L (42.0-52.0) % MCV 89.1 (80-94) fl Plt Count 229 (130-400) 10^3/c mm Neut % (Auto) 67.1 % Neut # (Auto) 5.91 (1.8-7.7) 10^3/u L BMP 07/19/22 13:44 Sodium 138 Potassium 4.5 Chloride 101 Carbon Dioxide 25 BUN 23 H Creatinine 1.8 H Glucose 231 H Calcium 9.0 Coags 07/19/22 13:44 PT 13.90 INR 1.04 Exam: Pre-Anes Outpt Exam: alert, oriented x 3, clear to auscultation bilaterally and regular rate & rhythm Cardiac Studies: No Data to Display
[2022-07-20] MEDS: HYDROmorphone 1 mg/mL INJ 1 mL 0.5 MG IVP (11:52)
[2022-07-20] MEDS: sodium chloride 0.9% 1,000 ML 30 ML IV (11:57)
[2022-07-20] MEDS: acetaminophen 1,000 MG/100 ML PIGGYBACK 400 MG IV (11:57)
[2022-07-20] MEDS: CELEcoxib 200 mg Capsule 400 MG PO (11:58)
[2022-07-20] MEDS: gabapentin 300 mg Capsule PO ×2 (11:58→19:04)
[2022-07-20] MEDS: magnesium sulfate premix 2 GM/50 ML PIGGYBACK IV (11:59)
[2022-07-20] MEDS: vancomycin 1,000 MG in sodium chloride 0.9% 250 ML 250 MG IV (13:10)
[2022-07-20] MEDS: vancomycin 1,000 MG SDV 1000 MG XX (13:46)
[2022-07-20] MEDS: tobramycin 40 mg/mL SDV 2mL 240 MG XX (13:47)
[2022-07-20] MEDS: vancomycin 1,000 MG SDV 6000 MG XX (14:46)
--- NOTE | 2022-07-20 16:23 | XRR_ITS ---
PROCEDURE INFORMATION: Exam: XR Left Knee Exam date and time: 07/20/2022 4:28 PM Age: 57 years old Clinical indication: Screening exam; Post op; Additional info: Left total knee arthroplasty TECHNIQUE: Imaging protocol: Radiologic exam of the Left knee. Views: 1 or 2 views. COMPARISON: [place] [id number] 01/18/2022 10:17 PM FINDINGS: Bones/joints: Status post placement of distal femoral metallic prosthesis and patellar resurfacing. A non metallic tibial prosthesis is probably present. There is normal alignment. Next item no acute fracture dislocation or osseous erosions. Soft tissues: There is diffuse anterior soft tissue swelling and trace amount of soft tissue air along with moderate joint effusion and intra-articular air, presumably related to recent surgical procedure. Several small round radiopaque antibiotic beads are noted. XR/XR knee LT 1-2V [id number] IMPRESSION: 1. Postop changes in good alignment. See discussion above. 2. Several abnormalities are probably related to recent postsurgical status. See discussion above.
--- NOTE | 2022-07-20 16:25 | P.OP_ITS ---
Operative Report Date of procedure: July 20, 2022 Pre-op diagnosis: Preop Diagnosis infected left total knee arthroplasty Post-op diagnosis: same Post-op findings: Same Procedure done: Removal infected left total knee with placement of articulating antibiotic spacer blocks Implants: Depuy size 6 cruciate retaining femoral component, size 7 all polyethylene tibial baseplate, 2 bags Simplex bone cement with tobramycin with 6 g of vancomycin added. Stimulon beads with 240mg tobramycin liquid with 1 gm vancomycin powder. Specimens removed/disposition: Routine and anaerobic cultures were sent purulent fluid from the knee, synovium from the knee, and bone from the prosthetic femoral interface Surgeon: Nirmal Lanza Anesthesia: General Estimated blood loss (mL): 400 Tourniquet time (min): 53 Complications: None Findings: Patient had a well fixed left total knee arthroplasty with purulent fluid and densest synovitis within the knee joint Condition: stable Disposition: PACU Procedure: The patient was taken to the operating room and given a general anesthesia. He is prepped and draped in the supine position with a tourniquet on the left thigh. A timeout was performed. Initially the knee was approached through an anterior incision through the previous scar and the knee entered through a medial parapatellar approach. Once within the capsule purulent fluid was identified and a swab of this fluid was sent for routine and anaerobic culture. Abundant synovial tissue was then removed from the suprapatellar pouch medial lateral gutters and the patella displaced laterally. Specimen of synovial tissue was sent for routine and anaerobic cultures. Scar tissue posterior to t he patella tendon was excised. The proximal medial collateral ligament was released from the medial tibia to allow better mobilization. Sharp osteotome was used to remove the tibial insert. Utilizing sharp osteotomes dissection was accomplished between the femoral component and the femoral bone. The femoral bone was then elevated after some time and manipulation off the femur really with minimal bone loss. Next the tibia was exposed anteriorly medially and as far laterally as the patellar tendon would allow. Again using osteotomes working anteriorly medially and for the medial aspect tibial component was freed from the proximal tibia and with the extraction handle look removed again with minimal loss of tibial bone. Finally osteotomes were used to elevate the patellar component from the patella again with minimal bone loss. An aggressive synovectomy and debridement was accomplished the knee removing all apparent inflamed tissue. Really no necrosis or focal area layers of purulence were identified. Finally bone from the femoral component femoral interface was sent for routine and anaerobic cultures. The knee was irrigated with 3 L of saline. Once all cultures were obtained the patient was given 1 g of vancomycin. After allowing 5 minutes of circulation time the tourniquet was briefly inflated for the remainder of the debridement involving preparation. The size 6 femoral component fit over the resected bone surfaces nicely. The femur was prepared for the pegs of the component. The tibia was sized for a size 7 tibial baseplate and prepared for that stem. On the back table 2 bags of Simplex tobramycin cement were mixed with 6 g of vancomycin. The cement was allowed to incompletely harden. A layer was placed over the tibia and the all polytibial component placed. The antibiotic cement was packed along the femoral component and as it became less sticky the femoral component was press-fit into place. The knee was brought into full extension with a stable knee noted. Excessive cement was removed. Stimulant antibiotic beads were then passed in the medial gutters and suprapatellar pouch. The tourniquet was deflated with minimal bleeding. The extensor retinaculum was closed with 1 Vicryl in the deep tissues with 2-0 Vicryl. The skin was closed with interrupted #1 and 0 Prolene sutures. Xeroform gauze 4 x 4's ABD pad. Patient was taken to recovery room in stable condition.
--- NOTE | 2022-07-20 16:40 | ANE.PACU2 ---
Inpatient post-anesthesia follow up: Airway intact: Yes Vital signs: Temperature 98.3 F Pulse Rate 78 Respiratory Rate 13 Blood Pressure 137/95 Pulse Oximetry 96 Oxygen Delivery Me thod Nasal Cannula Oxygen Flow Rate 2 Fraction of Inspir ed Oxygen Hydration adequate: Yes Nausea and vomiting: No Pain level: 2 Mental status: Baseline
[2022-07-20] MEDS: insulin lispro 100 unit/1 mL SUBCUT ×2 (19:00→21:44)
[2022-07-20] MEDS: levETIRAcetam 500 mg Tablet 1000 MG PO (19:01)
[2022-07-20] MEDS: sodium chloride 0.9% 1,000 ML 100 ML IV (19:15)
[2022-07-20] MEDS: zonisamide 100 MG Capsule 200 MG PO (20:05)
[2022-07-20] MEDS: divalproex DR 500 mg Tablet 1500 MG PO (20:05)
[2022-07-20] MEDS: acetaminophen 500 mg Tablet 1000 MG PO (20:06)
[2022-07-20] MEDS: atorvastatin 40 mg Tablet PO ×2 (20:07→23:42)
[2022-07-20] MEDS: insulin glargine 100 units/1 mL 100 UNIT SUBCUT (21:44)
[2022-07-20 22:15] LABS: Glucose Point of Care 259 mg/dL (70-110)
--- NOTE | 2022-07-20 22:25 | ECG_ITS ---
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 Measurements Intervals [place] Rate: 87 P: 75 GA: 185 QRS: 31 QRSD: 95 T: 80 QT: 349 QTc: 421 Interpretive Statements SINUS RHYTHM INTERPRETATION BASED ON A DEFAULT AGE OF 40 YEARS Compared to ECG 07/19/2022 13:55:57 T-wave abnormality no longer present Electronically Signed On 07-21-2022 9:24:26 CDT by Tex Walden M.D. [email or web address].[employer]/store/NU/[id number]
--- NOTE | 2022-07-20 22:29 | CTR_ITS ---
PROCEDURE INFORMATION: Exam: CT Head Without Contrast Exam date and time: 07/20/2022 11:01 PM Age: 57 years old Clinical indication: Stroke-like symptoms; Lt upper extremity weakness; Additional info: Sudden onset of left arm numbness. Very recent knee surgery. History of leukemia. TECHNIQUE: Imaging protocol: Computed tomography of the head without contrast. Radiation optimization: All CT scans at this facility use at least one of these dose optimization techniques: automated exposure control; mA and/or kV adjustment per patient size (includes targeted exams where dose is matched to clinical indication); or iterative reconstruction. Other technique: STROKE PROTOCOL was implemented. COMPARISON: CT head wo con* [id number] 01/23/2019 11:53 AM RADIATION DOSE METRICS: Total DLP (mGy-cm): 272 FINDINGS: Brain: Mild hypodense changes are noted in the bilateral periventricular regions, likely related to chronic microvascular ischemic disease. There is mild brain parenchymal atrophy which has progressed slightly since prior exam. No acute intracranial hemorrhage, mass effect or midline shift. Cerebral ventricles: No pathologic ventricular dilatation. Paranasal sinuses: Visualized sinuses are unremarkable. No fluid levels. Mastoid air cells: Visualized mastoid air cells are well aerated. Bones/joints: Unremarkable. No acute fracture. Soft tissues: Unremarkable. CT/CT head wo con* [id number] IMPRESSION: 1. Slight interval progression of brain parenchymal atrophy. 2. No acute intracranial findings. Other nonacute findings as described. ASSESSMENT: ASPECTS ([place] Stroke Program Early CT Score) is 10.
--- NOTE | 2022-07-20 22:47 | CTR_ITS ---
PROCEDURE INFORMATION: Exam: CT Cervical Spine Without Contrast Exam date and time: 07/20/2022 11:04 PM Age: 57 years old Clinical indication: Patient HX: C/O neck pain TECHNIQUE: Imaging protocol: Computed tomography of the cervical spine without contrast. Radiation optimization: All CT scans at this facility use at least one of these dose optimization techniques: automated exposure control; mA and/or kV adjustment per patient size (includes targeted exams where dose is matched to clinical indication); or iterative reconstruction. COMPARISON: CT head wo con* [id number] 07/20/2022 11:01 PM RADIATION DOSE METRICS: Total DLP (mGy-cm): 462.17 FINDINGS: Bones/joints: Multilevel endplate/uncovertebral osteophytes and facet arthropathy are noted. No acute spine fracture or subluxation. Lungs: Lung apices are normal. Soft tissues: Unremarkable. CT/CT cervical spin wo con* [id number] IMPRESSION: No acute spine findings.
[2022-07-20 22:54] LABS: Glucose Point of Care 245 mg/dL (70-110)
[2022-07-20 23:01] LABS: Basophils % 0.1 %; Hematocrit 28.2 % (42.0-52.0); Hemoglobin 8.6 g/dL (11.7-16.6); Lymphocytes # 0.8 10^3/uL (0.8-4.8); Lymphocytes % 5.6 %; Mean Corpuscular HGB Conc 30.5 g/dL (30.0-36.0); Mean Corpuscular Hemoglobin 27.9 pg (28.0-34.0); Mean Corpuscular Volume 91.6 fl (80-94); Mean Platelet Volume 9.5 fL (7.4-10.4); Monocytes # 0.6 10^3/uL (0.2-0.9); Monocytes % 4.1 %; Neutrophils # 12.17 10^3/uL (1.8-7.7); Neutrophils % 89.5 %; Nucleated Red Blood Cells % 0 %; Platelet Count 254 10^3/cmm (130-400); Red Blood Count 3.08 10^6/uL (4.1-5.3); Red Cell Distribution Width 15.4 % (12.1-15.1); White Blood Count 13.6 10^3/uL (4.0-10.0)
[2022-07-20 23:13] LABS: INR 1.04 (0.8-1.2)
[2022-07-20 23:22] LABS: Troponin(5th) Baseline 28 ng/L (0-15)
[2022-07-20 23:31] LABS: Alanine Aminotransferase 19 U/L (0-41); Albumin Level 3.1 g/dL (3.5-5.2); Alkaline Phosphatase 72 U/L (40-130); Anion Gap 18.2 (5-19); Aspartate Amino Transferase 15 U/L (0-40); Blood Urea Nitrogen 35 mg/dL (6-20); Carbon Dioxide 23 mmol/L (22-29); Chloride 103 mmol/L (98-107); Globulin 2.2 g/dL (1.3-4.6); Glomerular Filtration Rate 32.7 mL/min (90-130); Glucose 234 mg/dL (65-115); Magnesium 2.2 mg/dL (1.7-2.3); NT Pro B Type Natriuretic Pept 91 pg/mL (0-125); Osmolality Calculated 302 mOsm/kg (285-295); Potassium 6.2 mmol/L (3.5-5.1); Sodium 138 mmol/L (136-145); Thyroid Stimulating Hormone 1.83 uIU/mL (0.27-4.20); Total Bilirubin 0.2 mg/dL (0.15-1.2); Total Protein 5.3 g/dL (6.6-8.7)
[2022-07-20] MEDS: oxyCODONE 5 mg IR Tab/Cap PO (23:41)
[2022-07-20] MEDS: aspirin 325 mg Tablet PO (23:42)
--- NOTE | 2022-07-20 23:43 | P.PNCC_ITS ---
Critical Care Event Note The high probability of a clinically significant, sudden or life threatening deterioration of the patient's [] system(s) required my full and direct attention, intervention and personal management. The critical care time is as shown. This time is in addition to time spent performing any reported procedures but includes the following: [x] Data and vital sign review and interpretation [x] Patient assessment, examination and intervention [x] Documentation [x] Medication orders and management I was called at 10:30 PM by nursing staff as patient was complaining of left hand numbness, progressing up the left hand, left forearm, to left elbow, no trouble coordinating, no loss of strength, no other focal neurologic deficits. I promptly evaluated patient a few minutes later, at that time was at bedside, patient is alert oriented x3, following all commands, no slurring of his words, no facial droop, no visual deficits, no visual field deficits, no shoulder, forearm, hand weakness. No trouble coordinating of the left hand,, no right lower extremity weakness, is able to lift right lower extremity off the bed, no numbness or tingling. He can to some degree move the left leg, plantar dorsiflexion is intact, but he has had a left knee TKA revision with removal and antibiotic spacer. So his motion in the left lower extremity is limited, but no numbness or tingling, good dorsi and plantarflexion, and is able to move it to some degree. Does not complain of weakness in the left lower extremity. He has had left hand carpal tunnel surgery, but is never bothered him since surgery. Tinel Phalen sign were relatively unremarkable. He has been bumping his left elbow up against the bed, so I was thinking possible tarsal tunnel syndrome, however compression over the elbow joint, does not reproduce any symptoms. However his owxjmg-hq-qcrw on the left side is quite grossly positive,, its difficult for him to do [id number] given his recent surgery, at 5 PM. Given his NIH stroke scale of 2, stroke alert was called. CT of the head negative for acute bleed, CT of the neck no acute nerve compression. Patient was moved to the ICU. I examined patient again, continues to complain of numbness, from the head all the way up to the elbow, he is able to work the remote on the left side, able to dial the numbers, change the channels, good strength, no trouble coordinating. [place] neurology telestroke was on the line, I spoke to Dr. Sullivan, given patient's recent surgery, history of Eliquis use, and relatively mild stroke symptoms after joint decision-making, decision was made not to pursue tPA. Patient's family was at bedside, including patient and , I discussed risks and benefits of tPA, currently his symptoms are mild in respect, no significant trouble coordinating, no strength issues, just the numbness, treating tPA for this could carry significant risks given his recent surgery, risk of bleeding diathesis, and given that he is also anemic, he has not taken Eliquis since Saturday, but does have a significant risk of bleeding. After discussing the risks and benefits of tPA, all parties voiced understanding, joint decision-making, all questions answered, agreed to not give tPA. In my mind, I discussed with patient that giving tPA to treat his mild symptoms, carry significant risks of bleeding. Patient voices understanding, and agrees. However there is still question if he is having a CVA versus ulnar neuropathy or other neuropathy otherwise nonspecified. Its quite strange that his symptoms are only below the elbow joint, do not involve the shoulder or the bicep area, no numbness no tingling, no loss of strength. There are not involving the lower extremities, he does not have any numbness from the thighs, from the knee, from the rhodes, or the feet. It is difficult to determine the strength of the left lower extremity given his recent surgery, on at 5 PM, and he is in a binder. After discussing the risks and benefits, they both presented all questions answered agreed to proceed with medical management. No trouble swallowing, will give aspirin, statin order carotid artery ultrasound, cardiac echo, MRI of the brain for tomorrow. Patient is already receiving PT OT, will resume Eliquis tomorrow for his history of DVT. We will continue to monitor the next 24 hours in the ICU, if his symptoms worsen, develops new focal neurologic deficits, can reassess. Allow for permissive hypertension, hold blood pressure medications, will continue to monitor closely Critical Care Time Code activated: No Critical Care Time (min): 60 Coding Level of Care Code Acute Capacity Planning Analyst for Sheyla Cha
--- NOTE | 2022-07-20 23:58 | PC.NURSE ---
Pt family member came to me in the matt around 2214 to tell me that her loved one was experiencing left arm numbness. Vitals were taken at this time 132/82 HR 89 o2 98, no complaints of chest pain or any other symptoms, pt alert and oriented. Phys notified and EKG obtained and CT of head and neck ordered. Phys stated he would be to the floor for assessment. After phys assessment stroke-code called. Pt was taken down for stat CT and taken to ICU, Report given at bedside to charge nurse Tisha STOREY and bedside nurse. Family briefed and escorted to ICU waiting room.
[2022-07-21] VITALS (60 sets, daily range): BP systolic 101–186; BP diastolic 68–129; PULSE 81–134; RESP 6–25; TEMP 36.2–36.6; O2SAT 89–100
--- NOTE | 2022-07-21 00:31 | PC.NURSE ---
Bedside report received from Gail From Med Surg unit.
--- NOTE | 2022-07-21 00:36 | ECG_ITS ---
[facility] Test Date: 2022-07-21 Pat Name: Panda Rivera Department: Room: ICU09 Gender: Male Tribunal Member: : 1965 Requested By: Sergei Kenny Order Number: [id number] Raymond MD: Tex Walden M.D. Measurements Intervals [place] Rate: 88 P: 64 NV: 176 QRS: 2 QRSD: 102 T: 68 QT: 356 QTc: 433 Interpretive Statements SINUS RHYTHM POSSIBLE ANTERIOR MYOCARDIAL INFARCTION , OF INDETERMINATE AGE [30 ms Q WAVE IN V3/V4, OR R < 0.2 mV IN V4] Compared to ECG 07/20/2022 22:25:22 Myocardial infarct finding now present Electronically Signed On 07-21-2022 9:28:12 CDT by Tex Walden M.D. [email or web address].[employer]/store/[id number]
[2022-07-21] MEDS: dextrose 50% syringe 50 mL IVP ×2 (00:45→11:15)
[2022-07-21] MEDS: insulin regular-human 10 UNIT in SYRINGE 1 EACH IVP ×2 (00:45→11:16)
[2022-07-21 00:51] LABS: Ionized Calcium 1.1 mmol/L (1.1-1.4)
[2022-07-21 01:08] LABS: Troponin 5 2HR 22.25 ng/L (0-15)
[2022-07-21 01:18] LABS: Troponin 5 2HR Delta -5.75 ABS# (0-10)
[2022-07-21] MEDS: sodium chloride 0.9% 1,000 ML 100 ML IV ×3 (02:12→21:05)
[2022-07-21 02:39] LABS: Glucose Point of Care 240 mg/dL (70-110)
[2022-07-21] MEDS: acetaminophen 500 mg Tablet 1000 MG PO ×3 (03:58→20:03)
--- NOTE | 2022-07-21 04:34 | ECG_ITS ---
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 Measurements Intervals [place] Rate: 84 P: 61 MD: 190 QRS: 7 QRSD: 100 T: 69 QT: 365 QTc: 432 Interpretive Statements SINUS RHYTHM LOW QRS VOLTAGE IN PRECORDIAL LEADS [QRS DEFLECTION < 1.0 mV IN CHEST LEADS] Compared to ECG 07/21/2022 01:19:48 Low QRS voltage now present Myocardial infarct finding no longer present Electronically Signed On 07-21-2022 9:29:59 CDT by Tex Walden M.D. [id number]
[2022-07-21 04:45] LABS: Calcium 8.3 mg/dL (8.5-10.5)
--- NOTE | 2022-07-21 04:49 | PC.NURSE ---
Sent secure message to Dr Kenny regarding lack of urine output since surgery, which was verified by . This RN Bladder scanned patient which showed a volume of 561mL. Received order to straight cath x1. Procedure performed with return of 250cc andrey urine. Patient tolerated.
[2022-07-21 04:52] LABS: Parathyroid Hormone 183.1 pg/mL (15-65)
[2022-07-21 05:03] LABS: Basophils % 0.2 %; Hematocrit 26.4 % (42.0-52.0); Lymphocytes # 0.9 10^3/uL (0.8-4.8); Lymphocytes % 7.7 %; Mean Corpuscular HGB Conc 30.3 g/dL (30.0-36.0); Mean Corpuscular Hemoglobin 28.2 pg (28.0-34.0); Monocytes # 0.8 10^3/uL (0.2-0.9); Neutrophils # 9.86 10^3/uL (1.8-7.7); Neutrophils % 84.3 %; Nucleated Red Blood Cells % 0 %; Platelet Count 248 10^3/cmm (130-400); Red Blood Count 2.84 10^6/uL (4.1-5.3); Red Cell Distribution Width 15.5 % (12.1-15.1); White Blood Count 11.7 10^3/uL (4.0-10.0)
[2022-07-21 05:07] LABS: INR 1.09 (0.8-1.2)
[2022-07-21 05:25] LABS: Troponin 5 6HR 23.26 ng/L (0-15)
[2022-07-21 05:27] LABS: Anion Gap 17.8 (5-19); Blood Urea Nitrogen 38 mg/dL (6-20); Calcium 8.1 mg/dL (8.5-10.5); Carbon Dioxide 24 mmol/L (22-29); Chloride 103 mmol/L (98-107); Glomerular Filtration Rate 29.5 mL/min (90-130); Glucose 210 mg/dL (65-115); Osmolality Calculated 303 mOsm/kg (285-295); Potassium 5.8 mmol/L (3.5-5.1); Sodium 139 mmol/L (136-145); Troponin 5 6HR Delta -4.74 ng/L (0-12)
[2022-07-21 05:28] LABS: Magnesium 2.2 mg/dL (1.7-2.3); Phosphorus 4.9 mg/dL (2.5-4.5)
[2022-07-21 05:32] LABS: NT Pro B Type Natriuretic Pept 139 pg/mL (0-125)
--- NOTE | 2022-07-21 06:17 | ECG_ITS ---
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 Measurements Intervals [place] Rate: 89 P: 63 MI: 177 QRS: 11 QRSD: 96 T: 73 QT: 361 QTc: 440 Interpretive Statements SINUS RHYTHM LOW QRS VOLTAGE IN PRECORDIAL LEADS [QRS DEFLECTION < 1.0 mV IN CHEST LEADS] NONSPECIFIC T-WAVE ABNORMALITY Compared to ECG 07/21/2022 04:34:43 T-wave abnormality now present Electronically Signed On 07-21-2022 9:30:06 CDT by Tex Walden M.D. [id number]
[2022-07-21 07:52] LABS: Glucose Point of Care 203 mg/dL (70-110)
--- NOTE | 2022-07-21 08:31 | P.PN_ITS ---
Subjective Subjective: Patient's left knee pain tolerable with meds. Work-up for possible cerebrovascular accident today Vitals/I&O/Wt Last Vital Signs Temp 97.2 F L 07/21/22 04:00 Pulse 86 07/21/22 06:30 Resp 6 L 07/21/22 06:30 BP 127/75 07/21/22 06:30 Pulse Ox 96 07/21/22 06:30 O2 Del Method 07/21/22 04:00 O2 Flow Rate 2 07/20/22 22:32 07/20/22 07/21/22 07/21/22 22:59 06:59 14:59 Intake Total 1300 / 1450 1360.1 / 2810.1 Output Total 400 / 400 250 / 650 Balance 900 / 1050 1110.1 / 2160.1 Weight last 48 hrs Weight 335 lb 3.2 oz Weight 335 lb 5 oz Weight 332 lb Physical Exam Narrative: Right blood staining left knee dressing. Moves toes and ankle left foot Data : 07/21/22 04:17 07/21/22 04:17 A&P Assessment and plan (1) Infection of total left knee replacement: All of infected knee joint has been removed. Patient has been begun on IV an tibiotics. Dr. Veronica will assist with IV antibiotic management. Will likely need 6 weeks of IV antibiotics. Can proceed with second stage reimplantation if clinical response adequate. Supportive medical care for now. Status: Acute Attestations Medical Necessity Statement*: Medical work-up in process Coding Level of Care Code Acute Academic Computing Director for Sheyla Cha Diagnoses Infection of total left knee replacement T84.54XA
[2022-07-21] MEDS: montelukast sodium 10 mg Tablet PO (08:43)
[2022-07-21] MEDS: diphenhydrAMINE 25 mg Capsule PO (08:43)
[2022-07-21] MEDS: gabapentin 300 mg Capsule PO ×2 (08:43→17:06)
[2022-07-21] MEDS: apixaban 5 mg Tablet PO ×2 (08:43→17:06)
[2022-07-21] MEDS: aspirin 81 mg EC Tablet PO (08:43)
[2022-07-21] MEDS: pantoprazole DR 40 mg Tablet PO (08:43)
[2022-07-21] MEDS: levETIRAcetam 500 mg Tablet 1000 MG PO ×2 (08:43→17:06)
[2022-07-21] MEDS: allopurinol 300 mg Tablet PO (08:43)
[2022-07-21] MEDS: insulin lispro 100 unit/1 mL SUBCUT ×4 (08:44→20:58)
[2022-07-21] MEDS: cefTRIAXone 2,000 MG in sodium chloride 0.9% (plus) 50 ML 100 MG IV (08:44)
[2022-07-21] MEDS: perflutren protein-a microsphr 0.22 mg/mL SDV 3 mL IV (08:59)
[2022-07-21] MEDS: insulin glargine 100 units/1 mL 100 UNIT SUBCUT (09:08)
--- NOTE | 2022-07-21 10:11 | PM.CONSULT ---
Providers/Reason For Consult Consulting Physician/Specialty*: Dr. Johnson/internal medicine Reason for Consult*: Medical comorbidities Requesting Physician: Dr. Lanza Attending Physician: Nirmal Lanza MD Primary Care Provider: Kumar Evans DO History of Present Illness History of Present Illness Panda Rivera is a 57 year old male with past medical history of CLL, type 2 diabetes mellitus, hypertension, CKD, left leg DVT he was admitted under orthopedics for infected left knee prosthesis and underwent OR on 07/20. Overnight patient developed numbness and has first 3 fingers on the left arm radiating up to the elbow. Hospital service was asked to see the patient for concerns of stroke. NIH scale was 2. Case was discussed with [facility] at neurology service who decided for medical management without tPA under observation and reinitiation of Eliquis. Cultures from the OR has been sent. Today morning examination patient denies any nausea vomiting, headache. States for around 2 weeks he started having swelling in his left leg for which she followed up with orthopedics and outpatient arthrocentesis was consistent with infection so he was asked to get admitted for further evaluation and management. Prior to this he denies of having any fever. Only thing he can remember is infection to the left second toe in December for which he took antibiotics for either 2 or 3 weeks. He cannot remember the kind of antibiotic he was on. He has a port which was placed many years ago. Denies any discharge or pain at the port site. Blood work done today appreciated. Review of Systems General: Reports: 10 or more systems reviewed and unremarkable except in HPI and below Const: Denies: fever(s), chills, body aches, change in appetite, change in weight, malaise, night sweats, diaphoresis, change in sleep pattern, daytime sleepiness or snoring Eyes: Denies: change in vision, blurry vision, photophobia, eye discomfort or eye discharge ENMT: Denies: throat pain, enlarged tonsils, hoarseness, mouth pain, oral sores, dry mouth, tinnitus, nasal congestion or post nasal drip Card: Denies: chest pain, palpitations, irregular heart rhythm, edema, swelling of feet/ankles, lightheadedness, syncope, pre-syncope, dyspnea on exertion, orthopnea, leg pain with exertion or acrocyanosis Resp: Denies: dyspnea, productive cough, non-productive cough, wheezing, stridor, pain on inspiration, change in phlegm color, hemoptysis or chest congestion GI: Denies: abdominal pain, nausea, vomiting, hematemesis, coffee ground emesis, dysphagia, heartburn, diarrhea, constipation, bloating, GI cramping, change in bowel habits, pain on defecation, hematochezia or melena : Denies: flank pain, difficulty urinating, dysuria, urinary frequency, urinary urgency, urinary hesitancy, urinary dribbling, difficulty starting urination, change in urine stream, nocturia or hematuria Musc: Denies: neck pain, back pain, extremity pain, joint pain, joint swelling, joint redness, joint stiffness or limited range of motion Neuro: Denies: headache(s), numbness in extremities, weakness in extremities, sensory changes, lack of coordination, difficulty walking, frequent falls, dizziness, vertigo, confusion, Slurred speech present, difficulty communicating thoughts or seizure-like activity Psych: Denies: anxiety, depression, mood swings, panic attacks, hopelessness or irritability Endo: Denies: polyuria, polydipsia, tired all the time, cold intolerance, excessive sweating, flushing or heat intolerance Ej/Lymph: Denies: easy bruising or easy bleeding All/Imm: Denies: tongue swelling, facial swelling or acute wheezing Medications/Allergies Home Medications Medication Instructions Recorded Confirmed Last Taken Type allopurinol 300 mg tablet 300 mg PO DAILY 01/09/22 07/20/22 07/20/22 History amlodipine 10 mg tablet 10 mg PO DAILY 01/09/22 07/20/22 07/20/22 History aspirin 81 mg tablet,delayed 81 mg PO DAILY 01/09/22 07/20/22 07/18/22 History release (Adult Aspirin Regimen) atorvastatin 40 mg tablet 40 mg PO BEDTIME 01/09/22 07/20/22 07/20/22 History insulin glargine 100 unit/mL 100 unit SUBCUT BID 01/09/22 07/20/22 07/19/22 History subcutaneous solution (Lantus U-100 Insulin) levetiracetam 500 mg tablet 1,000 mg PO BID 01/09/22 07/20/22 07/20/22 History (Keppra) omeprazole 40 mg capsule,delayed 40 mg PO DAILY 01/09/22 07/20/22 07/20/22 History release zonisamide 100 mg capsule 200 mg PO BEDTIME 01/09/22 07/20/22 07/19/22 History (Zonegran) apixaban 5 mg tablet (Eliquis) 5 mg PO BID 03/28/22 07/20/22 07/18/22 History montelukast 10 mg tablet 10 mg PO DAILY #90 tabs 03/28/22 07/20/22 07/20/22 Rx (Singulair) spironolactone 25 mg tablet 50 mg PO DAILY 07/05/22 07/20/22 07/20/22 History hydrocodone 5 mg-acetaminophen 325 1 tab PO Q4H PRN pain 7 days #30 07/18/22 07/20/22 07/20/22 Rx mg tablet tabs calcium carb-ergocalciferol (vit 1 tab PO DAILY 07/19/22 07/20/22 07/20/22 History D2) 600 mg calcium-200 unit tablet diphenhydramine HCl 25 mg capsule 25 mg PO DAILY 07/19/22 07/20/22 07/20/22 History (Benadryl) duloxetine 30 mg capsule,delayed 30 mg PO DAILY 07/19/22 07/20/22 07/20/22 History release sprinkle (Drizalma Sprinkle) upotmtsaezae-fkq-bwcvq acid-vit 1 tab PO DAILY 07/19/22 07/20/22 07/20/22 History K-lycop 400 mcg-20 mcg-370 mcg tablet (One-A-Day Men's 50 Plus) divalproex 500 mg tablet,delayed 1,500 mg PO BEDTIME 07/20/22 07/20/22 07/19/22 History release (Depakote) insulin lispro 200 unit/mL (3 mL) 25 unit SUBCUT TID 07/20/22 07/20/22 07/19/22 History subcutaneous pen (Humalog KwikPen U-200 Insulin) Allergies Allergy/AdvReac Type Severity Reaction Status Date / Time No Known Allergies Allergy Verified 07/20/22 09:54 Current Medications Generic Name Dose Route Start Last Admin Trade Name Freq PRN Reason Stop Dose Admin Acetaminophen 1,000 mg 07/20/22 20:00 07/21/22 03:58 Acetaminophen 500 Mg Tablet PO 1,000 mg Q8H FRANCISCO Administration Allopurinol 300 mg 07/21/22 09:00 07/21/22 08:43 Allopurinol 300 Mg Tablet PO 300 mg DAILY FRANCISCO Administration Apixaban 5 mg 07/21/22 10:00 07/21/22 08:43 Apixaban 5 Mg Tablet PO 5 mg BID FRANCISCO Administration Aspirin 81 mg 07/21/22 09:00 07/21/22 08:43 Aspirin 81 Mg Ec Tablet PO 81 mg DAILY FRANCISCO Administration Atorvastatin Calcium 40 mg 07/20/22 21:00 07/20/22 20:07 Atorvastatin 40 Mg Tablet PO 40 mg BEDTIME FRANCISCO Administration Atorvastatin Calcium 40 mg 07/20/22 23:45 07/20/22 23:42 Atorvastatin 40 Mg Tablet PO 40 mg ONCE FRANCISCO Administration Diphenhydramine HCl 25 mg 07/21/22 09:00 07/21/22 08:43 Diphenhydramine 25 Mg Capsule PO 25 mg DAILY FRANCISCO Administration Divalproex Sodium 1,500 mg 07/20/22 21:00 07/20/22 20:[address] 500 Mg Tablet PO 1,500 mg BEDTIME FRANCISCO Administration Gabapentin 300 mg 07/20/22 18:00 07/21/22 08:43 Gabapentin 300 Mg Capsule PO 300 mg BID FRANCISCO Administration Sodium Chloride 1,000 mls @ 100 mls/hr 07/20/22 16:58 07/21/22 02:12 Sodium Chloride 0.9% IV 100 mls/hr .Q10H FRANCISCO Administration Ceftriaxone Sodium 2,000 mg/ 50 mls @ 100 mls/hr 07/21/22 08:00 07/21/22 08:44 Sodium Chloride IV 100 mls/hr Q24H FRANCISCO Administration Protocol Insulin Human Lispro 0 unit 07/20/22 18:00 07/21/22 08:44 Insulin Lispro 100 Unit/1 Ml SUBCUT 6 unit WM&BEDTIME FRANCISCO Administration Protocol Levetiracetam 1,000 mg 07/20/22 18:00 07/21/22 08:43 Levetiracetam 500 Mg Tablet PO 1,000 mg BID FRANCISCO Administration Montelukast Sodium 10 mg 07/21/22 09:00 07/21/22 08:43 Montelukast Sodium 10 Mg Tablet PO 10 mg DAILY FRANCISCO Administration Oxycodone HCl 5 mg 07/20/22 16:58 07/20/22 23:41 Oxycodone 5 Mg Ir Tab/Cap PO 5 mg Q4H PRN Administration MODERATE PAIN Pantoprazole Sodium 40 mg 07/21/22 09:00 07/21/22 08:[address] 40 Mg Tablet PO 40 mg DAILY FRANCISCO Administration Zonisamide 200 mg 07/20/22 21:00 07/20/22 20:05 Zonisamide 100 Mg Capsule PO 200 mg BEDTIME FRANCISCO Administration PFSH Acute PFSH: Medical History (Updated 07/21/22 @ 10:50 by Sandor Johnson MD) Acute embolism and thrombosis of left femoral vein Chronic kidney disease Chronic lymphocytic leukemia Degenerative arthritis Degenerative arthritis of spine Diabetes mellitus, type II Epilepsy In August 2018 he had presented with new onset of epilepsy, presumed idiopathic GERD (gastroesophageal reflux disease) Hyperlipidemia Hypertension Iron deficiency anemia In March 2018 he required treatment for iron deficiency anemia Surgical History S/P total knee arthroplasty (~05/2019) Family History Mother Cancer Lung Unknown Cancer Aunt - Leukemia, AML Brother Diabetes Hypertension Sister Hypertension Denies family history of CAD (coronary artery disease) Clotting disorder Dementia Hyperlipidemia Psychiatric illness Chronic kidney disease (CKD) Suicide Anesthesia complication Bleeding disorder Lung disease Stroke Social History Smoking and tobacco status: never smoked Alcohol intake: current Alcohol intake frequency: holidays/special occasions only Vitals/I&O/Wt Last Vital Signs Temp 97.2 F L 07/21/22 04:00 Pulse 89 07/21/22 08:00 Resp 17 07/21/22 08:00 BP 127/75 07/21/22 06:30 Pulse Ox 100 07/21/22 08:00 O2 Del Method 07/21/22 08:00 O2 Flow Rate 2 07/21/22 08:00 07/20/22 07/21/22 07/21/22 22:59 06:59 14:59 Intake Total 1300 / 1450 1360.1 / 2810.1 Output Total 400 / 400 250 / 650 Balance 900 / 1050 1110.1 / 2160.1 Weight last 48 hrs Weight 152.044 kg Weight 152.095 kg Weight 150.593 kg Physical Exam Narrative: General: No acute distress, AO x3, pleasant, morbidly obese HEENT: PERRLA, pupils bilaterally equal and reactive Chest: Normal vesicular breath sounds bilaterally, decreased air entry bilateral lower zone, MediPort present in left thorax without any signs of infection CVS: S1-S2 regular, no murmurs, no tachycardia, no gallops, no rubs Abdomen: Soft, nontender, no organomegaly, bowel sounds present, morbidly obese Neuro: No focal deficits, no facial deformity, AO x3, power 5/5 in all limbs Data : 07/21/22 04:17 07/21/22 04:17 A&P Assessment and plan (1) Infection of total left knee replacement: Patient underwent removal of infected left total knee with placement of articulating antibiotic spacer on 07/20. Follow-up cultures. Check blood cultures, MRSA swab, procalcitonin. Antibiotics as per ID. Most likely can stop vancomycin. Outpatient cultures consistent with Streptococcus. Physical therapy, weightbearing as per orthopedic team. Status: Acute (2) Chronic kidney disease: Baseline creatinine 1.7-1.8. Currently 2.2-2.3. Persaud catheter. Normal saline 100 cc/h. Urinalysis, urine creatinine, urine eosinophils. Monitor BMP daily. Medical reconstruction done for nephrotoxic drugs. Hold off on spironolactone for now. Status: Acute (3) Hyperkalemia: In setting of CKD. Kayexalate every 6 hourly for now. D50 along with 10 units insulin one-time Repeat BMP in evening. Status: Acute (4) Diabetes mellitus, type II: Check A1c Takes 100 units lantus BID, ISS and novolog 25 BID For now lantus 75 unit BID, ISS. Carb consistent diet Status: Acute (5) Numbness of finger: Less likely CVA. Echocardiogram, carotid Doppler, CT results appreciated. NIH scale 2. Neuro at [facility] recommends observation. Neurochecks. Continue with home dose of Eliquis. Status: Acute (6) Acute embolism and thrombosis of left femoral vein: On Eliquis as an outpatient. Continue with same. Status: Chronic (7) Chronic lymphocytic leukemia of B-cell type not having achieved remission: Follows up with Dr. Kirkland as an outpatient. Status: Acute (8) History of left knee replacement: Status: Acute Plan Full code Carb consistent diet Eliquis suffice for DVT prophylaxis Famotidine for PUD prophylaxis Continue other chronic home medication including allopurinol, atorvastatin, Depakote, Keppra, zonisamide. Can transfer to [facility] surgical floor Consult Attestations Medical Necessity Statement: As per admitting team Time Spent in Patient Care: Greater than 35 minutes Coding Level of Care Code Acute Manager Loss Prevention for g Fwd Diagnoses Infection of total left knee replacement T84.54XA Chronic kidney disease N18.9 Hyperkalemia E87.5 Diabetes mellitus, type II E11.9 Numbness of finger R20.0 Acute embolism and thrombosis of left femoral vein I82.412 Chronic lymphocytic leukemia of B-cell type not having achieved remission C91.10 History of left knee replacement Z96.652
[2022-07-21 10:34] LABS: Procalcitonin 0.29 ng/mL (0-0.5)
[2022-07-21 10:45] LABS: Iron 18 ug/dL (59-158); Percent Saturation 8.2 % (20-50); Total Iron Binding Capacity 219 mcg/dl; Unsaturated Iron Binding 201 ug/dL (112-347)
[2022-07-21 10:52] LABS: NT Pro B Type Natriuretic Pept 139 pg/mL (0-125)
[2022-07-21 11:15] LABS: Glucose Point of Care 205 mg/dL (70-110)
[2022-07-21] MEDS: sodium polystyrene sulfonate 15 gm/60 mL Btl PO ×3 (11:16→22:29)
[2022-07-21 11:21] LABS: Thyroid Stimulating Hormone 1.91 uIU/mL (0.27-4.20)
--- NOTE | 2022-07-21 11:56 | PC.OT ---
OT order received. OT spoke with patient's RN who stated they are ruling out possible CVA. Per RN, physician reported no therapies at this time until testing is completed. Will attempt evaluation at later time when appropriate. Graham Lewis, OTR/L
--- NOTE | 2022-07-21 12:00 | PC.NURSE ---
Dressing on leg saturated. Dr. Lanza aware and gave verbal order to reinforce the dressing.
--- NOTE | 2022-07-21 15:57 | PC.NURSE ---
3.5 second pause noted on monitor. Dr Johnson aware. Stat BMP ordered.
--- NOTE | 2022-07-21 16:21 | PC.NURSE ---
lab called culture results to ER, results faxed to ICU since pt is still inpatient at this time
[2022-07-21 16:56] LABS: Glucose Point of Care 234 mg/dL (70-110)
--- NOTE | 2022-07-21 17:43 | PM.PN ---
Subjective Subjective: Infectious disease progress note: [place]right events noted. Patient had a concern for CVA with reported left limb numbness. CT head did not reveal any acute intracranial findings. OR cultures are still pending. Preliminary blood culture from admission is reported as positive for gram-positive cocci in 1 out of 4 bottles. Will await identification. Port cultures have been requested today. Medications: Reviewed: Yes Vitals/I&O/Wt Last Vital Signs Temp 97.2 F L 07/21/22 04:00 Pulse 85 07/21/22 16:00 Resp 15 07/21/22 08:30 BP 174/107 07/21/22 16:00 Pulse Ox 95 07/21/22 16:00 O2 Del Method 07/21/22 08:00 O2 Flow Rate 2 07/21/22 08:00 07/21/22 07/21/22 07/21/22 06:59 14:59 22:59 Intake Total 1360.1 / 2810.1 1146.667 / 1146.667 Output Total 250 / 650 Balance 1110.1 / 2160.1 1146.667 / 1146.667 Weight last 48 hrs Weight 152.044 kg Weight 152.095 kg Physical Exam Narrative: General: No acute distress, currently lying in bed with CPAP in place awake alert oriented x3 HEENT: PERRLA, pupils bilaterally equal and reactive, pallors not present Chest: Normal vesicular breath sounds, no added sounds, equal good air entry bilaterally CVS: S1-S2 regular, no murmurs, no tachycardia, no gallops, no rubs Abdomen: Soft, nontender, no organomegaly, bowel sounds present Neuro: No focal motor deficits, no facial deformity, AO x3, power 5/5 in all limbs Extremities: Surgical dressing over left leg, not open for exam by me Urinary Catheter Management: Persaud: Cath Placed During This Visit: yes Urinary Catheter Date of Insertion: 07/21/22 Urinary Catheter Time of Insertion: 11:08 Data : 07/21/22 04:17 07/21/22 04:17 Micro: Microbiology 07/20/22 13:07 Anaerobic Culture - Preliminary Synovial Fluid Body Fluid Culture - Preliminary 07/21/22 13:51 Blood Culture - Preliminary Blood SPECIMEN COLLECTED 07/20/22 13:07 Gram Stain - Final Other Source 07/20/22 13:07 Gram Stain - Final Other Source 824 body fluid culture from synovial aspirate: FEW SLOW-GROWING PRESUMPTIVE STREPTOCOCCUS SPECIES ON DAY 1, last update on 07/19 A&P Assessment and plan (1) Infection of total left knee replacement: Status: Acute (2) Septic joint of left knee joint: Status: Acute Plan Patient admitted today for PJI of the left knee. Outpatient aspirate cx thus far with anerobic streptococcus ap, awaiting final identification s/p Removal infected left total knee with placement of articulating antibiotic spacer blocks on 07/20 Pending OR cx Blood cx from 07/20 thus far with 1/4 positive for GPC, awaiting final identification Port cx have been requested today, peripheral blood culture to be repeated with morning labs. If blood culture turns out to be positive with same organism as synovial cx, suspect that patient may have port involvement. 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
[2022-07-21 18:36] LABS: Add Urine Microscopic? YES; Bilirubin Urine Neg (Negative); Blood Urine 3+ (Negative); Glucose Urine UA 1+ (Normal); Ketones Urine 1+ (Negative); Leukocyte Esterase Urine Negative (Negative); Nitrate Urine Negative (Negative); Protein Urine 1+ (Negative); Urine Appearance SL Hazy (CLEAR); Urine Color Yellow (Yellow); Urobilinogen Urine Norm (Negative); pH Urine 5 (5-7)
[2022-07-21 18:38] LABS: RBC Urine 15-25 /hpf (0-2)
[2022-07-21 18:39] LABS: Add Urine Culture? Yes; Bacteria Urine 1+ /hpf; Mucus Urine 1+ /hpf; Potassium, Radom Urine 75 mmol/L; Squamous Epithelial Cell Urine RARE /hpf (0-5); Urine Creatinine 152 mg/dL (39-259); WBC Urine RARE /hpf (0-5)
[2022-07-21 18:41] LABS: Urine Random Chloride 11 mmol/L; Urine Random Sodium 11 mmol/L
--- NOTE | 2022-07-21 18:57 | PC.PHAR ---
Pharmacokinetic dosing service Date: 07/21/22 Time: 1899 Objective: Patient: Panda Rivera Floor: ICU-9 Age: 57 yo Serum creatinine: 2.3 mg/dL Height: 70.0 Inches Weight (kg): 152.044 Diagnosis: Relevant medical/social history: Cultures and sensitivities: Other labs: Assessment: IBW (kg): 73.00 Dosing wt(kg): 152.044 Estimated Creatinine clearance (ml/min): 36.6 CRCL method: Cockcroft and Gault using ibw(default). Drug selected: Vancomycin Loading dose (mg): 0 Vd (liters): 136.8 (factor used: 0.9 L/kg) Justin (hr-1): 0.035 Half life (hrs): 19.80 Recommended dose: 2000 mg Interval: 24 hrs Infusion time (hrs): 1.5 Predicted peak (mcg/mL): 25.1 Predicted trough (mcg/mL): 11.42 Total body weight is being used for vancomycin dosing. Renal function is stable [ ] /unstable [ ] Recommendations: Give Vancomycin 2000 mg q 24 hrs with an expected Cpeak of 25.1 mcg/ml and an expected Ctrough of 11.42 mcg/ml Renal dosing of other antibiotics (review renal dosing of other medications and list guidelines here): Thank you for the consult, will continue to follow. Signature: Karlee Senior [facility]
[2022-07-21 19:23] LABS: Anion Gap 17.5 (5-19); Blood Urea Nitrogen 42 mg/dL (6-20); Carbon Dioxide 20 mmol/L (22-29); Chloride 106 mmol/L (98-107); Glomerular Filtration Rate 29.5 mL/min (90-130); Glucose 186 mg/dL (65-115); Osmolality Calculated 303 mOsm/kg (285-295); Potassium 4.5 mmol/L (3.5-5.1); Sodium 139 mmol/L (136-145)
[2022-07-21] MEDS: atorvastatin 40 mg Tablet PO (20:45)
[2022-07-21] MEDS: divalproex DR 500 mg Tablet 1500 MG PO (20:58)
[2022-07-21] MEDS: zonisamide 100 MG Capsule 200 MG PO (20:58)
[2022-07-21] MEDS: insulin glargine 100 units/1 mL 75 UNIT SUBCUT (20:59)
[2022-07-21 21:37] LABS: Eosinophil Urine No Eosinophils Seen
[2022-07-21 22:07] LABS: Glucose Point of Care 239 mg/dL (70-110)
--- NOTE | 2022-07-21 23:50 | USR_ITS ---
PROCEDURE INFORMATION: Exam: US Duplex Bilateral Extracranial Arteries, Carotid Arteries Exam date and time: 07/21/2022 8:09 AM Age: 57 years old Clinical indication: Pain; Other: CVA TECHNIQUE: Imaging protocol: Real-time Duplex ultrasound scan of the bilateral carotid and vertebral arteries combining abdullahi scale, color Doppler and spectral waveform analysis. Bilateral exam. Exam focused on the carotid arteries. Other technique: Any reported ICA stenoses indirectly reference the distal internal carotid diameter as the denominator for the stenosis measurement, utilizing consensus panel criteria. COMPARISON: CT cervical spin wo con* [id number] 07/20/2022 11:04 PM FINDINGS: RIGHT: Mild bulb plaque. ICA PSV: 101.4 cm/sec CCA PSV: 87.1 cm/sec ICA/CCA ratio: 1.16 Vertebral flow is antegrade. The peak systolic velocity is 49.6 cm/s. External carotid artery is patent. LEFT: Mild bulb plaque. ICA PSV: 88.2 cm/sec CCA PSV: 101.2 cm/sec ICA/CCA ratio: 0.87 Vertebral flow is antegrade. The the peak systolic velocity is 59 cm/s. External carotid artery is patent. US/CV carotid duplex BI* [id number] IMPRESSION: 1. Right ICA < 50% stenosis by Carotid Stenosis Reference using SRU criteria. 2. Left ICA < 50% stenosis by Carotid Stenosis Reference using SRU criteria. 3. Antegrade flow in bilateral vertebral arteries. REFERENCES: SRU CRITERIA. The degree of internal carotid artery stenosis is based on criteria defined by the Society of Radiologists in Ultrasound (SRU). Normal is no stenosis. Mild is less than 50% stenosis. Moderate is 50-69% stenosis. Severe is greater than 69% stenosis to near occlusion. Near occlusion is a markedly narrowed lumen. Total occlusion is no detectable patent lumen.
--- NOTE | 2022-07-21 23:50 | USCV_ITS ---
Rivera Panda Age: 57 Gender: M : 1965 Exam Date: 07/21/2022 08:23 Ordering Phys: Sergei Kenny MD Technologist: CAMELIA Exam Location: [facility] – [place] Indication: CVA BP: 112 / 78 HR: 86 Rhythm: Sinus Technical Quality: Very poor MEASUREMENTS (Male / Female) Normal Values 2D ECHO LV Ejection Fraction MOD 2C 64.7 % LV Ejection Fraction 2C AL 64.3 % LA Width 3.7 cm LA Height 4.8 cm RA Width 3.8 cm RA Height 4.9 cm DOPPLER AV Peak Velocity 155.0 cm/s LVOT Peak Velocity 120.0 cm/s MV Peak Velocity 92.0 cm/s MV Area PHT 4.9 cm squared Mitral E to A Ratio 0.8 MV E' Velocity 80.0 cm/s Mitral E to LV E' Septal Ratio 11.3 TR Peak Velocity 209.2 cm/s TR Peak Gradient 17.5 mmHg TR Mean Velocity 175.3 cm/s TR Mean Gradient 13.1 mmHg TR Velocity Time Integral 51.9 cm TV Peak E Velocity 29.0 cm/s Right Atrial Pressure 8.0 mmHg Pulmonary Artery Systolic Pressu 25.5 mmHg PV Peak Velocity 134.0 cm/s RV Acceleration Time 0.1 s RV Ejection Time 0.3 s RV AcT/ET 0.4 FINDINGS Left Ventricle This examination is technically very poor and uninterpretable without echo contrast. Contrast echo suggest normal LV function and wall motion. Diastolic G not evaluated. Ejection fraction is well within normal limits. Right Ventricle Right ventricle not well visualized. Right Atrium Right atrium not well visualized. Left Atrium Left atrium not well visualized. Mitral Valve Mitral valve not well visualized. Aortic Valve Aortic valve not well visualized. Tricuspid Valve Tricuspid valve not well visualized. Pulmonic Valve Pulmonic valve not well visualized. Pericardium Normal pericardium without effusion. Aorta Aorta not well visualized. IVC Inferior vena cava not visualized. CONCLUSIONS This examination is technically very poor and uninterpretable without echo contrast. Contrast echo suggest normal LV function and wall motion. Diastolic G not evaluated. Ejection fraction is well within normal limits. Dr. Tex Walden MD (Electronically Signed) Final Date: 21 July 2022 09:16 S
[2022-07-22] VITALS (31 sets, daily range): BP systolic 132–172; BP diastolic 70–98; PULSE 81–102; RESP 10–22; TEMP 36.4–37.2; O2SAT 94–100
[2022-07-22] MEDS: acetaminophen 500 mg Tablet 1000 MG PO ×3 (04:04→20:29)
[2022-07-22] MEDS: sodium polystyrene sulfonate 15 gm/60 mL Btl PO (04:05)
[2022-07-22 05:49] LABS: Basophils % 0.2 %; Eosinophils # 0.2 10^3/uL (0.0-0.8); Eosinophils % 1.6 %; Hematocrit 22.1 % (42.0-52.0); Hemoglobin 6.7 g/dL (11.7-16.6); Lymphocytes # 1.6 10^3/uL (0.8-4.8); Lymphocytes % 16.5 %; Mean Corpuscular HGB Conc 30.3 g/dL (30.0-36.0); Mean Corpuscular Hemoglobin 27.9 pg (28.0-34.0); Mean Corpuscular Volume 92.1 fl (80-94); Mean Platelet Volume 9.7 fL (7.4-10.4); Monocytes # 1.1 10^3/uL (0.2-0.9); Monocytes % 11.8 %; Neutrophils # 6.53 10^3/uL (1.8-7.7); Neutrophils % 68.1 %; Nucleated Red Blood Cells % 0.2 %; Platelet Count 211 10^3/cmm (130-400); Red Cell Distribution Width 15.9 % (12.1-15.1); White Blood Count 9.6 10^3/uL (4.0-10.0)
--- NOTE | 2022-07-22 06:00 | ECG_ITS ---
[facility] Test Date: 2022-07-22 Pat Name: Panda Rivera Department: Room: ICU09 Gender: Male Case Reviewer: : 1965 Requested By: Sergei Kenny Order Number: [id number] Raymond MD: Tex Walden M.D. Measurements Intervals Bowman Rate: 84 P: 62 ND: 156 QRS: 17 QRSD: 103 T: 81 QT: 358 QTc: 423 Interpretive Statements SINUS RHYTHM WITH OCCASIONAL SUPRAVENTRICULAR PREMATURE COMPLEXES NONSPECIFIC T-WAVE ABNORMALITY Compared to ECG 07/21/2022 06:17:46 No significant changes Electronically Signed On 07-22-2022 8:27:43 CDT by Tex Walden M.D. [email or web address]
[2022-07-22 06:09] LABS: Alanine Aminotransferase 16 U/L (0-41); Albumin Level 2.7 g/dL (3.5-5.2); Alkaline Phosphatase 57 U/L (40-130); Anion Gap 12.9 (5-19); Aspartate Amino Transferase 16 U/L (0-40); Blood Urea Nitrogen 37 mg/dL (6-20); Calcium 8.2 mg/dL (8.5-10.5); Carbon Dioxide 24 mmol/L (22-29); Chloride 106 mmol/L (98-107); Globulin 2.6 g/dL (1.3-4.6); Glomerular Filtration Rate 36.7 mL/min (90-130); Glucose 133 mg/dL (65-115); Osmolality Calculated 299 mOsm/kg (285-295); Potassium 3.9 mmol/L (3.5-5.1); Sodium 139 mmol/L (136-145); Total Bilirubin 0.2 mg/dL (0.15-1.2); Total Protein 5.3 g/dL (6.6-8.7)
[2022-07-22 06:14] LABS: Chol HDL Ratio 3.68 mg/dL (1.0-5.00); Cholesterol 114 mg/dL (0-200); Estmated Average Glucose 206; HDL Cholesterol 31 mg/dL (60-100); Hemoglobin A1C 8.8 % (4.0-6.0); LDL Cholesterol Calculated 56 mg/dL (50-129); Triglycerides 134 mg/dL (0-150); VLDL Cholestrol Calculation 27 mg/dL (0-30)
[2022-07-22 06:32] LABS: Phosphorus 2.8 mg/dL (2.5-4.5)
[2022-07-22 06:33] LABS: Magnesium 2.3 mg/dL (1.7-2.3)
[2022-07-22 08:16] LABS: Glucose Point of Care 142 mg/dL (70-110)
[2022-07-22] MEDS: cefTRIAXone 2,000 MG in sodium chloride 0.9% (plus) 50 ML 100 MG IV (09:41)
[2022-07-22] MEDS: insulin glargine 100 units/1 mL 75 UNIT SUBCUT ×2 (09:42→20:33)
[2022-07-22] MEDS: insulin lispro 100 unit/1 mL SUBCUT ×3 (09:42→20:33)
[2022-07-22] MEDS: gabapentin 300 mg Capsule PO ×2 (09:43→17:34)
[2022-07-22] MEDS: diphenhydrAMINE 25 mg Capsule PO (09:43)
[2022-07-22] MEDS: aspirin 81 mg EC Tablet PO (09:43)
[2022-07-22] MEDS: allopurinol 300 mg Tablet PO (09:43)
[2022-07-22] MEDS: montelukast sodium 10 mg Tablet PO (09:43)
[2022-07-22] MEDS: levETIRAcetam 500 mg Tablet 1000 MG PO ×2 (09:44→17:34)
[2022-07-22] MEDS: pantoprazole DR 40 mg Tablet PO ×2 (09:44→17:34)
[2022-07-22] MEDS: sodium chloride 0.9% 1,000 ML 100 ML IV (09:48)
--- NOTE | 2022-07-22 09:55 | PM.PN ---
Subjective Subjective: Infectious disease progress note. Hemoglobin at 6.7 today. Patient is afebrile, no leukocytosis. Cultures from the OR 4 OR thus far with no organisms on gram stain. Blood culture from 07/20 with 1 out of 4 GPC positive pending identification. Outpatient synovial cultures with preliminary still with anaerobic streptococci. Discussed with microbiology lab today that the isolate has been difficult to identify. Thus far non group A group B streptococci is the only information available. Requested to be sent out for molecular testing. Preliminary ceftriaxone susceptibility to be set up. Medications: Reviewed: Yes Vitals/I&O/Wt Last Vital Signs Temp 97.9 F 07/22/22 04:00 Pulse 101 H 07/22/22 08:00 Resp 16 07/22/22 08:00 BP 149/91 07/22/22 08:00 Pulse Ox 96 07/22/22 08:00 O2 Del Method 07/22/22 04:00 O2 Flow Rate 2 07/21/22 19:47 07/21/22 07/22/22 07/22/22 22:59 06:59 14:59 Intake Total 1521.667 / 2668.334 300 / 2968.334 Output Total 1525 / 1525 1100 / 2625 Balance -3.333 / 1143.334 -800 / 343.334 Weight last 48 hrs Weight 152.044 kg Weight 152.095 kg Physical Exam Narrative: General: No acute distress, AO x3 HEENT: PERRLA, pupils bilaterally equal and reactive, pallors not present Chest: Normal vesicular breath sounds, no added sounds, equal good air entry bilaterally CVS: S1-S2 regular, no murmurs, no tachycardia, no gallops, no rubs Abdomen: Soft, nontender, no organomegaly, bowel sounds present Neuro: No focal deficits, no facial deformity, AO x3, power 5/5 in all limbs Urinary Catheter Management: Persaud: Cath Placed During This Visit: yes Reason for Continuing Indwelling Catheter: Accurate Measurement of Urinary Output in Critically Ill Patients Urinary Catheter Date of Insertion: 07/21/22 Urinary Catheter Time of Insertion: 11:08 Data : 07/22/22 05:20 07/22/22 05:20 Micro: Microbiology 07/21/22 18:29 Blood Culture - Preliminary Blood SPECIMEN COLLECTED 07/20/22 13:07 Anaerobic Culture - Preliminary Synovial Fluid Body Fluid Culture - Preliminary 07/21/22 13:51 Blood Culture - Preliminary Blood SPECIMEN COLLECTED 07/20/22 13:07 Gram Stain - Final Other Source 07/20/22 13:07 Gram Stain - Final Other Source Peripheral Blood cx : 07/20 : pec #: [id number] Lisbeth: 07/20/2249 Status: RES Req #: [id number] Recd: 07/20/[address]: Sonido Morgan MD Src: Blood SpDesc: Ordered: Bcult Procedure Result Verified Site Blood Culture Preliminary 07/21/22-160 1 OF 4 BOTTLES POSITIVE GRAM STAIN: GRAM POSITIVE COCCI IN CLUSTERS RESULTS TO FOLLOW Organism 1 Gram positive cocci Growth IN 1 BOTTLE Gram Stain Charge Charge for Gram Stain CRITICAL RESULT YES/NO: YES CRITICAL CALLED BY: TO AND READ BACK BY: SAEID DATE: 07/21/22 TIME: 1600 PBCX 07/22: pending port blood cx 07/21: pending Synovial OR cx : 07/20 pec #: [id number] Lisbeth: 07/20/22 Status: RES Req #: [id number] Recd: 07/20/[address]: Nirmal Lanza MD Src: Other Sour SpDesc: Ordered: Tissue Cult GS Comments: Comment synovium left knee Procedure Result Verified Site Gram Stain Final 07/21/22 Result FEW WHITE BLOOD CELLS NO ORGANISMS SEEN Tissue Culture PENDING 07/18: Outpatient Synovial aspirate Spec #: [id number] Lisbeth: 07/18/22 Status: RES Req #: [id number] Recd: 07/18/[address]: Nirmal Lanza MD Src: Syn Fld SpDesc: Ordered: Body FL Cult&GS Procedure Result Verified Site Gram Stain Final 07/19/22 Result MODERATE WHITE BLOOD CELLS NO ORGANISMS SEEN Body Fluid Culture Preliminary 07/20/22-1502 FEW SLOW-GROWING PRESUMPTIVE STREPTOCOCCUS SPECIES ON DAY 2 RESULTS TO FOLLOW Body Fluid Culture Preliminary (changed) 07/19/22-1216 FEW SLOW-GROWING PRESUMPTIVE STREPTOCOCCUS SPECIES ON DAY 1 RESULTS TO FOLLOW A&P Assessment and plan (1) Infection of total left knee replacement: Status: Acute (2) Septic joint of left knee joint: Status: Acute Plan Patient admitted today for PJI of the left knee. Outpatient aspirate cx thus far with anerobic streptococcus sp, awaiting final identification. Discussed with lab today that identification of this microbe has been difficult. Requested isolate to be sent out for molecular testing. Susceptibiity to CTX will be reported by lab today. Possibilities of GPAC isolates include P. acnes, peptostreptococcus, Finegoldia. s/p Removal infected left total knee with placement of articulating antibiotic spacer blocks on 07/20 Pending OR cx , thus far no organisms on gram stain Blood cx from 07/20 thus far with 1/4 positive for GPC, awaiting final identification Port cx from 07/21 pending Continue ceftriaxone 2g iv q24h and vancomycin while awaiting culture data ESR 72, CRP 103 patient will need at least 6 weeks of iv abx for treatment of PJI via port, final selection dependent on cx data will follow Attestations Medical Necessity Statement*: ongoing need for iv abx, per admitting note Coding Level of Care Code Acute Emergency Communications Operator for Sheyla Cha Diagnoses Infection of total left knee replacement T84.54XA Septic joint of left knee joint M00.9
--- NOTE | 2022-07-22 10:08 | PC.OT ---
OT reviewed chart again today. Patient is still awaiting MRI to confirm possible CVA. Per RN and family members from yesterday, Dr. Tyler requested to hold therapies until patient received diagnostic testing. Will attempt OT evaluation tomorrow if able. Graham Lewis OTR/L
--- NOTE | 2022-07-22 12:09 | P.PN_ITS ---
Subjective Subjective: No events overnight. Patient has remained on telemetry in ICU. Patient did have 1 episode of 3-second pause yesterday afternoon. No recurrence since then. Has remained hemodynamically stable and afebrile otherwise. Good urine output in Persaud catheter. Had some soakage of dressing yesterday. Redressed overnight. No further soakage. Medications: Reviewed: Yes Vitals/I&O/Wt Last Vital Signs Temp 98.2 F 07/22/22 11:15 Pulse 96 07/22/22 11:15 Resp 16 07/22/22 11:15 BP 143/83 07/22/22 11:15 Pulse Ox 97 07/22/22 11:15 O2 Del Method 07/22/22 04:00 O2 Flow Rate 2 07/21/22 19:47 07/21/22 07/22/22 07/22/22 22:59 06:59 14:59 Intake Total 1521.667 / 2718.334 300 / 3018.334 1100 / 1100 Output Total 1525 / 1525 1100 / 2625 850 / 850 Balance -3.333 / 1193.334 -800 / 393.334 250 / 250 Weight last 48 hrs Weight 152.044 kg Weight 152.095 kg Physical Exam Narrative: General: No acute distress, AO x3, pleasant, morbidly obese HEENT: PERRLA, pupils bilaterally equal and reactive Chest: Normal vesicular breath sounds bilaterally, decreased air entry bilateral lower zone, MediPort present in left thorax without any signs of infection CVS: S1-S2 regular, no murmurs, no tachycardia, no gallops, no rubs Abdomen: Soft, nontender, no organomegaly, bowel sounds present, morbidly obese Neuro: No focal deficits, no facial deformity, AO x3, power 5/5 in all limbs Extremity: Left knee surgically dressed, no soakage today Urinary Catheter Management: Persaud: Cath Placed During This Visit: yes Reason for Continuing Indwelling Catheter: Accurate Measurement of Urinary Output in Critically Ill Patients Urinary Catheter Date of Insertion: 07/21/22 Urinary Catheter Time of Insertion: 11:08 Data : 07/22/22 05:20 07/22/22 05:20 Micro: Microbiology 07/20/22 13:07 Gram Stain - Final Other Source Tissue Culture - Preliminary 07/21/22 18:29 Blood Culture - Preliminary Blood SPECIMEN COLLECTED 07/20/22 13:07 Anaerobic Culture - Preliminary Synovial Fluid Body Fluid Culture - Preliminary 07/21/22 13:51 Blood Culture - Preliminary Blood SPECIMEN COLLECTED 07/20/22 13:07 Gram Stain - Final Other Source A&P Assessment and plan (1) Infection of total left knee replacement: Patient underwent removal of infected left total knee with placement of articulating antibiotic spacer on 07/20. Blood culture from admission 1 out of 4 bottles positive. Repeat cultures from port and peripheral sent. Continue with ceftriaxone and vancomycin as per ID. Outpatient cultures consistent with Streptococcus. Physical therapy, weightbearing as per orthopedic team. To restart Eliquis as per orthopedic team. Safe to hold for now. Status: Acute (2) Postoperative anemia: Postoperative most likely in setting of CLL. Baseline hemoglobin around 9. Currently 6.9 today. No further bleeding at the OR site. Hold off on Eliquis. 1 unit of blood transfusion. Monitor hemoglobin daily. Iron panel appreciated. Consistent with iron deficiency as well. Oral iron supplementation. Status: Acute (3) Chronic kidney disease: Baseline creatinine 1.7-1.8. Creatinine back to baseline. Persaud catheter for 1 more day. Can safely DC tomorrow morning. Stop IV fluids as patient is taking oral well. Urine studies appreciated. Monitor BMP daily. Medical reconstruction done for nephrotoxic drugs. Hold off on spironolactone for now. Status: Acute (4) Diabetes mellitus, type II: A1c 8.8. Blood sugars controlled for now. Takes 100 units lantus BID, ISS and novolog 25 BID For now continue with lantus 75 unit BID, ISS. Carb consistent diet Status: Acute (5) Numbness of finger: Less likely CVA. Echocardiogram, carotid Doppler, CT results appreciated. NIH scale 2. Neuro at [facility] recommends observation. Neurochecks. 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 Hold off on Eliquis for now. Status: Chronic (7) Chronic lymphocytic leukemia of B-cell type not having achieved remission: Follows up with Dr. Kirkland as an outpatient. Status: Acute (8) History of left knee replacement: Status: Acute (9) Hyperkalemia: Resolved. Hold off on further Kayexalate. Repeat BMP daily for now. Status: Acute Plan 3-second pause: In setting of hyperkalemia. Asymptomatic. No repeat events. Continue with telemetry. Continue to monitor for now. Full code Carb consistent diet Eliquis suffice for DVT prophylaxis Famotidine for PUD prophylaxis Continue other chronic home medication including allopurinol, atorvastatin, Depakote, Keppra, zonisamide. Can transfer to med surgical floor Attestations Medical Necessity Statement*: Requires further hospitalization for management of infected total knee replacement, post removal of prosthetic joint, CKD, postoperative anemia in a patient with history of DVT on Eliquis Time Spent in Patient Care: Greater than 35 minutes Coding Level of Care Code Acute Special Loan Officer for g Fwd Diagnoses Infection of total left knee replacement T84.54XA Postoperative anemia D64.9 Chronic kidney disease N18.9 Diabetes mellitus, type II E11.9 Numbness of finger R20.0 Acute embolism and thrombosis of left femoral vein I82.412 Chronic lymphocytic leukemia of B-cell type not having achieved remission C91.10 History of left knee replacement Z96.652 Hyperkalemia E87.5
[2022-07-22] MEDS: sodium chloride 0.9% (100 ml) 100 ML (12:30)
[2022-07-22 13:08] LABS: Glucose Point of Care 169 mg/dL (70-110)
--- NOTE | 2022-07-22 13:36 | PC.NURSE ---
Patient report pain to the left leg. rates 7/10. Tylenol has been effective for pain relief in the past. Nurse administered scheduled tylenol. patient is now sleeping comfortably in bed.
[2022-07-22 17:03] LABS: Glucose Point of Care 71 mg/dL (70-110)
--- NOTE | 2022-07-22 18:05 | PC.NURSE ---
Shift Summary: Uneventful Shift. PAtient rested in bed for much of the day, but has been up to a chair and to the bedside commode. Has been regularly doing leg exercises in bed and worked with PT today. Patient has remained alert and oriented to person, place, time, and situation, Received 2 units of blood due to low HGB. Pending Med surge transfer orders, no bed available.
--- NOTE | 2022-07-22 18:38 | PM.PN ---
Subjective Subjective: Up with ambulating in room. Pain controlled with oral meds Vitals/I&O/Wt Last Vital Signs Temp 98.1 F 07/22/22 16:00 Pulse 96 07/22/22 18:00 Resp 20 H 07/22/22 18:00 BP 172/98 07/22/22 18:00 Pulse Ox 99 07/22/22 18:00 O2 Del Method 07/22/22 18:00 O2 Flow Rate 2 07/21/22 19:47 07/22/22 07/22/22 07/22/22 06:59 14:59 22:59 Intake Total 300 / 3018.334 1450 / 1450 1200 / 2650 Output Total 1100 / 2625 1500 / 1500 550 / 2050 Balance -800 / 393.334 -50 / -50 650 / 600 Weight last 48 hrs Weight 335 lb 3.2 oz Physical Exam Narrative: Dressing clean and dry Urinary Catheter Management: Persaud: Cath Placed During This Visit: yes Reason for Continuing Indwelling Catheter: Accurate Measurement of Urinary Output in Critically Ill Patients Urinary Catheter Date of Insertion: 07/21/22 Urinary Catheter Time of Insertion: 11:08 Data : 07/22/22 05:20 07/22/22 05:20 Micro: Microbiology 07/20/22 13:07 Anaerobic Culture - Preliminary Synovial Fluid Body Fluid Culture - Preliminary 07/21/22 13:51 Blood Culture - Preliminary Blood NEGATIVE TO DATE 07/21/22 21:15 MRSA Culture - Final Nose 07/20/22 13:07 Gram Stain - Final Other Source Tissue Culture - Preliminary 07/20/22 13:07 Gram Stain - Final Other Source Tissue Culture - Preliminary 07/21/22 18:29 Blood Culture - Preliminary Blood SPECIMEN COLLECTED A&P Assessment and plan (1) Infection of total left knee replacement: Antibiotics per infectious disease service. We will plan on reimplantation total knee in in 8 weeks. Discharge home when antibiotics plans made Status: Acute Attestations Medical Necessity Statement*: Waiting final antibiotic plan Coding Level of Care Code Acute Medical Center Representative for Sheyla Cha Diagnoses Infection of total left knee replacement T84.54XA
--- NOTE | 2022-07-22 19:38 | PC.NURSE ---
Ice packs in place on left knee.
[2022-07-22 20:20] LABS: Glucose Point of Care 160 mg/dL (70-110)
[2022-07-22] MEDS: zonisamide 100 MG Capsule 200 MG PO (20:29)
[2022-07-22] MEDS: atorvastatin 40 mg Tablet PO (20:29)
[2022-07-22] MEDS: divalproex DR 500 mg Tablet 1500 MG PO (20:29)
[2022-07-22] MEDS: oxyCODONE 5 mg IR Tab/Cap PO (21:11)
--- NOTE | 2022-07-22 21:42 | PC.NURSE ---
Pt resting quietly in bed with eyes closed. Respirations are even and unlabored. Pt is snoring. is sleeping at bedside.
[2022-07-23] VITALS (23 sets, daily range): BP systolic 123–169; BP diastolic 66–99; PULSE 62–94; RESP 14–52; TEMP 36.4–36.8; O2SAT 92–100
--- NOTE | 2022-07-23 01:20 | PC.NURSE ---
Pt's tells me that pt has had blood in his urine since catheter removal. Pt states that, it's not a lot. I have requested that pt allows me to visualize his urine the next time he voids. New ice packs placed on left knee.
[2022-07-23] MEDS: acetaminophen 500 mg Tablet 1000 MG PO ×3 (03:59→20:49)
[2022-07-23 04:29] LABS: Basophils % 0.3 %; Eosinophils # 0.3 10^3/uL (0.0-0.8); Eosinophils % 3.5 %; Hematocrit 26.5 % (42.0-52.0); Hemoglobin 8.2 g/dL (11.7-16.6); Lymphocytes # 1.7 10^3/uL (0.8-4.8); Lymphocytes % 18.7 %; Mean Corpuscular HGB Conc 30.9 g/dL (30.0-36.0); Mean Corpuscular Hemoglobin 27.9 pg (28.0-34.0); Mean Corpuscular Volume 90.1 fl (80-94); Mean Platelet Volume 9.4 fL (7.4-10.4); Monocytes # 0.9 10^3/uL (0.2-0.9); Monocytes % 9.9 %; Neutrophils # 5.97 10^3/uL (1.8-7.7); Nucleated Red Blood Cells % 0.2 %; Platelet Count 200 10^3/cmm (130-400); Red Blood Count 2.94 10^6/uL (4.1-5.3); Red Cell Distribution Width 16.7 % (12.1-15.1); White Blood Count 9.2 10^3/uL (4.0-10.0)
--- NOTE | 2022-07-23 04:32 | PC.NURSE ---
New ice packs placed on left knee as ordered.
[2022-07-23 05:00] LABS: Alanine Aminotransferase 14 U/L (0-41); Albumin Level 2.8 g/dL (3.5-5.2); Alkaline Phosphatase 63 U/L (40-130); Anion Gap 11.4 (5-19); Aspartate Amino Transferase 15 U/L (0-40); Blood Urea Nitrogen 27 mg/dL (6-20); Calcium 8.5 mg/dL (8.5-10.5); Carbon Dioxide 26 mmol/L (22-29); Chloride 111 mmol/L (98-107); Globulin 2.7 g/dL (1.3-4.6); Glomerular Filtration Rate 44.8 mL/min (90-130); Glucose 58 mg/dL (65-115); Osmolality Calculated 303 mOsm/kg (285-295); Phosphorus 2.5 mg/dL (2.5-4.5); Potassium 3.4 mmol/L (3.5-5.1); Sodium 145 mmol/L (136-145); Total Bilirubin 0.2 mg/dL (0.15-1.2); Total Protein 5.5 g/dL (6.6-8.7)
--- NOTE | 2022-07-23 06:00 | ECG_ITS ---
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 Measurements Intervals [place] Rate: 87 P: 61 [place]: 173 QRS: 28 QRSD: 114 T: 60 QT: 391 QTc: 472 Interpretive Statements SINUS RHYTHM WITH OCCASIONAL VENTRICULAR PREMATURE COMPLEXES WITH OCCASIONAL SUPRAVENTRICULAR PREMATURE COMPLEXES MODERATE INTRAVENTRICULAR CONDUCTION DELAY [110+ ms QRS DURATION] NONSPECIFIC ST & T-WAVE ABNORMALITY Compared to ECG 07/22/2022 03:39:58 Ventricular premature complex(es) now present Intraventricular conduction delay now present T-wave abnormality still present Electronically Signed On 07-23-2022 7:30:20 CDT by Tex Walden M.D. [id number]
[2022-07-23 08:24] LABS: Glucose Point of Care 137 mg/dL (70-110)
[2022-07-23] MEDS: cefTRIAXone 2,000 MG in sodium chloride 0.9% (plus) 50 ML 100 MG IV (10:01)
[2022-07-23] MEDS: levETIRAcetam 500 mg Tablet 1000 MG PO ×2 (10:07→18:03)
[2022-07-23] MEDS: allopurinol 300 mg Tablet PO (10:07)
[2022-07-23] MEDS: diphenhydrAMINE 25 mg Capsule PO (10:07)
[2022-07-23] MEDS: gabapentin 300 mg Capsule PO ×2 (10:08→18:02)
[2022-07-23] MEDS: pantoprazole DR 40 mg Tablet PO ×2 (10:08→18:02)
[2022-07-23] MEDS: montelukast sodium 10 mg Tablet PO (10:08)
[2022-07-23] MEDS: aspirin 81 mg EC Tablet PO (10:08)
--- NOTE | 2022-07-23 10:15 | PM.PN ---
Subjective Subjective: No acute vents overnight. Today morning seen walking with . Denies any nausea vomiting, headache. Has remained hemodynamically stable. Stable on telemetry. Persaud removed yesterday. Pain controlled. Medications: Reviewed: Yes Vitals/I&O/Wt Last Vital Signs Temp 98 F 07/23/22 04:00 Pulse 62 07/23/22 06:00 Resp 15 07/23/22 03:00 BP 127/71 07/23/22 06:00 Pulse Ox 95 07/23/22 06:00 O2 Del Method 07/23/22 06:00 O2 Flow Rate 2 07/23/22 05:00 07/22/22 07/23/22 07/23/22 22:59 06:59 14:59 Intake Total 2300 / 3750 1000 / 4750 Output Total 550 / 2050 Balance 1750 / 1700 1000 / 2700 Physical Exam Narrative: General: No acute distress, AO x3, pleasant, morbidly obese HEENT: PERRLA, pupils bilaterally equal and reactive Chest: Normal vesicular breath sounds bilaterally, decreased air entry bilateral lower zone, MediPort present in left thorax without any signs of infection CVS: S1-S2 regular, no murmurs, no tachycardia, no gallops, no rubs Abdomen: Soft, nontender, no organomegaly, bowel sounds present, morbidly obese Neuro: No focal deficits, no facial deformity, AO x3, power 5/5 in all limbs Extremity: Left knee surgically dressed, no soakage today Urinary Catheter Management: Persaud: Cath Placed During This Visit: yes Reason for Continuing Indwelling Catheter: Accurate Measurement of Urinary Output in Critically Ill Patients Urinary Catheter Date of Insertion: 07/21/22 Urinary Catheter Time of Insertion: 11:08 Data : 07/23/22 03:50 07/23/22 03:50 Micro: Microbiology 07/21/22 11:05 Urine Culture - Final Urine,Clean Catch 07/22/22 20:31 Blood Culture - Preliminary Blood SPECIMEN COLLECTED 07/22/22 20:22 Blood Culture - Preliminary Blood SPECIMEN COLLECTED 07/21/22 18:29 Blood Culture - Preliminary Blood NEGATIVE TO DATE 07/20/22 13:07 Anaerobic Culture - Preliminary Synovial Fluid Body Fluid Culture - Preliminary 07/21/22 13:51 Blood Culture - Preliminary Blood NEGATIVE TO DATE 07/21/22 21:15 MRSA Culture - Final Nose 07/20/22 13:07 Gram Stain - Final Other Source Tissue Culture - Preliminary 07/20/22 13:07 Gram Stain - Final Other Source Tissue Culture - Preliminary A&P Assessment and plan (1) Infection of total left knee replacement: Patient underwent removal of infected left total knee with placement of articulating antibiotic spacer on 07/20. Blood culture from admission 1 out of 4 bottles positive. Repeat cultures from port and peripheral sent. Continue with ceftriaxone and vancomycin as per ID. Outpatient cultures consistent with Streptococcus. Physical therapy, weightbearing as per orthopedic team. To restart Eliquis as per orthopedic team. Safe to hold for now. Status: Acute (2) Postoperative anemia: Postoperative most likely in setting of CLL. Baseline hemoglobin around 9. Currently 6.9 today. No further bleeding at the OR site. Hold off on Eliquis. 1 unit of blood transfusion. Monitor hemoglobin daily. Iron panel appreciated. Consistent with iron deficiency as well. Oral iron supplementation. Status: Acute (3) Chronic kidney disease: Baseline creatinine 1.7-1.8. Creatinine back to baseline. Persaud removed. Fluid stopped Urine studies appreciated. Monitor BMP daily. Medical reconstruction done for nephrotoxic drugs. Hold off on spironolactone for now. Status: Acute (4) Diabetes mellitus, type II: A1c 8.8. Blood sugars controlled for now. Takes 100 units lantus BID, ISS and novolog 25 BID For now continue with lantus 75 unit BID, ISS. Carb consistent diet Status: Acute (5) Numbness of finger: Less likely CVA. Echocardiogram, carotid Doppler, CT results appreciated. NIH scale 2. Neuro at [facility] recommends observation. Neurochecks. 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 Hold off on Eliquis for now. Status: Chronic (7) Chronic lymphocytic leukemia of B-cell type not having achieved remission: Follows up with Dr. Kirkland as an outpatient. Status: Acute (8) History of left knee replacement: Status: Acute (9) Hyperkalemia: Resolved. Hold off on further Kayexalate. Repeat BMP daily for now. Status: Acute Plan 3-second pause: In setting of hyperkalemia. Asymptomatic. No repeat events. Continue with telemetry. Continue to monitor for now. Full code Carb consistent diet Eliquis suffice for DVT prophylaxis Famotidine for PUD prophylaxis Continue other chronic home medication including allopurinol, atorvastatin, Depakote, Keppra, zonisamide. Can transfer to [facility] surgical floor Plan for the day: Continue with ceftriaxone and vancomycin. Follow-up culture results for further de-escalation of antibiotics. Ambulate as per orthopedics. Restart Eliquis as per orthopedics. Continue Lantus 75 units twice daily along with insulin sliding scale. Monitor blood sugars. Watch for hypoglycemia. Telemetry. Up to [facility] with telemetry when bed available Attestations Medical Necessity Statement*: Requires further hospitalization for management of prosthetic joint infection, GPC bacteremia in a patient with history of CLL, CKD, MediPort in situ Time Spent in Patient Care: Greater than 35 minutes Coding Level of Care Code Acute Machine Bander And Cellophaner for Chg Fwd Diagnoses Infection of total left knee replacement T84.54XA Postoperative anemia D64.9 Chronic kidney disease N18.9 Diabetes mellitus, type II E11.9 Numbness of finger R20.0 Acute embolism and thrombosis of left femoral vein I82.412 Chronic lymphocytic leukemia of B-cell type not having achieved remission C91.10 History of left knee replacement Z96.652 Hyperkalemia E87.5
[2022-07-23] MEDS: insulin glargine 100 units/1 mL 75 UNIT SUBCUT ×2 (10:23→20:49)
--- NOTE | 2022-07-23 11:58 | PC.SOCIAL ---
IMM update IMM updated with patient and family. Copy Pg 2 provided. Verbalized an understanding. Initialled, dated, timed, and placed in chart.
[2022-07-23 12:37] LABS: Glucose Point of Care 207 mg/dL (70-110)
--- NOTE | 2022-07-23 13:08 | PC.CHAP ---
Pastoral Care Encounter/Spiritual Assessment Type of Contact [] Declined magazine publisher visit [] Patient/Family/Request visit [] Outpatient visit [] Follow-up visit [] Physician referral [] Code/Alert [x] Routine visit [] Staff referral [] Actively dying [] Patient sleeping [] Family support [] [] Out of room [] Palliative care [] [] Receiving care in room [] Pre-surgical visit [] Trauma [] Long length of stay [x] ICU visit [] Other: Relational/Emotional Strength [] Patient feels connected with others/family/visitors/staff [] Distress [] Loneliness/isolation [] Abandonment Spirituality of Patient [] Person of Daniela [] Attends Rastafarian of their Daniela [] Believes in Prayer [] Reads Bible or Gnosticism materials [] There are Spiritual issues to be addressed Preparation Supervisor Interventions [x] Prayer [] Active listening [] Non-anxious presence [] Spiritual/emotional support [] Crisis/trauma care [] Spiritual counseling [] Bereavement support [] Provided bereavement packet [] Provided Bible/devotional materials [] Provided toy/stuffed animal, coloring book to patient or family member [] Provided Communion [] Anointing/Blum [] Salvation [x] Completed spiritual assessment [] Other: Impact on Illness or Injury [] Angry [] Fearful [] Anxious [] Often cries [] Exhaustion [] Unable to work [] Unable to attend mandaeism [] Unable to walk/stand [] Unable to read [] Unable to drive [] Unable to eat/drink [] Unable to sleep [] Unable to be with family [] Patient intubated [] Other: Summary Time spent with patient
[2022-07-23] MEDS: insulin lispro 100 unit/1 mL SUBCUT ×3 (13:41→23:00)
[2022-07-23] MEDS: oxyCODONE 5 mg IR Tab/Cap PO (13:58)
--- NOTE | 2022-07-23 16:22 | P.PN_ITS ---
Subjective Subjective: Pending identification of blood cx isolate thus far identified as GPC. Pain is well controlled. Afberile. Stable hemodynamics. Medications: Reviewed: Yes Vitals/I&O/Wt Last Vital Signs Temp 97.8 F 07/23/22 13:00 Pulse 85 07/23/22 14:00 Resp 19 H 07/23/22 14:00 BP 145/73 07/23/22 14:00 Pulse Ox 95 07/23/22 14:00 O2 Del Method 07/23/22 10:00 O2 Flow Rate 2 07/23/22 05:00 07/23/22 07/23/22 07/23/22 06:59 14:59 22:59 Intake Total 1000 / 4750 440 / 440 Output Total 200 / 200 Balance 1000 / 2700 240 / 240 Physical Exam Narrative: General: No acute distress, AO x3 HEENT: PERRLA, pupils bilaterally equal and reactive, pallors not present Chest: Normal vesicular breath sounds, no added sounds, equal good air entry bilaterally CVS: S1-S2 regular, no murmurs, no tachycardia, no gallops, no rubs Abdomen: Soft, nontender, no organomegaly, bowel sounds present Neuro: No focal deficits, no facial deformity, AO x3, power 5/5 in all limbs Urinary Catheter Management: Persaud: Cath Placed During This Visit: yes Reason for Continuing Indwelling Catheter: Accurate Measurement of Urinary Output in Critically Ill Patients Urinary Catheter Date of Insertion: 07/21/22 Urinary Catheter Time of Insertion: 11:08 Data : 07/23/22 03:50 07/23/22 03:50 Micro: Microbiology 07/20/22 13:07 Anaerobic Culture - Preliminary Synovial Fluid Body Fluid Culture - Preliminary 07/20/22 13:07 Gram Stain - Final Other Source Tissue Culture - Preliminary 07/20/22 13:07 Gram Stain - Final Other Source Tissue Culture - Preliminary 07/21/22 11:05 Urine Culture - Final Urine,Clean Catch 07/22/22 20:31 Blood Culture - Preliminary Blood SPECIMEN COLLECTED 07/22/22 20:22 Blood Culture - Preliminary Blood SPECIMEN COLLECTED 07/21/22 18:29 Blood Culture - Preliminary Blood NEGATIVE TO DATE 07/21/22 13:51 Blood Culture - Preliminary Blood NEGATIVE TO DATE 07/21/22 21:15 MRSA Culture - Final Nose A&P Assessment and plan (1) Infection of total left knee replacement: Status: Acute (2) Septic joint of left knee joint: Status: Acute Plan Patient admitted today for PJI of the left knee. Outpatient aspirate cx identified as b hemolytic strep, however reported PCN resistant per microscan and EDE to CTX at 1, which is an odd susceptibility pattern. Isolate pending further biochemical testing and also sent out for molecular testing. Will add Vancomycin in the interim to ceftriaxone while isolate is undergoing further identification. Possibilities of GPAC isolates include P. acnes, peptostreptococcus, Finegoldia. s/p Removal infected left total knee with placement of articulating antibiotic spacer blocks on 07/20 Pending OR cx , thus far no organisms on gram stain Blood cx from 07/20 thus far with 1/4 positive for GPC, awaiting final identification Port cx from 07/21 pending Continue ceftriaxone 2g iv q24h and vancomycin while awaiting culture data ESR 72, CRP 103 patient will need at least 6 weeks of iv abx for treatment of PJI via port, final selection dependent on cx data will follow Attestations Medical Necessity Statement*: see admitting note Coding Level of Care Code Acute Glove Parts Cutter for Sheyla Cha Diagnoses Infection of total left knee replacement T84.54XA Septic joint of left knee joint M00.9
[2022-07-23 17:40] LABS: Glucose Point of Care 181 mg/dL (70-110)
--- NOTE | 2022-07-23 19:10 | PM.PN ---
Subjective Subjective: Up with walker. Passing urine and bowel movement Vitals/I&O/Wt Last Vital Signs Temp 97.8 F 07/23/22 13:00 Pulse 85 07/23/22 14:00 Resp 19 H 07/23/22 14:00 BP 145/73 07/23/22 14:00 Pulse Ox 95 07/23/22 14:00 O2 Del Method 07/23/22 10:00 O2 Flow Rate 2 07/23/22 05:00 07/23/22 07/23/22 07/23/22 06:59 14:59 22:59 Intake Total 1000 / 4750 440 / 440 Output Total 200 / 200 Balance 1000 / 2700 240 / 240 Physical Exam Narrative: Left knee dressing changed. Incision clear and free of drainage. Minimal swelling left knee Urinary Catheter Management: Persaud: Cath Placed During This Visit: yes Reason for Continuing Indwelling Catheter: Accurate Measurement of Urinary Output in Critically Ill Patients Urinary Catheter Date of Insertion: 07/21/22 Urinary Catheter Time of Insertion: 11:08 Data : 07/23/22 03:50 07/23/22 03:50 Micro: Microbiology 07/20/22 13:07 Anaerobic Culture - Preliminary Synovial Fluid Body Fluid Culture - Preliminary 07/20/22 13:07 Gram Stain - Final Other Source Tissue Culture - Preliminary 07/20/22 13:07 Gram Stain - Final Other Source Tissue Culture - Preliminary 07/21/22 11:05 Urine Culture - Final Urine,Clean Catch 07/22/22 20:31 Blood Culture - Preliminary Blood SPECIMEN COLLECTED 07/22/22 20:22 Blood Culture - Preliminary Blood SPECIMEN COLLECTED 07/21/22 18:29 Blood Culture - Preliminary Blood NEGATIVE TO DATE A&P Assessment and plan (1) Infection of total left knee replacement: Doing well from removal of components and antibiotic spacer placement. Okay for discharge when clear with infectious disease. Status: Acute Attestations Medical Necessity Statement*: As per infectious disease service Coding Level of Care Code Acute Business Services Assistant for Sheyla Cha Diagnoses Infection of total left knee replacement T84.54XA
[2022-07-23 20:37] LABS: Glucose Point of Care 232 mg/dL (70-110)
[2022-07-23] MEDS: zonisamide 100 MG Capsule 200 MG PO (20:49)
[2022-07-23] MEDS: divalproex DR 500 mg Tablet 1500 MG PO (20:49)
--- NOTE | 2022-07-23 21:07 | PC.NURSE ---
Called and gave report to Jenna STOREY to assume care. Pt. is being transferred via bed with belongings to room 264
[2022-07-23] MEDS: atorvastatin 40 mg Tablet PO (22:41)
[2022-07-23 23:06] LABS: Glucose Point of Care 200 mg/dL (70-110)
[2022-07-24] VITALS (9 sets, daily range): BP systolic 114–163; BP diastolic 78–99; PULSE 60–92; RESP 18–20; TEMP 36.5–36.9; O2SAT 96–100
[2022-07-24] MEDS: acetaminophen 500 mg Tablet 1000 MG PO ×2 (04:16→12:27)
[2022-07-24 05:37] LABS: Basophils % 0.5 %; Eosinophils # 0.4 10^3/uL (0.0-0.8); Eosinophils % 5.2 %; Hematocrit 25.9 % (42.0-52.0); Hemoglobin 8.1 g/dL (11.7-16.6); Lymphocytes # 1.9 10^3/uL (0.8-4.8); Lymphocytes % 23.7 %; Mean Corpuscular HGB Conc 31.3 g/dL (30.0-36.0); Mean Corpuscular Hemoglobin 27.7 pg (28.0-34.0); Mean Corpuscular Volume 88.7 fl (80-94); Mean Platelet Volume 9.9 fL (7.4-10.4); Monocytes # 0.8 10^3/uL (0.2-0.9); Monocytes % 10.2 %; Neutrophils # 4.49 10^3/uL (1.8-7.7); Neutrophils % 56.5 %; Nucleated Red Blood Cells % 0.4 %; Platelet Count 228 10^3/cmm (130-400); Red Blood Count 2.92 10^6/uL (4.1-5.3); Red Cell Distribution Width 16.5 % (12.1-15.1); White Blood Count 7.9 10^3/uL (4.0-10.0)
[2022-07-24 05:55] LABS: Alanine Aminotransferase 19 U/L (0-41); Albumin Level 2.7 g/dL (3.5-5.2); Alkaline Phosphatase 60 U/L (40-130); Anion Gap 12.2 (5-19); Aspartate Amino Transferase 22 U/L (0-40); Blood Urea Nitrogen 20 mg/dL (6-20); Calcium 8.9 mg/dL (8.5-10.5); Carbon Dioxide 26 mmol/L (22-29); Chloride 107 mmol/L (98-107); Globulin 2.6 g/dL (1.3-4.6); Glomerular Filtration Rate 44.8 mL/min (90-130); Glucose 103 mg/dL (65-115); Osmolality Calculated 297 mOsm/kg (285-295); Potassium 3.2 mmol/L (3.5-5.1); Sodium 142 mmol/L (136-145); Total Bilirubin 0.2 mg/dL (0.15-1.2); Total Protein 5.3 g/dL (6.6-8.7)
[2022-07-24 06:28] LABS: Glucose Point of Care 114 mg/dL (70-110)
--- NOTE | 2022-07-24 06:30 | NUR.SHIFT ---
Pt came up from ICU, at bedside, Pt is at rest in the bed, when I came in to introduce myself he was up to the chair, no needs were ask at assessment. call light in reach, bed low and locked
[2022-07-24] MEDS: montelukast sodium 10 mg Tablet PO (09:58)
[2022-07-24] MEDS: gabapentin 300 mg Capsule PO ×2 (09:58→17:40)
[2022-07-24] MEDS: allopurinol 300 mg Tablet PO (09:58)
[2022-07-24] MEDS: diphenhydrAMINE 25 mg Capsule PO (09:58)
[2022-07-24] MEDS: aspirin 81 mg EC Tablet PO (09:58)
[2022-07-24] MEDS: pantoprazole DR 40 mg Tablet PO ×2 (09:58→17:40)
[2022-07-24] MEDS: levETIRAcetam 500 mg Tablet 1000 MG PO ×2 (09:58→17:40)
[2022-07-24] MEDS: cefTRIAXone 2,000 MG in sodium chloride 0.9% (plus) 50 ML 100 MG IV (09:59)
[2022-07-24] MEDS: insulin glargine 100 units/1 mL 75 UNIT SUBCUT (10:35)
--- NOTE | 2022-07-24 10:40 | P.PN_ITS ---
Subjective Subjective: Infectious Disease progress note. No new complaints Feel well Planned for discharge today Knee aspirate 07/18 now appears to be staph- identification pending synovial cx from OR also appearing to be coag neg staph preliminary Medications: Reviewed: Yes Vitals/I&O/Wt Last Vital Signs Temp 97.7 F 07/24/22 08:00 Pulse 80 07/24/22 08:00 Resp 18 07/24/22 08:00 BP 145/84 07/24/22 08:00 Pulse Ox 98 07/24/22 08:00 O2 Del Method 07/24/22 08:00 O2 Flow Rate 2 07/24/22 02:20 07/23/22 07/24/22 07/24/22 22:59 06:59 14:59 Intake Total 480 / 920 960 / 1880 170 / 170 Balance 480 / 720 960 / 1680 170 / 170 Physical Exam Narrative: General: No acute distress, AO x3 HEENT: PERRLA, pupils bilaterally equal and reactive, pallors not present Chest: Normal vesicular breath sounds, no added sounds, equal good air entry bilaterally CVS: S1-S2 regular, no murmurs, no tachycardia, no gallops, no rubs Abdomen: Soft, nontender, no organomegaly, bowel sounds present Neuro: No focal deficits, no facial deformity, AO x3, power 5/5 in all limbs Urinary Catheter Management: Persaud: Cath Placed During This Visit: yes Reason for Continuing Indwelling Catheter: Accurate Measurement of Urinary Output in Critically Ill Patients Urinary Catheter Date of Insertion: 07/21/22 Urinary Catheter Time of Insertion: 11:08 Data : 07/24/22 04:44 07/24/22 04:44 Micro: Microbiology 07/22/22 20:31 Blood Culture - Preliminary Blood NEGATIVE TO DATE 07/22/22 20:22 Blood Culture - Preliminary Blood NEGATIVE TO DATE 07/20/22 13:07 Anaerobic Culture - Preliminary Synovial Fluid Body Fluid Culture - Preliminary 07/20/22 13:07 Gram Stain - Final Other Source Tissue Culture - Preliminary 07/20/22 13:07 Gram Stain - Final Other Source Tissue Culture - Preliminary 07/21/22 11:05 Urine Culture - Final Urine,Clean Catch A&P Assessment and plan (1) Infection of total left knee replacement: Status: Acute (2) Septic joint of left knee joint: Status: Deleted Plan Patient admitted today for PJI of the left knee. Outpatient aspirate cx identified as b hemolytic strep, however reported PCN re sistant per microscan and EDE to CTX at 1, which is an odd susceptibility pattern. Isolate pending further biochemical testing and also sent out for molecular testing. Now prelim appearing to be staph spp. s/p Removal infected left total knee with placement of articulating antibiotic spacer blocks on 07/20 Pending OR cx , thus far appearing to be coagulase negative staph Blood cx from 07/20 thus far with 1/4 positive for coagulase negative staph, appears to be contaminant however if all knee cx appear to be same organism, may be represntative of true bacteremia. Port cx from 07/21 thus far negative Continue ceftriaxone 2g iv q24h and vancomycin while awaiting culture data Patient may be discharged from an ID perspective with home abx ceftriaxone 2gm iv q24h and vancomycin 1500mg iv q24h Check CBC, CMP, vancomycin trough weekly ESR 72, CRP 103 Patient will need at least 6 weeks of iv antibiotics for treatment of PJI via port , final selection dependent on culture data as outpatient f/up ID clinic on 08/09 at 9am Attestations Medical Necessity Statement*: per admitting note Coding Level of Care Code Acute Centerless Grinder Tender for Sheyla Cha Diagnoses Infection of total left knee replacement T84.54XA Septic joint of left knee joint M00.9
--- NOTE | 2022-07-24 11:29 | PM.PN ---
Subjective Subjective: Seen this morning. No acute events overnight. Cultures are still pending. present at bedside. Vitals/I&O/Wt Last Vital Signs Temp 97.7 F 07/24/22 08:00 Pulse 80 07/24/22 08:00 Resp 18 07/24/22 08:00 BP 145/84 07/24/22 08:00 Pulse Ox 98 07/24/22 08:00 O2 Del Method 07/24/22 08:00 O2 Flow Rate 2 07/24/22 02:20 07/23/22 07/24/22 07/24/22 22:59 06:59 14:59 Intake Total 480 / 920 960 / 1880 170 / 170 Balance 480 / 720 960 / 1680 170 / 170 Physical Exam Narrative: General: No acute distress, AO x3, pleasant, morbidly obese HEENT: PERRLA, pupils bilaterally equal and reactive Chest: Normal vesicular breath sounds bilaterally, decreased air entry bilateral lower zone, MediPort present in left thorax without any signs of infection CVS: S1-S2 regular, no murmurs, no tachycardia, no gallops, no rubs Abdomen: Soft, nontender, no organomegaly, bowel sounds present, morbidly obese Neuro: No focal deficits Extremity: Left knee surgically dressed, no soakage today Urinary Catheter Management: Persaud: Cath Placed During This Visit: yes Reason for Continuing Indwelling Catheter: Accurate Measurement of Urinary Output in Critically Ill Patients Urinary Catheter Date of Insertion: 07/21/22 Urinary Catheter Time of Insertion: 11:08 Data : 07/24/22 04:44 07/24/22 04:44 Micro: Microbiology 07/22/22 20:31 Blood Culture - Preliminary Blood NEGATIVE TO DATE 07/22/22 20:22 Blood Culture - Preliminary Blood NEGATIVE TO DATE 07/20/22 13:07 Anaerobic Culture - Preliminary Synovial Fluid Body Fluid Culture - Preliminary 07/20/22 13:07 Gram Stain - Final Other Source Tissue Culture - Preliminary 07/20/22 13:07 Gram Stain - Final Other Source Tissue Culture - Preliminary 07/21/22 11:05 Urine Culture - Final Urine,Clean Catch A&P Assessment and plan (1) Infection of total left knee replacement: Patient underwent removal of infected left total knee with placement of articulating antibiotic spacer on 07/20. Blood culture from admission 1 out of 4 bottles positive. Repeat cultures from port and peripheral sent. Continue with ceftriaxone and vancomycin as per ID. Outpatient cultures consistent with Streptococcus. Physical therapy, weightbearing as per orthopedic team. To restart Eliquis as per orthopedic team. Safe to hold for now. Status: Acute (2) Postoperative anemia: Postoperative most likely in setting of CLL. Baseline hemoglobin around 9. Currently 6.9 today. No further bleeding at the OR site. Hold off on Eliquis. 1 unit of blood transfusion. Monitor hemoglobin daily. Iron panel appreciated. Consistent with iron deficiency as well. Oral iron supplementation. Status: Acute (3) Chronic kidney disease: Baseline creatinine 1.7-1.8. Creatinine back to baseline. Persaud removed. Fluid stopped Urine studies appreciated. Monitor BMP daily. Medical reconstruction done for nephrotoxic drugs. Hold off on spironolactone for now. Status: Acute (4) Diabetes mellitus, type II: A1c 8.8. Blood sugars controlled for now. Takes 100 units lantus BID, ISS and novolog 25 BID For now continue with lantus 75 unit BID, ISS. Carb consistent diet Status: Acute (5) Numbness of finger: Less likely CVA. Echocardiogram, carotid Doppler, CT results appreciated. NIH scale 2. Neuro at [facility] recommends observation. Neurochecks. 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 Hold off on Eliquis for now. Status: Chronic (7) Chronic lymphocytic leukemia of B-cell type not having achieved remission: Follows up with Dr. Kirkland as an outpatient. Status: Acute (8) History of left knee replacement: Status: Acute (9) Hyperkalemia: Resolved. Hold off on further Kayexalate. Repeat BMP daily for now. Status: Acute Plan Full code Carb consistent diet Eliquis suffice for DVT prophylaxis Famotidine for PUD prophylaxis Continue other chronic home medication including allopurinol, atorvastatin, Depakote, Keppra, zonisamide. Can transfer to med surgical floor Plan for the day: Continue with ceftriaxone and vancomycin. Follow-up culture results for further de-escalation of antibiotics as an outpatient. Infectious disease Dr Ordonez will follow patient. She has advised to discharge patient today as cultures will take 7 to 10 days to return.. Ambulate as per orthopedics. Restart Eliquis as per orthopedics. Continue Lantus 75 units twice daily along with insulin sliding scale. Monitor blood sugars. Watch for hypoglycemia. Telemetry. Patient is okay to discharge from medicine standpoint. Had a discussion with infectious disease as well. Patient to follow-up with ID and orthopedics and patient's primary care doctor as outpatient. Attestations Medical Necessity Statement*: Okay to discharge from medicine aspect. 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
[2022-07-24 11:31] LABS: Glucose Point of Care 169 mg/dL (70-110)
[2022-07-24] MEDS: oxyCODONE 5 mg IR Tab/Cap PO (12:26)
[2022-07-24] MEDS: insulin lispro 100 unit/1 mL SUBCUT ×2 (12:27→17:42)
--- NOTE | 2022-07-24 12:38 | P.DS_ITS ---
Discharge Providers Date of Admission: 07/20/22 16:25 Date of Discharge: July 24, 2022 Attending Provider at Admission: Nirmal Lanza MD Attending Provider at Discharge: Nirmal Lanza MD Consults[facility] Provider: Kumar Evans DO Diagnoses at Discharge Discharge Diagnosis (1) Infection of total left knee replacement: Status: Acute (2) Postoperative anemia: Status: Acute (3) Numbness of finger: Status: Acute (4) Diabetes mellitus, type II: Status: Acute (5) Chronic kidney disease: Status: Acute (6) Chronic lymphocytic leukemia of B-cell type not having achieved remission: Status: Acute Reason for Visit Reason for Visit: Nausea and vomiting Brief History: The patient is a 57-year-old male who underwent left total knee arthroplasty 3 years ago and did well until approximately 2 weeks ago when he began developing progressive knee pain and swelling. He was seen in my office. The knee was aspirated with cultures growing a group be Streptococcus. His pain increased to the point where he was seen in the emergency room the day of admission. Hospital Course Hospital Course The patient was taken to the operating room that day for removal of his infected total knee arthroplasty and placement of antibiotic spacers. Cultures at that time grew grew a very scant growth of staph epidermidis. Night of surgery he developed acute numbness in his arm. He said admitted for a possible cerebrovascular accident which was ruled out by the medicine service. Infectious disease was consulted and treatment was begun on both ceftriaxone and vancomycin. 1 of 4 blood cultures was also positive for a staph epidermidis species. At the suggestion of the infectious the service he is discharged home on 07/24/2022. He will be discharged home on both IV antibiotics. He will be set up with home health physical therapy for his knee. Physical Exam Narrative: On the day of discharge the knee incision was clean. They had no drainage. There is minimal swelling in the thigh and knee and the calf. No distal neurovascular deficits were noted Urinary Catheter Management: Persaud: Cath Placed During This Visit: yes Reason for Continuing Indwelling Catheter: Accurate Measurement of Urinary Output in Critically Ill Patients Urinary Catheter Date of Insertion: 07/21/22 Urinary Catheter Time of Insertion: 11:08 Discharge Data Studies Completed and Pending Completed Studies During Hospitalization Category Date Time Status CT cervical spin wo con* [id number] Routine Cat Scan 07/20/22 22:[address] head wo con* [id number] Stat Cat Scan 07/20/22 22:29 Completed XR knee LT 1-2V [id number] Routine Exams 07/20/22 16:23 Completed CV carotid duplex BI* [id number] Routine Ultrasound 07/21/22 23:50 Completed CV. echo wo/w contrast [id number] Routine Ultrasound 07/21/22 23:50 Completed Pending at discharge Category Date Time Status Anaerobic Culture Routine Lab 07/20/22 13:07 Results Blood Culture AM LABS Lab 07/22/22 20:31 Results Blood Culture Stat Lab 07/21/22 18:29 Results Body Fluid Culture Routine Lab 07/20/22 13:07 Results Tissue Culture and Gram Stain Routine Lab 07/20/22 13:07 Results Tissue Culture and Gram Stain Routine Lab 07/20/22 13:07 Results Vancomycin Trough Timed Lab 07/24/22 19:00 Ordered Radiology Impressions Knee X-Ray 07/20/22 16:23 IMPRESSION: 1. Postop changes in good alignment. See discussion above. 2. Several abnormalities are probably related to recent postsurgical status. See discussion above. Head CT 07/20/22 22:29 IMPRESSION: 1. Slight interval progression of brain parenchymal atrophy. 2. No acute intracranial findings. Other nonacute findings as described. ASSESSMENT: ASPECTS ([place] Stroke Program Early CT Score) is 10. Cervical Spine CT 07/20/22 22:47 IMPRESSION: No acute spine findings. Carotid Doppler Study 07/21/22 23:50 IMPRESSION: 1. Right ICA < 50% stenosis by Carotid Stenosis Reference using SRU criteria. 2. Left ICA < 50% stenosis by Carotid Stenosis Reference using SRU criteria. 3. Antegrade flow in bilateral vertebral arteries. REFERENCES: SRU CRITERIA. The degree of internal carotid artery stenosis is based on criteria defined by the Society of Radiologists in Ultrasound (SRU). Normal is no stenosis. Mild is less than 50% stenosis. Moderate is 50-69% stenosis. Severe is greater than 69% stenosis to near occlusion. Near occlusion is a markedly narrowed lumen. Total occlusion is no detectable patent lumen. Laboratory Results WBC 7.9 10^3/uL (4.0-10.0) 07/24/22 04:44 RBC 2.92 10^6/uL (4.1-5.3) L 07/24/22 04:44 Hgb 8.1 g/dL (11.7-16.6) L 07/24/22 04:44 Hct 25.9 % (42.0-52.0) L 07/24/22 04:44 MCV 88.7 fl (80-94) 07/24/22 04:44 MCH 27.7 pg (28.0-34.0) L 07/24/22 04:44 MCHC 31.3 g/dL (30.0-36.0) 07/24/22 04:44 RDW 16.5 % (12.1-15.1) H 07/24/22 04:44 Plt Count 228 10^3/cmm (130-400) 07/24/22 04:44 MPV 9.9 fL (7.4-10.4) 07/24/22 04:44 Neut % (Auto) 56.5 % 07/24/22 04:44 Lymph % (Auto) 23.7 % 07/24/22 04:44 [place] % (Auto) 10.2 % 07/24/22 04:44 Eos % (Auto) 5.2 % 07/24/22 04:44 Baso % (Auto) 0.5 % 07/24/22 04:44 Neut # (Auto) 4.49 10^3/uL (1.8-7.7) 07/24/22 04:44 Lymph # (Auto) 1.9 10^3/uL (0.8-4.8) 07/24/22 04:44 [place] # (Auto) 0.8 10^3/uL (0.2-0.9) 07/24/22 04:44 Eos # (Auto) 0.4 10^3/uL (0.0-0.8) 07/24/22 04:44 Baso # (Auto) 0.0 10^3/uL (0.0-0.1) 07/24/22 04:44 Nucleated RBC % (auto) 0.4 % 07/24/22 04:44 Nucleated RBCs # 0.0 /100WBC 07/24/22 04:44 PT 14.40 SECONDS (12.1-14.9) 07/21/22 04:17 INR 1.09 (0.8-1.2) 07/21/22 04:17 Sodium 142 mmol/L (136-145) 07/24/22 04:44 Potassium 3.2 mmol/L (3.5-5.1) L 07/24/22 04:44 Chloride 107 mmol/L (98-107) 07/24/22 04:44 Carbon Dioxide 26 mmol/L (22-29) 07/24/22 04:44 Anion Gap 12.2 (5-19) 07/24/22 04:44 BUN 20 mg/dL (6-20) 07/24/22 04:44 Creatinine 1.6 mg/dL (0.7-1.2) H 07/24/22 04:44 GFR Calculation 44.8 mL/min (90-130) L 07/24/22 04:44 Glucose 103 mg/dL (65-115) 07/24/22 04:44 POC Glucose 169 mg/dL (70-110) H 07/24/22 11:08 Estimat Average Glucose 206 07/22/22 05:20 Hemoglobin A1c 8.8 % (4.0-6.0) H 07/22/22 05:20 Calculated Osmolality 297 mOsm/kg (285-295) H 07/24/22 04:44 Calcium 8.9 mg/dL (8.5-10.5) 07/24/22 04:44 Ionized Calcium [place] 1.1 mmol/L (1.1-1.4) 07/20/22 22:54 Phosphorus 2.5 mg/dL (2.5-4.5) 07/23/22 03:50 Magnesium 2.0 mg/dL (1.7-2.3) 07/23/22 03:50 Iron 18 ug/dL (59-158) L 07/21/22 04:17 TIBC 219 mcg/dl 07/21/22 04:17 % Saturation 8.2 % (20-50) L 07/21/22 04:17 Unsat Iron Binding 201 ug/dL (112-347) 07/21/22 04:17 Total Bilirubin 0.2 mg/dL (0.15-1.2) 07/24/22 04:44 AST 22 U/L (0-40) 07/24/22 04:44 ALT 19 U/L (0-41) 07/24/22 04:44 Alkaline Phosphatase 60 U/L (40-130) 07/24/22 04:44 Troponin T Baseline 28 ng/L (0-15) H 07/20/22 22:54 Troponin T 120 Minute 22.25 ng/L (0-15) H 07/21/22 00:43 Delta Troponin T -5.75 ABS# (0-10) L 07/21/22 00:43 Troponin T Hi Sens 6Hr 23.26 ng/L (0-15) H 07/21/22 04:17 Troponin T Hi Sens 6Hr Delta -4.74 ng/L (0-12) L 07/21/22 04:17 NT-Pro-B Natriuret Pep 139 pg/mL (0-125) H 07/21/22 04:17 NT-Pro-B Natriuret Pep 139 pg/mL (0-125) H 07/21/22 04:17 Total Protein 5.3 g/dL (6.6-8.7) L 07/24/22 04:44 Albumin 2.7 g/dL (3.5-5.2) L 07/24/22 04:44 Globulin 2.6 g/dL (1.3-4.6) 07/24/22 04:44 Triglycerides 134 mg/dL (0-150) 07/22/22 05:20 Cholesterol 114 mg/dL (0-200) 07/22/22 05:20 LDL Cholesterol, Calc 56 mg/dL (50-129) 07/22/22 05:20 Total VLDL Cholesterol 27 mg/dL (0-30) 07/22/22 05:20 HDL Cholesterol 31 mg/dL (60-100) L 07/22/22 05:20 Cholesterol/HDL Ratio 3.68 mg/dL (1.0-5.00) 07/22/22 05:20 Procalcitonin 0.29 ng/mL (0-0.5) 07/21/22 04:17 TSH 1.91 uIU/mL (0.27-4.20) 07/21/22 04:17 PTH Intact 183.1 pg/mL (15-65) H 07/20/22 00:43 Calcium (PTH Intact) 8.3 mg/dL (8.5-10.5) L 07/20/22 00:43 Urine Color Yellow (Yellow) 07/21/22 11:05 Urine Appearance Sl hazy (CLEAR) 07/21/22 11:05 Urine pH 5 (5-7) 07/21/22 11:05 Ur Specific [place] 1.020 (1.005-1.030) 07/21/22 11:05 Urine Protein 1+ (Negative) H 07/21/22 11:05 Urine Glucose (UA) 1+ (Normal) H 07/21/22 11:05 Urine Ketones 1+ (Negative) H 07/21/22 11:05 Urine Blood 3+ (Negative) H 07/21/22 11:05 Urine Nitrate Negative (Negative) 07/21/22 11:05 Urine Bilirubin Neg (Negative) 07/21/22 11:05 Urine Urobilinogen Norm mg/dL (Negative) 07/21/22 11:05 Ur Leukocyte Esterase Negative (Negative) 07/21/22 11:05 Urine RBC 15-25 /hpf (0-2) H 07/21/22 11:05 Urine WBC Rare /hpf (0-5) 07/21/22 11:05 Ur Eosinophil Smear Not Reportable 07/21/22 11:05 Ur Squamous Epith Cells Rare /hpf (0-5) 07/21/22 11:05 Amorphous Sediment Not Reportable 07/21/22 11:05 Urine Bacteria 1+ /hpf (NONE) H 07/21/22 11:05 Urine Mucus 1+ /hpf 07/21/22 11:05 Urine Eosinophils No eosinophils seen 07/21/22 11:05 Ur Random Sodium 11 mmol/L 07/21/22 11:05 Ur Random Potassium 75 mmol/L 07/21/22 11:05 Ur Random Chloride 11 mmol/L 07/21/22 11:05 Urine Creatinine 152 mg/dL (39-259) 07/21/22 11:05 Blood Type A Positive 07/22/22 06:55 Rho(D) Type Positive 07/22/22 06:55 Antibody Screen Negative 07/22/22 06:55 Crossmatch See Detail 07/22/22 06:55 Vitals Last Vital Signs Temp 98.4 F 07/24/22 11:45 Pulse 86 07/24/22 11:45 Resp 18 07/24/22 12:26 BP 163/99 07/24/22 11:45 Pulse Ox 100 07/24/22 11:45 O2 Del Method 07/24/22 11:45 O2 Flow Rate 2 07/24/22 02:20 Discharge Plan Discharge Patient Disposition: Home Health Service Condition: Stable Prescriptions: New acetaminophen 500 mg Tablet 1,000 mg PO Q8H 14 Days Qty: 84 0RF gabapentin 300 mg Capsule 300 mg PO BID 7 Days Qty: 14 0RF oxycodone 5 mg Tablet 5 mg PO Q4H PRN (Reason: Moderate Pain) 7 Days Qty: 40 0RF Continued Lantus U-100 Insulin 100 unit/mL solution 100 unit SUBCUT BID atorvastatin 40 mg tablet 40 mg PO BEDTIME allopurinol 300 mg tablet 300 mg PO DAILY omeprazole 40 mg capsule,delayed release(DR/EC) 40 mg PO DAILY amlodipine 10 mg tablet 10 mg PO DAILY levetiracetam [Keppra] 500 mg tablet 1,000 mg PO BID zonisamide [Zonegran] 100 mg capsule 200 mg PO BEDTIME Eliquis 5 mg tablet 5 mg PO BID montelukast [Singulair] 10 mg tablet 10 mg PO DAILY Qty: 90 2RF spironolactone 25 mg tablet 50 mg PO DAILY hydrocodone-acetaminophen 5-325 mg tablet 1 tab PO Q4H PRN (Reason: pain) 7 Days Qty: 30 0RF diphenhydramine HCl [Benadryl] 25 mg Capsule 25 mg PO DAILY calcium carbonate-vitamin D2 600 mg calcium- 200 unit Tablet 1 tab PO DAILY One-A-Day Men's 50 Plus 400-20-370 mcg Tablet 1 tab PO DAILY aspirin 325 mg Tablet 325 mg PO DAILY albuterol sulfate 90 mcg/actuation HFA aerosol inhaler 2 puff INHALATION Q4H PRN (Reason: Shortness Of Breath) duloxetine 30 mg capsule,delayed release(DR/EC) 30 mg PO DAILY divalproex [Depakote] 500 mg tablet,delayed release (DR/EC) 1,500 mg PO BEDTIME Humalog KwikPen Insulin 200 unit/mL (3 mL) insulin pen 25 unit SUBCUT TID Discharge Orders: Discharge Order (Routine); Ordered 07/24/22 Ordered By: Nirmal Lanza Referrals: [facility] [Provider Group] - 08/09/22 [facility] ([facility]) [Outside] Giovanni Braga FNP [Physician Thread Grinder] - 07/27/22 10:30 am Discharge Diet: Advance as tolerated Discharge Activity: Limit activity as instructed Patient Instructions: Oxycodone/Acetaminophen (By mouth), Gabapentin (By mouth), Knee Replacement (GEN), Joint Replacement Stoplight, Opioid Safety Activity Restrictions/Additional Instructions: vancomycin trough twice a week. Call Dr. Veronica with results Okay to shower once incision free of drainage Apply FirstIce up to 20 min/hr for pain and swelling Take Neurontin twice a day for 7 days. Take Tylenol 500mg (2 tabs) as needed 3 times a day for mild pain take oxycodone for breakthrough pain. Exercises per physical therapy. May weight-bear as tolerated on total knee arthroplasty IF HAVE ANY PROBLEMS OR QUESTIONS CALL [facility] AND ASK TO HAVE DR. DENISHA LU. 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
[2022-07-24] MEDS: potassium chloride ER 20 mEq Tablet 40 MEQ PO (15:58)
[2022-07-24 17:01] LABS: Glucose Point of Care 329 mg/dL (70-110)
== END 2022-07-24 19:20 | disposition home health service (06) | DRG 467 ==
LOC: ICU 07-21 04:09 → MEDSURG 07-21 07:06 → ICU 07-23 12:18 → MEDSURG 07-23 21:17
PROVIDERS: Anesthesiology; Family Medicine; Student in an Organized Health Care Education/Training Program; Admitting Provider Orthopaedic Surgery; PCP Internal Medicine; Visit Provider Orthopaedic Surgery
PROC: 0SPD0JZ Removal of Synthetic Substitute from Left Knee Joint, Open Approach (ICD-10-PCS; principal; 2022-07-20 12:00)
DX: T84.54XA Infection and inflammatory reaction due to internal left knee prosthesis, initial encounter (principal); C91.10 Chronic lymphocytic leukemia of B-cell type not having achieved remission; M00.062 Staphylococcal arthritis, left knee; D62 Acute posthemorrhagic anemia; B95.8 Unspecified staphylococcus as the cause of diseases classified elsewhere; Y79.8 Miscellaneous orthopedic devices associated with adverse incidents, not elsewhere classified; Z86.16 Personal history of COVID-19; M54.2 Cervicalgia; E11.22 Type 2 diabetes mellitus with diabetic chronic kidney disease; I12.9 Hypertensive chronic kidney disease with stage 1 through stage 4 chronic kidney disease, or unspecified chronic kidney disease; N18.9 Chronic kidney disease, unspecified; Z86.718 Personal history of other venous thrombosis and embolism; Z79.51 Long term (current) use of inhaled steroids; Z79.891 Long term (current) use of opiate analgesic; Z79.01 Long term (current) use of anticoagulants; Z79.4 Long term (current) use of insulin; D63.1 Anemia in chronic kidney disease; R20.0 Anesthesia of skin; E87.5 Hyperkalemia; E78.5 Hyperlipidemia, unspecified; K21.9 Gastro-esophageal reflux disease without esophagitis; G40.909 Epilepsy, unspecified, not intractable, without status epilepticus
CPT/HCPCS: 36415; 36416; 36430; 51702; 70450; 72125; 73560; 73562; 80048; 80053; 80061; 81001; 82310; 82330; 82436; 82570; 82962; 83036; 83540; 83550; 83605; 83735; 83880; 83970; 84100; 84133; 84145; 84300; 84443; 84484; 85025; 85610; 85651; 85730; 85999; 86140; 86850; 86900; 86920; 87040; 87070; 87075; 87077; 87086; 87176; 87186; 87205; 87641; 93005; 93880; 96372; 97110; 97116; 97161; 97165; 97530; C1776; C8929; J0696; J1100; J1170; J1580; J1815; J2250; J2270; J2405; J2704; J2710; J3010; J3260; J3370; J3475; J3490; J7030; J7040; J7050; P9016; Q9956

== ENCOUNTER 2022-07-25 | Outpatient (CLI) | payer MEDICARE, SELFPAY ==
[2022-07-25 18:30] LABS: Vancomycin Trough 16.4 ug/mL (10-15)
== END 2022-07-25 23:00 | disposition home or self-care (01) ==
LOC: LAB 09-24 08:48
PROVIDERS: PCP Internal Medicine; Visit Provider Student in an Organized Health Care Education/Training Program
DX: T84.54XA Infection and inflammatory reaction due to internal left knee prosthesis, initial encounter (principal)
CPT/HCPCS: 80202

== ENCOUNTER → 2022-07-27 08:00 | Outpatient (BNVA) | payer MEDICARE, SELFPAY | PROVIDERS: PCP Internal Medicine; Visit Provider Nurse Practitioner Family | DX: T84.54XA Infection and inflammatory reaction due to internal left knee prosthesis, initial encounter (principal); Y79.2 Prosthetic and other implants, materials and accessory orthopedic devices associated with adverse incidents | CPT/HCPCS: 99024 ==

== ENCOUNTER 2022-07-27 12:31 | Outpatient (CLI) | payer MEDICARE, SELFPAY | END 2022-07-27 12:32 | disposition home or self-care (01) | LOC: SPT 12:36 | PROVIDERS: PCP Internal Medicine; Visit Provider Orthopaedic Surgery | DX: T84.54XA Infection and inflammatory reaction due to internal left knee prosthesis, initial encounter (principal); Y83.8 Other surgical procedures as the cause of abnormal reaction of the patient, or of later complication, without mention of misadventure at the time of the procedure | CPT/HCPCS: 97760; L1830 ==

== ENCOUNTER 2022-07-31 18:49 | Outpatient (CLI) | payer MEDICARE, SELFPAY ==
[2022-07-31 19:23] LABS: Basophils % 0.4 %; Eosinophils # 0.4 10^3/uL (0.0-0.8); Eosinophils % 4.8 %; Hematocrit 30.1 % (42.0-52.0); Hemoglobin 9.4 g/dL (11.7-16.6); Lymphocytes # 1.7 10^3/uL (0.8-4.8); Mean Corpuscular HGB Conc 31.2 g/dL (30.0-36.0); Mean Corpuscular Hemoglobin 28.2 pg (28.0-34.0); Mean Corpuscular Volume 90.4 fl (80-94); Mean Platelet Volume 11.2 fL (7.4-10.4); Monocytes # 0.8 10^3/uL (0.2-0.9); Monocytes % 10.3 %; Neutrophils # 4.59 10^3/uL (1.8-7.7); Neutrophils % 61.2 %; Nucleated Red Blood Cells % 0.3 %; Platelet Count 163 10^3/cmm (130-400); Red Blood Count 3.33 10^6/uL (4.1-5.3); Red Cell Distribution Width 16.5 % (12.1-15.1); White Blood Count 7.5 10^3/uL (4.0-10.0)
[2022-07-31 19:54] LABS: Glomerular Filtration Rate 41.8 mL/min (90-130); Total Bilirubin 0.2 mg/dL (0.15-1.2)
[2022-07-31 19:55] LABS: Alanine Aminotransferase 34 U/L (0-41); Albumin Level 3.5 g/dL (3.5-5.2); Alkaline Phosphatase 90 U/L (40-130); Aspartate Amino Transferase 40 U/L (0-40); Globulin 2.7 g/dL (1.3-4.6); Total Protein 6.2 g/dL (6.6-8.7); Vancomycin Trough 14.8 ug/mL (10-15)
== END 2022-07-31 18:50 | disposition home or self-care (01) ==
LOC: LAB 18:53
PROVIDERS: PCP Internal Medicine; Visit Provider Student in an Organized Health Care Education/Training Program
DX: T84.54XA Infection and inflammatory reaction due to internal left knee prosthesis, initial encounter (principal)
CPT/HCPCS: 80076; 80202; 82565; 85025

== ENCOUNTER → 2022-08-01 13:08 | Outpatient (BNVA) | payer MEDICARE, SELFPAY | PROVIDERS: PCP Internal Medicine; Visit Provider Nurse Practitioner Family | DX: Z98.890 Other specified postprocedural states (principal); Y79.2 Prosthetic and other implants, materials and accessory orthopedic devices associated with adverse incidents; T84.54XA Infection and inflammatory reaction due to internal left knee prosthesis, initial encounter | CPT/HCPCS: 99024 ==

== ENCOUNTER 2022-08-06 06:00 | Outpatient (CLI) | payer MEDICARE, SELFPAY ==
[2022-08-06 18:42] LABS: Basophils % 0.5 %; Eosinophils # 0.4 10^3/uL (0.0-0.8); Eosinophils % 6.8 %; Hematocrit 31.5 % (42.0-52.0); Hemoglobin 9.6 g/dL (11.7-16.6); Lymphocytes # 1.6 10^3/uL (0.8-4.8); Lymphocytes % 24.7 %; Mean Corpuscular HGB Conc 30.5 g/dL (30.0-36.0); Mean Corpuscular Hemoglobin 27.7 pg (28.0-34.0); Mean Corpuscular Volume 90.8 fl (80-94); Monocytes # 0.7 10^3/uL (0.2-0.9); Monocytes % 10.2 %; Neutrophils # 3.68 10^3/uL (1.8-7.7); Neutrophils % 57.2 %; Nucleated Red Blood Cells % 0 %; Platelet Count 185 10^3/cmm (130-400); Red Blood Count 3.47 10^6/uL (4.1-5.3); Red Cell Distribution Width 16.3 % (12.1-15.1); White Blood Count 6.4 10^3/uL (4.0-10.0)
[2022-08-06 19:07] LABS: Alanine Aminotransferase 29 U/L (0-41); Albumin Level 3.6 g/dL (3.5-5.2); Alkaline Phosphatase 112 U/L (40-130); Aspartate Amino Transferase 30 U/L (0-40); Globulin 2.7 g/dL (1.3-4.6); Glomerular Filtration Rate 44.8 mL/min (90-130); Total Bilirubin 0.2 mg/dL (0.15-1.2); Total Protein 6.3 g/dL (6.6-8.7)
[2022-08-06 19:08] LABS: Vancomycin Trough 15.1 ug/mL (10-15)
== END 2022-08-06 06:01 | disposition home or self-care (01) ==
LOC: LAB 08-07 10:39
PROVIDERS: Internal Medicine Medical Oncology; PCP Internal Medicine; Visit Provider Student in an Organized Health Care Education/Training Program
DX: T84.54XA Infection and inflammatory reaction due to internal left knee prosthesis, initial encounter (principal)
CPT/HCPCS: 80076; 80202; 82565; 85025

== ENCOUNTER → 2022-08-07 13:16 | Outpatient (BNVA) | payer MEDICARE, SELFPAY | PROVIDERS: PCP Internal Medicine; Visit Provider Nurse Practitioner Family | DX: T84.54XA Infection and inflammatory reaction due to internal left knee prosthesis, initial encounter (principal); Y79.2 Prosthetic and other implants, materials and accessory orthopedic devices associated with adverse incidents | CPT/HCPCS: 99024; 99213 ==

== ENCOUNTER 2022-08-09 | Outpatient (CLI) | payer MEDICARE, SELFPAY ==
[2022-08-09 18:50] LABS: Basophils % 0.4 %; Eosinophils # 0.4 10^3/uL (0.0-0.8); Eosinophils % 6.7 %; Hematocrit 31.2 % (42.0-52.0); Hemoglobin 9.8 g/dL (11.7-16.6); Lymphocytes # 1.5 10^3/uL (0.8-4.8); Lymphocytes % 27.3 %; Mean Corpuscular HGB Conc 31.4 g/dL (30.0-36.0); Mean Corpuscular Hemoglobin 27.9 pg (28.0-34.0); Mean Corpuscular Volume 88.9 fl (80-94); Mean Platelet Volume 11.1 fL (7.4-10.4); Monocytes # 0.6 10^3/uL (0.2-0.9); Monocytes % 11.5 %; Neutrophils # 2.88 10^3/uL (1.8-7.7); Neutrophils % 53.5 %; Nucleated Red Blood Cells % 0 %; Platelet Count 158 10^3/cmm (130-400); Red Blood Count 3.51 10^6/uL (4.1-5.3); Red Cell Distribution Width 16.3 % (12.1-15.1); White Blood Count 5.4 10^3/uL (4.0-10.0)
[2022-08-09 19:18] LABS: Alanine Aminotransferase 26 U/L (0-41); Albumin Level 3.7 g/dL (3.5-5.2); Alkaline Phosphatase 123 U/L (40-130); Aspartate Amino Transferase 26 U/L (0-40); Globulin 2.7 g/dL (1.3-4.6); Glomerular Filtration Rate 48.2 mL/min (90-130); Total Bilirubin 0.2 mg/dL (0.15-1.2); Total Protein 6.4 g/dL (6.6-8.7); Vancomycin Trough 17.9 ug/mL (10-15)
== END 2022-08-09 23:00 | disposition home or self-care (01) ==
LOC: LAB 09-23 22:08
PROVIDERS: PCP Internal Medicine; Visit Provider Student in an Organized Health Care Education/Training Program
DX: T84.54XA Infection and inflammatory reaction due to internal left knee prosthesis, initial encounter (principal); C91.10 Chronic lymphocytic leukemia of B-cell type not having achieved remission; X58.XXXA Exposure to other specified factors, initial encounter
CPT/HCPCS: 80076; 80202; 82565; 85025; 99203; 99205

== ENCOUNTER 2022-08-13 18:39 | Outpatient (CLI) | payer MEDICARE, SELFPAY ==
[2022-08-13 18:58] LABS: Basophils % 0.4 %; Eosinophils # 0.4 10^3/uL (0.0-0.8); Eosinophils % 7.3 %; Hematocrit 32.9 % (42.0-52.0); Hemoglobin 10.5 g/dL (11.7-16.6); Lymphocytes # 1.1 10^3/uL (0.8-4.8); Mean Corpuscular HGB Conc 31.9 g/dL (30.0-36.0); Mean Corpuscular Hemoglobin 28.1 pg (28.0-34.0); Mean Platelet Volume 10.7 fL (7.4-10.4); Monocytes # 0.6 10^3/uL (0.2-0.9); Monocytes % 10.5 %; Neutrophils # 3.15 10^3/uL (1.8-7.7); Neutrophils % 60.2 %; Nucleated Red Blood Cells % 0 %; Platelet Count 170 10^3/cmm (130-400); Red Blood Count 3.74 10^6/uL (4.1-5.3); Red Cell Distribution Width 16.9 % (12.1-15.1); White Blood Count 5.2 10^3/uL (4.0-10.0)
[2022-08-13 19:48] LABS: Alanine Aminotransferase 30 U/L (0-41); Albumin Level 3.6 g/dL (3.5-5.2); Alkaline Phosphatase 121 U/L (40-130); Aspartate Amino Transferase 37 U/L (0-40); C Reactive Protein 3.3 mg/L (0.0-4.9); Globulin 2.9 g/dL (1.3-4.6); Glomerular Filtration Rate 44.8 mL/min (90-130); Total Bilirubin 0.2 mg/dL (0.15-1.2); Total Protein 6.5 g/dL (6.6-8.7)
[2022-08-13 19:49] LABS: Vancomycin Random 14.1 ug/mL (20.0-40.0)
== END 2022-08-13 18:40 | disposition home or self-care (01) ==
PROVIDERS: PCP Internal Medicine; Visit Provider Student in an Organized Health Care Education/Training Program
DX: T84.54XA Infection and inflammatory reaction due to internal left knee prosthesis, initial encounter (principal)
CPT/HCPCS: 80076; 80202; 82565; 85025; 86140

== ENCOUNTER → 2022-08-14 15:10 | Outpatient (BNVA) | payer MEDICARE, SELFPAY | PROVIDERS: PCP Internal Medicine; Visit Provider Nurse Practitioner Family | DX: M25.562 Pain in left knee (principal); Y79.2 Prosthetic and other implants, materials and accessory orthopedic devices associated with adverse incidents; T84.54XA Infection and inflammatory reaction due to internal left knee prosthesis, initial encounter | CPT/HCPCS: 99213 ==

== ENCOUNTER 2022-08-16 14:30 | Oncology outpatient (recurring) (ONCR) | payer MEDICARE, SELFPAY ==
[2022-08-14] MEDS: alteplase 1 mg/mL SDV 2 mL 2 MG INTRACATH (14:41)
[2022-08-14 15:02] VITALS: BP 147/92; PULSE 96; RESP 18; TEMP 36.6; O2SAT 96
[2022-08-14 15:09] LABS: Basophils % 0.3 %; Eosinophils # 0.5 10^3/uL (0.0-0.8); Eosinophils % 7.9 %; Hematocrit 32.8 % (42.0-52.0); Hemoglobin 10.3 g/dL (11.7-16.6); Lymphocytes # 1.5 10^3/uL (0.8-4.8); Lymphocytes % 25.2 %; Mean Corpuscular HGB Conc 31.4 g/dL (30.0-36.0); Mean Corpuscular Hemoglobin 28.1 pg (28.0-34.0); Mean Corpuscular Volume 89.4 fl (80-94); Mean Platelet Volume 10.7 fL (7.4-10.4); Monocytes # 0.6 10^3/uL (0.2-0.9); Monocytes % 9.9 %; Neutrophils # 3.26 10^3/uL (1.8-7.7); Nucleated Red Blood Cells % 0 %; Platelet Count 170 10^3/cmm (130-400); Red Blood Count 3.67 10^6/uL (4.1-5.3); White Blood Count 5.8 10^3/uL (4.0-10.0)
[2022-08-14 15:36] LABS: Alanine Aminotransferase 30 U/L (0-41); Albumin Level 3.8 g/dL (3.5-5.2); Alkaline Phosphatase 123 U/L (40-130); Anion Gap 14.4 (5-19); Aspartate Amino Transferase 34 U/L (0-40); Blood Urea Nitrogen 23 mg/dL (6-20); Calcium 9.6 mg/dL (8.5-10.5); Carbon Dioxide 24 mmol/L (22-29); Chloride 104 mmol/L (98-107); Glomerular Filtration Rate 44.8 mL/min (90-130); Glucose 170 mg/dL (65-115); Iron 65 ug/dL (59-158); Lactate Dehydrogenase 202 U/L (135-225); Osmolality Calculated 294 mOsm/kg (285-295); Percent Saturation 19.1 % (20-50); Potassium 4.4 mmol/L (3.5-5.1); Sodium 138 mmol/L (136-145); Total Bilirubin 0.2 mg/dL (0.15-1.2); Total Iron Binding Capacity 339 mcg/dl; Total Protein 6.8 g/dL (6.6-8.7); Unsaturated Iron Binding 274 ug/dL (112-347)
[2022-08-16] MEDS: sodium chloride 0.9% 250 ML 75 ML IV (15:11)
[2022-08-16] MEDS: ferric carboxy (IVPB) 750 MG in sodium chloride 0.9% (100 ml) 100 ML 345 MG IV (15:12)
== END 2022-08-24 23:59 | disposition home or self-care (01) ==
PROVIDERS: PCP Internal Medicine; Visit Provider Internal Medicine Medical Oncology
DX: Z08 Encounter for follow-up examination after completed treatment for malignant neoplasm; Z85.6 Personal history of leukemia; L03.116 Cellulitis of left lower limb; Z79.2 Long term (current) use of antibiotics; Z96.652 Presence of left artificial knee joint; D50.9 Iron deficiency anemia, unspecified; Z79.899 Other long term (current) drug therapy; Z92.25 Personal history of immunosuppression therapy
CPT/HCPCS: 36591; 80053; 83540; 83550; 83615; 85025; 96365; 99213; 99214; J1439; J2997; J7050

== ENCOUNTER 2022-08-17 18:13 | Outpatient (CLI) | payer MEDICARE, SELFPAY ==
[2022-08-17 18:24] LABS: Basophils % 0.3 %; Eosinophils # 0.4 10^3/uL (0.0-0.8); Eosinophils % 6.2 %; Hematocrit 31.4 % (42.0-52.0); Hemoglobin 9.8 g/dL (11.7-16.6); Lymphocytes # 1.3 10^3/uL (0.8-4.8); Lymphocytes % 18.5 %; Mean Corpuscular HGB Conc 31.2 g/dL (30.0-36.0); Mean Corpuscular Hemoglobin 27.8 pg (28.0-34.0); Mean Platelet Volume 11.3 fL (7.4-10.4); Monocytes # 0.7 10^3/uL (0.2-0.9); Monocytes % 9.6 %; Neutrophils # 4.49 10^3/uL (1.8-7.7); Neutrophils % 64.4 %; Nucleated Red Blood Cells % 0 %; Platelet Count 171 10^3/cmm (130-400); Red Blood Count 3.53 10^6/uL (4.1-5.3); Red Cell Distribution Width 17.2 % (12.1-15.1)
[2022-08-17 18:46] LABS: Alanine Aminotransferase 25 U/L (0-41); Albumin Level 3.9 g/dL (3.5-5.2); Alkaline Phosphatase 114 U/L (40-130); Aspartate Amino Transferase 26 U/L (0-40); C Reactive Protein 4.7 mg/L (0.0-4.9); Globulin 2.4 g/dL (1.3-4.6); Glomerular Filtration Rate 44.8 mL/min (90-130); Total Bilirubin 0.2 mg/dL (0.15-1.2); Total Protein 6.3 g/dL (6.6-8.7)
[2022-08-20 09:31] LABS: Vancomycin Trough 24.6 ug/mL (10-15)
== END 2022-08-17 18:14 | disposition home or self-care (01) ==
PROVIDERS: PCP Internal Medicine; Visit Provider Student in an Organized Health Care Education/Training Program
DX: T84.54XA Infection and inflammatory reaction due to internal left knee prosthesis, initial encounter (principal)
CPT/HCPCS: 80076; 80202; 82565; 85025; 86140

== ENCOUNTER 2022-08-21 09:19 | Outpatient (CLI) | payer MEDICARE, SELFPAY ==
[2022-08-21 09:34] LABS: Basophils # 0.1 10^3/uL (0.0-0.1); Basophils % 0.6 %; Eosinophils # 0.4 10^3/uL (0.0-0.8); Eosinophils % 4.7 %; Hematocrit 31.2 % (42.0-52.0); Hemoglobin 9.9 g/dL (11.7-16.6); Lymphocytes # 1.4 10^3/uL (0.8-4.8); Mean Corpuscular HGB Conc 31.7 g/dL (30.0-36.0); Mean Corpuscular Hemoglobin 28.4 pg (28.0-34.0); Mean Corpuscular Volume 89.4 fl (80-94); Mean Platelet Volume 10.9 fL (7.4-10.4); Monocytes % 10.9 %; Neutrophils # 6.13 10^3/uL (1.8-7.7); Neutrophils % 67.4 %; Nucleated Red Blood Cells % 0 %; Platelet Count 173 10^3/cmm (130-400); Red Blood Count 3.49 10^6/uL (4.1-5.3); Red Cell Distribution Width 17.2 % (12.1-15.1); White Blood Count 9.1 10^3/uL (4.0-10.0)
[2022-08-21 09:52] LABS: Alanine Aminotransferase 30 U/L (0-41); Albumin Level 3.7 g/dL (3.5-5.2); Alkaline Phosphatase 113 U/L (40-130); Aspartate Amino Transferase 31 U/L (0-40); C Reactive Protein 6.3 mg/L (0.0-4.9); Globulin 2.8 g/dL (1.3-4.6); Glomerular Filtration Rate 44.8 mL/min (90-130); Total Bilirubin 0.2 mg/dL (0.15-1.2); Total Protein 6.5 g/dL (6.6-8.7)
== END 2022-08-21 09:20 | disposition home or self-care (01) ==
LOC: LAB 09:21
PROVIDERS: PCP Internal Medicine; Visit Provider Student in an Organized Health Care Education/Training Program
DX: T84.54XA Infection and inflammatory reaction due to internal left knee prosthesis, initial encounter (principal)
CPT/HCPCS: 80076; 80202; 82565; 85025; 86140

== ENCOUNTER 2022-08-22 17:12 | Emergency (ER) | payer MEDICARE, SELFPAY ==
[2022-08-22 17:55] VITALS: BP 151/86; PULSE 108; RESP 14; TEMP 36.8; O2SAT 96; BMI 45.9
--- NOTE | 2022-08-22 18:09 | CTR_ITS ---
PROCEDURE INFORMATION: Exam: CT Abdomen And Pelvis Without Contrast Exam date and time: 08/22/2022 6:17 PM Age: 57 years old Clinical indication: Abdominal pain; Generalized; Additional info: Abd pain TECHNIQUE: Imaging protocol: Computed tomography of the abdomen and pelvis without contrast. Sagittal and coronal reformatted images were created and reviewed. Radiation optimization: All CT scans at this facility use at least one of these dose optimization techniques: automated exposure control; mA and/or kV adjustment per patient size (includes targeted exams where dose is matched to clinical indication); or iterative reconstruction. COMPARISON: CT chest abd pel w con* 07/27/2021 2:07 PM RADIATION DOSE METRICS: Total DLP (mGy-cm): 1543.23 FINDINGS: Limitations: Evaluation of solid organs and vasculature is limited without intravenous contrast. Lungs: Calcified granulomas in the left lower lobe. Visualized lungs are clear. Pleural spaces: No pleural effusion. Heart: Visualized portions of the heart are unremarkable. Liver: Diffuse, mildly decreased attenuation in the liver. Findings are stable and consistent with mild fatty infiltration. Gallbladder and bile ducts: The gallbladder is unremarkable. No biliary ductal dilatation. Pancreas: There is a new ill-defined soft tissue density in the head and uncinate process of the pancreas measuring 4.1 x 4.4 x 5.0 cm (series 6, image 45 and series 3, image 39). A new pancreatic mass cannot be ruled out. No pancreatic ductal dilatation. No pancreatic atrophy. Spleen: The spleen is unremarkable. Adrenal glands: The right and left adrenal glands are unremarkable. Kidneys and ureters: The right and left kidneys are unremarkable. The right and left ureters are unremarkable. Stomach and bowel: No obstruction. No mucosal thickening. Appendix: The appendix is visualized and is unremarkable. No findings to suggest acute appendicitis. Intraperitoneal space: No free intraperitoneal air. No ascites. No loculated fluid collections to suggest an abscess. Vasculature: Stable mild atherosclerotic calcifications in the visualized arteries. No evidence for aortic aneurysm. Lymph nodes: No lymphadenopathy. Urinary bladder: Unremarkable as visualized. Reproductive: Stable nonspecific parenchymal calcifications in the prostate gland. Bones/joints: Degenerative changes in the spine, sacroiliac joints, and hips. Moderate spinal canal stenosis at L3-L4 through L5-S1. Mild spinal canal stenosis at L1-L2 and L2-L3. Multilevel foraminal stenosis of varying severity in the visualized spine. Osseous findings are stable. No lytic or sclerotic bony lesions. Soft tissues: No acute abnormality in the extra-abdominal soft tissues. CT/CT abdomen pelvis wo con [id number] IMPRESSION: 1. There is a new ill-defined soft tissue density in the head and uncinate process of the pancreas. A new pancreatic mass cannot be ruled out. Recommend clinical correlation. Also recommend further evaluation with contrasted CT scan of the abdomen using pancreas protocol, MRI of the pancreas, or endoscopic ultrasound on a nonemergent basis in this has not previously been evaluated. 2. Stable mild fatty infiltration of the liver. 3. Incidental/nonacute findings are listed in the report.
--- NOTE | 2022-08-22 18:15 | W.ED.FEVER ---
HPI - Fever General: Chief Complaint: Fever Stated Complaint: abd pain, low fever Time Seen by Provider: 08/22/22 18:01 Source: patient Mode of arrival: ambulatory Limitations: no limitations History of Present Illness: 57-year-old male with a history of infected left knee prosthesis he had it removed a month ago he has been on IV antibiotics Rocephin and vancomycin at home did stop his Rocephin little over a week ago did stop his vancomycin 5 to 6 days ago and has been following his vancomycin troughs. He states that today he had a fever of 101 along with abdominal pain. States that the sharp pain diffuse abdomen denies any pain in his knees no redness no swelling denies any cough or vomiting or diarrhea. Patient is afebrile here Associated symptoms: Reports abdominal pain; Deny chest pain, dysuria or headache(s) Review of Systems Const: Reports: fever(s) Eyes: Denies: blurry vision or eye discomfort ENMT: Denies: throat pain or dental pain Card: Denies: chest pain Resp: Denies: dyspnea GI: Reports: abdominal pain : Denies: dysuria Musc: Denies: neck pain or back pain Skin/Breast: Denies: rash Neuro: Denies: headache(s) Psych: Denies: depression Ej/Lymph: Denies: easy bruising All/Imm: Denies: urticaria PFSH ED PFSH: Medical History Acute embolism and thrombosis of left femoral vein Chronic kidney disease Chronic lymphocytic leukemia Degenerative arthritis Degenerative arthritis of spine Diabetes mellitus, type II Epilepsy In August 2018 he had presented with new onset of epilepsy, presumed idiopathic GERD (gastroesophageal reflux disease) Hyperlipidemia Hypertension Iron deficiency anemia In March 2018 he required treatment for iron deficiency anemia Surgical History History of knee surgery Left knee implant removed and spacer placed until infection gone. History of left knee replacement S/P total knee arthroplasty (~05/2019) Family History Mother Cancer Lung Unknown Cancer Aunt - Leukemia, AML Brother Diabetes Hypertension Sister Hypertension Denies family history of CAD (coronary artery disease) Clotting disorder Dementia Hyperlipidemia Psychiatric illness Chronic kidney disease (CKD) Suicide Anesthesia complication Bleeding disorder Lung disease Stroke Social History Smoking and tobacco status: never smoked Alcohol intake: current Alcohol intake frequency: holidays/special occasions only Physical Exam Const: COMMON NORMALS: no acute distress, patient oriented x3 and healthy appearing HENMT: COMMON NORMALS: normocephalic and atraumatic HEAD & SCALP: normocephalic and atraumatic Eye: COMMON NORMALS: Equal, round and reactive pupils present and EOMs intact bilaterally PUPIL: Yes Equal, round and reactive pupils present Neck/C-Spine: COMMON NORMALS: full ROM and supple Chest: COMMONS NORMALS: normal inspection of the chest and normal palpation of entire chest wall Resp: COMMON NORMALS: normal respiratory effort, No retractions, No use of accessory muscles and clear to auscultation bilaterally AUSCULTATION: clear to auscultation bilaterally Cardio: COMMON NORMALS: regular rate, regular rhythm and No murmurs present (Cardio) RATE: regular rate RHYTHM: regular rhythm GI: COMMON NORMALS: Normal to inspection, nondistended, normoactive bowel sounds present, Soft to palpation, non-tender and no masses PALPATION: Yes Soft to palpation Extremity: COMMON NORMALS: normal to inspection and full ROM Neuro: COMMON NORMALS: patient oriented x3, moves all extremities and no focal motor deficits Psych: COMMON NORMALS: mental status grossly normal, Normal thought process present and cooperative THOUGHT PROCESS: Normal thought process present Skin: COMMON NORMALS: no rashes or lesions noted and no wounds GENERAL SKIN EXAM: no rashes or lesions noted Course Vital Signs: Vital signs: Vital Signs Temperature 98.3 F 08/22/22 17:55 Pulse Rate 103 H 08/22/22 18:26 Respiratory Rate 18 08/22/22 18:26 Blood Pressure 156/86 08/22/22 18:26 Pulse Oximetry 97 08/22/22 18:26 Oxygen Delivery Me thod 08/22/22 18:26 MDM - Fever Medical Decision Making Patient presents here with a fever he is well-appearing here his knee is well-appearing he has no signs of infection in that knee ports well-appearing as well I did speak to Dr. Veronica will get for blood cultures to from his port along with 2 from peripheral he feels improved I feel he stable for discharge he is to follow-up with Dr. Veronica and if he has another fever he is to return to the ER he understands agrees to plan. Lab Data : 08/22/22 18:34 08/22/22 18:34 Radiology Impressions Abdomen/Pelvis CT 08/22/22 18:09 IMPRESSION: 1. There is a new ill-defined soft tissue density in the head and uncinate process of the pancreas. A new pancreatic mass cannot be ruled out. Recommend clinical correlation. Also recommend further evaluation with contrasted CT scan of the abdomen using pancreas protocol, MRI of the pancreas, or endoscopic ultrasound on a nonemergent basis in this has not previously been evaluated. 2. Stable mild fatty infiltration of the liver. 3. Incidental/nonacute findings are listed in the report. ADDENDUM: 08/22/22 193 Urgent results were discussed with JOSEP Son on 08/22/2022 at 7:29 PM CDT. Laboratory Results WBC 14.3 10^3/uL (4.0-10.0) H 08/22/22 18:34 RBC 3.41 10^6/uL (4.1-5.3) L 08/22/22 18:34 Hgb 9.7 g/dL (11.7-16.6) L 08/22/22 18:34 Hct 31.8 % (42.0-52.0) L 08/22/22 18:34 MCV 93.3 fl (80-94) 08/22/22 18:34 MCH 28.4 pg (28.0-34.0) 08/22/22 18:34 MCHC 30.5 g/dL (30.0-36.0) 08/22/22 18:34 RDW 18.0 % (12.1-15.1) H 08/22/22 18:34 Plt Count 169 10^3/cmm (130-400) 08/22/22 18:34 MPV 11.0 fL (7.4-10.4) H 08/22/22 18:34 Neut % (Auto) 79.2 % 08/22/22 18:34 Lymph % (Auto) 11.4 % 08/22/22 18:34 [place] % (Auto) 7.0 % 08/22/22 18:34 Eos % (Auto) 1.4 % 08/22/22 18:34 Baso % (Auto) 0.2 % 08/22/22 18:34 Neut # (Auto) 11.34 10^3/uL (1.8-7.7) H 08/22/22 18:34 Lymph # (Auto) 1.6 10^3/uL (0.8-4.8) 08/22/22 18:34 [place] # (Auto) 1.0 10^3/uL (0.2-0.9) H 08/22/22 18:34 Eos # (Auto) 0.2 10^3/uL (0.0-0.8) 08/22/22 18:34 Baso # (Auto) 0.0 10^3/uL (0.0-0.1) 08/22/22 18:34 Nucleated RBC % (auto) 0 % 08/22/22 18:34 Nucleated RBCs # 0.0 /100WBC 08/22/22 18:34 Sodium 133 mmol/L (136-145) L 08/22/22 18:34 Potassium 4.4 mmol/L (3.5-5.1) 08/22/22 18:34 Chloride 100 mmol/L (98-107) 08/22/22 18:34 Carbon Dioxide 21 mmol/L (22-29) L 08/22/22 18:34 Anion Gap 16.4 (5-19) 08/22/22 18:34 BUN 24 mg/dL (6-20) H 08/22/22 18:34 Creatinine 1.8 mg/dL (0.7-1.2) H 08/22/22 18:34 GFR Calculation 39.1 mL/min (90-130) L 08/22/22 18:34 Glucose 208 mg/dL (65-115) H 08/22/22 18:34 Calculated Osmolality 286 mOsm/kg (285-295) 08/22/22 18:34 Calcium 9.1 mg/dL (8.5-10.5) 08/22/22 18:34 Total Bilirubin 0.2 mg/dL (0.15-1.2) 08/22/22 18:34 AST 21 U/L (0-40) 08/22/22 18:34 ALT 27 U/L (0-41) 08/22/22 18:34 Alkaline Phosphatase 107 U/L (40-130) 08/22/22 18:34 Total Protein 6.5 g/dL (6.6-8.7) L 08/22/22 18:34 Albumin 3.4 g/dL (3.5-5.2) L 08/22/22 18:34 Globulin 3.1 g/dL (1.3-4.6) 08/22/22 18:34 Lipase 92 U/L (13-60) H 08/22/22 18:34 Vancomycin Trough 12.5 ug/mL (10-15) 08/22/22 18:34 SARS-CoV-2 Ag (Rapid) Negative (Negative) 08/22/22 18:34 Discharge Plan Discharge Patient Disposition: Home Clinical Impression: Fever of unknown origin Condition: Stable Prescriptions: New ondansetron 4 mg tablet,disintegrating 4 mg PO Q6H PRN (Reason: nausea and vomiting) Qty: 14 0RF No Action Lantus U-100 Insulin 100 unit/mL solution 100 unit SUBCUT BID Rx Instructions: sliding scale atorvastatin 40 mg tablet 40 mg PO BEDTIME allopurinol 300 mg tablet 300 mg PO DAILY omeprazole 40 mg capsule,delayed release(DR/EC) 40 mg PO DAILY amlodipine 10 mg tablet 10 mg PO DAILY levetiracetam [Keppra] 500 mg tablet 1,000 mg PO BID zonisamide [Zonegran] 100 mg capsule 200 mg PO BID Eliquis 5 mg tablet 5 mg PO BID montelukast [Singulair] 10 mg tablet 10 mg PO DAILY Qty: 90 2RF vancomycin 500 mg recon soln 1,500 mg PO DAILY spironolactone 25 mg tablet 50 mg PO DAILY hydrocodone-acetaminophen 5-325 mg tablet 1 tab PO Q4H PRN (Reason: pain) 7 Days Qty: 30 0RF (DME) Bariatric Wheel Chair See Rx Instructions .Route .MEDSUPPLY Qty: 1 0RF Rx Instructions: As directed (DME) Wheel Chair See Rx Instructions .Route .MEDSUPPLY Qty: 1 0RF Rx Instructions: As directed (DME) knee immobilizer See Rx Instructions .Route .MEDSUPPLY Qty: 1 0RF Rx Instructions: As directed diphenhydramine HCl [Benadryl] 25 mg Capsule 25 mg PO DAILY PRN (Reason: Allergy Symptoms) calcium carbonate-vitamin D2 600 mg calcium- 200 unit Tablet 1 tab PO DAILY One-A-Day Men's 50 Plus 400-20-370 mcg Tablet 1 tab PO DAILY aspirin 325 mg Tablet 325 mg PO DAILY albuterol sulfate 90 mcg/actuation HFA aerosol inhaler 2 puff INHALATION Q4H PRN (Reason: Shortness Of Breath) duloxetine 30 mg capsule,delayed release(DR/EC) 30 mg PO DAILY divalproex [Depakote] 500 mg tablet,delayed release (DR/EC) 1,500 mg PO BEDTIME Humalog KwikPen Insulin 200 unit/mL (3 mL) insulin pen 25 unit SUBCUT TID Rx Instructions: sliding scale Discharge Orders: Discharge ED (Routine); Ordered 08/22/22 Ordered By: Josep Zayas Referrals: Kumar Evans DO [Primary Care Provider] - 1-3 days Discharge Diet: Advance as tolerated Discharge Activity: Resume usual activity Patient Instructions: Fever in Adults (ED) Coding Level of Care Code ED Engraver Signature for Artig Fwd Exam Comprehensive
[2022-08-22 18:26] VITALS: BP 156/86; PULSE 103; RESP 18; O2SAT 97
[2022-08-22 18:40] LABS: Basophils % 0.2 %; Eosinophils # 0.2 10^3/uL (0.0-0.8); Eosinophils % 1.4 %; Hematocrit 31.8 % (42.0-52.0); Hemoglobin 9.7 g/dL (11.7-16.6); Lymphocytes # 1.6 10^3/uL (0.8-4.8); Lymphocytes % 11.4 %; Mean Corpuscular HGB Conc 30.5 g/dL (30.0-36.0); Mean Corpuscular Hemoglobin 28.4 pg (28.0-34.0); Mean Corpuscular Volume 93.3 fl (80-94); Neutrophils # 11.34 10^3/uL (1.8-7.7); Neutrophils % 79.2 %; Nucleated Red Blood Cells % 0 %; Platelet Count 169 10^3/cmm (130-400); Red Blood Count 3.41 10^6/uL (4.1-5.3); White Blood Count 14.3 10^3/uL (4.0-10.0)
--- NOTE | 2022-08-22 18:58 | PC.NURSE ---
Report given to CORDELIA Tena
[2022-08-22 19:02] LABS: Alanine Aminotransferase 27 U/L (0-41); Albumin Level 3.4 g/dL (3.5-5.2); Alkaline Phosphatase 107 U/L (40-130); Anion Gap 16.4 (5-19); Aspartate Amino Transferase 21 U/L (0-40); Blood Urea Nitrogen 24 mg/dL (6-20); Calcium 9.1 mg/dL (8.5-10.5); Carbon Dioxide 21 mmol/L (22-29); Chloride 100 mmol/L (98-107); Globulin 3.1 g/dL (1.3-4.6); Glomerular Filtration Rate 39.1 mL/min (90-130); Glucose 208 mg/dL (65-115); Lipase 92 U/L (13-60); Osmolality Calculated 286 mOsm/kg (285-295); Potassium 4.4 mmol/L (3.5-5.1); Sodium 133 mmol/L (136-145); Total Bilirubin 0.2 mg/dL (0.15-1.2); Total Protein 6.5 g/dL (6.6-8.7)
[2022-08-22 19:03] LABS: SARS Covid-2 Antigen Negative (Negative); Vancomycin Trough 12.5 ug/mL (10-15)
[2022-08-23 14:24] LABS: Phosphorus 2.3 mg/dL (2.5-4.5)
== END 2022-08-22 20:33 | disposition home or self-care (01) ==
PROVIDERS: Emergency Medicine; Emergency Provider Emergency Medicine; PCP Internal Medicine
DX: R50.9 Fever, unspecified (principal); Z79.01 Long term (current) use of anticoagulants; Z79.82 Long term (current) use of aspirin; Z79.4 Long term (current) use of insulin; Z20.822 Contact with and (suspected) exposure to COVID-19; E11.9 Type 2 diabetes mellitus without complications; E78.5 Hyperlipidemia, unspecified; I10 Essential (primary) hypertension; Z85.6 Personal history of leukemia
CPT/HCPCS: 74176; 80053; 80202; 83690; 84100; 85025; 87040; 87205; 87426; 99284

== ENCOUNTER 2022-08-23 | Outpatient (CLI) | payer MEDICARE, SELFPAY ==
[2022-08-23 18:04] LABS: Creatinine Urine, Random 120 mg/dL (39-259)
[2022-08-23 18:19] LABS: Microalbum Creatinine Ratio Ur 750 mg/dL (0-20); Microalbumin Random Urine 90 ug/dL (0-20)
== END 2022-08-23 23:00 | disposition home or self-care (01) ==
LOC: LAB 09-23 22:10
PROVIDERS: PCP Internal Medicine; Visit Provider Internal Medicine Nephrology
DX: N18.9 Chronic kidney disease, unspecified (principal)
CPT/HCPCS: 82044

== ENCOUNTER 2022-08-27 | Outpatient (CLI) | payer MEDICARE, SELFPAY ==
[2022-08-27 18:09] LABS: Basophils % 0.3 %; Eosinophils # 0.3 10^3/uL (0.0-0.8); Eosinophils % 3.2 %; Hematocrit 27.2 % (42.0-52.0); Hemoglobin 8.9 g/dL (11.7-16.6); Lymphocytes # 1.4 10^3/uL (0.8-4.8); Lymphocytes % 13.2 %; Mean Corpuscular HGB Conc 32.7 g/dL (30.0-36.0); Mean Corpuscular Hemoglobin 29.3 pg (28.0-34.0); Mean Corpuscular Volume 89.5 fl (80-94); Monocytes % 9.9 %; Neutrophils # 7.51 10^3/uL (1.8-7.7); Neutrophils % 71.8 %; Nucleated Red Blood Cells % 0 %; Platelet Count 180 10^3/cmm (130-400); Red Blood Count 3.04 10^6/uL (4.1-5.3); Red Cell Distribution Width 17.9 % (12.1-15.1); White Blood Count 10.5 10^3/uL (4.0-10.0)
[2022-08-27 18:34] LABS: Alanine Aminotransferase 17 U/L (0-41); Albumin Level 3.4 g/dL (3.5-5.2); Alkaline Phosphatase 107 U/L (40-130); Aspartate Amino Transferase 19 U/L (0-40); C Reactive Protein 62.9 mg/L (0.0-4.9); Globulin 2.8 g/dL (1.3-4.6); Glomerular Filtration Rate 44.8 mL/min (90-130); Total Bilirubin 0.2 mg/dL (0.15-1.2); Total Protein 6.2 g/dL (6.6-8.7)
[2022-08-28 09:38] LABS: Vancomycin Trough 37.5 ug/mL (10-15)
== END 2022-08-27 23:00 | disposition home or self-care (01) ==
LOC: LAB 09-24 08:51
PROVIDERS: PCP Internal Medicine; Visit Provider Student in an Organized Health Care Education/Training Program
DX: T84.54XA Infection and inflammatory reaction due to internal left knee prosthesis, initial encounter (principal)
CPT/HCPCS: 80076; 80202; 82565; 85025; 86140

== ENCOUNTER 2022-08-28 18:32 | Inpatient (IN) | payer MEDICARE, SELFPAY ==
[2022-08-28 17:40] VITALS: BMI 46.5
[2022-08-28 19:13] LABS: Basophils % 0.3 %; Eosinophils # 0.3 10^3/uL (0.0-0.8); Eosinophils % 2.6 %; Hematocrit 29.2 % (42.0-52.0); Hemoglobin 9.4 g/dL (11.7-16.6); Lymphocytes # 1.3 10^3/uL (0.8-4.8); Lymphocytes % 10.5 %; Mean Corpuscular HGB Conc 32.2 g/dL (30.0-36.0); Mean Corpuscular Hemoglobin 28.7 pg (28.0-34.0); Mean Corpuscular Volume 89.3 fl (80-94); Mean Platelet Volume 10.3 fL (7.4-10.4); Monocytes # 1.3 10^3/uL (0.2-0.9); Monocytes % 10.3 %; Neutrophils # 9.33 10^3/uL (1.8-7.7); Neutrophils % 74.8 %; Nucleated Red Blood Cells % 0 %; Platelet Count 189 10^3/cmm (130-400); Red Blood Count 3.27 10^6/uL (4.1-5.3); Red Cell Distribution Width 17.7 % (12.1-15.1); White Blood Count 12.5 10^3/uL (4.0-10.0)
[2022-08-28 19:15] VITALS: BP 154/94; PULSE 99; RESP 20; TEMP 36.5; O2SAT 99
[2022-08-28 19:23] LABS: D Dimer 2.01 ug/mIFEU (0-0.59)
[2022-08-28 19:44] LABS: Folate Level 16.5 ng/mL (4.5-32.2)
[2022-08-28 19:46] LABS: Procalcitonin 0.21 ng/mL (0-0.5); Thyroid Stimulating Hormone 2.33 uIU/mL (0.27-4.20); Vitamin B12 906 pg/mL (232-1245)
[2022-08-28 19:58] LABS: Alanine Aminotransferase 22 U/L (0-41); Albumin Level 3.7 g/dL (3.5-5.2); Alkaline Phosphatase 95 U/L (40-130); Anion Gap 15.6 (5-19); Aspartate Amino Transferase 18 U/L (0-40); Blood Urea Nitrogen 21 mg/dL (6-20); C Reactive Protein 54.4 mg/L (0.0-4.9); Calcium 9.7 mg/dL (8.5-10.5); Carbon Dioxide 23 mmol/L (22-29); Chloride 100 mmol/L (98-107); Globulin 3.1 g/dL (1.3-4.6); Glomerular Filtration Rate 44.8 mL/min (90-130); Glucose 197 mg/dL (65-115); Iron 25 ug/dL (59-158); Osmolality Calculated 286 mOsm/kg (285-295); Percent Saturation 9.6 % (20-50); Phosphorus 2.9 mg/dL (2.5-4.5); Potassium 4.6 mmol/L (3.5-5.1); Sodium 134 mmol/L (136-145); Total Bilirubin 0.2 mg/dL (0.15-1.2); Total Iron Binding Capacity 259 mcg/dl; Total Protein 6.8 g/dL (6.6-8.7); Unsaturated Iron Binding 234 ug/dL (112-347)
[2022-08-28 20:07] LABS: Erythrocyte Sedimentation Rate 29 mm/hr (0-10)
[2022-08-28 21:04] VITALS: O2SAT 96
--- NOTE | 2022-08-28 21:52 | PC.PHAR ---
Pharmacokinetic dosing service Date: 08/28/22 Time: 2152 Objective: Patient: Panda Rivera Floor: [id number] Age: 57 yo Serum creatinine: 1.6 mg/dL Height: 70.0 Inches Weight (kg): 146.972 Diagnosis: Relevant medical/social history: Cultures and sensitivities: Other labs: Assessment: IBW (kg): 73.00 Dosing wt(kg): 102.6 Estimated Creatinine clearance (ml/min): 52.6 CRCL method: Cockcroft and Gault using ibw(default). Drug selected: Vancomycin Loading dose (mg): 0 Vd (liters): 92.3 (factor used: 0.9 L/kg) Justin (hr-1): 0.048 Half life (hrs): 14.44 Recommended dose: 2000 mg Interval: 18 hrs Infusion time (hrs): 1.5 Predicted peak (mcg/mL): 36.1 Predicted trough (mcg/mL): 16.35 Adjusted body weight was selected for vancomycin dosing. To switch back, select the total body weight option above. Renal function is stable [ ] /unstable [ ] Recommendations: Give Vancomycin 2000 mg q 18 hrs with an expected Cpeak of 36.1 mcg/ml and an expected Ctrough of 16.35 mcg/ml Renal dosing of other antibiotics (review renal dosing of other medications and list guidelines here): Thank you for the consult, will continue to follow. Signature: Karlee Senior [facility]
[2022-08-28 22:00] VITALS: PULSE 94
--- NOTE | 2022-08-28 23:12 | XRR_ITS ---
PROCEDURE INFORMATION: Exam: XR Chest Exam date and time: 08/28/2022 11:25 PM Age: 57 years old Clinical indication: Prior surgery; Surgery type: Chest port; Patient HX: Onset of fever. Currently on abx therapy for infection from knee surgery five weeks ago. TECHNIQUE: Imaging protocol: Radiologic exam of the chest. Views: 1 view. COMPARISON: CR XR chest 1V portable [id number] 01/18/2022 9:50 PM FINDINGS: Tubes, catheters and devices: The left-sided IJ port catheter is stable in position, terminating in the cavoatrial junction. Lungs: Bibasilar opacities, likely atelectasis. Calcified granuloma in the left lower lobe is again noted. Pleural spaces: No pneumothorax. No pleural effusion. Heart/Mediastinum: The cardiomediastinal silhouette is stable in appearance. Bones/joints: Unremarkable. XR/XR chest 1V portable [id number] IMPRESSION: No acute radiographic findings in the chest.
--- NOTE | 2022-08-28 23:23 | P.HP_ITS ---
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 He is currently on treatment with IV vancomycin as outpatient and closely followed by infectious disease. He has been referred as a direct admit today from the infectious disease clinic as he has been experiencing fever up to 101 Fahrenheit over the last week, persistent complains of abdominal pain nausea and increasing inflammatory markers. Patient was discharged from the hospital on July 24, 2022 after his knee revision and reports that knee has been healing well. His CRP was trending down. Over the past week he started experiencing fever, came to the ER on 08/22 but overall w/up was unrevealing except for a new ill-defined soft tissue density in the head and uncinate process of the pancreas. New pancreatic mass could not be ruled out. Blood cultures were negative from that time. Patient was discharged home the same day, however has not had any improvement in his symptoms. With rising inflammatory markers and persisting fever he was directed for admission to the hospital today. He denies any chest pain cough or dyspnea. Reports that he has chronic sinus drainage, symptoms are overall unchanged. States abdominal pain is located in the epigastric region. Made worse on ingestion of food. Associated symptoms are that of nausea and retching. No vomiting. No diarrhea or alteration in bowel habits. He has lost 2 pounds since onset of symptoms. Denies any increased swelling redness or warmth around the left knee. Incision appears to have healed well from recent surgery. Denies any dysuria. Review of Systems General: Reports: 10 or more systems reviewed and unremarkable except in HPI and below Const: Denies: fever(s), chills, body aches, change in appetite, change in weight, malaise, night sweats, diaphoresis, change in sleep pattern, daytime sleepiness or snoring Eyes: Denies: change in vision, blurry vision, photophobia, eye discomfort or eye discharge ENMT: Denies: throat pain, enlarged tonsils, hoarseness, mouth pain, oral sores, dry mouth, tinnitus, nasal congestion or post nasal drip Card: Denies: chest pain, palpitations, irregular heart rhythm, edema, swelling of feet/ankles, lightheadedness, syncope, pre-syncope, dyspnea on exertion, orthopnea, leg pain with exertion or acrocyanosis Resp: Denies: dyspnea, productive cough, non-productive cough, wheezing, stridor, pain on inspiration, change in phlegm color, hemoptysis or chest congestion GI: Denies: abdominal pain, nausea, vomiting, hematemesis, coffee ground emesis, dysphagia, heartburn, diarrhea, constipation, bloating, GI cramping, change in bowel habits, pain on defecation, hematochezia or melena : Denies: flank pain, difficulty urinating, dysuria, urinary frequency, urinary urgency, urinary hesitancy, urinary dribbling, difficulty starting urination, change in urine stream, nocturia or hematuria Musc: Denies: neck pain, back pain, extremity pain, joint pain, joint swelling, joint redness, joint stiffness or limited range of motion Neuro: Denies: headache(s), numbness in extremities, weakness in extremities, sensory changes, lack of coordination, difficulty walking, frequent falls, dizziness, vertigo, confusion, Slurred speech present, difficulty communicating thoughts or seizure-like activity Psych: Denies: anxiety, depression, mood swings, panic attacks, hopelessness or irritability Endo: Denies: polyuria, polydipsia, tired all the time, cold intolerance, excessive sweating, flushing or heat intolerance Ej/Lymph: Denies: easy bruising or easy bleeding All/Imm: Denies: tongue swelling, facial swelling or acute wheezing Medications/Allergies Home Medications Medication Instructions Recorded Confirmed Last Taken Type allopurinol 300 mg tablet 300 mg PO DAILY 01/09/22 08/28/22 08/28/22 History amlodipine 10 mg tablet 10 mg PO DAILY 01/09/22 08/28/22 08/28/22 History atorvastatin 40 mg tablet 40 mg PO BEDTIME 01/09/22 08/28/22 08/28/22 History insulin glargine 100 unit/mL 100 unit SUBCUT BID 01/09/22 08/28/22 08/28/22 History subcutaneous solution (Lantus U-100 Insulin) levetiracetam 500 mg tablet 1,000 mg PO BID 01/09/22 08/28/22 08/28/22 History (Keppra) omeprazole 40 mg capsule,delayed 40 mg PO DAILY 01/09/22 08/28/22 08/28/22 History release zonisamide 100 mg capsule 200 mg PO BID 01/09/22 08/28/22 08/28/22 History (Zonegran) apixaban 5 mg tablet (Eliquis) 5 mg PO BID 03/28/22 08/28/22 08/28/22 History montelukast 10 mg tablet 10 mg PO DAILY #90 tabs 03/28/22 08/28/22 08/28/22 Rx (Singulair) spironolactone 25 mg tablet 50 mg PO DAILY 07/05/22 08/28/22 08/22/22 History hydrocodone 5 mg-acetaminophen 325 1 tab PO Q4H PRN pain 7 days #30 07/18/22 08/28/22 07/20/22 Rx mg tablet tabs calcium carb-ergocalciferol (vit 1 tab PO DAILY 07/19/22 08/28/22 08/28/22 History D2) 600 mg calcium-200 unit tablet diphenhydramine HCl 25 mg capsule 25 mg PO DAILY PRN Allergy Symptoms 07/19/22 08/28/22 07/20/22 History (Benadryl) [id number] acid-vit 1 tab PO DAILY 07/19/22 08/29/22 08/28/22 History K-lycop 400 mcg-20 mcg-370 mcg tablet (One-A-Day Men's 50 Plus) divalproex 500 mg tablet,delayed 1,500 mg PO BEDTIME 07/20/22 08/28/22 08/28/22 History release (Depakote) insulin lispro 200 unit/mL (3 mL) 25 unit SUBCUT TID 07/20/22 08/28/22 08/28/22 History subcutaneous pen (Humalog KwikPen U-200 Insulin) albuterol sulfate 90 mcg/actuation 2 puff inhalation Q4H PRN 07/21/22 08/28/22 Unknown History aerosol inhaler Shortness Of Breath aspirin 325 mg tablet 325 mg PO DAILY 07/21/22 08/28/22 08/28/22 History duloxetine 30 mg capsule,delayed 30 mg PO DAILY 07/21/22 08/28/22 08/28/22 History release Bariatric Wheel Chair #1 ea 07/25/22 08/29/22 Unknown Rx Wheel Chair #1 ea 07/26/22 08/29/22 Unknown Rx knee immobilizer #1 ea 07/27/22 08/29/22 Unknown Rx vancomycin 500 mg intravenous 1,500 mg PO DAILY 08/16/22 08/28/22 08/27/22 History solution ondansetron 4 mg disintegrating 4 mg PO Q6H PRN nausea and 08/22/22 08/28/22 Unknown Rx tablet vomiting #14 tabs Allergies Allergy/AdvReac Type Severity Reaction Status Date / Time No Known Allergies Allergy Verified 08/22/22 18:54 PFSH Acute PFSH: Medical History Acute embolism and thrombosis of left femoral vein Chronic kidney disease Chronic lymphocytic leukemia Degenerative arthritis Degenerative arthritis of spine Diabetes mellitus, type II Epilepsy In August 2018 he had presented with new onset of epilepsy, presumed idiopathic GERD (gastroesophageal reflux disease) Hyperlipidemia Hypertension Iron deficiency anemia In March 2018 he required treatment for iron deficiency anemia Surgical History History of knee surgery Left knee implant removed and spacer placed until infection gone. History of left knee replacement S/P total knee arthroplasty (~05/2019) Family History Mother Cancer Lung Unknown Cancer Aunt - Leukemia, AML Brother Diabetes Hypertension Sister Hypertension Denies family history of CAD (coronary artery disease) Clotting disorder Dementia Hyperlipidemia Psychiatric illness Chronic kidney disease (CKD) Suicide Anesthesia complication Bleeding disorder Lung disease Stroke Social History Smoking and tobacco status: never smoked Alcohol intake: current Alcohol intake frequency: holidays/special occasions only Vitals/I&O/Wt Last Vital Signs Temp 97.7 F 08/28/22 19:15 Pulse 94 08/28/22 22:00 Resp 20 H 08/28/22 19:15 BP 154/94 08/28/22 19:15 Pulse Ox 96 08/28/22 21:04 O2 Del Method 08/28/22 19:15 08/28/22 08/28/22 08/29/22 14:59 22:59 06:59 Intake Total 0 / 0 Balance 0 / 0 Weight last 48 hrs Weight 146.972 kg Physical Exam Narrative: EXAM NARRATIVE: General: No acute distress, AO x3 HEENT: PERRLA, pupils bilaterally equal and reactive Chest:equal good air entry bilaterally, no added sounds CVS: S1-S2 regular, no murmurs, no tachycardia, no gallops, no rubs Abdomen: Soft, nontender, no organomegaly, bowel sounds present Neuro: No focal deficits, no facial deformity, AO x3, power 5/5 in all limbs Extremity: Healed incision over the left knee from recent surgery. Data : 08/28/22 18:42 08/29/22 10:16 Micro: Microbiology 08/28/22 18:49 Blood Culture - Preliminary Blood SPECIMEN COLLECTED 08/28/22 18:42 Blood Culture - Preliminary Blood SPECIMEN COLLECTED A&P Assessment and plan (1) Fever of unknown origin: Patient referred for direct admission today in view of persisting fever over the past week. Associated also with increasing inflammatory markers. With recent history of prosthetic joint infection, concern for worsening infection in the left knee. Patient had been on treatment with ceftriaxone and vancomycin, however when all cultures showed staph epidermidis, it appears ceftriaxone had been discontinued around 2 weeks ago. On examination his wound appears to have healed well. There is slight swelling about his left knee. We will ask for orthopedic evaluation in the morning to assess for synovial aspiration. Recent CT of his abdomen showed a new soft tissue density on the pancreas in the head and uncinate process which is new. Findings may be roofing sales representative of malignancy as patient is known to have lymphoma which has not yet achieved remission and patient has been off of his chemotherapy since March of this year. Alternate possibility includes that of pancreatitis though no obvious trigger is currently identified. Liver showed diffuse mildly decreased attenuation suggestive of mild fatty infiltration. Gallbladder and bile ducts were normal. Alkaline phosphatase is normal. Patient denies any binge alcohol drinking. We will check lipase. Fever and elevated CRP may be related instead to acute viral illness. We will check COVID PCR and respiratory viral panel. Check chest x-ray, UA, blood culture from periphery and port Check D-dimer, if elevated will proceed with lower extremity duplex. Patient has a history of DVT and was on longstanding Eliquis which was interrupted after recent surgery due to anemia. He has resumed Eliquis around August 10. (2) Chronic kidney disease: Currently creatinine is at baseline of 1.6. (3) Infection of total left knee replacement: As noted above, status post removal of components, currently with cement spacers in place Vancomycin is on hold right now given last trough of 37. Expected last day of vancomycin was on August 31, 2022 per ID notes. Closely monitor kidney function. ID consult given concern for worsening infection (4) Chronic lymphocytic leukemia of B-cell type not having achieved remission: Off chemotherapy since March 2022 Pancreatic soft tissue density may be roofing sales representative of underlying malignancy. Will discuss with oncology regarding further imaging MRCP versus PET/CT. Attestations Medical Necessity Statement*: Anticipate greater than 2 midnight admission for above defined care. Coding Level of Care Code Acute Diesel Service Technician for Sheyla Cha Diagnoses Fever of unknown origin R50.9 Chronic kidney disease N18.9 Infection of total left knee replacement T84.54XA Chronic lymphocytic leukemia of B-cell type not having achieved remission C91.10
[2022-08-28 23:36] VITALS: BP 137/77; PULSE 95; RESP 16; TEMP 36.7; O2SAT 95
[2022-08-28 23:56] LABS: Vancomycin Trough 23.5 ug/mL (10-15)
[2022-08-29] VITALS (8 sets, daily range): BP systolic 144–163; BP diastolic 79–92; PULSE 91–102; RESP 16–18; TEMP 36.5–36.6; O2SAT 95–98
[2022-08-29 00:37] LABS: Glucose Urine UA 4+ (Normal); Ketones Urine Negative (Negative); Protein Urine 2+ (Negative); Urine Appearance Clear (CLEAR); Urine Color Yellow (Yellow); pH Urine 5 (5-7)
[2022-08-29 00:38] LABS: Add Urine Microscopic? YES; Bilirubin Urine Neg (Negative); Blood Urine Neg (Negative); Leukocyte Esterase Urine Negative (Negative); Nitrate Urine Negative (Negative); Urobilinogen Urine Norm (Negative)
[2022-08-29 00:41] LABS: Hyaline Casts Urine 0-4 /lpf; Mucus Urine 1+ /hpf; RBC Urine 0-4 /hpf (0-2); Squamous Epithelial Cell Urine 0-4 /hpf (0-5); WBC Urine 0-4 /hpf (0-5)
[2022-08-29 00:42] LABS: Add Urine Culture? Yes
[2022-08-29 01:59] LABS: Adenovirus Not Detected (NOT DETECT); Chlamydia Pneumoniae Not Detected (NOT DETECT); Coronavirus 229E,HKU1,NL63,OC4 Not Detected (NOT DETECT); Human Metapneumovirus Not Detected (NOT DETECT); Human Rhinovirus/Enterovirus Not Detected (NOT DETECT); Influenza A Not Detected (NOT DETECT); Influenza A H1 Not Detected (NOT DETECT); Influenza A H1-2009 Not Detected (NOT DETECT); Influenza A H3 Not Detected (NOT DETECT); Influenza B Not Detected (NOT DETECT); Mycoplasma Pneumoniae Not Detected (NOT DETECT); Parainfluenza Virus Type 1 Not Detected (NOT DETECT); Parainfluenza Virus Type 2 Not Detected (NOT DETECT); Parainfluenza Virus Type 3 Not Detected (NOT DETECT); Parainfluenza Virus Type 4 Not Detected (NOT DETECT); Respiratory Syncytial Virus A Not Detected (NOT DETECT); Respiratory Syncytial Virus B Not Detected (NOT DETECT); SARS-COV-2 Not Detected (NOT DETECT)
[2022-08-29 05:32] LABS: Chol HDL Ratio 4.18 mg/dL (1.0-5.00); Cholesterol 167 mg/dL (0-200); Estmated Average Glucose 143; HDL Cholesterol 40 mg/dL (60-100); Hemoglobin A1C 6.6 % (4.0-6.0); LDL Cholesterol Calculated 92 mg/dL (50-129); Triglycerides 174 mg/dL (0-150); VLDL Cholestrol Calculation 35 mg/dL (0-30)
[2022-08-29] MEDS: pantoprazole DR 40 mg Tablet PO (08:01)
[2022-08-29] MEDS: ferrous gluconate 324 mg Tablet PO ×2 (08:01→17:18)
[2022-08-29] MEDS: duloxetine 30 mg Capsule PO (08:01)
[2022-08-29] MEDS: zonisamide 100 MG Capsule 200 MG PO ×2 (08:01→17:18)
[2022-08-29] MEDS: levETIRAcetam 500 mg Tablet 1000 MG PO ×2 (08:02→17:18)
[2022-08-29] MEDS: amlodipine 10 mg Tablet PO (08:02)
[2022-08-29] MEDS: allopurinol 300 mg Tablet PO (08:02)
--- NOTE | 2022-08-29 10:46 | US_ITS ---
WS: [id number] RIGHT UPPER QUADRANT ULTRASOUND HISTORY: gall stones, pancreatic mass COMPARISON: CT 08/22/2022 Liver: 21.2 cm in length. Enlarged liver. Severe coarse echotexture. Poor penetration of the liver. T he liver is poorly visualized due to hepatic steatosis and hepatomegaly. No bile duct dilatation. Portal Vein: Normal hepatopetal flow with monophasic waveform. Gallbladder: Limited visualization. No stones are identified. CBD: 0.6 cm Pancreas: Poorly visualized pancreas. There is a hypoechoic area at the pancreatic head which corresp onds to the abnormality seen on CT. This hypoechoic area measures 3.5 x 3.8 x 3.7 cm. Otherwise very poor visualization of the pancreas. Right kidney: 12.4 cm in length. Poorly visualized. No hydronephrosis identified. Aorta and IVC: Poorly visualized. No ascites. US/US liver [id number] IMPRESSION: 1. Quality of this examination is significantly compromised by patient's body habitus. 2. Severe hepatomegaly and hepatic steatosis. The liver otherwise is not well imaged. Mass cannot be excluded. 3. Hypoechoic mass at the pancreatic head corresponds to the findings on the r ecent noncontrast CT. Mass measures 3.5 x 3.8 x 3.7 cm and suspicious for neopl asm. Recommend further evaluation. Contrast-enhanced CT with IV and oral is rec ommended. Dual phase pancreatic CT recommended with arterial and portal venous phase imaging.
[2022-08-29 10:51] LABS: Vancomycin Trough 8.7 ug/mL (10-15)
[2022-08-29 11:30] LABS: Alanine Aminotransferase 25 U/L (0-41); Albumin Level 3.4 g/dL (3.5-5.2); Alkaline Phosphatase 86 U/L (40-130); Amylase 94 U/L (28-100); Anion Gap 18.4 (5-19); Aspartate Amino Transferase 22 U/L (0-40); Blood Urea Nitrogen 20 mg/dL (6-20); Carbon Dioxide 22 mmol/L (22-29); Chloride 101 mmol/L (98-107); Globulin 2.1 g/dL (1.3-4.6); Glomerular Filtration Rate 44.8 mL/min (90-130); Glucose 213 mg/dL (65-115); Lipase 91 U/L (13-60); Osmolality Calculated 293 mOsm/kg (285-295); Potassium 4.4 mmol/L (3.5-5.1); Sodium 137 mmol/L (136-145); Total Bilirubin 0.2 mg/dL (0.15-1.2); Total Protein 5.5 g/dL (6.6-8.7)
[2022-08-29 12:11] LABS: Glucose Point of Care 181 mg/dL (70-110)
[2022-08-29] MEDS: insulin lispro 100 unit/1 mL SUBCUT ×2 (13:02→22:17)
[2022-08-29] MEDS: insulin glargine 100 units/1 mL 75 UNIT SUBCUT (13:03)
[2022-08-29] MEDS: vancomycin 1,500 MG/300 ML PIGGYBACK 200 MG IV (13:03)
[2022-08-29 14:24] LABS: Immunoglobulin IGA 63 mg/dL (70-400); Immunoglobulin IGG 729 mg/dL (700-1600)
[2022-08-29 14:37] LABS: Immunoglobulin IGM < 25 mg/dL (40-230)
--- NOTE | 2022-08-29 15:01 | PM.CONSULT ---
Providers/Reason For Consult Consulting Physician/Specialty*: Nirmal Lanza MD; orthopedic surgeon Reason for Consult*: Increasing fevers. History of infected left total knee arthroplasty Attending Physician: Sandor Johnson MD Primary Care Provider: Kumar Evans DO History of Present Illness History of Present Illness Panda Rivera is a 57 year old male well known to me after removal of an infected left total knee on 07/20/2022 for a Staph epidermidis infection. He presented to the emergency room on 08/28/2022 currently still treated on his vancomycin with complaints of increasing fevers, abdominal pain and nausea. Laboratory evaluation revealed a increase in his C-reactive protein to 62.9 on 08/27/2022, increased from 40.3 on 08/13/2022. He denies any increasing left knee pain. He actually was anticipating revision to a new total knee on September 23. Medications/Allergies Home Medications Medication Instructions Recorded Confirmed Last Taken Type allopurinol 300 mg tablet 300 mg PO DAILY 01/09/22 08/28/22 08/28/22 History amlodipine 10 mg tablet 10 mg PO DAILY 01/09/22 08/28/22 08/28/22 History atorvastatin 40 mg tablet 40 mg PO BEDTIME 01/09/22 08/28/22 08/28/22 History insulin glargine 100 unit/mL 100 unit SUBCUT BID 01/09/22 08/28/22 08/28/22 History subcutaneous solution (Lantus U-100 Insulin) levetiracetam 500 mg tablet 1,000 mg PO BID 01/09/22 08/28/22 08/28/22 History (Keppra) omeprazole 40 mg capsule,delayed 40 mg PO DAILY 01/09/22 08/28/22 08/28/22 History release zonisamide 100 mg capsule 200 mg PO BID 01/09/22 08/28/22 08/28/22 History (Zonegran) apixaban 5 mg tablet (Eliquis) 5 mg PO BID 03/28/22 08/28/22 08/28/22 History montelukast 10 mg tablet 10 mg PO DAILY #90 tabs 03/28/22 08/28/22 08/28/22 Rx (Singulair) spironolactone 25 mg tablet 50 mg PO DAILY 07/05/22 08/28/2208/22/22 History hydrocodone 5 mg-acetaminophen 325 1 tab PO Q4H PRN pain 7 days #30 07/18/22 08/28/22 07/20/22 Rx mg tablet tabs calcium carb-ergocalciferol (vit 1 tab PO DAILY 07/19/22 08/28/22 08/28/22 History D2) 600 mg calcium-200 unit tablet diphenhydramine HCl 25 mg capsule 25 mg PO DAILY PRN Allergy Symptoms 07/19/22 08/28/22 07/20/22 History (Benadryl) [id number] acid-vit 1 tab PO DAILY 07/19/22 08/29/22 08/28/22 History K-lycop 400 mcg-20 mcg-370 mcg tablet (One-A-Day Men's 50 Plus) divalproex 500 mg tablet,delayed 1,500 mg PO BEDTIME 07/20/22 08/28/22 08/28/22 History release (Depakote) insulin lispro 200 unit/mL (3 mL) 25 unit SUBCUT TID 07/20/22 08/28/22 08/28/22 History subcutaneous pen (Humalog KwikPen U-200 Insulin) albuterol sulfate 90 mcg/actuation 2 puff inhalation Q4H PRN 07/21/22 08/28/22 Unknown History aerosol inhaler Shortness Of Breath aspirin 325 mg tablet 325 mg PO DAILY 07/21/22 08/28/22 08/28/22 History duloxetine 30 mg capsule,delayed 30 mg PO DAILY 07/21/22 08/28/22 08/28/22 History release Bariatric Wheel Chair #1 ea 07/25/22 08/29/22 Unknown Rx Wheel Chair #1 ea 07/26/22 08/29/22 Unknown Rx knee immobilizer #1 ea 07/27/22 08/29/22 Unknown Rx vancomycin 500 mg intravenous 1,500 mg PO DAILY 08/16/22 08/28/22 08/27/22 History solution ondansetron 4 mg disintegrating 4 mg PO Q6H PRN nausea and 08/22/22 08/28/22 Unknown Rx tablet vomiting #14 tabs Allergies Allergy/AdvReac Type Severity Reaction Status Date / Time No Known Allergies Allergy Verified 08/22/22 18:54 Current Medications Generic Name Dose Route Start Last Admin Trade Name Jerrell PRN Reason Stop Dose Admin Allopurinol 300 mg 08/29/22 09:00 08/29/22 08:02 Allopurinol 300 Mg Tablet PO 300 mg DAILY FRANCISCO Administration Amlodipine Besylate 10 mg 08/29/22 09:00 08/29/22 08:02 Amlodipine 10 Mg Tablet PO 10 mg DAILY FRANCISCO Administration Docusate Sodium 100 mg 08/29/22 09:00 08/29/22 08:02 Docusate Sodium 100 Mg Capsule PO Not Given BID FRANCISCO Duloxetine HCl 30 mg 08/29/22 09:00 08/29/22 08:01 Duloxetine 30 Mg Capsule PO 30 mg DAILY FRANCISCO Administration Ferrous Gluconate 324 mg 08/29/22 08:00 08/29/22 08:01 Ferrous Gluconate 324 Mg Tablet PO 324 mg BIDWM FRANCISCO Administration Insulin Human Lispro 0 unit 08/29/22 12:00 08/29/22 13:02 Insulin Lispro 100 Unit/1 Ml SUBCUT 6 unit WM&BEDTIME FRANCISCO Administration Protocol Levetiracetam 1,000 mg 08/29/22 09:00 08/29/22 08:02 Levetiracetam 500 Mg Tablet PO 1,000 mg BID FRANCISCO Administration Pantoprazole Sodium 40 mg 08/29/22 09:00 08/29/22 08:[address] 40 Mg Tablet PO 40 mg DAILY FRANCISCO Administration Zonisamide 200 mg 08/29/22 09:00 08/29/22 08:01 Zonisamide 100 Mg Capsule PO 200 mg BID FRANCISCO Administration PFSH Acute PFSH: Medical History Acute embolism and thrombosis of left femoral vein Chronic kidney disease Chronic lymphocytic leukemia Degenerative arthritis Degenerative arthritis of spine Diabetes mellitus, type II Epilepsy In August 2018 he had presented with new onset of epilepsy, presumed idiopathic GERD (gastroesophageal reflux disease) Hyperlipidemia Hypertension Iron deficiency anemia In March 2018 he required treatment for iron deficiency anemia Surgical History History of knee surgery Left knee implant removed and spacer placed until infection gone. History of left knee replacement S/P total knee arthroplasty (~05/2019) Family History Mother Cancer Lung Unknown Cancer Aunt - Leukemia, AML Brother Diabetes Hypertension Sister Hypertension Denies family history of CAD (coronary artery disease) Clotting disorder Dementia Hyperlipidemia Psychiatric illness Chronic kidney disease (CKD) Suicide Anesthesia complication Bleeding disorder Lung disease Stroke Social History Smoking and tobacco status: never smoked Alcohol intake: current Alcohol intake frequency: holidays/special occasions only Vitals/I&O/Wt Last Vital Signs Temp 97.8 F 08/29/22 11:35 Pulse 93 08/29/22 11:35 Resp 18 08/29/22 11:35 BP 163/92 08/29/22 11:35 Pulse Ox 95 08/29/22 11:35 O2 Del Method 08/29/22 11:35 08/29/22 08/29/22 08/29/22 06:59 14:59 22:59 Intake Total 150 / 150 240 / 240 Balance 150 / 150 240 / 240 Weight last 48 hrs Weight 324 lb 11.2 oz Weight 324 lb 0.3 oz Physical Exam Narrative: Patient's left knee has a benign appearance. There is no erythema and only mild swelling Motion is from full extension to 80 degrees of flexion He has patellofemoral crepitations consistent with the absence of a patellar component Data : 08/28/22 18:42 08/29/22 10:16 Micro: Microbiology 08/28/22 23:50 Legionella Urinary Antigen - Final Urine,Voided 08/28/22 18:49 Blood Culture - Preliminary Blood SPECIMEN COLLECTED 08/28/22 18:42 Blood Culture - Preliminary Blood SPECIMEN COLLECTED A&P Assessment and plan (1) Infection of total left knee replacement: Panda has elevated temperatures and inflammatory markers. He has a history of a deep knee infection. The clinical appearance of his knee is benign. He currently is on his treatment regimen of IV vancomycin. I discussed further work-up with Dr. Veronica. We both agree that aspiration may need to definitively rule out knee as a source of infection would be worthwhile and he agreed to proceed. The left knee was prepped laterally with Betadine. The skin was anesthetized with ethylene chloride. An 18-gauge needle was introduced and 10 cc fairly clear synovial fluid were aspirated. Fluid was sent for routine and anaerobic cultures. Coding Level of Care Code Acute Hand Edge Bander for Chg Fwd Diagnoses Infection of total left knee replacement T84.54XA
--- NOTE | 2022-08-29 15:05 | PM.PN ---
Subjective Subjective: No events overnight seen with family at bedside. Patient has remained afebrile. Currently on room air. Denies any new complaints. Vitals/I&O/Wt Last Vital Signs Temp 97.8 F 08/29/22 11:35 Pulse 93 08/29/22 11:35 Resp 18 08/29/22 11:35 BP 163/92 08/29/22 11:35 Pulse Ox 95 08/29/22 11:35 O2 Del Method 08/29/22 11:35 08/29/22 08/29/22 08/29/22 06:59 14:59 22:59 Intake Total 150 / 150 240 / 240 Balance 150 / 150 240 / 240 Weight last 48 hrs Weight 147.281 kg Weight 146.972 kg Physical Exam Narrative: EXAM NARRATIVE: General: No acute distress, AO x3 HEENT: PERRLA, pupils bilaterally equal and reactive Chest:equal good air entry bilaterally, no added sounds CVS: S1-S2 regular, no murmurs, no tachycardia, no gallops, no rubs Abdomen: Soft, nontender, no organomegaly, bowel sounds present Neuro: No focal deficits, no facial deformity, AO x3, power 5/5 in all limbs Extremity: Healed incision over the left knee from recent surgery. Data : 08/28/22 18:42 08/29/22 10:16 Micro: Microbiology 08/28/22 23:50 Legionella Urinary Antigen - Final Urine,Voided 08/28/22 18:49 Blood Culture - Preliminary Blood SPECIMEN COLLECTED 08/28/22 18:42 Blood Culture - Preliminary Blood SPECIMEN COLLECTED A&P Assessment and plan (1) Fever of unknown origin: Patient referred for direct admission today in view of persisting fever over the past week. Associated also with increasing inflammatory markers. COVID-19 PCR negative. Blood cultures sent through periphery and port yesterday. We will continue to follow. Vanco trough last evening 23.5 though patient had received vancomycin dose. Today morning dosed at 8.5. Not sure of the lab. We will continue to hold off on vancomycin and repeat Vanco random level in the morning and dose vancomycin accordingly. Patient otherwise required vancomycin only till 08/31. Care discussed in detail with ID and Dr. Lanza. Dr. Lanza will plan for joint aspiration to rule out P JI to determine the length of IV medication. Lower limb Dopplers negative for DVT. Patient did have CT scan abdomen pelvis few days ago which are concerning for a pancreatic shadow versus mass. Care discussed with Dr. Kirkland. As per him it is less likely that patient has issue spread though hematogenous spread is possible. Check lipase, amylase. Liver ultrasound. SPEP, immunoglobulin levels, UPEP. Ideally patient would need MRCP for further evaluation but patient is claustrophobic. Will check as above for now and if needed will plan for MRCP. Patient is agreeable. Appreciate Dr. Veronica's recommendation. (2) Chronic kidney disease: Currently creatinine is at baseline of 1.6. Medical reconstruction done for nephrotoxic drugs. (3) Infection of total left knee replacement: As noted above, status post removal of components, currently with cement spacers in place Vancomycin is on hold right now given last trough of 37. Expected last day of vancomycin was on August 31, 2022 per ID notes. Closely monitor kidney function. ID consult given concern for worsening infection (4) Chronic lymphocytic leukemia of B-cell type not having achieved remission: Off chemotherapy since March 2022 Pancreatic soft tissue density may be customer solutions representative of underlying malignancy. As above. Plan Type 2 diabetes mellitus: Patient is on a very different regimen as an outpatient on sliding glargine with maximum 100 units twice daily, sliding insulin scale with 25 units 3 times daily as maximum. For now we will start patient on glargine 15 units twice daily and sliding scale AC at bedtime moderate. Carb consistent cardiac diet [place] for pain medication. Holding off on Eliquis for possible joint aspiration. Will restart afterwards. Protonix for PUD prophylaxis Attestations Medical Necessity Statement*: Requires further hospitalization for management of fever of unknown origin in a patient with history of prosthetic joint infection on IV antibiotics, CLL with a possible pancreatic mass while infectious source is ruled out. 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
--- NOTE | 2022-08-29 15:20 | PC.NURSE ---
Pt Vanc-- Patient received 150ml of vanc at 1521.
[2022-08-29 17:00] LABS: Glucose Point of Care 115 mg/dL (70-110)
--- NOTE | 2022-08-29 20:18 | PM.CONSULT ---
Providers/Reason For Consult Consulting Physician/Specialty*: Dr. Veronica/ID Reason for Consult*: Fever, recent PJI Requesting Physician: Dr. 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 He is currently on treatment with IV vancomycin as outpatient and closely followed by me as outpatient.? He was directed for admission as he has been experiencing fever up to 101 Fahrenheit over the last week, persistent complains of abdominal pain nausea and increasing inflammatory markers.? Patient was discharged from the hospital on July 24, 2022 following which his knee has been improving. His CRP was trending down from 103.9 to 6.3 on 08/21 on vancomycin therapy . Over the past week he started experiencing fever, came to the ER on 08/22 but overall w/up was unrevealing except for a new ill-defined soft tissue density in the head and uncinate process of the pancreas.? New pancreatic mass could not be ruled out.? Blood cultures were negative from that time.? Patient was discharged home the same day, however has not had any improvement in his symptoms.? He continues to have daily fever ? Denies any increased swelling redness or warmth around the left knee.? Incision appears to have healed well from recent surgery.? Denies any dysuria. Thus far infectious w/up includes negative Leuk esterase, negative nitrate. he has leukocytosis 12.5. CXr with no consolidation. negative venous duplex. Review of Systems General: Reports: 10 or more systems reviewed and unremarkable except in HPI and below Const: Denies: fever(s), chills or body aches Eyes: Denies: change in vision, blurry vision or photophobia ENMT: Reports: hoarseness; Denies: throat pain, enlarged tonsils, odynophagia or nasal congestion Card: Denies: chest pain, palpitations, irregular heart rhythm, edema, swelling of feet/ankles, lightheadedness, pre-syncope, dyspnea on exertion or orthopnea Resp: Denies: dyspnea, productive cough, non-productive cough, wheezing, stridor, pain on inspiration, change in phlegm color, hemoptysis or chest congestion GI: Denies: abdominal pain, nausea, vomiting, hematemesis, coffee ground emesis, dysphagia, heartburn, diarrhea, constipation, GI cramping, change in stool character, hematochezia or melena : Denies: flank pain, dysuria, urinary frequency, urinary urgency, urinary hesitancy or hematuria Musc: Denies: neck pain, back pain, extremity pain, joint swelling, joint warmth or deformity Neuro: Denies: headache(s), numbness in extremities, weakness in extremities, sensory changes, difficulty walking, frequent falls, dizziness, vertigo, behavioral changes, Slurred speech present or seizure-like activity Psych: Denies: anxiety, depression, suicidal ideation or homicidal ideation Endo: Denies: polyuria, polydipsia, tired all the time, cold intolerance or hot flashes Ej/Lymph: Denies: easy bruising or easy bleeding Medications/Allergies Home Medications Medication Instructions Recorded Confirmed Last Taken Type allopurinol 300 mg tablet 300 mg PO DAILY 01/09/22 08/28/22 08/28/22 History amlodipine 10 mg tablet 10 mg PO DAILY 01/09/22 08/28/22 08/28/22 History atorvastatin 40 mg tablet 40 mg PO BEDTIME 01/09/22 08/28/22 08/28/22 History insulin glargine 100 unit/mL 100 unit SUBCUT BID 01/09/22 08/28/22 08/28/22 History subcutaneous solution (Lantus U-100 Insulin) levetiracetam 500 mg tablet 1,000 mg PO BID 01/09/22 08/28/22 08/28/22 History (Keppra) omeprazole 40 mg capsule,delayed 40 mg PO DAILY 01/09/22 08/28/22 08/28/22 History release zonisamide 100 mg capsule 200 mg PO BID 01/09/22 08/28/22 08/28/22 History (Zonegran) apixaban 5 mg tablet (Eliquis) 5 mg PO BID 03/28/22 08/28/22 08/28/22 History montelukast 10 mg tablet 10 mg PO DAILY #90 tabs 05/03/1608/28/22 08/28/22 Rx (Singulair) spironolactone 25 mg tablet 50 mg PO DAILY 07/05/22 08/28/22 08/22/22 History hydrocodone 5 mg-acetaminophen 325 1 tab PO Q4H PRN pain 7 days #30 07/18/22 08/28/22 07/20/22 Rx mg tablet tabs calcium carb-ergocalciferol (vit 1 tab PO DAILY 07/19/22 08/28/22 08/28/22 History D2) 600 mg calcium-200 unit tablet diphenhydramine HCl 25 mg capsule 25 mg PO DAILY PRN Allergy Symptoms 07/19/22 08/28/22 07/20/22 History (Benadryl) plddgddkcasp-byk-ulvee acid-vit 1 tab PO DAILY 07/19/22 08/29/22 08/28/22 History K-lycop 400 mcg-20 mcg-370 mcg tablet (One-A-Day Men's 50 Plus) divalproex 500 mg tablet,delayed 1,500 mg PO BEDTIME 07/20/22 08/28/22 08/28/22 History release (Depakote) insulin lispro 200 unit/mL (3 mL) 25 unit SUBCUT TID 07/20/22 08/28/22 08/28/22 History subcutaneous pen (Humalog KwikPen U-200 Insulin) albuterol sulfate 90 mcg/actuation 2 puff inhalation Q4H PRN 07/21/22 08/28/22 Unknown History aerosol inhaler Shortness Of Breath aspirin 325 mg tablet 325 mg PO DAILY 07/21/22 08/28/22 08/28/22 History duloxetine 30 mg capsule,delayed 30 mg PO DAILY 07/21/22 08/28/22 08/28/22 History release Bariatric Wheel Chair #1 ea 07/25/22 08/29/22 Unknown Rx Wheel Chair #1 ea 07/26/22 08/29/22 Unknown Rx knee immobilizer #1 ea 07/27/22 08/29/22 Unknown Rx vancomycin 500 mg intravenous 1,500 mg PO DAILY 08/16/22 08/28/22 08/27/22 History solution ondansetron 4 mg disintegrating 4 mg PO Q6H PRN nausea and 08/22/22 08/28/22 Unknown Rx tablet vomiting #14 tabs Allergies Allergy/AdvReac Type Severity Reaction Status Date / Time No Known Allergies Allergy Verified 08/22/22 18:54 Current Medications Generic Name Dose Route Start Last Admin Trade Name Jerrell PRN Reason Stop Dose Admin Allopurinol 300 mg 08/29/22 09:00 08/29/22 08:02 Allopurinol 300 Mg Tablet PO 300 mg DAILY FRANCISCO Administration Amlodipine Besylate 10 mg 08/29/22 09:00 08/29/22 08:02 Amlodipine 10 Mg Tablet PO 10 mg DAILY FRANCISCO Administration Docusate Sodium 100 mg 08/29/22 09:00 08/29/22 17:20 Docusate Sodium 100 Mg Capsule PO Not Given BID FRANCISCO Duloxetine HCl 30 mg 08/29/22 09:00 08/29/22 08:01 Duloxetine 30 Mg Capsule PO 30 mg DAILY FRANCISCO Administration Ferrous Gluconate 324 mg 08/29/22 08:00 08/29/22 17:18 Ferrous Gluconate 324 Mg Tablet PO 324 mg BIDWM FRANCISCO Administration Insulin Glargine 50 unit 08/29/22 18:00 08/29/22 16:59 Insulin Glargine 100 Units/1 Ml SUBCUT Not Given BID FRANCISCO Insulin Human Lispro 0 unit 08/29/22 12:00 08/29/22 16:58 Insulin Lispro 100 Unit/1 Ml SUBCUT Not Given WM&BEDTIME [facility] Protocol Levetiracetam 1,000 mg 08/29/22 09:00 08/29/22 17:18 Levetiracetam 500 Mg Tablet PO 1,000 mg BID FRANCISCO Administration Pantoprazole Sodium 40 mg 08/29/22 09:00 08/29/22 08:[address] 40 Mg Tablet PO 40 mg DAILY FRANCISCO Administration Zonisamide 200 mg 08/29/22 09:00 08/29/22 17:18 Zonisamide 100 Mg Capsule PO 200 mg BID FRANCISCO Administration PFSH Acute PFSH: Medical History Acute embolism and thrombosis of left femoral vein Chronic kidney disease Chronic lymphocytic leukemia Degenerative arthritis Degenerative arthritis of spine Diabetes mellitus, type II Epilepsy In August 2018 he had presented with new onset of epilepsy, presumed idiopathic GERD (gastroesophageal reflux disease) Hyperlipidemia Hypertension Iron deficiency anemia In March 2018 he required treatment for iron deficiency anemia Surgical History History of knee surgery Left knee implant removed and spacer placed until infection gone. History of left knee replacement S/P total knee arthroplasty (~05/2019) Family History Mother Cancer Lung Unknown Cancer Aunt - Leukemia, AML Brother Diabetes Hypertension Sister Hypertension Denies family history of CAD (coronary artery disease) Clotting disorder Dementia Hyperlipidemia Psychiatric illness Chronic kidney disease (CKD) Suicide Anesthesia complication Bleeding disorder Lung disease Stroke Social History Smoking and tobacco status: never smoked Alcohol intake: current Alcohol intake frequency: holidays/special occasions only Vitals/I&O/Wt Last Vital Signs Temp 97.7 F 08/29/22 15:59 Pulse 97 08/29/22 19:57 Resp 16 08/29/22 19:57 BP 147/89 08/29/22 15:59 Pulse Ox 96 08/29/22 19:57 O2 Del Method 08/29/22 19:57 08/29/22 08/29/22 08/29/22 06:59 14:59 22:59 Intake Total 150 / 150 240 / 240 240 / 480 Balance 150 / 150 240 / 240 240 / 480 Weight last 48 hrs Weight 147.281 kg Weight 146.972 kg Physical Exam Narrative: General: No acute distress, AO x3 HEENT: PERRLA, pupils bilaterally equal and reactive, pallors not present Chest: Normal vesicular breath sounds, no added sounds, equal good air entry bilaterally CVS: S1-S2 regular, no murmurs, no tachycardia, no gallops, no rubs Abdomen: Soft, nontender, no organomegaly, bowel sounds present Neuro: No focal deficits, no facial deformity, AO x3, power 5/5 in all limbs Extremities: left knee wwithout swelling, erythema or tenderness, overlying incision is well healed. Data : 08/28/22 18:42 08/29/22 10:16 Micro: Microbiology 08/28/22 23:50 Bacterial Antigens - Final Urine Kidney 08/28/22 18:49 Blood Culture - Preliminary Blood NEGATIVE TO DATE 08/28/22 18:42 Blood Culture - Preliminary Blood NEGATIVE TO DATE 10/04/22 23:50 Legionella Urinary Antigen - Final Urine,Voided A&P Assessment and plan (1) Fever: Admitted with fever and increasing inflammatory markers. COVID-19 PCR negative.? Blood cultures sent through periphery and port negative thus far from 08/28 and previously from 08/22. Lower limb Dopplers negative for DVT.? UA not consitent with infection, CXR without consolidation, knee overtly without signs of infection. He is has been on treatment with iv vancomycin, nearing the 6 week rosita on Aug 31. CRP had been trending down reassuringly until 08/21. He is due for knee revision on 09/23. Therefore imperative to rule out infected joint prior to this surgery. Appreciate ortho recommendations. Patient did have CT scan abdomen pelvis few days ago which are concerning for a new pancreatic soft tissue mass. Elevated lipase, amylase together with abdominal pain, nausea could be key account representative of pancreatitis and its sequelae. Ideally patient would need MRCP for further evaluation but patient is claustrophobic.? He underwent US abdomen today, results of which are pending. If unrevealing may need MRCP. (2) Infection of total left knee replacement: on outpatient vancomycin treatment currently being dosed with iv vancomycin by levels (3) Chronic lymphocytic leukemia of B-cell type not having achieved remission: off chemo since March 2022. ??malignaant pancreatic mass, though less likely to explain sudden change in CRP. Will discuss with oncology Plan will follow with results of synovial aspirate Consult Attestations Medical Necessity Statement: per admitting Coding Level of Care Code Acute Quill Picking Machine Operator for Sheyla Cha Diagnoses Fever R50.9 Infection of total left knee replacement T84.54XA Chronic lymphocytic leukemia of B-cell type not having achieved remission C91.10
[2022-08-29 21:58] LABS: Glucose Point of Care 219 mg/dL (70-110)
[2022-08-29] MEDS: divalproex DR 500 mg Tablet 1500 MG PO (22:10)
[2022-08-29] MEDS: atorvastatin 40 mg Tablet PO (22:12)
--- NOTE | 2022-08-29 23:12 | USCV_ITS ---
Panda Rivera Age: 57 Gender: M : 1965 Exam Date: 08/29/2022 01:05 Ordering Phys: Susannah Veronica MD Technologist: JAMAR Exam Location: [facility] [place] Indication: recent LEFT knee surgery to remove old knee replacement. spacers in place. swelling. Hx LLE DVT in remote past. HISTORY: recent LEFT knee surgery to remove old knee replacement. spacers in place. swelling. Hx LLE DVT in remote past. PROCEDURES: Venous duplex imaging was performed in bilateral lower extremities. The venous duplex Doppler examination of both lower extremities was performed in the standard fashion. The following venous structures were evaluated: common femoral vein, profunda vein, proximal portion of the greater saphenous vein, superficial femoral vein, and the popliteal vein. In addition, the posterior tibial and peroneal veins were evaluated. FINDINGS: Normal 2-D Doppler and augmentation and compressibility throughout the lower extremity venous structures. Additional imaging through the proximal calf veins also reveals no thrombus. Limited evaluation of the greater saphenous vein is patent with no thrombus. CONCLUSIONS No evidence of bilateral lower extremity DVT. Dr. Krystyna Post DO (Electronically Signed) Final Date: 29 August 2022 06:49 S
[2022-08-30] VITALS (9 sets, daily range): BP systolic 138–152; BP diastolic 75–88; PULSE 60–93; RESP 16–18; TEMP 36.6–36.8; O2SAT 95–97; BMI 46.5
[2022-08-30 05:02] LABS: Basophils % 0.6 %; Eosinophils # 0.4 10^3/uL (0.0-0.8); Eosinophils % 6.3 %; Hematocrit 27.4 % (42.0-52.0); Hemoglobin 8.9 g/dL (11.7-16.6); Lymphocytes # 1.8 10^3/uL (0.8-4.8); Lymphocytes % 25.5 %; Mean Corpuscular HGB Conc 32.5 g/dL (30.0-36.0); Mean Corpuscular Hemoglobin 29.3 pg (28.0-34.0); Mean Corpuscular Volume 90.1 fl (80-94); Monocytes # 0.9 10^3/uL (0.2-0.9); Neutrophils % 50.8 %; Nucleated Red Blood Cells % 0 %; Platelet Count 180 10^3/cmm (130-400); Red Blood Count 3.04 10^6/uL (4.1-5.3); Red Cell Distribution Width 17.9 % (12.1-15.1); White Blood Count 6.9 10^3/uL (4.0-10.0)
[2022-08-30 05:15] LABS: Alanine Aminotransferase 31 U/L (0-41); Albumin Level 3.4 g/dL (3.5-5.2); Alkaline Phosphatase 83 U/L (40-130); Anion Gap 17.2 (5-19); Aspartate Amino Transferase 31 U/L (0-40); Blood Urea Nitrogen 21 mg/dL (6-20); Calcium 9.4 mg/dL (8.5-10.5); Carbon Dioxide 22 mmol/L (22-29); Chloride 102 mmol/L (98-107); Globulin 2.6 g/dL (1.3-4.6); Glomerular Filtration Rate 39.1 mL/min (90-130); Glucose 169 mg/dL (65-115); Osmolality Calculated 291 mOsm/kg (285-295); Potassium 4.2 mmol/L (3.5-5.1); Sodium 137 mmol/L (136-145); Total Bilirubin 0.2 mg/dL (0.15-1.2)
[2022-08-30 06:27] LABS: Glucose Point of Care 160 mg/dL (70-110)
[2022-08-30 06:42] LABS: PROTEIN, TOTAL 6.1 g/dL (6.1-8.1)
[2022-08-30] MEDS: ferrous gluconate 324 mg Tablet PO ×2 (09:38→17:46)
[2022-08-30] MEDS: insulin glargine 100 units/1 mL 50 UNIT SUBCUT ×2 (09:38→22:26)
[2022-08-30] MEDS: allopurinol 300 mg Tablet PO (09:38)
[2022-08-30] MEDS: zonisamide 100 MG Capsule 200 MG PO ×2 (09:38→17:46)
[2022-08-30] MEDS: insulin lispro 100 unit/1 mL SUBCUT ×4 (09:38→20:43)
[2022-08-30] MEDS: pantoprazole DR 40 mg Tablet PO (09:38)
[2022-08-30] MEDS: levETIRAcetam 500 mg Tablet 1000 MG PO ×2 (09:38→17:46)
[2022-08-30] MEDS: amlodipine 10 mg Tablet PO (09:38)
[2022-08-30] MEDS: duloxetine 30 mg Capsule PO (09:38)
[2022-08-30] MEDS: sodium chloride 0.9% 1,000 ML 100 ML IV ×2 (10:27→20:18)
[2022-08-30 11:19] LABS: Glucose Point of Care 248 mg/dL (70-110)
[2022-08-30 12:49] LABS: Vancomycin Random 8.6 ug/mL (20.0-40.0)
[2022-08-30 12:56] LABS: ALBUMIN 3.2 g/dL (3.8-4.8); ALPHA 1 GLOBULIN 0.4 g/dL (0.2-0.3); BETA 1 GLOBULIN 0.4 g/dL (0.4-0.6); BETA 2 GLOBULIN 0.3 g/dL (0.2-0.5); GAMMA GLOBULIN 0.7 g/dL (0.8-1.7)
--- NOTE | 2022-08-30 13:24 | PM.PN ---
Subjective Subjective: No acute events overnight. Patient has remained hemodynamically stable and afebrile. Seen with family at bedside. All the questions were answered. Continues to remain on room air. Vitals/I&O/Wt Last Vital Signs Temp 98.1 F 08/30/22 11:23 Pulse 90 08/30/22 11:23 Resp 18 08/30/22 11:23 BP 152/88 08/30/22 11:23 Pulse Ox 95 08/30/22 11:23 O2 Del Method 08/30/22 11:23 08/29/22 08/30/22 08/30/22 22:59 06:59 14:59 Intake Total 240 / 480 480 / 480 Balance 240 / 480 480 / 480 Weight last 48 hrs Weight 147.281 kg Weight 147.281 kg Weight 146.972 kg Physical Exam Narrative: EXAM NARRATIVE: General: No acute distress, AO x3 HEENT: PERRLA, pupils bilaterally equal and reactive Chest:equal good air entry bilaterally, no added sounds CVS: S1-S2 regular, no murmurs, no tachycardia, no gallops, no rubs Abdomen: Soft, nontender, no organomegaly, bowel sounds present Neuro: No focal deficits, no facial deformity, AO x3, power 5/5 in all limbs Extremity: Healed incision over the left knee from recent surgery. Data : 08/30/22 04:55 08/30/22 04:55 Micro: Microbiology 08/28/22 23:50 Urine Culture - Preliminary Urine,Clean Catch Gram Negative Rods 08/28/22 23:50 Bacterial Antigens - Final Urine Kidney 08/28/22 18:49 Blood Culture - Preliminary Blood NEGATIVE TO DATE 08/28/22 18:42 Blood Culture - Preliminary Blood NEGATIVE TO DATE A&P Assessment and plan (1) Fever: Admitted with fever and increasing inflammatory markers. COVID-19 PCR negative.? Blood cultures sent through periphery and port negative thus far from 08/28 and previously from 08/22. Lower limb Dopplers negative for DVT.? UA not consitent with infection, CXR without consolidation, knee overtly without signs of infection. He is has been on treatment with iv vancomycin, nearing the 6 week rosita on Aug 31. CRP had been trending down reassuringly until 08/21. He is due for knee revision on 09/23. Therefore imperative to rule out infected joint prior to this surgery. Appreciate ortho recommendations. Fluid aspiration done yesterday. Awaiting culture results. Patient did have CT scan abdomen pelvis few days ago which are concerning for a new pancreatic soft tissue mass. Elevated lipase, amylase together with abdominal pain, nausea could be telephone claims representative of pancreatitis and its sequelae but cannot rule out malignancy. Liver ultrasound appreciated. Highly concerning for pancreatic neoplasm. Discussed in detail with radiologist. As per radiologist it is critically important for patient to have CT imaging with contrast both IV and oral for further evaluation. MRCP not as good as CT imaging for pancreatic lesions moreover patient not a good candidate for a slow prolonged MRCP. Plan for IV hydration given mild VAN on CKD for next [address] abdomen pelvis with IV and oral contrast if creatinine remains stable. Urine culture growing gram-negative rods today. UA on admission was not consistent with UTI. For now we will start on empiric ceftriaxone. (2) Infection of total left knee replacement: on outpatient vancomycin treatment. Last dose on 08/31. Vancomycin random levels 8.6 today. Will await ID recommendations prior to restarting vancomycin. (3) Chronic lymphocytic leukemia of B-cell type not having achieved remission: off chemo since March 2022. ??malignaant pancreatic mass, though less likely to explain sudden change in CRP. Will discuss with oncology Plan Chronic kidney disease: Creatinine up to 1.8 today. Currently creatinine is at baseline of 1.6. Medical reconstruction done for nephrotoxic drugs. Start on gentle IV hydration with normal saline 100 cc/h. We will plan to repeat BMP daily. Plan for CT with contrast for further evaluation of pancreatic mass to rule out malignancy. Type 2 diabetes mellitus: Patient is on a very different regimen as an outpatient on sliding glargine with maximum 100 units twice daily, sliding insulin scale with 25 units 3 times daily as maximum. Increase dose of glargine to 60 units twice daily and sliding scale AC at bedtime moderate. Blood sugars mildly elevated. Carb consistent cardiac diet [place] for pain medication. Eliquis is suffice for DVT prophylaxis as well. Protonix for PUD prophylaxis Attestations Medical Necessity Statement*: Hospitalization fromRequires further work-up for FUO while pancreatic malignancy is ruled out Time Spent in Patient Care: Greater than 35 minutes Coding Level of Care Code Acute Blending Machine Operator for Chg Fwd Diagnoses Fever R50.9 Infection of total left knee replacement T84.54XA Chronic lymphocytic leukemia of B-cell type not having achieved remission C91.10
[2022-08-30] MEDS: cefTRIAXone 1,000 MG in sodium chloride 0.9% (plus) 50 ML 100 MG IV (14:07)
[2022-08-30] MEDS: vancomycin 1,500 MG/300 ML PIGGYBACK 200 MG IV (16:22)
[2022-08-30 17:02] LABS: Glucose Point of Care 234 mg/dL (70-110)
[2022-08-30] MEDS: apixaban 5 mg Tablet PO (17:46)
[2022-08-30] MEDS: divalproex DR 500 mg Tablet 1500 MG PO (20:17)
[2022-08-30] MEDS: atorvastatin 40 mg Tablet PO (20:17)
[2022-08-30 20:38] LABS: Glucose Point of Care 198 mg/dL (70-110)
[2022-08-31] VITALS (7 sets, daily range): BP systolic 149–155; BP diastolic 82–92; PULSE 60–90; RESP 16–18; TEMP 36.3–36.8; O2SAT 95–99
[2022-08-31 02:12] LABS: Basophils % 0.4 %; Eosinophils # 0.5 10^3/uL (0.0-0.8); Eosinophils % 6.2 %; Hematocrit 27.5 % (42.0-52.0); Hemoglobin 8.6 g/dL (11.7-16.6); Lymphocytes # 1.9 10^3/uL (0.8-4.8); Mean Corpuscular HGB Conc 31.3 g/dL (30.0-36.0); Mean Corpuscular Hemoglobin 28.5 pg (28.0-34.0); Mean Corpuscular Volume 91.1 fl (80-94); Mean Platelet Volume 9.6 fL (7.4-10.4); Monocytes # 1.1 10^3/uL (0.2-0.9); Neutrophils # 3.73 10^3/uL (1.8-7.7); Neutrophils % 49.4 %; Nucleated Red Blood Cells % 0 %; Platelet Count 190 10^3/cmm (130-400); Red Blood Count 3.02 10^6/uL (4.1-5.3); Red Cell Distribution Width 17.9 % (12.1-15.1); White Blood Count 7.6 10^3/uL (4.0-10.0)
[2022-08-31 02:38] LABS: Alanine Aminotransferase 30 U/L (0-41); Albumin Level 3.3 g/dL (3.5-5.2); Alkaline Phosphatase 81 U/L (40-130); Anion Gap 15.1 (5-19); Aspartate Amino Transferase 23 U/L (0-40); Blood Urea Nitrogen 21 mg/dL (6-20); Calcium 8.7 mg/dL (8.5-10.5); Carbon Dioxide 24 mmol/L (22-29); Chloride 104 mmol/L (98-107); Globulin 2.8 g/dL (1.3-4.6); Glomerular Filtration Rate 44.8 mL/min (90-130); Glucose 128 mg/dL (65-115); Osmolality Calculated 293 mOsm/kg (285-295); Potassium 4.1 mmol/L (3.5-5.1); Sodium 139 mmol/L (136-145); Total Bilirubin 0.2 mg/dL (0.15-1.2); Total Protein 6.1 g/dL (6.6-8.7)
[2022-08-31 04:58] LABS: C Reactive Protein 16.4 mg/L (0.0-4.9)
[2022-08-31 06:54] LABS: Glucose Point of Care 118 mg/dL (70-110)
--- NOTE | 2022-08-31 08:08 | CT_ITS ---
WS: [id number] CT ABDOMEN PELVIS TECHNIQUE: Contrast-enhanced CT of the abdomen and pelvis with coronal and sagittal reformatted image s. CLINICAL INFORMATION: possible pancreatic malignancy COMPARISON: August 22, 2022 DLP: 2317.[address] scans at [facility] use at least one of these dose optimization techniques: automated e xposure control; mA and/or kV adjustment per patient size (includes targeted exams where dose is matc hed to clinical indication); or iterative reconstruction. FINDINGS: Heterogeneously enhancing mass in the pancreatic head and uncinate 8 process measuring 3.9 x 3.7 cm c ompatible with neoplasm likely adenocarcinoma. Low-attenuation lesion in the RIGHT hepatic lobe measu ring 2.1 cm technically indeterminant and may represent cyst versus hemangioma versus metastatic dise ase. Diffuse fatty infiltration of the liver. Normal portal vein and splenic vein. Splenic vein is pa tent. Celiac and SMA are patent. Normal gallbladder. Pancreatic mass abuts the traversing C-loop of t he duodenum. A few suspicious slightly enlarged peripancreatic and mesenteric root lymph nodes. A few calcified granulomas in the lung bases. Normal caliber abdominal aorta. Adrenal glands are norm al. Normal renal parenchymal enhancement. Bilateral renal cortical atrophy. No hydronephrosis in eith er kidney. Small LEFT renal cyst. Normal sigmoid colon. No evidence of high-grade small or obstruction. Normal appendix in the RIGHT lo wer quadrant. Disc osteophyte complexes L3-L5. CT/CT abdomen pelvis w con* [id number] IMPRESSION: 1. Heterogeneously enhancing mass in the head and uncinate process of the panc reas compatible with neoplasm likely adenocarcinoma. 2. Suspicion slightly enlarged peripancreatic and mesenteric root lymph nodes. 3. Indeterminant low-attenuation lesion RIGHT hepatic lobe may represent hepat ic cyst, hemangioma, or metastatic disease. 4. Diffuse fatty infiltration of the liver. 5. No other acute findings. 6. Portal vein and splenic vein are patent.
[2022-08-31] MEDS: pantoprazole DR 40 mg Tablet PO (08:47)
[2022-08-31] MEDS: aspirin 325 mg Tablet PO (08:47)
[2022-08-31] MEDS: duloxetine 30 mg Capsule PO (08:47)
[2022-08-31] MEDS: zonisamide 100 MG Capsule 200 MG PO (08:47)
[2022-08-31] MEDS: montelukast sodium 10 mg Tablet PO (08:48)
[2022-08-31] MEDS: allopurinol 300 mg Tablet PO (08:48)
[2022-08-31] MEDS: ferrous gluconate 324 mg Tablet PO (08:48)
[2022-08-31] MEDS: apixaban 5 mg Tablet PO (08:48)
[2022-08-31] MEDS: amlodipine 10 mg Tablet PO (08:48)
[2022-08-31] MEDS: insulin glargine 100 units/1 mL 50 UNIT SUBCUT (08:49)
[2022-08-31] MEDS: levETIRAcetam 500 mg Tablet 1000 MG PO (08:51)
[2022-08-31] MEDS: iohexol 350 mg/mL 100 mL Btl IV (10:36)
[2022-08-31] MEDS: iohexol 300 mg/mL 50 mL Btl PO (10:37)
[2022-08-31 11:34] LABS: Glucose Point of Care 160 mg/dL (70-110)
[2022-08-31 11:58] LABS: Creatinine, Random Urine 95 mg/dL (20-320); Protein, Total, Random 141 mg/dL (5-25); Protein/Creatinine Ratio 1.484 (0.025-0.148); Protein/Creatinine Ratio 1484 mg/g creat (25-148)
--- NOTE | 2022-08-31 12:04 | PC.SOCIAL ---
IMM Update pg 2 of IMM updated and reviewed w/ patient. Copy provided and Copy dated, initialed and placed in chart.
[2022-08-31] MEDS: insulin lispro 100 unit/1 mL SUBCUT (12:51)
--- NOTE | 2022-08-31 13:14 | PM.DCS ---
Discharge Providers Date of Admission: 08/28/22 18:32 Date of Discharge: August 31, 2022 Attending Provider at Admission: Sandor Johnson MD Attending Provider at Discharge: Sandor Johnson MD Consults: Orthopedics: Dr. Lanza ID: Dr. Veronica Primary Care Provider: Kumar Evans DO Diagnoses at Discharge Discharge Diagnosis (1) Fever: Status: Acute (2) Infection of total left knee replacement: Status: Acute (3) Chronic lymphocytic leukemia of B-cell type not having achieved remission: Status: Acute (4) Chronic kidney disease: Status: Acute (5) Diabetes mellitus, type II: Status: Acute (6) Mass of pancreas: Status: Acute Reason for Visit Reason for Visit: Prosthetic joint infection Hospital Course Hospital Course Panda Rivera is a 57 year old male with past medical history of CLL, type 2 diabetes mellitus, hypertension, CKD, left leg DVT, 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 He is currently on treatment with IV vancomycin as outpatient and closely followed by infectious disease.? He has been referred as a direct admit today from the infectious disease clinic as he has been experiencing fever up to 101 Fahrenheit over the last week, persistent complains of abdominal pain nausea and increasing inflammatory markers.? Patient was discharged from the hospital on July 24, 2022 after his knee revision and reports that knee has been healing well. His CRP was trending down. Over the past week he started experiencing fever, came to the ER on 08/22 but overall w/up was unrevealing except for a new ill-defined soft tissue density in the head and uncinate process of the pancreas.? New pancreatic mass could not be ruled out.? Blood cultures were negative from that time.? Patient was discharged home the same day, however has not had any improvement in his symptoms.? With rising inflammatory markers and persisting fever he was directed for admission to the hospital today. He denies any chest pain cough or dyspnea.? Reports that he has chronic sinus drainage, symptoms are overall unchanged.? States abdominal pain is located in the epigastric region.? Made worse on ingestion of food.? Associated symptoms are that of nausea and retching.? No vomiting.? No diarrhea or alteration in bowel habits.? He has lost 2 pounds since onset of symptoms.? Denies any increased swelling redness or warmth around the left knee.? Incision appears to have healed well from recent surgery.? Denies any dysuria. Patient was admitted to hospital further evaluation and management of fever of unknown origin. During hospitalization blood cultures remain negative. Orthopedics was consulted and he underwent arthrocentesis. Fluid culture for now has remained negative. Vancomycin was restarted as per Vanco trough levels. On admission his CRP was high which has trended down to 16 on the day of admission. On CT scan few days ago prior to admission there was a concern for pancreatic mass. It was at first evaluated by liver ultrasound. There still high concern for pancreatic malignancy hence patient underwent CT abdomen with contrast after sufficient hydration. CT scan results are as below. Patient is been discharged hemodynamically stable condition. He is advised to continue vancomycin 1 g daily till he sees Dr. Veronica from ID clinic in 1 week. He will follow-up regarding his fluid studies. He is to follow-up with Dr. Kirkland on set appointment within next 1 week to 10 days for further evaluation of pancreatic mass. He is to recheck his BMP and Vanco trough level on Saturday, 09/03. Physical Exam Narrative: EXAM NARRATIVE: General: No acute distress, AO x3 HEENT: PERRLA, pupils bilaterally equal and reactive Chest:equal good air entry bilaterally, no added sounds CVS: S1-S2 regular, no murmurs, no tachycardia, no gallops, no rubs Abdomen: Soft, nontender, no organomegaly, bowel sounds present Neuro: No focal deficits, no facial deformity, AO x3, power 5/5 in all limbs Extremity: Healed incision over the left knee from recent surgery. Discharge Data Studies Completed and Pending Completed Studies During Hospitalization Category Date Time Status CT abdomen pelvis w con* [id number] Routine Cat Scan 08/31/22 08:08 Completed CXRP [XR chest 1V portable [id number]] Routine Exams 08/28/22 23:12 [place] [id number] Routine Ultrasound 08/29/22 23:12 Completed US liver [id number] Routine Ultrasound 08/29/22 10:46 Completed Pending at discharge Category Date Time Status Blood Culture Stat Lab 08/28/22 18:49 Results Body Fluid Culture Routine Lab 08/29/22 14:55 Results Complete Blood Count w/Auto AM LABS Lab 09/01/22 04:00 Ordered Comprehensive Metabolic Panel AM LABS Lab 09/01/22 04:00 Ordered Urine Culture Stat Lab 08/28/22 23:50 Results Urine Protein Electrop Random Routine Lab 08/29/22 18:32 Results Radiology Impressions Chest X-Ray 08/28/22 23:12 IMPRESSION: No acute radiographic findings in the chest. Liver Ultrasound 08/29/22 10:46 IMPRESSION: 1. Quality of this examination is significantly compromised by patient's body habitus. 2. Severe hepatomegaly and hepatic steatosis. The liver otherwise is not well imaged. Mass cannot be excluded. 3. Hypoechoic mass at the pancreatic head corresponds to the findings on the recent noncontrast CT. Mass measures 3.5 x 3.8 x 3.7 cm and suspicious for neoplasm. Recommend further evaluation. Contrast-enhanced CT with IV and oral is recommended. Dual phase pancreatic CT recommended with arterial and portal venous phase imaging. Abdomen/Pelvis CT 08/31/22 08:08 IMPRESSION: 1. Heterogeneously enhancing mass in the head and uncinate process of the pancreas compatible with neoplasm likely adenocarcinoma. 2. Suspicion slightly enlarged peripancreatic and mesenteric root lymph nodes. 3. Indeterminant low-attenuation lesion RIGHT hepatic lobe may represent hepatic cyst, hemangioma, or metastatic disease. 4. Diffuse fatty infiltration of the liver. 5. No other acute findings. 6. Portal vein and splenic vein are patent. Microbiology 08/28/22 20:50 Nose MRSA Culture - Final 08/29/22 14:55 Synovial Fluid Body Fluid Culture - Preliminary 08/28/22 23:50 Urine,Clean Catch Urine Culture - Preliminary Gram Negative Rods 08/28/22 23:50 Urine Kidney Bacterial Antigens - Final 08/28/22 18:49 Blood Blood Culture - Preliminary NEGATIVE TO DATE 08/28/22 18:42 Blood Blood Culture - Preliminary NEGATIVE TO DATE 08/28/22 23:50 Urine,Voided Legionella Urinary Antigen - Final Laboratory Results WBC 7.6 10^3/uL (4.0-10.0) 08/31/22 01:34 RBC 3.02 10^6/uL (4.1-5.3) L 08/31/22 01:34 Hgb 8.6 g/dL (11.7-16.6) L 08/31/22 01:34 Hct 27.5 % (42.0-52.0) L 08/31/22 01:34 MCV 91.1 fl (80-94) 08/31/22 01:34 MCH 28.5 pg (28.0-34.0) 08/31/22 01:34 MCHC 31.3 g/dL (30.0-36.0) 08/31/22 01:34 RDW 17.9 % (12.1-15.1) H 08/31/22 01:34 Plt Count 190 10^3/cmm (130-400) 08/31/22 01:34 MPV 9.6 fL (7.4-10.4) 08/31/22 01:34 Neut % (Auto) 49.4 % 08/31/22 01:34 Lymph % (Auto) 25.0 % 08/31/22 01:34 [place] % (Auto) 15.0 % 08/31/22 01:34 Eos % (Auto) 6.2 % 08/31/22 01:34 Baso % (Auto) 0.4 % 08/31/22 01:34 Neut # (Auto) 3.73 10^3/uL (1.8-7.7) 08/31/22 01:34 Lymph # (Auto) 1.9 10^3/uL (0.8-4.8) 08/31/22 01:34 [place] # (Auto) 1.1 10^3/uL (0.2-0.9) H 08/31/22 01:34 Eos # (Auto) 0.5 10^3/uL (0.0-0.8) 08/31/22 01:34 Baso # (Auto) 0.0 10^3/uL (0.0-0.1) 08/31/22 01:34 Nucleated RBC % (auto) 0 % 08/31/22 01:34 Nucleated RBCs # 0.0 /100WBC 08/31/22 01:34 ESR 29 mm/hr (0-10) H 08/28/22 18:42 D-Dimer 2.01 ug/mIFEU (0-0.59) H 08/28/22 18:42 Sodium 139 mmol/L (136-145) 08/31/22 01:34 Potassium 4.1 mmol/L (3.5-5.1) 08/31/22 01:34 Chloride 104 mmol/L (98-107) 08/31/22 01:34 Carbon Dioxide 24 mmol/L (22-29) 08/31/22 01:34 Anion Gap 15.1 (5-19) 08/31/22 01:34 BUN 21 mg/dL (6-20) H 08/31/22 01:34 Creatinine 1.6 mg/dL (0.7-1.2) H 08/31/22 01:34 GFR Calculation 44.8 mL/min (90-130) L 08/31/22 01:34 Glucose 128 mg/dL (65-115) H 08/31/22 01:34 POC Glucose 160 mg/dL (70-110) H 08/31/22 11:06 Estimat Average Glucose 143 08/29/22 04:40 Hemoglobin A1c 6.6 % (4.0-6.0) H 08/29/22 04:40 Calculated Osmolality 293 mOsm/kg (285-295) 08/31/22 01:34 Calcium 8.7 mg/dL (8.5-10.5) 08/31/22 01:34 Phosphorus 2.9 mg/dL (2.5-4.5) 08/28/22 18:42 Magnesium 2.0 mg/dL (1.7-2.3) 08/28/22 18:42 Iron 25 ug/dL (59-158) L 08/28/22 18:42 TIBC 259 mcg/dl 08/28/22 18:42 % Saturation 9.6 % (20-50) L 08/28/22 18:42 Unsat Iron Binding 234 ug/dL (112-347) 08/28/22 18:42 Total Bilirubin 0.2 mg/dL (0.15-1.2) 08/31/22 01:34 AST 23 U/L (0-40) 08/31/22 01:34 ALT 30 U/L (0-41) 08/31/22 01:34 Alkaline Phosphatase 81 U/L (40-130) 08/31/22 01:34 C-Reactive Protein 16.4 mg/L (0.0-4.9) H 08/31/22 01:37 Total Protein 6.1 g/dL (6.6-8.7) L 08/31/22 01:34 Albumin 3.3 g/dL (3.5-5.2) L 08/31/22 01:34 Globulin 2.8 g/dL (1.3-4.6) 08/31/22 01:34 Wggid-9-Mixlibrnn 0.4 g/dL (0.2-0.3) H 08/29/22 13:59 Ibkvn-8-Iyrdqzwao 1.0 g/dL (0.5-0.9) H 08/29/22 13:59 Jjbq-0-Svqylgyx 0.4 g/dL (0.4-0.6) 08/29/22 13:59 Bryv-8-Ydoturhk 0.3 g/dL (0.2-0.5) 08/29/22 13:59 Gamma Globulins 0.7 g/dL (0.8-1.7) L 08/29/22 13:59 Abnorm Protein Band 1 Not Reportable 08/29/22 13:59 Triglycerides 174 mg/dL (0-150) H 08/29/22 04:40 Cholesterol 167 mg/dL (0-200) 08/29/22 04:40 LDL Cholesterol, Calc 92 mg/dL (50-129) 08/29/22 04:40 Total VLDL Cholesterol 35 mg/dL (0-30) H 08/29/22 04:40 HDL Cholesterol 40 mg/dL (60-100) L 08/29/22 04:40 Cholesterol/HDL Ratio 4.18 mg/dL (1.0-5.00) 08/29/22 04:40 Amylase 94 U/L (28-100) 08/29/22 10:16 Lipase 91 U/L (13-60) H 08/29/22 10:16 Vitamin B12 906 pg/mL (232-1245) 08/28/22 18:42 Folate 16.5 ng/mL (4.5-32.2) 08/28/22 18:42 Procalcitonin 0.21 ng/mL (0-0.5) 08/28/22 18:42 TSH 2.33 uIU/mL (0.27-4.20) 08/28/22 18:42 Urine Color Yellow (Yellow) 08/28/22 23:50 Urine Appearance Clear (CLEAR) 08/28/22 23:50 Urine pH 5 (5-7) 08/28/22 23:50 Ur Specific [place] 1.020 (1.005-1.030) 08/28/22 23:50 Urine Protein 2+ (Negative) H 08/28/22 23:50 Urine Glucose (UA) 4+ (Normal) H 08/28/22 23:50 Urine Ketones Negative (Negative) 08/28/22 23:50 Urine Blood Neg (Negative) 08/28/22 23:50 Urine Nitrate Negative (Negative) 08/28/22 23:50 Urine Bilirubin Neg (Negative) 08/28/22 23:50 Urine Urobilinogen Norm mg/dL (Negative) 08/28/22 23:50 Ur Leukocyte Esterase Negative (Negative) 08/28/22 23:50 Urine RBC 0-4 /hpf (0-2) H 08/28/22 23:50 Urine WBC 0-4 /hpf (0-5) H 08/28/22 23:50 Ur Squamous Epith Cells 0-4 /hpf (0-5) H 08/28/22 23:50 Amorphous Sediment Not Reportable 08/28/22 23:50 Urine Bacteria None /hpf (NONE) 08/28/22 23:50 Hyaline Casts 0-4 /lpf H 08/28/22 23:50 Urine Mucus 1+ /hpf 08/28/22 23:50 Urine Yeast 1+ /hpf H 08/28/22 23:50 Ur Random Creatinine 95 mg/dL (20-320) 08/29/22 18:32 U Random Total Protein 141 mg/dL (5-25) H 08/29/22 18:32 Protein/Creatinin Ratio 1484 mg/g creat (25-148) H 08/29/22 18:32 Protein/Creat Ratio 24h 1.484 (0.025-0.148) H 08/29/22 18:32 U Abnormal Prot Band 2 Not Reportable 08/29/22 13:59 U Abnormal Prot Band 3 Not Reportable 08/29/22 13:59 Vancomycin Trough 8.7 ug/mL (10-15) L 08/29/22 10:16 Random Vancomycin 8.6 ug/mL (20.0-40.0) L 08/30/22 12:07 IgG 729 mg/dL (700-1600) 08/29/22 13:59 IgA 63 mg/dL (70-400) L 08/29/22 13:59 IgM < 25 mg/dL (40-230) L 08/29/22 13:59 Pro Electrophoresis Int See note 08/29/22 13:59 Coronavirus 229E (PCR) Not detected (NOT DETECT) 08/28/22 23:50 SARS-CoV-2 (PCR) Not detected (NOT DETECT) 08/28/22 23:50 Vitals Last Vital Signs Temp 98.2 F 08/31/22 11:25 Pulse 88 08/31/22 11:25 Resp 18 08/31/22 11:25 BP 149/82 08/31/22 11:25 Pulse Ox 96 08/31/22 11:25 O2 Del Method 08/31/22 11:25 Discharge Plan Discharge Patient Disposition: Home Condition: Stable Prescriptions: Continued Lantus U-100 Insulin 100 unit/mL solution 100 unit SUBCUT BID Rx Instructions: sliding scale atorvastatin 40 mg tablet 40 mg PO BEDTIME allopurinol 300 mg tablet 300 mg PO DAILY omeprazole 40 mg capsule,delayed release(DR/EC) 40 mg PO DAILY amlodipine 10 mg tablet 10 mg PO DAILY levetiracetam [Keppra] 500 mg tablet 1,000 mg PO BID zonisamide [Zonegran] 100 mg capsule 200 mg PO BID Eliquis 5 mg tablet 5 mg PO BID montelukast [Singulair] 10 mg tablet 10 mg PO DAILY Qty: 90 2RF hydrocodone-acetaminophen 5-325 mg tablet 1 tab PO Q4H PRN (Reason: pain) 7 Days Qty: 30 0RF (DME) Bariatric Wheel Chair See Rx Instructions .Route .MEDSUPPLY Qty: 1 0RF Rx Instructions: As directed (DME) Wheel Chair See Rx Instructions .Route .MEDSUPPLY Qty: 1 0RF Rx Instructions: As directed (DME) knee immobilizer See Rx Instructions .Route .MEDSUPPLY Qty: 1 0RF Rx Instructions: As directed diphenhydramine HCl [Benadryl] 25 mg Capsule 25 mg PO DAILY PRN (Reason: Allergy Symptoms) calcium carbonate-vitamin D2 600 mg calcium- 200 unit Tablet 1 tab PO DAILY One-A-Day Men's 50 Plus 400-20-370 mcg Tablet 1 tab PO DAILY aspirin 325 mg Tablet 325 mg PO DAILY albuterol sulfate 90 mcg/actuation HFA aerosol inhaler 2 puff INHALATION Q4H PRN (Reason: Shortness Of Breath) duloxetine 30 mg capsule,delayed release(DR/EC) 30 mg PO DAILY divalproex [Depakote] 500 mg tablet,delayed release (DR/EC) 1,500 mg PO BEDTIME Humalog KwikPen Insulin 200 unit/mL (3 mL) insulin pen 25 unit SUBCUT TID Rx Instructions: sliding scale ondansetron 4 mg tablet,disintegrating 4 mg PO Q6H PRN (Reason: nausea and vomiting) Qty: 14 0RF Changed vancomycin 500 mg recon soln 1,000 mg PO DAILY Qty: 7 0RF Discontinued spironolactone 25 mg tablet 50 mg PO DAILY Discharge Orders: Discharge Order (Routine); Ordered 08/31/22 Ordered By: Sandor Johnson Referrals: Susannah Veronica MD [Hospitalist] - 09/06/22 Kumar Kirkland MD [Hospitalist] - 4-7 days Kumar Evans DO [Primary Care Provider] - 7-10 days Discharge Diet: Cardiac and Diabetic Discharge Activity: Resume usual activity and Increase activity as tolerated Patient Instructions: Opioid Safety Activity Restrictions/Additional Instructions: Dose of vancomycin has been reduced to 1 g daily. Continue taking vancomycin till you meet with Dr. Veronica from infectious disease on next . Please follow-up with Dr. Kirkland as discussed in detail. Do not take spironolactone anymore. Please repeat a BMP and vancomycin trough level on Saturday with home health nurse. Discharge Attestations Time Spent in Discharge Care*: greater than 30 min Specific Discharge Activities: educating patient, educating and/or supporting family/caregiver, discussing with pcp/other providers, discussing with foster care case manager/social workers/dc planners, documenting/other paperwork and evaluating patient/reviewing data Status at Discharge: Cognitive status at discharge: cognitively intact, Behavioral status at discharge: cooperative, Functional status at discharge: independent ambulation, Overall status at discharge: patient is progressing back to baseline Quality Metrics Clinical Quality Measures [ No reported AMI, CVA or VTE this stay] Coding Level of Care Code Acute Chg FW DC note Diagnoses Fever R50.9 Infection of total left knee replacement T84.54XA Chronic lymphocytic leukemia of B-cell type not having achieved remission C91.10 Chronic kidney disease N18.9 Diabetes mellitus, type II E11.9 Mass of pancreas K86.89
[2022-08-31] MEDS: vancomycin 1,500 MG/300 ML PIGGYBACK 200 MG IV (15:25)
--- NOTE | 2022-08-31 16:33 | P.PN_ITS ---
Subjective Subjective: Infectious disease progress note. remains afberile since admission now s/p CT abdomen which showed likely pancreatic malignancy Synovial aspirate negative to date Crp trending down to 16 Vitals/I&O/Wt Last Vital Signs Temp 98.2 F 08/31/22 11:25 Pulse 88 08/31/22 11:25 Resp 18 08/31/22 11:25 BP 149/82 08/31/22 11:25 Pulse Ox 96 08/31/22 11:25 O2 Del Method 08/31/22 11:25 08/31/22 08/31/22 08/31/22 06:59 14:59 22:59 Intake Total 2320 / 2320 Balance 2320 / 2320 Weight last 48 hrs Weight 147.871 kg Weight 147.281 kg Physical Exam Narrative: General: No acute distress, AO x3 HEENT: PERRLA, pupils bilaterally equal and reactive, pallors not present Chest: Normal vesicular breath sounds, no added sounds, equal good air entry bilaterally CVS: S1-S2 regular, no murmurs, no tachycardia, no gallops, no rubs Abdomen: Soft, nontender, no organomegaly, bowel sounds present Neuro: No focal deficits, no facial deformity, AO x3, power 5/5 in all limbs Extremities: left knee wwithout swelling, erythema or tenderness, overlying incision is well healed. Data : 08/31/22 01:34 08/31/22 01:34 Other Labs: Ct abdomen 08/22 CT/CT abdomen pelvis w con* [id number] IMPRESSION: ? 1.? Heterogeneously enhancing mass in the head and uncinate process of the pancreas compatible with neoplasm likely adenocarcinoma. 2.? Suspicion slightly enlarged peripancreatic and mesenteric root lymph nodes. 3.? Indeterminant low-attenuation lesion RIGHT hepatic lobe may represent hepatic cyst, hemangioma, or metastatic disease. 4.? Diffuse fatty infiltration of the liver. 5.? No other acute findings. 6.? Portal vein and splenic vein are patent. Micro: Microbiology 08/29/22 14:55 Body Fluid Culture - Preliminary Synovial Fluid 08/28/22 20:50 MRSA Culture - Final Nose A&P Assessment and plan (1) Fever: Admitted with fever and increasing inflammatory markers. Currently Afberile COVID-19 PCR negative.? Blood cultures sent through periphery and port negative thus far from 08/28 and previously from 08/22. Lower limb Dopplers negative for DVT.? UA not consitent with infection, no syptoms of dysuria, urine cx returned with < 5000 CFU PSeudomonas. Likely to be colonizer CXR without consolidation, knee overtly without signs of infection. He is has been on treatment with iv vancomycin, nearing the 6 week rosita on Aug 31. CRP had been trending down reassuringly until 08/21, then increased to 64, now trending down to 16 again. Appreciate ortho eval and synovial aspiration- thus far no organisms on gram stain, cx negative to date. Less likely that persisting knee infection was the source of fever and increased inflammatory markers. Possible that he may have had acute pancreatitis which would explain symptoms of abdominal pain, nausea, fever and elevated inflammatory markers, . CT abdomen concerning for malignancy of pancreas, likely adenocarcinoma. HE Will follow up with oncology shortly after discharge. (2) Infection of total left knee replacement: on outpatient vancomycin treatment for CoNs PJI currently being dosed with iv vancomycin by levels (3) Chronic lymphocytic leukemia of B-cell type not having achieved remission: off chemo since March 2022. Plan Synovial aspirate thus far with no growth. Will follow definitive cx as outpatient. Until then extend iv vancomyin until 09/06 with trough monitoring. Thereafter plan to transition to oral abx, likely doxycycline 100mg po BID until definitive knee revision. 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
--- NOTE | 2022-08-31 16:56 | PC.NURSE ---
patient and verbalized discharge instructions, home medications, and follow up appointments. patient d/c with port needle in place for home vancomycin infusions.
[2022-09-04 09:33] LABS: Albumin,Urine Random 69 %; Alpha-1-Globulins Urine Random 6 %; Alpha-2-Globulins Urine Random 6 %; Beta-Globulin,Urine Random 11 %; Gamma Globulin,Urine Random 8 %
== END 2022-08-31 17:02 | disposition home health service (06) | DRG 560 ==
PROVIDERS: Student in an Organized Health Care Education/Training Program; Admitting Provider Student in an Organized Health Care Education/Training Program; PCP Internal Medicine; Visit Provider Student in an Organized Health Care Education/Training Program
DX: T84.54XA Infection and inflammatory reaction due to internal left knee prosthesis, initial encounter (principal); C91.10 Chronic lymphocytic leukemia of B-cell type not having achieved remission; Y79.2 Prosthetic and other implants, materials and accessory orthopedic devices associated with adverse incidents; R50.9 Fever, unspecified; K86.9 Disease of pancreas, unspecified; I12.9 Hypertensive chronic kidney disease with stage 1 through stage 4 chronic kidney disease, or unspecified chronic kidney disease; E11.22 Type 2 diabetes mellitus with diabetic chronic kidney disease; N18.9 Chronic kidney disease, unspecified; G40.909 Epilepsy, unspecified, not intractable, without status epilepticus; E78.5 Hyperlipidemia, unspecified; D50.9 Iron deficiency anemia, unspecified; Z96.652 Presence of left artificial knee joint; Z86.718 Personal history of other venous thrombosis and embolism; Z92.21 Personal history of antineoplastic chemotherapy; Z79.01 Long term (current) use of anticoagulants; Z79.4 Long term (current) use of insulin; Z79.82 Long term (current) use of aspirin
CPT/HCPCS: 36415; 36416; 36591; 71045; 74177; 76705; 80053; 80061; 80202; 81001; 82150; 82570; 82607; 82746; 82784; 82962; 83036; 83540; 83550; 83690; 83735; 84100; 84145; 84155; 84156; 84165; 84166; 84443; 85025; 85378; 85651; 86140; 86403; 87040; 87070; 87075; 87077; 87086; 87186; 87205; 87449; 87635; 87641; 93970; 94664; 96372; J0696; J1815; J3370; J7030; J7040; Q9967

== ENCOUNTER 2022-09-03 18:42 | Outpatient (CLI) | payer MEDICARE, SELFPAY ==
[2022-09-03 18:58] LABS: Basophils % 0.4 %; Eosinophils # 0.4 10^3/uL (0.0-0.8); Eosinophils % 4.4 %; Hematocrit 29.1 % (42.0-52.0); Hemoglobin 9.3 g/dL (11.7-16.6); Lymphocytes # 1.5 10^3/uL (0.8-4.8); Lymphocytes % 17.8 %; Mean Corpuscular Hemoglobin 28.8 pg (28.0-34.0); Mean Corpuscular Volume 90.1 fl (80-94); Mean Platelet Volume 10.4 fL (7.4-10.4); Monocytes # 0.7 10^3/uL (0.2-0.9); Monocytes % 8.5 %; Neutrophils # 5.74 10^3/uL (1.8-7.7); Neutrophils % 67.1 %; Nucleated Red Blood Cells % 0.2 %; Platelet Count 210 10^3/cmm (130-400); Red Blood Count 3.23 10^6/uL (4.1-5.3); Red Cell Distribution Width 18.2 % (12.1-15.1); White Blood Count 8.6 10^3/uL (4.0-10.0)
[2022-09-03 19:08] LABS: Alanine Aminotransferase 26 U/L (0-41); Albumin Level 3.4 g/dL (3.5-5.2); Alkaline Phosphatase 87 U/L (40-130); Anion Gap 12.8 (5-19); Aspartate Amino Transferase 22 U/L (0-40); Blood Urea Nitrogen 17 mg/dL (6-20); C Reactive Protein 5.4 mg/L (0.0-4.9); Carbon Dioxide 25 mmol/L (22-29); Chloride 102 mmol/L (98-107); Globulin 2.7 g/dL (1.3-4.6); Glomerular Filtration Rate 48.2 mL/min (90-130); Glucose 236 mg/dL (65-115); Osmolality Calculated 291 mOsm/kg (285-295); Potassium 3.8 mmol/L (3.5-5.1); Sodium 136 mmol/L (136-145); Total Bilirubin 0.2 mg/dL (0.15-1.2); Total Protein 6.1 g/dL (6.6-8.7)
[2022-09-03 19:09] LABS: Vancomycin Trough 14.9 ug/mL (10-15)
== END 2022-09-03 18:43 | disposition home or self-care (01) ==
LOC: LAB 18:45
PROVIDERS: PCP Internal Medicine; Visit Provider Student in an Organized Health Care Education/Training Program
DX: Z01.89 Encounter for other specified special examinations (principal)
CPT/HCPCS: 80053; 80202; 82248; 85025; 86140

== ENCOUNTER 2022-09-04 08:57 | Oncology outpatient (recurring) (ONCR) | payer MEDICARE, SELFPAY | END 2022-09-24 23:59 | disposition home or self-care (01) | PROVIDERS: PCP Internal Medicine; Visit Provider Internal Medicine Medical Oncology | DX: C91.10 Chronic lymphocytic leukemia of B-cell type not having achieved remission (principal); Z86.16 Personal history of COVID-19; N28.89 Other specified disorders of kidney and ureter; K86.89 Other specified diseases of pancreas; Z92.25 Personal history of immunosuppression therapy | CPT/HCPCS: 99214 ==

== ENCOUNTER → 2022-09-06 13:51 | Outpatient (BNVA) | payer MEDICARE, SELFPAY | PROVIDERS: PCP Internal Medicine; Visit Provider Orthopaedic Surgery | DX: T84.54XA Infection and inflammatory reaction due to internal left knee prosthesis, initial encounter (principal); Y79.2 Prosthetic and other implants, materials and accessory orthopedic devices associated with adverse incidents | CPT/HCPCS: 99213 ==

== ENCOUNTER → 2022-09-20 13:00 | Outpatient (BNVA) | payer MEDICARE, SELFPAY | PROVIDERS: PCP Internal Medicine; Visit Provider Student in an Organized Health Care Education/Training Program | DX: C91.10 Chronic lymphocytic leukemia of B-cell type not having achieved remission (principal); T84.54XA Infection and inflammatory reaction due to internal left knee prosthesis, initial encounter; X58.XXXA Exposure to other specified factors, initial encounter | CPT/HCPCS: 99212; G0463 ==

== ENCOUNTER 2022-10-12 23:23 | Emergency (ER) | payer MEDICARE, SELFPAY ==
[2022-10-12 23:31] VITALS: BP 148/73; PULSE 112; RESP 24; TEMP 37.1; O2SAT 99; BMI 47.3
[2022-10-13 00:38] LABS: Add Urine Microscopic? YES; Bilirubin Urine Neg (Negative); Blood Urine Neg (Negative); Glucose Urine UA Norm (Normal); Ketones Urine Negative (Negative); Leukocyte Esterase Urine Negative (Negative); Nitrate Urine Negative (Negative); Protein Urine 3+ (Negative); Specific Gravity, Urine 1.005 (1.005-1.030); Urine Appearance Clear (CLEAR); Urine Color Yellow (Yellow); Urobilinogen Urine Norm (Negative); pH Urine 7 (5-7)
[2022-10-13 00:39] LABS: Add Urine Culture? No; Squamous Epithelial Cell Urine 0-4 /hpf (0-5)
--- NOTE | 2022-10-13 01:01 | XRR_ITS ---
PROCEDURE INFORMATION: Exam: XR Chest Exam date and time: 10/13/2022 2:22 AM Age: 57 years old Clinical indication: Cough and fever; Prior surgery; Surgery date: 1-6 months; Surgery type: Port; Patient HX: HX leukemia, pancreatic and liver CA; Additional info: Fever, cough, cancer PT TECHNIQUE: Imaging protocol: Radiologic exam of the chest. Views: 1 view. COMPARISON: CR (CHEST, ) 08/28/2022 11:25 PM FINDINGS: Tubes, catheters and devices: There is a left chest port with the line tip appropriately positioned in the lower SVC near the cavoatrial junction. Lungs: Mild patchy ill-defined opacity in the lower lungs bilaterally, progressive since 08/28/2022. Pleural spaces: There is no pleural effusion or pneumothorax. Heart/Mediastinum: Cardiomediastinal contours are unremarkable. Bones/joints: Bones are unremarkable. XR/XR chest 1V portable [id number] IMPRESSION: 1. Progressive mild patchy ill-defined opacity in the lower lungs bilaterally. Possible infection, interstitial edema, or interstitial lung disease. 2. Stable left chest port position.
[2022-10-13 01:18] LABS: Basophils % 0.1 %; Eosinophils % 0.3 %; Hematocrit 27.9 % (42.0-52.0); Hemoglobin 8.7 g/dL (11.7-16.6); Lymphocytes # 0.5 10^3/uL (0.8-4.8); Lymphocytes % 4.3 %; Mean Corpuscular HGB Conc 31.2 g/dL (30.0-36.0); Mean Corpuscular Hemoglobin 28.4 pg (28.0-34.0); Mean Corpuscular Volume 91.2 fl (80-94); Mean Platelet Volume 11.1 fL (7.4-10.4); Monocytes # 0.2 10^3/uL (0.2-0.9); Monocytes % 1.5 %; Neutrophils # 10.78 10^3/uL (1.8-7.7); Neutrophils % 91.3 %; Nucleated Red Blood Cells % 0 %; Platelet Count 101 10^3/cmm (130-400); Red Blood Count 3.06 10^6/uL (4.1-5.3); Red Cell Distribution Width 18.2 % (12.1-15.1); White Blood Count 11.8 10^3/uL (4.0-10.0)
[2022-10-13 01:28] LABS: Alanine Aminotransferase 29 U/L (0-41); Alkaline Phosphatase 69 U/L (40-130); Anion Gap 13.8 (5-19); Aspartate Amino Transferase 31 U/L (0-40); Blood Urea Nitrogen 20 mg/dL (6-20); C Reactive Protein 228.5 mg/L (0.0-4.9); Calcium 8.7 mg/dL (8.5-10.5); Carbon Dioxide 25 mmol/L (22-29); Chloride 103 mmol/L (98-107); Globulin 2.8 g/dL (1.3-4.6); Glomerular Filtration Rate 36.7 mL/min (90-130); Glucose 92 mg/dL (65-115); Lactic Sepsis W/Reflex 1.2 mmol/L (0.5-2.2); Osmolality Calculated 288 mOsm/kg (285-295); Potassium 3.8 mmol/L (3.5-5.1); Sodium 138 mmol/L (136-145); Total Bilirubin 0.4 mg/dL (0.15-1.2); Total Protein 5.8 g/dL (6.6-8.7)
[2022-10-13] MEDS: cefTRIAXone 1,000 MG in sodium chloride 0.9% (plus) 50 ML 100 MG IV (01:38)
[2022-10-13 01:43] LABS: Slide Review Slide Review Perform
[2022-10-13 02:12] LABS: Adenovirus Not Detected (NOT DETECT); Chlamydia Pneumoniae Not Detected (NOT DETECT); Coronavirus 229E,HKU1,NL63,OC4 Not Detected (NOT DETECT); Human Metapneumovirus Not Detected (NOT DETECT); Human Rhinovirus/Enterovirus Not Detected (NOT DETECT); Influenza A Not Detected (NOT DETECT); Influenza A H1 Not Detected (NOT DETECT); Influenza A H1-2009 Not Detected (NOT DETECT); Influenza A H3 Not Detected (NOT DETECT); Influenza B Not Detected (NOT DETECT); Mycoplasma Pneumoniae Not Detected (NOT DETECT); Parainfluenza Virus Type 1 Not Detected (NOT DETECT); Parainfluenza Virus Type 2 Not Detected (NOT DETECT); Parainfluenza Virus Type 3 Not Detected (NOT DETECT); Parainfluenza Virus Type 4 Not Detected (NOT DETECT); Respiratory Syncytial Virus A Not Detected (NOT DETECT); Respiratory Syncytial Virus B Not Detected (NOT DETECT); SARS-COV-2 Not Detected (NOT DETECT)
[2022-10-13 02:43] VITALS: RESP 18; O2SAT 95
[2022-10-13] MEDS: ondansetron 2 mg/ML SDV 2 mL 4 MG IVP (02:43)
[2022-10-13] MEDS: morphine 4 mg/mL SDV 1 mL IVP (02:43)
[2022-10-13 04:46] VITALS: BP 125/63; PULSE 84; RESP 18; O2SAT 95
--- NOTE | 2022-10-13 15:56 | ED_ITS ---
HPI - Fever General: Chief Complaint: Fever Stated Complaint: fever, chills, cancer pt Time Seen by Provider: 10/13/22 00:00 Source: patient and family History of Present Illness: 57 year old male with a history of CLL. Ana has a recent diagnosis of pancreatic cancer that is metastatic to his liver. He received the first chemo induction last week. He reports a fever for the last 24 hours or so. He did not take medication at home. notes that he's been quite tired and has slept a lot in the last 24 to 48 hours. Decreased appetite. He is not significantly short of breath. No vomiting. Oncology urged them to come in for evaluation in the ER. MD elicited complaint: fever Pertinent past history: immunosuppression (potentially) Onset (ago): hour(s) Context: on chemotherapy Exacerbating factors: nothing Relieving factors: nothing Associated symptoms: Reports chills, cough (minimal), nausea and sore throat; Deny abdominal pain, flank pain, chest pain, confusion, headache(s), nasal congestion, rhinorrhea, short of breath or vomiting Treatments prior to arrival fever: none Review of Systems Const: Reports: fever(s), chills and body aches Eyes: Denies: change in vision ENMT: Reports: throat pain; Denies: nasal congestion Card: Denies: chest pain Resp: Reports: non-productive cough; Denies: dyspnea GI: Reports: nausea; Denies: abdominal pain or vomiting : Denies: flank pain Skin/Breast: Denies: rash Neuro: Denies: headache(s) or confusion PFS ED PFSH: Medical History Acute embolism and thrombosis of left femoral vein Chronic kidney disease Chronic lymphocytic leukemia Chronic lymphocytic leukemia of B-cell type not having achieved remission Degenerative arthritis Degenerative arthritis of spine Diabetes mellitus, type II Diarrhea Epilepsy In August 2018 he had presented with new onset of epilepsy, presumed idiopathic Fatigue GERD (gastroesophageal reflux disease) Hyperlipidemia Hypertension Iron deficiency anemia In March 2018 he required treatment for iron deficiency anemia Pancreatic cancer Postoperative anemia Surgical History History of knee surgery Left knee implant removed and spacer placed until infection gone. History of left knee replacement S/P total knee arthroplasty (~05/2019) Family History Mother Cancer Lung Unknown Cancer Aunt - Leukemia, AML Brother Diabetes Hypertension Sister Hypertension Denies family history of CAD (coronary artery disease) Clotting disorder Dementia Hyperlipidemia Psychiatric illness Chronic kidney disease (CKD) Suicide Anesthesia complication Bleeding disorder Lung disease Stroke Social History Smoking and tobacco status: unknown if ever smoked Alcohol intake: current Alcohol intake frequency: holidays/special occasions only Physical Exam Const: COMMON NORMALS: no acute distress GENERAL APPEARANCE: cooperative; not ill appearing NUTRITIONAL APPEARANCE: obese ORIENTATION/CONSCIOUSNESS: Yes awake HENMT: COMMON NORMALS: normocephalic and atraumatic HEAD & SCALP: normocephalic and atraumatic FACE & SINUS: normal facial exam and face symmetric THROAT: posterior oropharynx abnormal erythema; no edema and no exudates Eye: COMMON NORMALS: Equal, round and reactive pupils present and EOMs intact bilaterally PUPIL: Yes Equal, round and reactive pupils present Neck/C-Spine: GENERAL: Yes trachea midline Chest: CHEST: Yes Symmetrical chest wall rise Resp: COMMON NORMALS: normal respiratory effort, No use of accessory muscles and clear to auscultation bilaterally AUSCULTATION: clear to auscultation bilaterally Cardio: COMMON NORMALS: regular rate and regular rhythm RATE: regular rate RHYTHM: regular rhythm GI: COMMON NORMALS: Normal to inspection, nondistended, normoactive bowel sounds present Extremity: COMMON NORMALS: normal to inspection Neuro: ROSS COMA SCALE: document GCS findings Ross coma scale eye o pening: Spontaneous Ross coma scale verbal response: Orientated [facility] coma scale motor response: Obey commands Ross coma scale total score: 15 SPEECH: speech normal Psych: COMMON NORMALS: mental status grossly normal and speech normal SPEECH: Yes normal speech Course Vital Signs: Vital signs: Vital Signs Temperature 98.8 F 10/12/22 23:31 Pulse Rate 84 10/13/22 04:46 Respiratory Rate 18 10/13/22 04:46 Blood Pressure 125/63 10/13/22 04:46 Pulse Oximetry 95 10/13/22 04:46 Oxygen Delivery Me thod 10/12/22 23:31 MDM - Fever Medical Decision Making The patient remains afebrile here. he is given IV fluids, and covered with antibiotics. His chest X-ray reveals potential pneumonia in the bases bilaterall y of his lungs. His COVID-19 PCR is negative. His white blood cell count is 12. He is not neutropenic. He is not hypoxic. He is on doxycycline chronically for suppression therapy after an infected knee prosthesis that had to be removed. because of this, he will be placed on levaquin. He has an appointment with his oncologist on Saturday period and he knows to return to the ER for worsening symptoms prior to that point. his lactic acid is normal, however his CRP is signficantly elevated. Lab Data 10/13/22 00:59 10/13/22 00:59 Radiology Impressions Chest X-Ray 10/13/22 01:01 IMPRESSION: 1. Progressive mild patchy ill-defined opacity in the lower lungs bilaterally. Possible infection, interstitial edema, or interstitial lung disease. 2. Stable left chest port position. Laboratory Results WBC 11.8 10^3/uL (4.0-10.0) H 10/13/22 00:59 RBC 3.06 10^6/uL (4.1-5.3) L 10/13/22 00:59 Hgb 8.7 g/dL (11.7-16.6) L 10/13/22 00:59 Hct 27.9 % (42.0-52.0) L 10/13/22 00:59 MCV 91.2 fl (80-94) 10/13/22 00:59 MCH 28.4 pg (28.0-34.0) 10/13/22 00:59 MCHC 31.2 g/dL (30.0-36.0) 10/13/22 00:59 RDW 18.2 % (12.1-15.1) H 10/13/22 00:59 Plt Count 101 10^3/cmm (130-400) L 10/13/22 00:59 MPV 11.1 fL (7.4-10.4) H 10/13/22 00:59 Neut % (Auto) 91.3 % 10/13/22 00:59 Lymph % (Auto) 4.3 % 10/13/22 00:59 [place] % (Auto) 1.5 % 10/13/22 00:59 Eos % (Auto) 0.3 % 10/13/22 00:59 Baso % (Auto) 0.1 % 10/13/22 00:59 Neut # (Auto) 10.78 10^3/uL (1.8-7.7) H 10/13/22 00:59 Lymph # (Auto) 0.5 10^3/uL (0.8-4.8) L 10/13/22 00:59 [place] # (Auto) 0.2 10^3/uL (0.2-0.9) 10/13/22 00:59 Eos # (Auto) 0.0 10^3/uL (0.0-0.8) 10/13/22 00:59 Baso # (Auto) 0.0 10^3/uL (0.0-0.1) 10/13/22 00:59 Nucleated RBC % (auto) 0 % 10/13/22 00:59 Nucleated RBCs # 0.0 /100WBC 10/13/22 00:59 Sodium 138 mmol/L (136-145) 10/13/22 00:59 Potassium 3.8 mmol/L (3.5-5.1) 10/13/22 00:59 Chloride 103 mmol/L (98-107) 10/13/22 00:59 Carbon Dioxide 25 mmol/L (22-29) 10/13/22 00:59 Anion Gap 13.8 (5-19) 10/13/22 00:59 BUN 20 mg/dL (6-20) 10/13/22 00:59 Creatinine 1.9 mg/dL (0.7-1.2) H 10/13/22 00:59 GFR Calculation 36.7 mL/min (90-130) L 10/13/22 00:59 Glucose 92 mg/dL (65-115) 10/13/22 00:59 Calculated Osmolality 288 mOsm/kg (285-295) 10/13/22 00:59 Lactic Acid 1.2 mmol/L (0.5-2.2) 10/13/22 00:59 Calcium 8.7 mg/dL (8.5-10.5) 10/13/22 00:59 Total Bilirubin 0.4 mg/dL (0.15-1.2) 10/13/22 00:59 AST 31 U/L (0-40) 10/13/22 00:59 ALT 29 U/L (0-41) 10/13/22 00:59 Alkaline Phosphatase 69 U/L (40-130) 10/13/22 00:59 C-Reactive Protein 228.5 mg/L (0.0-4.9) H 10/13/22 00:59 Total Protein 5.8 g/dL (6.6-8.7) L 10/13/22 00:59 Albumin 3.0 g/dL (3.5-5.2) L 10/13/22 00:59 Globulin 2.8 g/dL (1.3-4.6) 10/13/22 00:59 Urine Color Yellow (Yellow) 10/13/22 00:05 Urine Appearance Clear (CLEAR) 10/13/22 00:05 Urine pH 7 (5-7) 10/13/22 00:05 Ur Specific [place] 1.005 (1.005-1.030) 10/13/22 00:05 Urine Protein 3+ (Negative) H 10/13/22 00:05 Urine Glucose (UA) Norm (Normal) 10/13/22 00:05 Urine Ketones Negative (Negative) 10/13/22 00:05 Urine Blood Neg (Negative) 10/13/22 00:05 Urine Nitrate Negative (Negative) 10/13/22 00:05 Urine Bilirubin Neg (Negative) 10/13/22 00:05 Urine Urobilinogen Norm mg/dL (Negative) 10/13/22 00:05 Ur Leukocyte Esterase Negative (Negative) 10/13/22 00:05 Urine RBC None /hpf (0-2) 10/13/22 00:05 Urine WBC None /hpf (0-5) 10/13/22 00:05 Ur Squamous Epith Cells 0-4 /hpf (0-5) H 10/13/22 00:05 Amorphous Sediment Not Reportable 10/13/22 00:05 Urine Bacteria None /hpf (NONE) 10/13/22 00:05 Coronavirus 229E (PCR) Not detected (NOT DETECT) 10/13/22 00:28 SARS-CoV-2 (PCR) Not detected (NOT DETECT) 10/13/22 00:28 Discharge Plan Discharge Patient Disposition: Home Clinical Impression: Pneumonia Condition: Stable Prescriptions: New levofloxacin 500 mg tablet 500 mg PO DAILY 10 Days Qty: 10 0RF No Action Lantus U-100 Insulin 100 unit/mL solution 100 unit SUBCUT BID Rx Instructions: sliding scale atorvastatin 40 mg tablet 40 mg PO BEDTIME allopurinol 300 mg tablet 300 mg PO DAILY omeprazole 40 mg capsule,delayed release(DR/EC) 40 mg PO DAILY amlodipine 10 mg tablet 10 mg PO DAILY levetiracetam [Keppra] 500 mg tablet 1,000 mg PO BID zonisamide [Zonegran] 100 mg capsule 200 mg PO BID Eliquis 5 mg tablet 5 mg PO BID montelukast [Singulair] 10 mg tablet 10 mg PO DAILY Qty: 90 2RF (DME) Bariatric Wheel Chair See Rx Instructions .Route .MEDSUPPLY Qty: 1 0RF Rx Instructions: As directed (DME) Wheel Chair See Rx Instructions .Route .MEDSUPPLY Qty: 1 0RF Rx Instructions: As directed (DME) knee immobilizer See Rx Instructions .Route .MEDSUPPLY Qty: 1 0RF Rx Instructions: As directed oxycodone 10 mg tablet 10 - 20 mg PO Q4H PRN (Reason: pain) 5 Days Qty: 60 0RF ondansetron 4 mg tablet,disintegrating 4 - 8 mg PO Q4H PRN (Reason: nausea and vomiting) Qty: 60 0RF fentanyl 25 mcg/hr patch 72 hour 1 patch transdermal Q72H 30 Days Qty: 10 0RF hydromorphone [Dilaudid] 4 mg tablet 4 mg PO Q6H PRN (Reason: pain) 30 Days Qty: 120 0RF doxycycline hyclate 100 mg capsule 100 mg PO BID 30 Days Qty: 60 3RF diphenhydramine HCl [Benadryl] 25 mg Capsule 25 mg PO DAILY PRN (Reason: Allergy Symptoms) calcium carbonate-vitamin D2 600 mg calcium- 200 unit Tablet 1 tab PO DAILY One-A-Day Men's 50 Plus 400-20-370 mcg Tablet 1 tab PO DAILY aspirin 325 mg Tablet 325 mg PO DAILY albuterol sulfate 90 mcg/actuation HFA aerosol inhaler 2 puff INHALATION Q4H PRN (Reason: Shortness Of Breath) duloxetine 30 mg capsule,delayed release(DR/EC) 30 mg PO DAILY divalproex [Depakote] 500 mg tablet,delayed release (DR/EC) 1,500 mg PO BEDTIME Humalog KwikPen Insulin 200 unit/mL (3 mL) insulin pen 25 unit SUBCUT TID Rx Instructions: sliding scale potassium chloride 10 mEq Tablet Extended Release 10 meq PO DAILY Qty: 30 1RF Compazine 10 mg tablet 10 mg PO Q4H PRN (Reason: Mild Nausea) Qty: 30 3RF lorazepam 1 mg tablet 0.5 - 1 mg PO Q6H PRN (Reason: Severe Nausea) Qty: 30 3RF prochlorperazine maleate 10 mg Tablet 10 mg PO Q6H PRN (Reason: Nausea) Qty: 30 3RF Discharge Orders: Discharge ED (Routine); Ordered 10/13/22 Ordered By: Jero Granados Referrals: Kumar Evans DO [Primary Care Provider] - Patient Instructions: Pneumonia (ED) Activity Restrictions/Additional Instructions: Stay hydrated. Watch temperatures closely and treat accordingly. Return for continued fever despite 2-3 doses of antibiotics, worsening shortness of breath despite treatment, any other concerning symptoms. Follow-up with your doctor on Saturday as scheduled. Coding Level of Care Code ED [employer] Administrator for Sheyla Cha
== END 2022-10-13 04:42 | disposition home or self-care (01) ==
PROVIDERS: Emergency Medicine; Emergency Provider Emergency Medicine; PCP Internal Medicine
DX: J18.9 Pneumonia, unspecified organism (principal); I12.9 Hypertensive chronic kidney disease with stage 1 through stage 4 chronic kidney disease, or unspecified chronic kidney disease; E11.22 Type 2 diabetes mellitus with diabetic chronic kidney disease; N18.9 Chronic kidney disease, unspecified
CPT/HCPCS: 36415; 71045; 80053; 81001; 83605; 85025; 86140; 87040; 87635; 96365; 96375; 99284; J0696; J2270; J2405

== ENCOUNTER 2022-10-23 09:00 | Oncology outpatient (recurring) (ONCR) | payer MEDICARE, SELFPAY ==
[2022-09-26] MEDS: ondansetron 2 mg/ML SDV 2 mL 8 MG IVP (15:20)
[2022-09-26] MEDS: sodium chloride 0.9% 1,000 ML 999 ML IV (15:33)
[2022-09-26 15:41] VITALS: RESP 18; O2SAT 98
[2022-09-26] MEDS: HYDROmorphone 1 mg/mL INJ 1 mL 2 MG IVP (15:41)
[2022-09-26 15:42] LABS: Basophils % 0.3 %; Eosinophils # 0.2 10^3/uL (0.0-0.8); Hematocrit 32.2 % (42.0-52.0); Hemoglobin 10.2 g/dL (11.7-16.6); Lymphocytes # 1.3 10^3/uL (0.8-4.8); Lymphocytes % 17.1 %; Mean Corpuscular HGB Conc 31.7 g/dL (30.0-36.0); Mean Corpuscular Hemoglobin 28.5 pg (28.0-34.0); Mean Corpuscular Volume 89.9 fl (80-94); Mean Platelet Volume 9.9 fL (7.4-10.4); Monocytes # 0.6 10^3/uL (0.2-0.9); Monocytes % 8.5 %; Neutrophils # 5.15 10^3/uL (1.8-7.7); Neutrophils % 69.3 %; Nucleated Red Blood Cells % 0 %; Platelet Count 196 10^3/cmm (130-400); Red Blood Count 3.58 10^6/uL (4.1-5.3); Red Cell Distribution Width 17.8 % (12.1-15.1); White Blood Count 7.4 10^3/uL (4.0-10.0)
[2022-09-26 16:19] LABS: Alanine Aminotransferase 25 U/L (0-41); Albumin Level 3.7 g/dL (3.5-5.2); Alkaline Phosphatase 101 U/L (40-130); Anion Gap 14.3 (5-19); Aspartate Amino Transferase 26 U/L (0-40); Blood Urea Nitrogen 14 mg/dL (6-20); Calcium 9.1 mg/dL (8.5-10.5); Cancer Antigen 19 9 15.69 U/mL (0-35); Carbon Dioxide 27 mmol/L (22-29); Chloride 101 mmol/L (98-107); Globulin 2.6 g/dL (1.3-4.6); Glomerular Filtration Rate 52.2 mL/min (90-130); Glucose 171 mg/dL (65-115); Osmolality Calculated 293 mOsm/kg (285-295); Potassium 3.3 mmol/L (3.5-5.1); Sodium 139 mmol/L (136-145); Total Bilirubin 0.2 mg/dL (0.15-1.2); Total Protein 6.3 g/dL (6.6-8.7)
[2022-09-26 16:49] VITALS: BP 127/84; PULSE 92; RESP 18; TEMP 36.2; O2SAT 97
[2022-09-26 17:36] LABS: Carcinoembryonic Antigen 525.6 ng/mL (0.0-4.7)
[2022-10-08 14:25] VITALS: BMI 47.8
[2022-10-08 14:45] LABS: Basophils % 0.6 %; Eosinophils # 0.3 10^3/uL (0.0-0.8); Hematocrit 30.2 % (42.0-52.0); Hemoglobin 9.2 g/dL (11.7-16.6); Lymphocytes # 1.5 10^3/uL (0.8-4.8); Lymphocytes % 21.1 %; Mean Corpuscular HGB Conc 30.5 g/dL (30.0-36.0); Mean Corpuscular Volume 92.1 fl (80-94); Mean Platelet Volume 10.3 fL (7.4-10.4); Monocytes % 14.2 %; Neutrophils # 4.23 10^3/uL (1.8-7.7); Nucleated Red Blood Cells % 0 %; Platelet Count 172 10^3/cmm (130-400); Red Blood Count 3.28 10^6/uL (4.1-5.3); Red Cell Distribution Width 17.8 % (12.1-15.1); White Blood Count 7.2 10^3/uL (4.0-10.0)
[2022-10-08 15:26] LABS: Alanine Aminotransferase 21 U/L (0-41); Albumin Level 3.3 g/dL (3.5-5.2); Alkaline Phosphatase 89 U/L (40-130); Anion Gap 9.5 (5-19); Aspartate Amino Transferase 27 U/L (0-40); Blood Urea Nitrogen 17 mg/dL (6-20); CA 125 211.2 U/mL (0-35); Cancer Antigen 19 9 13.44 U/mL (0-35); Carbon Dioxide 29 mmol/L (22-29); Chloride 100 mmol/L (98-107); Globulin 2.7 g/dL (1.3-4.6); Glomerular Filtration Rate 39.1 mL/min (90-130); Glucose 76 mg/dL (65-115); Osmolality Calculated 280 mOsm/kg (285-295); Potassium 3.5 mmol/L (3.5-5.1); Sodium 135 mmol/L (136-145); Total Bilirubin 0.2 mg/dL (0.15-1.2)
[2022-10-09] MEDS: sodium chloride 0.9% 250 ML 100 ML IV (10:06)
[2022-10-09] MEDS: palonosetron 0.25 mg/5 mL SDV IVP (10:08)
[2022-10-09] MEDS: famotidine 20 mg/2 mL INJ IVP (10:09)
[2022-10-09 11:54] VITALS: BP 148/83; PULSE 81; RESP 16; TEMP 36.8; O2SAT 95
--- NOTE | 2022-10-15 13:45 | USCV_ITS ---
Miguel Panda Age: 57 Gender: M : 1965 Exam Date: 10/15/2022 13:19 Ordering Phys: Kumar Kirkland MD Technologist: CT Exam Location: [facility] [place]_ Indication: lle swelling HISTORY: ca pt. PROCEDURES: Venous duplex imaging was performed in only the left lower extremity. In addition, the posterior tibial and peroneal trunk were evaluated. On the left side, the common femoral, superficial femoral, profunda femoral, popliteal, posterior tibial, greater saphenous veins, and the peroneal trunk were identified and interrogated in the standard fashion. FINDINGS: Normal 2-D Doppler and augmentation and compressibility throughout the lower extremity venous structures. Additional imaging through the proximal calf veins also reveals no thrombus. Limited evaluation of the greater saphenous vein is patent with no thrombus. CONCLUSIONS No DVT left lower extremity. Dr. Krystyna Post DO (Electronically Signed) Final Date: 15 October 2022 14:24 S
[2022-10-15 14:17] LABS: Basophils % 0.2 %; Eosinophils # 0.1 10^3/uL (0.0-0.8); Eosinophils % 3.1 %; Hematocrit 26.8 % (42.0-52.0); Hemoglobin 8.2 g/dL (11.7-16.6); Lymphocytes # 0.6 10^3/uL (0.8-4.8); Lymphocytes % 12.7 %; Mean Corpuscular HGB Conc 30.6 g/dL (30.0-36.0); Mean Corpuscular Hemoglobin 28.2 pg (28.0-34.0); Mean Corpuscular Volume 92.1 fl (80-94); Mean Platelet Volume 10.2 fL (7.4-10.4); Monocytes # 0.2 10^3/uL (0.2-0.9); Monocytes % 3.8 %; Neutrophils # 3.56 10^3/uL (1.8-7.7); Neutrophils % 79.5 %; Nucleated Red Blood Cells % 0 %; Platelet Count 77 10^3/cmm (130-400); Red Blood Count 2.91 10^6/uL (4.1-5.3); Red Cell Distribution Width 18.2 % (12.1-15.1); White Blood Count 4.5 10^3/uL (4.0-10.0)
[2022-10-15 14:29] LABS: Slide Review Slide Review Perform
[2022-10-15 14:40] LABS: Alanine Aminotransferase 41 U/L (0-41); Albumin Level 2.6 g/dL (3.5-5.2); Alkaline Phosphatase 87 U/L (40-130); Anion Gap 13.7 (5-19); Aspartate Amino Transferase 46 U/L (0-40); Blood Urea Nitrogen 22 mg/dL (6-20); Calcium 8.6 mg/dL (8.5-10.5); Carbon Dioxide 23 mmol/L (22-29); Chloride 105 mmol/L (98-107); Globulin 3.3 g/dL (1.3-4.6); Glomerular Filtration Rate 44.8 mL/min (90-130); Glucose 250 mg/dL (65-115); Osmolality Calculated 298 mOsm/kg (285-295); Potassium 3.7 mmol/L (3.5-5.1); Sodium 138 mmol/L (136-145); Total Bilirubin 0.2 mg/dL (0.15-1.2); Total Protein 5.9 g/dL (6.6-8.7)
[2022-10-15 15:04] LABS: C Reactive Protein 161.1 mg/L (0.0-4.9)
[2022-10-17] MEDS: alteplase 1 mg/mL SDV 2 mL 2 MG INTRACATH (08:47)
[2022-10-17 09:05] LABS: Basophils % 0.5 %; Eosinophils # 0.1 10^3/uL (0.0-0.8); Eosinophils % 2.7 %; Hematocrit 27.3 % (42.0-52.0); Hemoglobin 8.5 g/dL (11.7-16.6); Lymphocytes # 0.9 10^3/uL (0.8-4.8); Lymphocytes % 25.3 %; Mean Corpuscular HGB Conc 31.1 g/dL (30.0-36.0); Mean Corpuscular Hemoglobin 28.1 pg (28.0-34.0); Mean Corpuscular Volume 90.1 fl (80-94); Mean Platelet Volume 10.4 fL (7.4-10.4); Monocytes # 0.4 10^3/uL (0.2-0.9); Neutrophils # 2.12 10^3/uL (1.8-7.7); Neutrophils % 58.3 %; Nucleated Red Blood Cells # 0.1 /100WBC; Nucleated Red Blood Cells % 1.6 %; Platelet Count 88 10^3/cmm (130-400); Red Blood Count 3.03 10^6/uL (4.1-5.3); Red Cell Distribution Width 17.9 % (12.1-15.1); White Blood Count 3.6 10^3/uL (4.0-10.0)
[2022-10-17 09:24] LABS: Alanine Aminotransferase 61 U/L (0-41); Albumin Level 2.7 g/dL (3.5-5.2); Alkaline Phosphatase 88 U/L (40-130); Aspartate Amino Transferase 61 U/L (0-40); Blood Urea Nitrogen 20 mg/dL (6-20); Calcium 9.1 mg/dL (8.5-10.5); Carbon Dioxide 27 mmol/L (22-29); Chloride 106 mmol/L (98-107); Globulin 3.2 g/dL (1.3-4.6); Glomerular Filtration Rate 41.8 mL/min (90-130); Glucose 120 mg/dL (65-115); Iron 34 ug/dL (59-158); Osmolality Calculated 300 mOsm/kg (285-295); Percent Saturation 18.8 % (20-50); Sodium 143 mmol/L (136-145); Total Bilirubin 0.2 mg/dL (0.15-1.2); Total Iron Binding Capacity 180 mcg/dl; Total Protein 5.9 g/dL (6.6-8.7); Unsaturated Iron Binding 146 ug/dL (112-347)
[2022-10-17 09:39] LABS: Anion Gap 13.6 (5-19); Potassium 3.6 mmol/L (3.5-5.1)
[2022-10-17 12:53] LABS: Adenovirus Not Detected (NOT DETECT); Chlamydia Pneumoniae Not Detected (NOT DETECT); Coronavirus 229E,HKU1,NL63,OC4 Not Detected (NOT DETECT); Human Metapneumovirus Not Detected (NOT DETECT); Human Rhinovirus/Enterovirus Not Detected (NOT DETECT); Influenza A Not Detected (NOT DETECT); Influenza A H1 Not Detected (NOT DETECT); Influenza A H1-2009 Not Detected (NOT DETECT); Influenza A H3 Not Detected (NOT DETECT); Influenza B Not Detected (NOT DETECT); Mycoplasma Pneumoniae Not Detected (NOT DETECT); Parainfluenza Virus Type 1 Not Detected (NOT DETECT); Parainfluenza Virus Type 2 Not Detected (NOT DETECT); Parainfluenza Virus Type 3 Not Detected (NOT DETECT); Parainfluenza Virus Type 4 Not Detected (NOT DETECT); Respiratory Syncytial Virus A Not Detected (NOT DETECT); Respiratory Syncytial Virus B Not Detected (NOT DETECT); SARS-COV-2 Not Detected (NOT DETECT)
[2022-10-23 09:25] LABS: Basophils % 0.2 %; Eosinophils # 0.2 10^3/uL (0.0-0.8); Eosinophils % 3.8 %; Hematocrit 26.1 % (42.0-52.0); Hemoglobin 8.1 g/dL (11.7-16.6); Lymphocytes # 0.9 10^3/uL (0.8-4.8); Lymphocytes % 18.4 %; Mean Corpuscular Hemoglobin 28.2 pg (28.0-34.0); Mean Corpuscular Volume 90.9 fl (80-94); Mean Platelet Volume 9.8 fL (7.4-10.4); Monocytes # 0.8 10^3/uL (0.2-0.9); Neutrophils # 2.83 10^3/uL (1.8-7.7); Neutrophils % 57.2 %; Nucleated Red Blood Cells % 0.4 %; Platelet Count 227 10^3/cmm (130-400); Red Blood Count 2.87 10^6/uL (4.1-5.3); Red Cell Distribution Width 18.8 % (12.1-15.1)
[2022-10-23 09:38] LABS: Alanine Aminotransferase 32 U/L (0-41); Albumin Level 2.9 g/dL (3.5-5.2); Alkaline Phosphatase 92 U/L (40-130); Anion Gap 12.4 (5-19); Aspartate Amino Transferase 33 U/L (0-40); Blood Urea Nitrogen 21 mg/dL (6-20); Calcium 8.7 mg/dL (8.5-10.5); Carbon Dioxide 28 mmol/L (22-29); Chloride 104 mmol/L (98-107); Globulin 2.8 g/dL (1.3-4.6); Glomerular Filtration Rate 39.1 mL/min (90-130); Glucose 122 mg/dL (65-115); Osmolality Calculated 296 mOsm/kg (285-295); Potassium 3.4 mmol/L (3.5-5.1); Sodium 141 mmol/L (136-145); Total Bilirubin 0.2 mg/dL (0.15-1.2); Total Protein 5.7 g/dL (6.6-8.7)
[2022-10-23] MEDS: sodium chloride 0.9% 250 ML 75 ML IV (11:13)
[2022-10-23] MEDS: palonosetron 0.25 mg/5 mL SDV IVP (11:17)
[2022-10-23] MEDS: famotidine 20 mg/2 mL INJ IVP (11:21)
[2022-10-23] MEDS: ferric carboxy (IVPB) 750 MG in sodium chloride 0.9% (100 ml) 100 ML 345 MG IV (11:49)
[2022-10-23 13:25] VITALS: BP 139/71; PULSE 84; RESP 17; TEMP 36.6; O2SAT 95
[2022-10-23 13:46] VITALS: BP 139/74; PULSE 84; RESP 18; TEMP 36.8; O2SAT 95
[2022-10-24 10:15] LABS: Vitamin B12 1045 pg/mL (232-1245)
== END 2022-10-24 23:59 | disposition home or self-care (01) ==
PROVIDERS: Internal Medicine Hematology & Oncology; PCP Internal Medicine; Visit Provider Internal Medicine Medical Oncology
DX: Z51.11 Encounter for antineoplastic chemotherapy (principal); C25.0 Malignant neoplasm of head of pancreas; C78.7 Secondary malignant neoplasm of liver and intrahepatic bile duct; J18.9 Pneumonia, unspecified organism; Z79.2 Long term (current) use of antibiotics; R60.0 Localized edema; Z79.899 Other long term (current) drug therapy; D50.9 Iron deficiency anemia, unspecified; Z85.6 Personal history of leukemia
CPT/HCPCS: 36591; 36593; 80053; 82378; 82607; 83540; 83550; 85025; 86140; 86301; 86304; 87486; 87581; 87633; 93971; 96365; 96367; 96375; 96413; 96417; 99214; 99215; J1100; J1170; J1439; J2405; J2469; J2997; J3490; J7030; J7050; J9201; J9264

== ENCOUNTER 2022-10-24 09:28 | Outpatient (CLI) | payer MEDICARE, SELFPAY ==
--- NOTE | 2022-10-24 09:39 | US_ITS ---
WS: [id number] RENAL ULTRASOUND HISTORY: CYST OF KIDNEY COMPARISON: MRI 09/10/2022. Prior ultrasound 07/18/2022 TECHNIQUE: 2-D and color Doppler imaging of the kidney submitted. Right kidney: 12.8 cm x 5.2 cm x 4.7 cm. Normal echogenicity with no hydronephrosis or mass. Left kidney: 12.1 cm x 4.3 cm x 6.0 cm. Normal size kidney with no hydronephrosis. There are 2 adjacent hypoechoic cortical lesions in the in ferior pole LEFT kidney. The largest measures 1.7 x 1.6 cm. Very difficult to evaluate due to body boyd bitus. These are very small caliber and may be cysts or complex cyst. Described by recent MRI as prob able cysts also. Aorta: Normal. Urinary Bladder: Normal distention. US/US renal BI* [id number] IMPRESSION: 1. No significant change in the complex cyst lower pole LEFT kidney. These are difficult to evaluate by ultrasound due to body habitus. No increase in size. Prior MRI from 09/10/2022 described cysts. These appear complex by recent CT. 2. For follow-up recommended renal mass CT protocol which will be performed wi th and without contrast. Recommend follow-up in 6 months.
== END 2022-10-24 09:29 | disposition home or self-care (01) ==
LOC: RAD 09:31
PROVIDERS: PCP Internal Medicine; Referring Provider Internal Medicine Medical Oncology; Visit Provider Registered Nurse
DX: N28.1 Cyst of kidney, acquired (principal)
CPT/HCPCS: 76770

== ENCOUNTER 2022-10-28 13:05 | Inpatient (IN) | payer MEDICARE, SELFPAY ==
[2022-10-28] VITALS (10 sets, daily range): BP systolic 116–174; BP diastolic 73–89; PULSE 107–138; RESP 11–20; TEMP 36.8–39.2; O2SAT 88–97; BMI 46.5
--- NOTE | 2022-10-28 13:17 | XRR_ITS ---
PROCEDURE INFORMATION: Exam: XR Chest Exam date and time: 10/28/2022 1:28 PM Age: 57 years old Clinical indication: Cough and dyspnea. TECHNIQUE: Imaging protocol: Radiologic exam of the chest. Views: 1 view. COMPARISON: CR (CHEST, ) 10/13/2022 2:22 AM FINDINGS: Tubes, catheters and devices: Left port with tip in the SVC. Lungs: There is mild peribronchial wall thickening. Calcified granuloma at the lateral left base. Possible nodule in the left hilar region measuring 9 mm. No pulmonary consolidation. Pleural spaces: No pleural effusion. No pneumothorax. Heart/Mediastinum: The cardiac silhouette is unchanged. No gross evidence of pneumomediastinum. Bones/joints: No gross fracture. XR/XR chest 1V portable [id number] IMPRESSION: 1. Possible nodule in the left hilar region measuring 9 mm. This could represent a vessel on end. Recommend CT chest to better characterize. 2. There is mild peribronchial wall thickening; query viral infection/bronchitis, chronic bronchitis and/or asthma.
--- NOTE | 2022-10-28 13:29 | ED_ITS ---
HPI - Fever General: Chief Complaint: Fever Stated Complaint: fever,body ache Time Seen by Provider: 10/28/22 13:13 Source: patient Mode of arrival: ambulatory History of Present Illness: 57-year-old male presents emergency room with fever myalgias began approximately 3 days ago. Patient was recently diagnosed with pancreatic CA with hepatic metastasis. He is undergoing treatments at this time. His last treatment was on October 23. Began running a fever they contacted Dr. Kirkland and advised to come to the emergency room. Patient denies any abdominal or chest pain he has had a nonproductive cough no dysuria urgency or frequency no diarrhea. He does have a small blister that is developed on the medial aspect of his right great toe with localized redness but no apparent lymphangitic spread. It does not correlate with the onset of his fever. Patient is diabetic as well as on insulin. MD elicited complaint: fever and malaise Pertinent past history: other (Pancreatic CA with hepatic metastasis) Onset (ago): day(s) (3) Exacerbating factors: nothing Relieving factors: nothing Associated symptoms: Reports chills, cough and myalgias; Deny abdominal pain, flank pain, chest pain, confusion, diarrhea, dysuria, extremity pain, headache(s), nasal congestion, nausea, night sweats, rash, rhinorrhea, short of breath, sinus pain, stiffness, sore throat, vomiting or weight loss Treatments prior to arrival fever: none Review of Systems Const: Reports: fever(s), chills, body aches, fatigue and malaise; Denies: night sweats ENMT: Denies: throat pain, nasal congestion or sinus pain Card: Denies: chest pain, palpitations, irregular heart rhythm or edema Resp: Denies: dyspnea, productive cough or non-productive cough GI: Denies: abdominal pain, nausea, vomiting or diarrhea : Denies: flank pain, dysuria, urinary frequency or urinary urgency Musc: Denies: extremity pain Skin/Breast: Denies: rash or pruritus Neuro: Denies: headache(s) or confusion PFSH ED PFSH: Medical History Acute embolism and thrombosis of left femoral vein Chronic kidney disease Chronic lymphocytic leukemia Chronic lymphocytic leukemia of B-cell type not having achieved remission Degenerative arthritis Degenerative arthritis of spine Diabetes mellitus, type II Diarrhea Epilepsy In August 2018 he had presented with new onset of epilepsy, presumed idiopathic Fatigue GERD (gastroesophageal reflux disease) Hyperlipidemia Hypertension Iron deficiency anemia In March 2018 he required treatment for iron deficiency anemia Pancreatic cancer Postoperative anemia Surgical History History of knee surgery Left knee implant removed and spacer placed until infection gone. History of left knee replacement S/P total knee arthroplasty (~05/2019) Family History Mother Cancer Lung Unknown Cancer Aunt - Leukemia, AML Brother Diabetes Hypertension Sister Hypertension Denies family history of CAD (coronary artery disease) Clotting disorder Dementia Hyperlipidemia Psychiatric illness Chronic kidney disease (CKD) Suicide Anesthesia complication Bleeding disorder Lung disease Stroke Social History Smoking and tobacco status: never smoked Alcohol intake: current Alcohol intake frequency: holidays/special occasions only Physical Exam Const: COMMON NORMALS: no acute distress GENERAL APPEARANCE: cooperative and comfortable ORIENTATION/CONSCIOUSNESS: Yes awake, Yes oriented to person, Yes oriented to place and Yes oriented to time HENMT: COMMON NORMALS: normocephalic, atraumatic and hearing grossly normal bilaterally HEAD & SCALP: normocephalic and atraumatic Neck/C-Spine: COMMON NORMALS: full ROM, no lymphadenopathy, supple and no JVD Resp: COMMON NORMALS: normal respiratory effort, No retractions, No use of accessory muscles and clear to auscultation bilaterally AUSCULTATION: clear to auscultation bilaterally Cardio: COMMON NORMALS: no JVD, regular rate, regular rhythm and No murmurs present (Cardio) RATE: regular rate RHYTHM: regular rhythm GI: COMMON NORMALS: Soft to palpation and No hepatosplenomegaly present AU SCULTATION: Yes normoactive bowel sounds PALPATION: Yes Soft to palpation, No Tenderness to palpation present (GI), No Guarding due to palpation present (GI) and Yes No hepatosplenomegaly present Extremity: COMMON NORMALS: normal to inspection, capillary refill normal, no clubbing, cyanosis or edema, no calf tenderness and no pedal edema Neuro: SENSORIUM/ORIENTATION: Yes oriented to person, Yes oriented to place and Yes oriented to time Skin: COMMON NORMALS: no rashes or lesions noted GENERAL SKIN EXAM: no rashes or lesions noted Course Vital Signs: Vital signs: Vital Signs Temperature 102.4 F H 10/28/22 15:31 Pulse Rate 110 H 10/28/22 15:31 Respiratory Rate 11 L 10/28/22 15:31 Blood Pressure 169/79 10/28/22 15:31 Pulse Oximetry 95 10/28/22 15:31 Oxygen Delivery Me thod 10/28/22 15:31 Oxygen Flow Rate 1 10/28/22 15:31 MDM - Fever Medical Decision Making Fever with leukopenia and decreased absolute neutrophil count. Recent chemotherapy. Patient started on cefepime cultures done flu and COVID are negative questionable bronc colitis with some coughing on the chest x-ray but no clear pneumonia. Discussed with hospitalist orders written Medical Records I reviewed the patient's medical records. Lab Data I reviewed the patient's lab results. 10/28/22 13:56 10/28/22 13:56 Radiology Impressions Chest X-Ray 10/28/22 13:17 IMPRESSION: 1. Possible nodule in the left hilar region measuring 9 mm. This could represent a vessel on end. Recommend CT chest to better characterize. 2. There is mild peribronchial wall thickening; query viral infection/bronchitis, chronic bronchitis and/or asthma. Laboratory Results WBC 1.3 10^3/uL (4.0-10.0) L 10/28/22 13:56 RBC 2.86 10^6/uL (4.1-5.3) L 10/28/22 13:56 Hgb 8.0 g/dL (11.7-16.6) L 10/28/22 13:56 Hct 26.0 % (42.0-52.0) L 10/28/22 13:56 MCV 90.9 fl (80-94) 10/28/22 13:56 MCH 28.0 pg (28.0-34.0) 10/28/22 13:56 MCHC 30.8 g/dL (30.0-36.0) 10/28/22 13:56 RDW 18.6 % (12.1-15.1) H 10/28/22 13:56 Plt Count 149 10^3/cmm (130-400) 10/28/22 13:56 MPV 10.6 fL (7.4-10.4) H 10/28/22 13:56 Neut % (Auto) 68.0 % 10/28/22 13:56 Lymph % (Auto) 17.9 % 10/28/22 13:56 [place] % (Auto) 8.2 % 10/28/22 13:56 Eos % (Auto) 3.0 % 10/28/22 13:56 Baso % (Auto) 0.7 % 10/28/22 13:56 Neut # (Auto) 0.91 10^3/uL (1.8-7.7) L* 10/28/22 13:56 Lymph # (Auto) 0.2 10^3/uL (0.8-4.8) L 10/28/22 13:56 [place] # (Auto) 0.1 10^3/uL (0.2-0.9) L 10/28/22 13:56 Eos # (Auto) 0.0 10^3/uL (0.0-0.8) 10/28/22 13:56 Baso # (Auto) 0.0 10^3/uL (0.0-0.1) 10/28/22 13:56 Nucleated RBC % (auto) 0 % 10/28/22 13:56 Nucleated RBCs # 0.0 /100WBC 10/28/22 13:56 Sodium 137 mmol/L (136-145) 10/28/22 13:56 Potassium 3.6 mmol/L (3.5-5.1) 10/28/22 13:56 Chloride 101 mmol/L (98-107) 10/28/22 13:56 Carbon Dioxide 27 mmol/L (22-29) 10/28/22 13:56 Anion Gap 12.6 (5-19) 10/28/22 13:56 BUN 17 mg/dL (6-20) 10/28/22 13:56 Creatinine 1.6 mg/dL (0.7-1.2) H 10/28/22 13:56 GFR Calculation 44.8 mL/min (90-130) L 10/28/22 13:56 Glucose 149 mg/dL (65-115) H 10/28/22 13:56 Calculated Osmolality 288 mOsm/kg (285-295) 10/28/22 13:56 Lactic Acid 1.3 mmol/L (0.5-2.2) 10/28/22 13:56 Calcium 8.9 mg/dL (8.5-10.5) 10/28/22 13:56 Total Bilirubin 0.3 mg/dL (0.15-1.2) 10/28/22 13:56 AST 79 U/L (0-40) H 10/28/22 13:56 ALT 74 U/L (0-41) H 10/28/22 13:56 Alkaline Phosphatase 79 U/L (40-130) 10/28/22 13:56 Total Protein 5.8 g/dL (6.6-8.7) L 10/28/22 13:56 Albumin 2.8 g/dL (3.5-5.2) L 10/28/22 13:56 Globulin 3.0 g/dL (1.3-4.6) 10/28/22 13:56 Urine Color Yellow (Yellow) 10/28/22 13:40 Urine Appearance Clear (CLEAR) 10/28/22 13:40 Urine pH 7 (5-7) 10/28/22 13:40 Ur Specific [place] 1.005 (1.005-1.030) 10/28/22 13:40 Urine Protein 3+ (Negative) H 10/28/22 13:40 Urine Glucose (UA) 1+ (Normal) H 10/28/22 13:40 Urine Ketones Negative (Negative) 10/28/22 13:40 Urine Blood Neg (Negative) 10/28/22 13:40 Urine Nitrate Negative (Negative) 10/28/22 13:40 Urine Bilirubin Neg (Negative) 10/28/22 13:40 Urine Urobilinogen Norm mg/dL (Negative) 10/28/22 13:40 Ur Leukocyte Esterase Negative (Negative) 10/28/22 13:40 Urine RBC None /hpf (0-2) 10/28/22 13:40 Urine WBC 0-4 /hpf (0-5) H 10/28/22 13:40 Ur Squamous Epith Cells None /hpf (0-5) 10/28/22 13:40 Amorphous Sediment Not Reportable 10/28/22 13:40 Urine Bacteria Trace /hpf (NONE) 10/28/22 13:40 Coronavirus 229E (PCR) Not detected (NOT DETECT) 10/28/22 13:40 Influenza Type A Ag negative (Negative) 10/28/22 13:40 Influenza Type B Ag negative (Negative) 10/28/22 13:40 Parainfluenza 1 (PCR) Detected (NOT DETECT) A 10/28/22 15:57 Parainfluenza 2 (PCR) Not detected (NOT DETECT) 10/28/22 15:57 Parainfluenza 3 (PCR) Not detected (NOT DETECT) 10/28/22 15:57 Parainfluenza 4 (PCR) Not detected (NOT DETECT) 10/28/22 15:57 SARS-CoV-2 (PCR) Not detected (NOT DETECT) 10/28/22 13:40 Discharge Plan Discharge Patient Disposition: Admitted As Inpatient Clinical Impression: Fever, Diabetes mellitus, type II, Chronic kidney disease (CKD), Anemia, Adenocarcinoma of head of pancreas, Neutropenia Condition: Stable Prescriptions: No Action Lantus U-100 Insulin 100 unit/mL solution 100 unit SUBCUT BID Rx Instructions: sliding scale atorvastatin 40 mg tablet 40 mg PO BEDTIME allopurinol 300 mg tablet 300 mg PO DAILY omeprazole 40 mg capsule,delayed release(DR/EC) 40 mg PO DAILY levetiracetam [Keppra] 500 mg tablet 1,000 mg PO BID zonisamide [Zonegran] 100 mg capsule 200 mg PO BID amlodipine 10 mg tablet 5 mg PO DAILY Eliquis 5 mg tablet 5 mg PO BID montelukast [Singulair] 10 mg tablet 10 mg PO DAILY Qty: 90 2RF furosemide 40 mg tablet 40 mg PO DAILY Qty: 30 0RF fentanyl 25 mcg/hr patch 72 hour 1 patch transdermal Q72H PRN (DME) Bariatric Wheel Chair See Rx Instructions .Route .MEDSUPPLY Qty: 1 0RF Rx Instructions: As directed (DME) Wheel Chair See Rx Instructions .Route .MEDSUPPLY Qty: 1 0RF Rx Instructions: [place] [place] immobilizer See Rx Instructions .Route .MEDSUPPLY Qty: 1 0RF Rx Instructions: As directed ondansetron 4 mg tablet,disintegrating 4 - 8 mg PO Q4H PRN (Reason: nausea and vomiting) Qty: 60 0RF hydromorphone [Dilaudid] 4 mg tablet 4 mg PO Q6H PRN (Reason: pain) 30 Days Qty: 120 0RF doxycycline hyclate 100 mg capsule 100 mg PO BID 30 Days Qty: 60 3RF diphenhydramine HCl [Benadryl] 25 mg Capsule 25 mg PO DAILY PRN (Reason: Allergy Symptoms) calcium carbonate-vitamin D2 600 mg calcium- 200 unit Tablet 1 tab PO DAILY One-A-Day Men's 50 Plus 400-20-370 mcg Tablet 1 tab PO DAILY aspirin 325 mg Tablet 325 mg PO DAILY albuterol sulfate 90 mcg/actuation HFA aerosol inhaler 2 puff INHALATION Q4H PRN (Reason: Shortness Of Breath) duloxetine 30 mg capsule,delayed release(DR/EC) 30 mg PO DAILY divalproex [Depakote] 500 mg tablet,delayed release (DR/EC) 1,500 mg PO BEDTIME Humalog KwikPen Insulin 200 unit/mL (3 mL) insulin pen 25 unit SUBCUT TID Rx Instructions: sliding scale potassium chloride 10 mEq Tablet Extended Release 10 meq PO DAILY Qty: 30 1RF Compazine 10 mg tablet 10 mg PO Q4H PRN (Reason: Mild Nausea) Qty: 30 3RF lorazepam 1 mg tablet 0.5 - 1 mg PO Q6H PRN (Reason: Severe Nausea) Qty: 30 3RF Referrals: Kumar Evans DO [Primary Care Provider] - Coding Level of Care Code ED Steam Fitter Helper for Chg Fwd Exam Comprehensive
--- NOTE | 2022-10-28 13:46 | ECG_ITS ---
[facility] Test Date: 2022-10-28 Pat Name: Panda Rivera Department: Room: Gender: Male Cloth Neutralizer: : 1965 Requested By: Delon Berg Order Number: [id number] Raymond MD: Michael Ceballos M.D. Measurements Intervals Mcdonald Rate: 111 P: 53 MI: 167 QRS: -2 QRSD: 88 T: 64 QT: 314 QTc: 427 Interpretive Statements SINUS TACHYCARDIA LOW QRS VOLTAGE IN PRECORDIAL LEADS [QRS DEFLECTION < 1.0 mV IN CHEST LEADS] ANTEROSEPTAL MYOCARDIAL INFARCTION , OF INDETERMINATE AGE [40+ ms Q WAVE IN V1-V4] Compared to ECG 07/23/2022 06:14:45 Low QRS voltage now present Myocardial infarct finding now present Sinus rhythm no longer present Ventricular premature complex(es) no longer present Intraventricular conduction delay no longer present T-wave abnormality no longer present Electronically Signed On 10-28-2022 19:43:49 DEGREASER OPERATOR by Michael Ceballos M.D. [id number]
[2022-10-28 14:07] LABS: Influenza A by IFA negative (Negative); Influenza B by IFA negative (Negative)
[2022-10-28 14:23] LABS: Basophils % 0.7 %; Lymphocytes # 0.2 10^3/uL (0.8-4.8); Lymphocytes % 17.9 %; Mean Corpuscular HGB Conc 30.8 g/dL (30.0-36.0); Mean Corpuscular Volume 90.9 fl (80-94); Mean Platelet Volume 10.6 fL (7.4-10.4); Monocytes # 0.1 10^3/uL (0.2-0.9); Monocytes % 8.2 %; Nucleated Red Blood Cells % 0 %; Platelet Count 149 10^3/cmm (130-400); Red Blood Count 2.86 10^6/uL (4.1-5.3); Red Cell Distribution Width 18.6 % (12.1-15.1); White Blood Count 1.3 10^3/uL (4.0-10.0)
[2022-10-28 14:42] LABS: Slide Review Slide Review Perform
[2022-10-28 14:44] LABS: Neutrophils # 0.91 10^3/uL (1.8-7.7)
[2022-10-28 14:55] LABS: Lactic Sepsis W/Reflex 1.3 mmol/L (0.5-2.2)
[2022-10-28 14:56] LABS: Alanine Aminotransferase 74 U/L (0-41); Albumin Level 2.8 g/dL (3.5-5.2); Alkaline Phosphatase 79 U/L (40-130); Anion Gap 12.6 (5-19); Aspartate Amino Transferase 79 U/L (0-40); Blood Urea Nitrogen 17 mg/dL (6-20); Calcium 8.9 mg/dL (8.5-10.5); Carbon Dioxide 27 mmol/L (22-29); Chloride 101 mmol/L (98-107); Glomerular Filtration Rate 44.8 mL/min (90-130); Glucose 149 mg/dL (65-115); Osmolality Calculated 288 mOsm/kg (285-295); Potassium 3.6 mmol/L (3.5-5.1); Sodium 137 mmol/L (136-145); Total Bilirubin 0.3 mg/dL (0.15-1.2); Total Protein 5.8 g/dL (6.6-8.7)
[2022-10-28 15:34] LABS: Adenovirus Not Detected (NOT DETECT); Chlamydia Pneumoniae Not Detected (NOT DETECT); Coronavirus 229E,HKU1,NL63,OC4 Not Detected (NOT DETECT); Human Metapneumovirus Not Detected (NOT DETECT); Human Rhinovirus/Enterovirus Not Detected (NOT DETECT); Influenza A Not Detected (NOT DETECT); Influenza A H1 Not Detected (NOT DETECT); Influenza A H1-2009 Not Detected (NOT DETECT); Influenza A H3 Not Detected (NOT DETECT); Influenza B Not Detected (NOT DETECT); Mycoplasma Pneumoniae Not Detected (NOT DETECT); Parainfluenza Virus Type 1 Detected (NOT DETECT); Parainfluenza Virus Type 2 Not Detected (NOT DETECT); Parainfluenza Virus Type 3 Not Detected (NOT DETECT); Parainfluenza Virus Type 4 Not Detected (NOT DETECT); Respiratory Syncytial Virus A Not Detected (NOT DETECT); Respiratory Syncytial Virus B Not Detected (NOT DETECT); SARS-COV-2 Not Detected (NOT DETECT)
[2022-10-28 15:57] LABS: Parainfluenza Virus Type 1 Detected (NOT DETECT); Parainfluenza Virus Type 2 Not Detected (NOT DETECT); Parainfluenza Virus Type 3 Not Detected (NOT DETECT); Parainfluenza Virus Type 4 Not Detected (NOT DETECT); Results from Genmark
[2022-10-28 15:58] LABS: Add Urine Culture? No; Add Urine Microscopic? YES; Bacteria Urine TRACE /hpf; Bilirubin Urine Neg (Negative); Blood Urine Neg (Negative); Glucose Urine UA 1+ (Normal); Ketones Urine Negative (Negative); Leukocyte Esterase Urine Negative (Negative); Nitrate Urine Negative (Negative); Protein Urine 3+ (Negative); Specific Gravity, Urine 1.005 (1.005-1.030); Urine Appearance Clear (CLEAR); Urine Color Yellow (Yellow); Urobilinogen Urine Norm (Negative); WBC Urine 0-4 /hpf (0-5); pH Urine 7 (5-7)
[2022-10-28] MEDS: cefepime 2,000 MG in sodium chloride 0.9% (plus) 50 ML 100 MG IV (16:00)
[2022-10-28] MEDS: acetaminophen 500 mg Tablet 1000 MG PO (16:24)
[2022-10-28] MEDS: filgrastim-sndz 480 mcg/0.8 mL Syringe SUBCUT (16:39)
--- NOTE | 2022-10-28 17:45 | PM.HP ---
Providers/Chief Complaint Admitting Physician: Joaquin Dalal MD Primary Care Provider: Kumar Evans DO Chief Complaint: fever,body ache History of Present Illness Panda Rivera is a 57 year old male with past medical history of CLL not in remission, recently diagnosed CA pancreas with hepatic mets, currently on chemotherapy, last chemotherapy session received last Saturday, DVT on Eliquis, seizure disorder, diabetes, hypertension CKD, PJI of left knee, was brought in from home today with chief complaint of, fever with chills. He denied any cough, shortness of breath chest pain nausea vomiting abdominal pain constipation diarrhea. Patient T-max in ER was noted to be: 102.4. X-ray chest done in the ER showed: mild peribronchial wall thickening. Pertinent labs: WBC 1.3, H&H 07/20 plt : 149 , serum sodium 137, serum potassium 3.6, BUN serum creatinine:17/1.6 , random blood sugar 149, lactic acid 1.3, Urinalysis result appreciated. Patient was given cefepime 2 g IV one-time dose in the ER along with, filgrastim for dose. Review of Systems General: Reports: 10 or more systems reviewed and unremarkable except in HPI and below Const: Reports: fever(s), chills, body aches and diaphoresis; Denies: change in appetite Card: Denies: palpitations, edema, swelling of feet/ankles, dyspnea on exertion, orthopnea or leg pain with exertion Resp: Denies: dyspnea, productive cough, wheezing or pain on inspiration GI: Denies: abdominal pain, nausea, vomiting, diarrhea or constipation : Denies: flank pain or difficulty urinating Musc: Denies: back pain, extremity pain or extremity swelling Neuro: Denies: headache(s), difficulty walking or confusion Medications/Allergies Home Medications Medication Instructions Recorded Confirmed Last Taken Type allopurinol 300 mg tablet 300 mg PO DAILY 01/09/22 10/23/22 08/28/22 History atorvastatin 40 mg tablet 40 mg PO BEDTIME 01/09/22 10/23/22 08/28/22 History insulin glargine 100 unit/mL 100 unit SUBCUT BID 01/09/22 10/23/22 08/28/22 History subcutaneous solution (Lantus U-100 Insulin) levetiracetam 500 mg tablet 1,000 mg PO BID 01/09/22 10/23/22 08/28/22 History (Keppra) omeprazole 40 mg capsule,delayed 40 mg PO DAILY 01/09/22 10/23/22 08/28/22 History release zonisamide 100 mg capsule 200 mg PO BID 01/09/22 10/23/22 08/28/22 History (Zonegran) apixaban 5 mg tablet (Eliquis) 5 mg PO BID 03/28/22 10/23/22 08/28/22 History montelukast 10 mg tablet 10 mg PO DAILY #90 tabs 03/28/22 10/23/22 08/28/22 Rx (Singulair) calcium carb-ergocalciferol (vit 1 tab PO DAILY 07/19/22 10/23/22 08/28/22 History D2) 600 mg calcium-200 unit tablet diphenhydramine HCl 25 mg capsule 25 mg PO DAILY PRN Allergy Symptoms 07/19/22 10/23/22 07/20/22 History (Benadryl) yimehnrrlody-bpx-fzaaj acid-vit 1 tab PO DAILY 07/19/22 10/23/22 08/28/22 History K-lycop 400 mcg-20 mcg-370 mcg tablet (One-A-Day Men's 50 Plus) divalproex 500 mg tablet,delayed 1,500 mg PO BEDTIME 07/20/22 10/23/22 08/28/22 History release (Depakote) insulin lispro 200 unit/mL (3 mL) 25 unit SUBCUT TID 07/20/22 10/23/22 08/28/22 History subcutaneous pen (Humalog KwikPen U-200 Insulin) albuterol sulfate 90 mcg/actuation 2 puff inhalation Q4H PRN 07/21/22 10/23/22 Unknown History aerosol inhaler Shortness Of Breath aspirin 325 mg tablet 325 mg PO DAILY 07/21/22 10/23/22 08/28/22 History duloxetine 30 mg capsule,delayed 30 mg PO DAILY 07/21/22 10/23/22 08/28/22 History release Bariatric Wheel Chair #1 ea 07/25/22 10/15/22 Unknown Rx Wheel Chair #1 ea 07/26/22 10/15/22 Unknown Rx knee immobilizer #1 ea 07/27/22 10/15/22 Unknown Rx hydromorphone 4 mg tablet 4 mg PO Q6H PRN pain 30 days #120 09/26/22 10/23/22 Unknown Rx (Dilaudid) tabs ondansetron 4 mg disintegrating 4 - 8 mg PO Q4H PRN nausea and 09/26/22 10/23/22 Unknown Rx tablet vomiting #60 tabs potassium chloride 10 mEq 10 meq PO DAILY #30 tabs 09/26/22 10/23/22 Unknown Rx tablet,extended release doxycycline hyclate 100 mg capsule 100 mg PO BID 30 days #60 caps 10/09/22 10/23/22 Unknown Rx lorazepam 1 mg tablet 0.5 - 1 mg PO Q6H PRN Severe 10/09/22 10/23/22 Unknown Rx Nausea #30 tabs prochlorperazine maleate 10 mg 10 mg PO Q4H PRN Mild Nausea #30 10/09/22 10/23/22 Unknown Rx tablet (Compazine) tabs furosemide 40 mg tablet 40 mg PO DAILY #30 tabs 10/15/22 10/23/22 Unknown Rx amlodipine 10 mg tablet 5 mg PO DAILY 10/23/22 10/23/22 Unknown History fentanyl 25 mcg/hr transdermal 1 patch transdermal Q72H PRN 10/23/22 Unknown History patch Allergies Allergy/AdvReac Type Severity Reaction Status Date / Time No Known Allergies Allergy Verified 10/23/22 10:34 PFSH Acute PFSH: Medical History Acute embolism and thrombosis of left femoral vein Chronic kidney disease Chronic lymphocytic leukemia Chronic lymphocytic leukemia of B-cell type not having achieved remission Degenerative arthritis Degenerative arthritis of spine Diabetes mellitus, type II Diarrhea Epilepsy In August 2018 he had presented with new onset of epilepsy, presumed idiopathic Fatigue GERD (gastroesophageal reflux disease) Hyperlipidemia Hypertension Iron deficiency anemia In March 2018 he required treatment for iron deficiency anemia Pancreatic cancer Postoperative anemia Surgical History History of knee surgery Left knee implant removed and spacer placed until infection gone. History of left knee replacement S/P total knee arthroplasty (~05/2019) Family History Mother Cancer Lung Unknown Cancer Aunt - Leukemia, AML Brother Diabetes Hypertension Sister Hypertension Denies family history of CAD (coronary artery disease) Clotting disorder Dementia Hyperlipidemia Psychiatric illness Chronic kidney disease (CKD) Suicide Anesthesia complication Bleeding disorder Lung disease Stroke Social History Smoking and tobacco status: never smoked Alcohol intake: current Alcohol intake frequency: holidays/special occasions only Vitals/I&O/Wt Last Vital Signs Temp 102.4 F H 10/28/22 15:31 Pulse 138 H 10/28/22 16:00 Resp 11 L 10/28/22 15:31 BP 169/79 10/28/22 15:31 Pulse Ox 96 10/28/22 16:00 O2 Del Method 10/28/22 16:00 O2 Flow Rate 1 10/28/22 15:31 10/28/22 10/28/22 10/28/22 06:59 14:59 22:59 Intake Total 50 / 50 Balance 50 / 50 Weight last 48 hrs Weight 148.778 kg Physical Exam Const: COMMON NORMALS: patient oriented x3 HENMT: COMMON NORMALS: normocephalic and atraumatic HEAD & SCALP: normocephalic and atraumatic Eye: GENERAL EYE: appearance normal, both eyes and all related structures Chest: COMMONS NORMALS: normal inspection of the chest and normal palpation of entire chest wall CHEST: Yes Symmetrical chest wall rise Resp: COMMON NORMALS: normal respiratory effort, No retractions, No use of accessory muscles and clear to auscultation bilaterally EFFORT & INSPECTION: Yes symmetric chest movement AUSCULTATION: clear to auscultation bilaterally Cardio: COMMON NORMALS: regular rate, regular rhythm, S1 normal heart sound present, S2 normal heart sound present, No gallops present (Cardio), No murmurs present (Cardio), No rub (Cardio) and Peripheral pulses 2+ throughout RATE: regular rate RHYTHM: regular rhythm HEART SOUNDS: S1 normal heart sound present and S2 normal heart sound present PERIPHERAL PULSES: Peripheral pulses 2+ throughout GI: COMMON NORMALS: Normal to inspection, nondistended, normoactive bowel sounds present, Soft to palpation, non-tender, No hepatosplenomegaly present and no masses AUSCULTATION: Yes normoactive bowel sounds PALPATION: Yes Soft to palpation and Yes No hepatosplenomegaly present RECTAL EXAM: Yes deferred Extremity: COMMON NORMALS: no clubbing, cyanosis or edema and no pedal edema Data 10/28/22 13:56 10/28/22 13:56 Micro: Microbiology 10/28/22 14:08 Blood Culture - Preliminary Blood SPECIMEN COLLECTED 10/28/22 13:56 Blood Culture - Preliminary Blood SPECIMEN COLLECTED A&P Assessment and plan (1) Chronic kidney disease (CKD): (2) Neutropenia: (3) Adenocarcinoma of head of pancreas: (4) Chronic lymphocytic leukemia: (5) Fever: (6) Diabetes mellitus, type II: (7) Anemia: (8) Leukopenia: Plan 57 year old male with past medical history of CLL not in remission, recently diagnosed CA pancreas with hepatic mets, currently on chemotherapy, last chemotherapy session received last Saturday, DVT on Eliquis, seizure disorder, diabetes, hypertension CKD, PJI of left knee, was brought in from home today with chief complaint of, fever with chills. He denied any cough, shortness of breath chest pain nausea vomiting abdominal pain constipation diarrhea. Patient T-max in ER was noted to be: 102.4. Assessment: Fever Neutropenia Leukopenia Anemia Adenocarcinoma of pancreatic head with mets to liver currently on chemotherapy History of CLL History of DVT Plan: Follow blood culture Urine culture Positive Para influenza Currently on vancomycin and meropenem Continue filgrastim Continue Lantus , sliding scale insulin, monitor fingerstick glucose. Continue Keppra Continue Eliquis CODE STATUS: Full code DVT prophylaxis: Not needed on Eliquis Attestations Medical Necessity Statement*: Patient needs to be in hospital for management of fever, neutropenia. Anticipated length of stay greater than 2 midnights. Coding Level of Care Code Acute Bias Machine Operator Helper for g Fwd Diagnoses Chronic kidney disease (CKD) N18.9 Neutropenia D70.9 Adenocarcinoma of head of pancreas C25.0 Chronic lymphocytic leukemia C91.10 Fever R50.9 Diabetes mellitus, type II E11.9 Anemia D64.9 Leukopenia D72.819
[2022-10-28 18:00] LABS: Glucose Point of Care 123 mg/dL (70-110)
[2022-10-28] MEDS: ondansetron 2 mg/ML SDV 2 mL 4 MG IVP (19:52)
[2022-10-28] MEDS: levETIRAcetam 500 mg Tablet 1000 MG PO (19:57)
[2022-10-28] MEDS: apixaban 5 mg Tablet PO (19:58)
[2022-10-28] MEDS: sodium chloride 0.9% 1,000 ML 75 ML IV (20:09)
[2022-10-28] MEDS: meropenem 2,000 MG in sodium chloride 0.9% (100 ml) 100 ML 200 MG IV (20:38)
[2022-10-28 21:03] LABS: Glucose Point of Care 183 mg/dL (70-110)
[2022-10-28] MEDS: atorvastatin 40 mg Tablet PO (21:51)
--- NOTE | 2022-10-28 22:02 | PC.NURSE ---
INSULIN Pt refused pm insulin both Lantus and SS. Says last night he didn't take any insulin at all and dropped into 40's. Afrai to take any tonight
[2022-10-28] MEDS: acetaminophen 325 mg Tablet 650 MG PO (23:35)
[2022-10-29] VITALS (16 sets, daily range): BP systolic 115–156; BP diastolic 70–82; PULSE 87–112; RESP 16–20; TEMP 36.6–38.9; O2SAT 89–93
[2022-10-29] MEDS: meropenem 2,000 MG in sodium chloride 0.9% (100 ml) 100 ML 200 MG IV ×2 (02:47→17:38)
[2022-10-29 05:45] LABS: Hematocrit 24.3 % (42.0-52.0); Hemoglobin 7.4 g/dL (11.7-16.6); Mean Corpuscular HGB Conc 30.5 g/dL (30.0-36.0); Mean Corpuscular Hemoglobin 27.7 pg (28.0-34.0); Mean Platelet Volume 11.7 fL (7.4-10.4); Platelet Count 134 10^3/cmm (130-400); Red Blood Count 2.67 10^6/uL (4.1-5.3); Red Cell Distribution Width 18.7 % (12.1-15.1)
[2022-10-29 06:15] LABS: Alanine Aminotransferase 63 U/L (0-41); Albumin Level 2.8 g/dL (3.5-5.2); Alkaline Phosphatase 81 U/L (40-130); Anion Gap 12.9 (5-19); Aspartate Amino Transferase 66 U/L (0-40); Blood Urea Nitrogen 17 mg/dL (6-20); Calcium 8.6 mg/dL (8.5-10.5); Carbon Dioxide 28 mmol/L (22-29); Chloride 100 mmol/L (98-107); Globulin 2.6 g/dL (1.3-4.6); Glomerular Filtration Rate 41.8 mL/min (90-130); Glucose 198 mg/dL (65-115); Osmolality Calculated 291 mOsm/kg (285-295); Potassium 3.9 mmol/L (3.5-5.1); Procalcitonin 0.49 ng/mL (0-0.5); Sodium 137 mmol/L (136-145); Total Bilirubin 0.3 mg/dL (0.15-1.2); Total Protein 5.4 g/dL (6.6-8.7)
[2022-10-29 06:47] LABS: Glucose Point of Care 187 mg/dL (70-110)
[2022-10-29 07:38] LABS: Slide Review Slide Review Perform; Total Cells Counted 100 (0-100)
[2022-10-29 07:39] LABS: Absolute Neutrophil 3.4 10^3/cmm (1.4-6.5); Absolute Segmented Neutrophil 3.1 10/cmm (1.6-7.1); Band Neutrophils Absolute 0.3 10^3/cmm (0.0-1.2); Eosinophils 0 %; Lymphocytes 12 %; Lymphocytes Absolute 0.5 10^3/cmm (1.2-3.4); Monocytes Absolute 0.2 10^3/cmm (0.1-0.6); Platelet Estimate Normal (Normal); Segmented Neutrophils 77 %
[2022-10-29 07:40] LABS: Anisocytosis Trace
[2022-10-29] MEDS: levETIRAcetam 500 mg Tablet 1000 MG PO ×2 (08:36→17:37)
[2022-10-29] MEDS: apixaban 5 mg Tablet PO ×2 (08:37→17:38)
[2022-10-29] MEDS: pantoprazole DR 40 mg Tablet PO (08:37)
[2022-10-29] MEDS: amlodipine 10 mg Tablet 5 MG PO (08:38)
[2022-10-29] MEDS: ondansetron 2 mg/ML SDV 2 mL 4 MG IVP ×2 (08:38→23:34)
[2022-10-29] MEDS: sennosides-docusate Tablet 1 TAB PO ×2 (10:32→17:37)
[2022-10-29] MEDS: filgrastim-sndz 480 mcg/0.8 mL Syringe SUBCUT (10:32)
[2022-10-29] MEDS: acetaminophen 325 mg Tablet 650 MG PO (10:35)
[2022-10-29 11:13] LABS: Glucose Point of Care 271 mg/dL (70-110)
--- NOTE | 2022-10-29 11:46 | PC.CHAP ---
Pastoral Care Encounter/Spiritual Assessment Type of Contact [] Declined peer tutor visit [] Patient/Family/Request visit [] Outpatient visit [] Follow-up visit [] Physician referral [] Code/Alert [x] Routine visit [] Staff referral [] Actively dying [] Patient sleeping [] Family support [] [] Out of room [] Palliative care [] [] Receiving care in room [] Pre-surgical visit [] Trauma [] Long length of stay [] ICU visit [x] Other: isolation Relational/Emotional Strength [] Patient feels connected with others/family/visitors/staff [] Distress [] Loneliness/isolation [] Abandonment Spirituality of Patient [] Person of Daniela [] Attends Buddhism of their Daniela [] Believes in Prayer [] Reads Bible or Restorationism materials [] There are Spiritual issues to be addressed Ice Crusher Interventions [] Prayer [] Active listening [] Non-anxious presence [] Spiritual/emotional support [] Crisis/trauma care [] Spiritual counseling [] Bereavement support [] Provided bereavement packet [] Provided Bible/devotional materials [] Provided toy/stuffed animal, coloring book to patient or family member [] Provided Communion [] Anointing/[place] [] Salvation [] Completed spiritual assessment [] Other: Impact on Illness or Injury [] Angry [] Fearful [] Anxious [] Often cries [] Exhaustion [] Unable to work [] Unable to attend christianity [] Unable to walk/stand [] Unable to read [] Unable to drive [] Unable to eat/drink [] Unable to sleep [] Unable to be with family [] Patient intubated [] Other: Summary Time spent with patient
--- NOTE | 2022-10-29 14:04 | PM.PN ---
Subjective Subjective: Patient was seen and examined this morning noted T-max overnight was:102.5, his other vitals and labs have been reviewed. Blood cell count this morning is 4.0 , hemoglobin has down trended to 7.4, Platelet count is stable at 134. ANC of: 3.4 Medications: Medication Review Details: Generic Name Dose Route Start Last Admin Trade Name Freq PRN Reason Stop Dose Admin Acetaminophen 650 mg 10/28/22 17:38 10/29/22 10:35 Acetaminophen 32 5 Mg Tablet PO 650 mg Q6H PRN Administration Mild/Mod Pain Or Temp >/= 101 Amlodipine Besylat e 5 mg 10/29/22 09:00 10/29/22 08:38 Amlodipine 10 Mg Tablet PO 5 mg DAILY FRANCISCO Administration Apixaban 5 mg 10/28/22 18:00 10/29/22 08:37 Apixaban 5 Mg Ta blet PO 5 mg BID FRANCISCO Administration Atorvastatin Calci um 40 mg 10/28/22 21:00 10/28/22 21:51 Atorvastatin 40 Mg Tablet PO 40 mg BEDTIME FRANCISCO Administration Fentanyl 1 patch 10/28/22 20:00 10/28/22 23:57 Fentanyl 12 Mcg Patch TRANSDERMA Not Given Q72H FRANCISCO Hydromorphone HCl 4 mg 10/28/22 19:55 10/29/22 08:38 Hydromorphone 4 Mg Tablet PO 4 mg Q6H PRN Administration PAIN Meropenem 2,000 mg / Sodium 100 mls @ 200 mls /hr 10/28/22 17:45 10/29/22 04:55 Chloride IV Infused Q8H FRANCISCO Infusion Vancomycin HCl 2,0 00 mg/ 500 mls @ 250 mls /hr 10/28/22 20:00 10/28/22 23:00 Sodium Chloride IV Infused Q18H FRANCISCO Infusion Insulin Glargine 40 unit 10/28/22 21:00 10/28/22 21:51 Insulin Glargine 100 Units/1 Ml SUBCUT Not Given BEDTIME FRANCISCO Insulin Human Lisp ro 0 unit 10/29/22 12:00 10/29/22 13:37 Insulin Lispro 1 00 Unit/1 Ml SUBCUT Not Given WM&BEDTIME FRANCISCO Protocol Levetiracetam 1,000 mg 10/28/22 18:00 10/29/22 08:36 Levetiracetam 50 0 Mg Tablet PO 1,000 mg BID FRANCISCO Administration Ondansetron HCl 4 mg 10/28/22 17:38 10/29/22 08:38 Ondansetron 2 Mg /Ml Sdv 2 Ml IVP 4 mg Q8H PRN Administration vomiting, or N/V if npo Pantoprazole Sodiu m 40 mg 10/29/22 09:00 10/29/22 08:[address] 40 Mg Tablet PO 40 mg DAILY FRANCISCO Administration Vitals/I&O/Wt Last Vital Signs Temp 98.3 F 10/29/22 11:32 Pulse 98 10/29/22 11:32 Resp 20 H 10/29/22 11:32 BP 139/76 10/29/22 11:32 Pulse Ox 91 10/29/22 11:32 O2 Del Method 10/29/22 11:32 O2 Flow Rate 1 10/29/22 11:32 10/28/22 10/29/22 10/29/22 22:59 06:59 14:59 Intake Total 390 / 390 800 / 1190 Balance 390 / 390 800 / 1190 Weight last 48 hrs Weight 147.055 kg Weight 148.778 kg Physical Exam Const: COMMON NORMALS: patient oriented x3 HENMT: COMMON NORMALS: normocephalic, atraumatic, hearing grossly normal bilaterally and external ears normal HEAD & SCALP: normocephalic and atraumatic EXTERNAL EAR: Yes external ears normal Eye: GENERAL EYE: appearance normal, both eyes and all related structures Chest: COMMONS NORMALS: normal inspection of the chest and normal palpation of entire chest wall CHEST: Yes Symmetrical chest wall rise Resp: COMMON NORMALS: normal respiratory effort, No retractions, No use of accessory muscles and clear to auscultation bilaterally EFFORT & INSPECTION: Yes symmetric chest movement AUSCULTATION: clear to auscultation bilaterally Cardio: COMMON NORMALS: regular rate, regular rhythm, S1 normal heart sound present, S2 normal heart sound present, No gallops present (Cardio), No murmurs present (Cardio), No rub (Cardio) and Peripheral pulses 2+ throughout RATE: regular rate RHYTHM: regular rhythm HEART SOUNDS: S1 normal heart sound present and S2 normal heart sound present PERIPHERAL PULSES: Peripheral pulses 2+ throughout GI: COMMON NORMALS: Normal to inspection, nondistended, normoactive bowel sounds present, Soft to palpation, non-tender, No hepatosplenomegaly present and no masses AUSCULTATION: Yes normoactive bowel sounds PALPATION: Yes Soft to palpation and Yes No hepatosplenomegaly present RECTAL EXAM: Yes deferred Extremity: COMMON NORMALS: no clubbing, cyanosis or edema and no pedal edema Neuro: COMMON NORMALS: patient oriented x3 Data 10/29/22 04:20 10/29/22 04:20 Micro: Microbiology 10/28/22 14:08 Blood Culture - Preliminary Blood SPECIMEN COLLECTED 10/28/22 13:56 Blood Culture - Preliminary Blood SPECIMEN COLLECTED A&P Assessment and plan (1) Chronic kidney disease (CKD): (2) Neutropenia: (3) Adenocarcinoma of head of pancreas: (4) Chronic lymphocytic leukemia: (5) Fever: (6) Diabetes mellitus, type II: (7) Anemia: (8) Leukopenia: Plan 57 year old male with past medical history of CLL not in remission, recently diagnosed CA pancreas with hepatic mets, currently on chemotherapy, last chemotherapy session received last Saturday, DVT on Eliquis, seizure disorder, diabetes, hypertension CKD, PJI of left knee, was brought in from home today with chief complaint of, fever with chills. He denied any cough, shortness of breath chest pain nausea vomiting abdominal pain constipation diarrhea. Patient T-max in ER was noted to be: 102.4. Assessment: Fever Neutropenia Leukopenia Anemia Adenocarcinoma of pancreatic head with mets to liver currently on chemotherapy History of CLL History of DVT Plan: Follow blood culture Urine culture Positive Para influenza Currently on vancomycin and meropenem Continue filgrastim Continue Lantus , sliding scale insulin, monitor fingerstick glucose. Continue Keppra Continue Eliquis CODE STATUS: Full code DVT prophylaxis: Not needed on Eliquis Attestations Medical Necessity Statement*: Patient is still in hospital for management of fever. Coding Level of Care Code Acute [employer] for [employer] Diagnoses Chronic kidney disease (CKD) N18.9 Neutropenia D70.9 Adenocarcinoma of head of pancreas C25.0 Chronic lymphocytic leukemia C91.10 Fever R50.9 Diabetes mellitus, type II E11.9 Anemia D64.9 Leukopenia D72.819
[2022-10-29 16:47] LABS: Glucose Point of Care 255 mg/dL (70-110)
[2022-10-29] MEDS: insulin lispro 100 unit/1 mL SUBCUT (17:38)
[2022-10-29] MEDS: atorvastatin 40 mg Tablet PO (20:57)
[2022-10-29] MEDS: insulin glargine 100 units/1 mL 40 UNIT SUBCUT (21:45)
[2022-10-29 21:52] LABS: Glucose Point of Care 259 mg/dL (70-110)
[2022-10-30] VITALS (21 sets, daily range): BP systolic 131–169; BP diastolic 76–89; PULSE 84–97; RESP 16–18; TEMP 36.6–37; O2SAT 92–99
[2022-10-30] MEDS: meropenem 2,000 MG in sodium chloride 0.9% (100 ml) 100 ML 200 MG IV ×3 (01:30→18:00)
[2022-10-30 01:35] LABS: Basophils % 0.3 %; Eosinophils % 0.4 %; Hematocrit 23.2 % (42.0-52.0); Hemoglobin 7.2 g/dL (11.7-16.6); Lymphocytes % 9.4 %; Mean Corpuscular Volume 90.3 fl (80-94); Mean Platelet Volume 11.4 fL (7.4-10.4); Monocytes # 0.7 10^3/uL (0.2-0.9); Monocytes % 6.6 %; Neutrophils # 8.32 10^3/uL (1.8-7.7); Neutrophils % 80.5 %; Nucleated Red Blood Cells % 0.4 %; Platelet Count 102 10^3/cmm (130-400); Red Blood Count 2.57 10^6/uL (4.1-5.3); Red Cell Distribution Width 18.5 % (12.1-15.1); White Blood Count 10.3 10^3/uL (4.0-10.0)
[2022-10-30 01:52] LABS: Alanine Aminotransferase 52 U/L (0-41); Albumin Level 2.7 g/dL (3.5-5.2); Alkaline Phosphatase 72 U/L (40-130); Aspartate Amino Transferase 51 U/L (0-40); Blood Urea Nitrogen 16 mg/dL (6-20); Calcium 8.6 mg/dL (8.5-10.5); Carbon Dioxide 28 mmol/L (22-29); Chloride 103 mmol/L (98-107); Globulin 2.4 g/dL (1.3-4.6); Glomerular Filtration Rate 48.2 mL/min (90-130); Glucose 212 mg/dL (65-115); Osmolality Calculated 291 mOsm/kg (285-295); Sodium 137 mmol/L (136-145); Total Bilirubin 0.3 mg/dL (0.15-1.2); Total Protein 5.1 g/dL (6.6-8.7)
[2022-10-30] MEDS: fentaNYL 12 mcg Patch 1 PATCH TRANSDERMA (04:08)
--- NOTE | 2022-10-30 04:13 | PC.NURSE ---
FENTANYL PATCH Has now decided to get Fentanyl patch placed. Says is having spasms in his back and hoping it will help. Placed to right shoulder and covered with biocclusive dressing
[2022-10-30] MEDS: levETIRAcetam 500 mg Tablet 1000 MG PO ×2 (08:50→16:47)
[2022-10-30] MEDS: pantoprazole DR 40 mg Tablet PO (08:50)
[2022-10-30 08:51] LABS: Glucose Point of Care 240 mg/dL (70-110)
[2022-10-30] MEDS: sennosides-docusate Tablet 1 TAB PO ×2 (08:51→16:47)
[2022-10-30] MEDS: apixaban 5 mg Tablet PO (08:51)
[2022-10-30] MEDS: amlodipine 10 mg Tablet 5 MG PO (08:51)
[2022-10-30] MEDS: insulin glargine 100 units/1 mL 20 UNIT SUBCUT (10:58)
[2022-10-30 11:14] LABS: Glucose Point of Care 294 mg/dL (70-110)
[2022-10-30] MEDS: insulin lispro 100 unit/1 mL SUBCUT ×3 (12:36→21:20)
[2022-10-30] MEDS: sodium chloride 0.9% (100 ml) 100 ML 10 ML (12:37)
--- NOTE | 2022-10-30 13:53 | PM.PN ---
Subjective Subjective: Patient was seen and examined this morning has been afebrile in the last 24 hours, blood culture has remained negative. MRSA pcr negative urine culture negative. hb: Has down trended to 7.2 we will transfuse him 2 units PRBC today. Medications: Medication Review Details: Generic Name Dose Route Start Last Admin Trade Name Gregorioq PRN Reason Stop Dose Admin Acetaminophen 650 mg 10/28/22 17:38 10/29/22 10:35 Acetaminophen 32 5 Mg Tablet PO 650 mg Q6H PRN Administration Mild/Mod Pain Or Temp >/= 101 Amlodipine Besylat e 5 mg 10/29/22 09:00 10/30/22 08:51 Amlodipine 10 Mg Tablet PO 5 mg DAILY FRANCISCO Administration Apixaban 5 mg 10/28/22 18:00 10/30/22 08:51 Apixaban 5 Mg Ta blet PO 5 mg BID FRANCISCO Administration Atorvastatin Calci um 40 mg 10/28/22 21:00 10/29/22 20:57 Atorvastatin 40 Mg Tablet PO 40 mg BEDTIME FRANCISCO Administration Fentanyl 1 patch 10/28/22 20:00 10/30/22 04:08 Fentanyl 12 Mcg Patch TRANSDERMA 1 patch Q72H FRANCISCO Administration Hydromorphone HCl 4 mg 10/28/22 19:55 10/30/22 05:25 Hydromorphone 4 Mg Tablet PO 4 mg Q6H PRN Administration PAIN Meropenem 2,000 mg / Sodium 100 mls @ 200 mls /hr 10/28/22 17:45 10/30/22 10:26 Chloride IV Infused Q8H FRANCISCO Infusion Vancomycin HCl 2,0 00 mg/ 500 mls @ 250 mls /hr 10/28/22 20:00 10/30/22 11:01 Sodium Chloride IV Infused Q18H FRANCISCO Infusion Insulin Glargine 40 unit 10/28/22 21:00 10/29/22 21:45 Insulin Glargine 100 Units/1 Ml SUBCUT 40 unit BEDTIME FRANCISCO Administration Insulin Human Lisp ro 0 unit 10/29/22 12:00 10/30/22 12:36 Insulin Lispro 1 00 Unit/1 Ml SUBCUT 10 unit WM&BEDTIME FRANCISCO Administration Protocol Levetiracetam 1,000 mg 10/28/22 18:00 10/30/22 08:50 Levetiracetam 50 0 Mg Tablet PO 1,000 mg BID FRANCISCO Administration Ondansetron HCl 4 mg 10/28/22 17:38 10/29/22 23:34 Ondansetron 2 Mg /Ml Sdv 2 Ml IVP 4 mg Q8H PRN Administration vomiting, or N/V if npo Pantoprazole Sodiu m 40 mg 10/29/22 09:00 10/30/22 08:[address] 40 Mg Tablet PO 40 mg DAILY FRANCISCO Administration Senna/Docusate Sod ium 1 tab 10/29/22 18:00 10/30/22 08:51 Sennosides-Docus ate Tablet PO 1 tab BID FRANCISCO Administration Vitals/I&O/Wt Last Vital Signs Temp 97.8 F 10/30/22 13:15 Pulse 87 10/30/22 13:15 Resp 18 10/30/22 13:15 BP 137/84 10/30/22 13:15 Pulse Ox 93 10/30/22 13:15 O2 Del Method 10/30/22 11:11 O2 Flow Rate 1 10/29/22 11:32 10/29/22 10/30/22 10/30/22 22:59 06:59 14:59 Intake Total 800 / 1800 300 / 2100 960 / 960 Balance 800 / 1800 300 / 2100 960 / 960 Weight last 48 hrs Weight 147.055 kg Physical Exam Const: COMMON NORMALS: patient oriented x3 HENMT: COMMON NORMALS: normocephalic, atraumatic, hearing grossly normal bilaterally and external ears normal HEAD & SCALP: normocephalic and atraumatic EXTERNAL EAR: Yes external ears normal Eye: GENERAL EYE: appearance normal, both eyes and all related structures Chest: COMMONS NORMALS: normal inspection of the chest and normal palpation of entire chest wall CHEST: Yes Symmetrical chest wall rise Resp: COMMON NORMALS: normal respiratory effort, No retractions, No use of accessory muscles and clear to auscultation bilaterally EFFORT & INSPECTION: Yes symmetric chest movement AUSCULTATION: clear to auscultation bilaterally Cardio: COMMON NORMALS: regular rate, regular rhythm, S1 normal heart sound present, S2 normal heart sound present, No gallops present (Cardio), No murmurs present (Cardio), No rub (Cardio) and Peripheral pulses 2+ throughout RATE: regular rate RHYTHM: regular rhythm HEART SOUNDS: S1 normal heart sound present and S2 normal heart sound present PERIPHERAL PULSES: Peripheral pulses 2+ throughout GI: COMMON NORMALS: Normal to inspection, nondistended, normoactive bowel sounds present, Soft to palpation, non-tender, No hepatosplenomegaly present and no masses AUSCULTATION: Yes normoactive bowel sounds PALPATION: Yes Soft to palpation and Yes No hepatosplenomegaly present RECTAL EXAM: Yes deferred Extremity: COMMON NORMALS: no clubbing, cyanosis or edema and no pedal edema Neuro: COMMON NORMALS: patient oriented x3 Data 10/30/22 01:10 10/30/22 01:10 Micro: Microbiology 10/29/22 03:35 Urine Culture - Preliminary Urine,Clean Catch 10/28/22 14:08 Blood Culture - Preliminary Blood NEGATIVE TO DATE 10/28/22 13:56 Blood Culture - Preliminary Blood NEGATIVE TO DATE 10/29/22 06:00 MRSA Culture - Final Nose A&P Assessment and plan (1) Chronic kidney disease (CKD): (2) Neutropenia: (3) Adenocarcinoma of head of pancreas: (4) Chronic lymphocytic leukemia: (5) Fever: (6) Diabetes mellitus, type II: (7) Anemia: (8) Leukopenia: Plan 57 year old male with past medical history of CLL not in remission, recently diagnosed CA pancreas with hepatic mets, currently on chemotherapy, last chemotherapy session received last Saturday, DVT on Eliquis, seizure disorder, diabetes, hypertension CKD, PJI of left knee, was brought in from home today with chief complaint of, fever with chills. He denied any cough, shortness of breath chest pain nausea vomiting abdominal pain constipation diarrhea. Patient T-max in ER was noted to be: 102.4. 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 Continue Keppra Eliquis on hold CODE STATUS: Full code DVT prophylaxis: Not needed on Eliquis Attestations Medical Necessity Statement*: Patient is still in hospital for blood transfusion. Coding Level of Care Code Acute [employer] for [facility] Diagnoses Chronic kidney disease (CKD) N18.9 Neutropenia D70.9 Adenocarcinoma of head of pancreas C25.0 Chronic lymphocytic leukemia C91.10 Fever R50.9 Diabetes mellitus, type II E11.9 Anemia D64.9 Leukopenia D72.819
[2022-10-30] MEDS: cyclobenzaprine 10 mg Tablet 5 MG PO ×2 (16:47→23:10)
[2022-10-30 17:06] LABS: Glucose Point of Care 237 mg/dL (70-110)
[2022-10-30] MEDS: acetaminophen 325 mg Tablet 650 MG PO (19:29)
[2022-10-30 20:18] LABS: Glucose Point of Care 276 mg/dL (70-110)
--- NOTE | 2022-10-30 20:51 | PC.NURSE ---
Pt referred to Dr. Melvin for review of pain management. Awaiting orders.
--- NOTE | 2022-10-30 20:58 | PC.NURSE ---
NO received and noted for Dilaudid 0.5 mg IVP x 1 dose. Will pull from [facility] and administer.
[2022-10-30] MEDS: HYDROmorphone 1 mg/mL INJ 1 mL 0.5 MG IVP (21:04)
[2022-10-30] MEDS: insulin glargine 100 units/1 mL 40 UNIT SUBCUT (21:20)
[2022-10-30] MEDS: atorvastatin 40 mg Tablet PO (21:46)
[2022-10-31] VITALS (7 sets, daily range): BP systolic 137–154; BP diastolic 79–85; PULSE 72–91; RESP 16–19; TEMP 36.6–36.8; O2SAT 92–95
[2022-10-31] MEDS: meropenem 2,000 MG in sodium chloride 0.9% (100 ml) 100 ML 200 MG IV ×2 (01:20→10:37)
[2022-10-31 02:05] LABS: Basophils # 0.1 10^3/uL (0.0-0.1); Basophils % 0.6 %; Eosinophils # 0.1 10^3/uL (0.0-0.8); Eosinophils % 0.3 %; Hematocrit 26.9 % (42.0-52.0); Hemoglobin 8.7 g/dL (11.7-16.6); Lymphocytes # 1.6 10^3/uL (0.8-4.8); Lymphocytes % 9.4 %; Mean Corpuscular HGB Conc 32.3 g/dL (30.0-36.0); Mean Corpuscular Hemoglobin 28.9 pg (28.0-34.0); Mean Corpuscular Volume 89.4 fl (80-94); Mean Platelet Volume 11.4 fL (7.4-10.4); Monocytes # 1.7 10^3/uL (0.2-0.9); Neutrophils # 12.88 10^3/uL (1.8-7.7); Neutrophils % 75.1 %; Nucleated Red Blood Cells # 0.3 /100WBC; Nucleated Red Blood Cells % 1.8 %; Platelet Count 117 10^3/cmm (130-400); Red Blood Count 3.01 10^6/uL (4.1-5.3); Red Cell Distribution Width 17.5 % (12.1-15.1); White Blood Count 17.2 10^3/uL (4.0-10.0)
[2022-10-31 02:23] LABS: Alanine Aminotransferase 50 U/L (0-41); Albumin Level 2.6 g/dL (3.5-5.2); Alkaline Phosphatase 104 U/L (40-130); Anion Gap 11.8 (5-19); Aspartate Amino Transferase 56 U/L (0-40); Blood Urea Nitrogen 13 mg/dL (6-20); Calcium 8.8 mg/dL (8.5-10.5); Carbon Dioxide 28 mmol/L (22-29); Chloride 103 mmol/L (98-107); Globulin 2.8 g/dL (1.3-4.6); Glomerular Filtration Rate 44.8 mL/min (90-130); Glucose 173 mg/dL (65-115); Osmolality Calculated 292 mOsm/kg (285-295); Potassium 3.8 mmol/L (3.5-5.1); Sodium 139 mmol/L (136-145); Total Bilirubin 0.6 mg/dL (0.15-1.2); Total Protein 5.4 g/dL (6.6-8.7)
[2022-10-31 05:44] LABS: Glucose Point of Care 121 mg/dL (70-110)
[2022-10-31] MEDS: pantoprazole DR 40 mg Tablet PO (09:32)
[2022-10-31] MEDS: levETIRAcetam 500 mg Tablet 1000 MG PO (09:32)
[2022-10-31] MEDS: amlodipine 10 mg Tablet 5 MG PO (09:33)
[2022-10-31] MEDS: sennosides-docusate Tablet 1 TAB PO (09:35)
--- NOTE | 2022-10-31 09:52 | P.DS_ITS ---
Discharge Providers Date of Admission: 10/28/22 16:03 Date of Discharge: October 31, 2022 Attending Provider at Admission: Joaquin Dalal MD Attending Provider at Discharge: Joaquin Dalal MD Primary Care Provider: Kumar Evans DO Diagnoses at Discharge Discharge Diagnosis (1) Chronic kidney disease (CKD): Status: Acute (2) Neutropenia: Status: Acute (3) Adenocarcinoma of head of pancreas: Status: Acute (4) Chronic lymphocytic leukemia: Status: Acute (5) Fever: Status: Acute (6) Diabetes mellitus, type II: Status: Acute (7) Anemia: Status: Acute (8) Leukopenia: Status: Acute Reason for Visit Reason for Visit: fever,body ache Hospital Course Hospital Course 57 year old male with past medical history of CLL not in remission, recently diagnosed CA pancreas with hepatic mets, currently on chemotherapy, last chemotherapy session received last Saturday, DVT on Eliquis, seizure disorder, diabetes, hypertension CKD, PJI of left knee, was brought in from home today with chief complaint of, fever with chills. He denied any cough, shortness of breath chest pain nausea vomiting abdominal pain constipation diarrhea. Patient T-max in ER was noted to be: 102.4. Patient was admitted for the management of fever neutropenia, anemia and leukopenia, likely secondary to bone marrow suppression, post chemotherapy effect, patient received 2 days of filgrastim during the hospital stay, 2 units PRBC, hemoglobin at the time of discharge was:8.7, leukopenia and neutropenia has resolved, blood cultures were negative, urine culture negative, MRSA PCR negative, x-ray chest there is mild peribronchial wall thickening; query viral infection/bronchitis,Positive Para influenza. He was covered with broad- spectrum antibiotic was kept on Vanco and meropenem, which were later discontinued, patient remained afebrile for 48 hours prior to discharge. Fever was likely secondary to parainfluenza. At the time of discharge patient was hemodynamically stable, afebrile, denied shortness of breath. He was discharged in stable condition to home.He will continue to follow oncology as outpatient. Physical Exam Const: COMMON NORMALS: patient oriented x3 HENMT: COMMON NORMALS: normocephalic, atraumatic, hearing grossly normal bilaterally and external ears normal HEAD & SCALP: normocephalic and atraumatic EXTERNAL EAR: Yes external ears normal Eye: GENERAL EYE: appearance normal, both eyes and all related structures Chest: COMMONS NORMALS: normal inspection of the chest and normal palpation of entire chest wall CHEST: Yes Symmetrical chest wall rise Resp: COMMON NORMALS: normal respiratory effort, No retractions, No use of accessory muscles and clear to auscultation bilaterally EFFORT & INSPECTION: Yes symmetric chest movement AUSCULTATION: clear to auscultation bilaterally Cardio: COMMON NORMALS: regular rate, regular rhythm, S1 normal heart sound present, S2 normal heart sound present, No gallops present (Cardio), No murmurs present (Cardio), No rub (Cardio) and Peripheral pulses 2+ throughout RATE: regular rate RHYTHM: regular rhythm HEART SOUNDS: S1 normal heart sound present and S2 normal heart sound present PERIPHERAL PULSES: Peripheral pulses 2+ throughout GI: COMMON NORMALS: Normal to inspection, nondistended, normoactive bowel sounds present, Soft to palpation, non-tender, No hepatosplenomegaly present and no masses AUSCULTATION: Yes normoactive bowel sounds PALPATION: Yes Soft to palpation and Yes No hepatosplenomegaly present RECTAL EXAM: Yes deferred Extremity: COMMON NORMALS: no clubbing, cyanosis or edema and no pedal edema Neuro: COMMON NORMALS: patient oriented x3 Discharge Data Studies Completed and Pending Completed Studies During Hospitalization Category Date Time Status XR chest 1V portable [id number] Stat Exams 10/28/22 13:17 Completed Pending at discharge Category Date Time Status Blood Culture Stat Lab 10/28/22 14:08 Results Sputum Culture and Gram Stain Routine Lab 10/28/22 21:40 Uncollected Urine Culture Routine Lab 10/29/22 03:35 Results Vancomycin Trough Timed Lab 10/31/22 11:00 Ordered Radiology Impressions Chest X-Ray 10/28/22 13:17 IMPRESSION: 1. Possible nodule in the left hilar region measuring 9 mm. This could represent a vessel on end. Recommend CT chest to better characterize. 2. There is mild peribronchial wall thickening; query viral infection/bronchitis, chronic bronchitis and/or asthma. Laboratory Results WBC 17.2 10^3/uL (4.0-10.0) H 10/31/22 01:42 RBC 3.01 10^6/uL (4.1-5.3) L 10/31/22 01:42 Hgb 8.7 g/dL (11.7-16.6) L 10/31/22 01:42 Hct 26.9 % (42.0-52.0) L 10/31/22 01:42 MCV 89.4 fl (80-94) 10/31/22 01:42 MCH 28.9 pg (28.0-34.0) 10/31/22 01:42 MCHC 32.3 g/dL (30.0-36.0) 10/31/22 01:42 RDW 17.5 % (12.1-15.1) H 10/31/22 01:42 Plt Count 117 10^3/cmm (130-400) L 10/31/22 01:42 MPV 11.4 fL (7.4-10.4) H 10/31/22 01:42 Neut % (Auto) 75.1 % 10/31/22 01:42 Lymph % (Auto) 9.4 % 10/31/22 01:42 [place] % (Auto) 10.0 % 10/31/22 01:42 Eos % (Auto) 0.3 % 10/31/22 01:42 Baso % (Auto) 0.6 % 10/31/22 01:42 Neut # (Auto) 12.88 10^3/uL (1.8-7.7) H 10/31/22 01:42 Lymph # (Auto) 1.6 10^3/uL (0.8-4.8) 10/31/22 01:42 [place]ay # (Auto) 1.7 10^3/uL (0.2-0.9) H 10/31/22 01:42 Eos # (Auto) 0.1 10^3/uL (0.0-0.8) 10/31/22 01:42 Baso # (Auto) 0.1 10^3/uL (0.0-0.1) 10/31/22 01:42 Nucleated RBC % (auto) 1.8 % 10/31/22 01:42 Total Counted 100 (0-100) 10/29/22 04:20 Atypical Lymphs % 0.0 % (0-5) 10/29/22 04:20 Absolute Neutrophils 3.4 10^3/cmm (1.4-6.5) 10/29/22 04:20 Segmented Neutrophils 77 % 10/29/22 04:20 Abs Segm Neuts (Man) 3.1 10/cmm (1.6-7.1) 10/29/22 04:20 Band Neutrophils 7.0 % 10/29/22 04:20 Abs Band Neuts (Man) 0.3 10^3/cmm (0.0-1.2) 10/29/22 04:20 Absolute Lymphocytes 0.5 10^3/cmm (1.2-3.4) L 10/29/22 04:20 Lymphocytes (Manual) 12 % 10/29/22 04:20 Monocytes (Manual) 4.0 % 10/29/22 04:20 Absolute Monocytes 0.2 10^3/cmm (0.1-0.6) 10/29/22 04:20 Eosinophils (Manual) 0 % 10/29/22 04:20 Absolute Eosinophils 0.0 10^3/cmm (0.0-0.7) 10/29/22 04:20 Basophils (Manual) 0.0 % 10/29/22 04:20 Absolute Basophils 0.0 10^3/cmm (0.0-0.2) 10/29/22 04:20 Metamyelocytes 0.0 % 10/29/22 04:20 Myelocytes 0.0 % 10/29/22 04:20 Nucleated RBCs 0.0 /100WBC (0-1) 10/29/22 04:20 Nucleated RBCs # 0.3 /100WBC 10/31/22 01:42 Platelet Estimate Normal (Normal) 10/29/22 04:20 Anisocytosis Trace 10/29/22 04:20 Sodium 139 mmol/L (136-145) 10/31/22 01:42 Potassium 3.8 mmol/L (3.5-5.1) 10/31/22 01:42 Chloride 103 mmol/L (98-107) 10/31/22 01:42 Carbon Dioxide 28 mmol/L (22-29) 10/31/22 01:42 Anion Gap 11.8 (5-19) 10/31/22 01:42 BUN 13 mg/dL (6-20) 10/31/22 01:42 Creatinine 1.6 mg/dL (0.7-1.2) H 10/31/22 01:42 GFR Calculation 44.8 mL/min (90-130) L 10/31/22 01:42 Glucose 173 mg/dL (65-115) H 10/31/22 01:42 POC Glucose 121 mg/dL (70-110) H 10/31/22 05:41 Calculated Osmolality 292 mOsm/kg (285-295) 10/31/22 01:42 Lactic Acid 1.3 mmol/L (0.5-2.2) 10/28/22 13:56 Calcium 8.8 mg/dL (8.5-10.5) 10/31/22 01:42 Total Bilirubin 0.6 mg/dL (0.15-1.2) 10/31/22 01:42 AST 56 U/L (0-40) H 10/31/22 01:42 ALT 50 U/L (0-41) H 10/31/22 01:42 Alkaline Phosphatase 104 U/L (40-130) 10/31/22 01:42 Total Protein 5.4 g/dL (6.6-8.7) L 10/31/22 01:42 Albumin 2.6 g/dL (3.5-5.2) L 10/31/22 01:42 Globulin 2.8 g/dL (1.3-4.6) 10/31/22 01:42 Procalcitonin 0.49 ng/mL (0-0.5) 10/29/22 04:20 Urine Color Yellow (Yellow) 10/28/22 13:40 Urine Appearance Clear (CLEAR) 10/28/22 13:40 Urine pH 7 (5-7) 10/28/22 13:40 Ur Specific [place] 1.005 (1.005-1.030) 10/28/22 13:40 Urine Protein 3+ (Negative) H 10/28/22 13:40 Urine Glucose (UA) 1+ (Normal) H 10/28/22 13:40 Urine Ketones Negative (Negative) 10/28/22 13:40 Urine Blood Neg (Negative) 10/28/22 13:40 Urine Nitrate Negative (Negative) 10/28/22 13:40 Urine Bilirubin Neg (Negative) 10/28/22 13:40 Urine Urobilinogen Norm mg/dL (Negative) 10/28/22 13:40 Ur Leukocyte Esterase Negative (Negative) 10/28/22 13:40 Urine RBC None /hpf (0-2) 10/28/22 13:40 Urine WBC 0-4 /hpf (0-5) H 10/28/22 13:40 Ur Squamous Epith Cells None /hpf (0-5) 10/28/22 13:40 Amorphous Sediment Not Reportable 10/28/22 13:40 Urine Bacteria Trace /hpf (NONE) 10/28/22 13:40 Coronavirus 229E (PCR) Not detected (NOT DETECT) 10/28/22 13:40 Influenza Type A Ag negative (Negative) 10/28/22 13:40 Influenza Type B Ag negative (Negative) 10/28/22 13:40 Parainfluenza 1 (PCR) Detected (NOT DETECT) A 10/28/22 15:57 Parainfluenza 2 (PCR) Not detected (NOT DETECT) 10/28/22 15:57 Parainfluenza 3 (PCR) Not detected (NOT DETECT) 10/28/22 15:57 Parainfluenza 4 (PCR) Not detected (NOT DETECT) 10/28/22 15:57 SARS-CoV-2 (PCR) Not detected (NOT DETECT) 10/28/22 13:40 Blood Type A Positive 10/30/22 09:58 Rho(D) Type Positive 10/30/22 09:58 Antibody Screen Negative 10/30/22 09:58 Vitals Last Vital Signs Temp 98.2 F 10/31/22 08:00 Pulse 91 10/31/22 08:00 Resp 19 H 10/31/22 09:34 BP 154/85 10/31/22 08:00 Pulse Ox 94 10/31/22 09:34 O2 Del Method 10/31/22 07:34 O2 Flow Rate 1 10/29/22 11:32 Discharge Plan Discharge Patient Disposition: Home Condition: Stable Prescriptions: Continued Lantus U-100 Insulin 100 unit/mL solution 100 unit SUBCUT BID Rx Instructions: sliding scale atorvastatin 40 mg tablet 40 mg PO BEDTIME allopurinol 300 mg tablet 300 mg PO DAILY omeprazole 40 mg capsule,delayed release(DR/EC) 40 mg PO DAILY levetiracetam [Keppra] 500 mg tablet 1,000 mg PO BID zonisamide [Zonegran] 100 mg capsule 200 mg PO BID amlodipine 10 mg tablet 5 mg PO DAILY Eliquis 5 mg tablet 5 mg PO BID montelukast [Singulair] 10 mg tablet 10 mg PO DAILY Qty: 90 2RF furosemide 40 mg tablet 40 mg PO DAILY Qty: 30 0RF fentanyl 25 mcg/hr patch 72 hour 1 patch transdermal Q72H PRN (Reason: Pain) (DME) Bariatric Wheel Chair See Rx Instructions .Route .MEDSUPPLY Qty: 1 0RF Rx Instructions: As directed (DME) Wheel Chair See Rx Instructions .Route .MEDSUPPLY Qty: 1 0RF Rx Instructions: As directed (DME) knee immobilizer See Rx Instructions .Route .MEDSUPPLY Qty: 1 0RF Rx Instructions: As directed ondansetron 4 mg tablet,disintegrating 4 - 8 mg PO Q4H PRN (Reason: nausea and vomiting) Qty: 60 0RF doxycycline hyclate 100 mg capsule 100 mg PO BID 30 Days Qty: 60 3RF diphenhydramine HCl [Benadryl] 25 mg Capsule 25 mg PO DAILY PRN (Reason: Allergy Symptoms) calcium carbonate-vitamin D2 600 mg calcium- 200 unit Tablet 1 tab PO DAILY One-A-Day Men's 50 Plus 400-20-370 mcg Tablet 1 tab PO DAILY aspirin 325 mg Tablet 325 mg PO DAILY albuterol sulfate 90 mcg/actuation HFA aerosol inhaler 2 puff INHALATION Q4H PRN (Reason: Shortness Of Breath) duloxetine 30 mg capsule,delayed release(DR/EC) 30 mg PO DAILY divalproex [Depakote] 500 mg tablet,delayed release (DR/EC) 1,500 mg PO BEDTIME Humalog KwikPen Insulin 200 unit/mL (3 mL) insulin pen 25 unit SUBCUT TID Rx Instructions: sliding scale potassium chloride 10 mEq Tablet Extended Release 10 meq PO DAILY Qty: 30 1RF prochlorperazine maleate [Compazine] 10 mg tablet 10 mg PO Q4H PRN (Reason: Mild Nausea) Qty: 30 3RF lorazepam 1 mg tablet 0.5 - 1 mg PO Q6H PRN (Reason: Severe Nausea) Qty: 30 3RF Dilaudid 4 mg tablet 4 mg PO Q6H Discharge Orders: Discharge Order (Routine); Ordered 10/31/22 Ordered By: Joaquin Dalal Referrals: Kumar Evans DO [Primary Care Provider] - 01/02/23 11:00 am Patient Instructions: Anemia, Fever - Adult, Neutropenia (ED), Opioid Safety Discharge Attestations Time Spent in Discharge Care*: less than 30 min Status at Discharge: Cognitive status at discharge: cognitively intact , Behavioral status at discharge: cooperative , Quality Metrics Clinical Quality Measures [ No reported AMI, CVA or VTE this stay] Coding Level of Care Code Acute Chg FW DC note Diagnoses Chronic kidney disease (CKD) N18.9 Neutropenia D70.9 Adenocarcinoma of head of pancreas C25.0 Chronic lymphocytic leukemia C91.10 Fever R50.9 Diabetes mellitus, type II E11.9 Anemia D64.9 Leukopenia D72.819
--- NOTE | 2022-10-31 09:59 | PC.SOCIAL ---
IMM Update pg 2 of IMM updated and reviewed w/ patient. Copy provided and Copy date, initialed and placed in chart.
[2022-10-31 10:56] LABS: Glucose Point of Care 267 mg/dL (70-110)
--- NOTE | 2022-10-31 12:14 | PC.NURSE ---
Discharge paperwork and follow up appointments gone over with patient. Verbalized understanding.
== END 2022-10-31 11:38 | disposition home or self-care (01) | DRG 809 ==
LOC: ER 16:08 → MEDSURG 17:24
PROVIDERS: Admitting Provider Internal Medicine; Emergency Provider Family Medicine; PCP Internal Medicine; Visit Provider Internal Medicine
DX: D70.1 Agranulocytosis secondary to cancer chemotherapy (principal); C25.0 Malignant neoplasm of head of pancreas; C78.7 Secondary malignant neoplasm of liver and intrahepatic bile duct; C91.10 Chronic lymphocytic leukemia of B-cell type not having achieved remission; T45.1X5A Adverse effect of antineoplastic and immunosuppressive drugs, initial encounter; J11.1 Influenza due to unidentified influenza virus with other respiratory manifestations; E11.22 Type 2 diabetes mellitus with diabetic chronic kidney disease; I12.9 Hypertensive chronic kidney disease with stage 1 through stage 4 chronic kidney disease, or unspecified chronic kidney disease; N18.9 Chronic kidney disease, unspecified; D63.1 Anemia in chronic kidney disease; Z79.899 Other long term (current) drug therapy; Z86.718 Personal history of other venous thrombosis and embolism; G40.909 Epilepsy, unspecified, not intractable, without status epilepticus; Z79.4 Long term (current) use of insulin; Z79.01 Long term (current) use of anticoagulants; Z79.51 Long term (current) use of inhaled steroids; Z96.652 Presence of left artificial knee joint
CPT/HCPCS: 36415; 36416; 36430; 36591; 71045; 80053; 81001; 82962; 83605; 84145; 85007; 85025; 86850; 86900; 86920; 87040; 87086; 87205; 87631; 87635; 87641; 87804; 93005; 96365; 96372; 99285; J0692; J1170; J1642; J1815; J2185; J2405; J3370; J7030; J7040; P9040; Q5101

== ENCOUNTER 2022-11-09 09:13 | Emergency (ER) | payer MEDICARE, SELFPAY ==
[2022-11-09 09:19] VITALS: BP 119/66; PULSE 102; RESP 16; TEMP 36.9; O2SAT 97; BMI 44.9
--- NOTE | 2022-11-09 09:31 | W.ED.FEVER ---
HPI - Fever General: Chief Complaint: Fever Stated Complaint: fever Time Seen by Provider: 11/09/22 09:28 History of Present Illness: 57-year-old male here by private vehicle along with his complaining of fever of 101 degrees maximum last night around 10:30 PM. Patient has pancreatic cancer and has received his third round of IV chemotherapy infusion on Saturday the of this month. He called Dr. Kirkland, his oncologist, who asked him to come to the emergency department for evaluation. The patient reports no known source. He has had occasional mild congestion and mild cough with rare clear sputum but otherwise has not had headache, sore throat, ear pain, sinus pain, chest pain, shortness of breath, rashes, wounds, any change to his abdominal pain which he has been having since July, diarrhea, bloody stools, mucus in his stools, or any other known source of infection. His temperature went from 101 oral down to 99 degrees x 2 a.m. this morning. It has not recurred. Patient has not taken any antipyretics. Currently he feels asymptomatic Associated symptoms: Reports abdominal pain (Chronic and unchanged in character or location) and chills; Deny flank pain, chest pain, diarrhea, dysuria, extremity pain, headache(s), nausea or vomiting Review of Systems General: Reports: 10 or more systems reviewed and unremarkable except in HPI and below Const: Reports: fever(s) and chills; Denies: body aches or change in appetite Eyes: Denies: change in vision ENMT: Denies: throat pain, odynophagia, ear or mastoid pain or nasal obstruction Card: Denies: chest pain, edema or syncope Resp: Reports: non-productive cough; Denies: dyspnea, productive cough, wheezing, pain on inspiration, change in phlegm color, hemoptysis or chest congestion GI: Reports: abdominal pain (Chronic and unchanged in character or location); Denies: nausea, vomiting, coffee ground emesis, diarrhea, change in bowel habits or hematochezia : Denies: flank pain, dysuria or urinary frequency Musc: Denies: neck pain, back pain, extremity pain or extremity swelling Skin/Breast: Denies: rash or erythema Neuro: Denies: headache(s), numbness in extremities, weakness in extremities, lack of coordination or difficulty walking PFS ED PFSH: Medical History (Updated 11/09/22 @ 12:53 by Gurwinder Davey MD) Acute embolism and thrombosis of left femoral vein Anemia Chronic kidney disease Chronic lymphocytic leukemia Degenerative arthritis Degenerative arthritis of spine Diabetes mellitus, type II Diarrhea Epilepsy In August 2018 he had presented with new onset of epilepsy, presumed idiopathic GERD (gastroesophageal reflux disease) Hyperlipidemia Hypertension Infection of total left knee replacement Pancreatic cancer Surgical History History of knee surgery Left knee implant removed and spacer placed until infection gone. History of left knee replacement S/P total knee arthroplasty (~05/2019) Family History Mother Cancer Lung Unknown Cancer Aunt - Leukemia, AML Brother Diabetes Hypertension Sister Hypertension Denies family history of CAD (coronary artery disease) Clotting disorder Dementia Hyperlipidemia Psychiatric illness Chronic kidney disease (CKD) Suicide Anesthesia complication Bleeding disorder Lung disease Stroke Social History Smoking and tobacco status: never smoked Alcohol intake: current Alcohol intake frequency: holidays/special occasions only Physical Exam Const: COMMON NORMALS: no limitations, alert and well nourished EXAM LIMITATIONS: no altered mental status HENMT: COMMON NORMALS: normocephalic, atraumatic and external ears normal HEAD & SCALP: normocephalic and atraumatic EXTERNAL EAR: Yes external ears normal MOUTH: no muffled voice Eye: COMMON NORMALS: EOMs intact bilaterally, conjunctivae normal and no scleral icterus CONJUNCTIVA: Yes conjunctivae normal Neck/C-Spine: COMMON NORMALS: no JVD GENERAL: Yes normal visual inspection and Yes trachea midline Resp: COMMON NORMALS: normal respiratory effort, No use of accessory muscles and clear to auscultation bilaterally AUSCULTATION: clear to auscultation bilaterally Cardio: COMMON NORMALS: no JVD and regular rhythm RATE: tachycardic RHYTHM: regular rhythm GI: COMMON NORMALS: Soft to palpation and non-tender PALPATION: Yes Soft to palpation and No Guarding due to palpation present (GI) Extremity: COMMON NORMALS: normal to inspection Neuro: COMMON NORMALS: moves all extremities, no focal motor deficits and no sensory deficits noted SENSORIUM/ORIENTATION: Yes alert SPEECH: speech normal Psych: COMMON NORMALS: mental status grossly normal, Normal thought process present, cooperative, normal affect and speech normal SPEECH: Yes normal speech THOUGHT PROCESS: Normal thought process present Skin: COMMON NORMALS: no rashes or lesions noted, turgor normal and no jaundice GENERAL SKIN EXAM: no rashes or lesions noted and turgor normal Course Vital Signs: Vital signs: Vital Signs Temperature 98.4 F 11/09/22 09:19 Pulse Rate 100 11/09/22 10:31 Respiratory Rate 16 11/09/22 09:19 Blood Pressure 136/79 11/09/22 11:25 Pulse Oximetry 97 11/09/22 11:25 Oxygen Delivery Me thod 11/09/22 11:25 MDM - Fever Medical Decision Making 57-year-old male on chemotherapy for pancreatic cancer and a history of chronic lymphocytic leukemia who presents with fever of unknown origin x1 last night. It has not recurred. Patient will need to be screened for leukopenia or related immunodeficiency as well as screened with a chest x-ray, urinalysis, blood cultures, flu, COVID, etc. This is out of an abundance of caution due to his chemotherapy. He does not appear toxic. UPDATE: White blood cell count is 28k Hemoglobin is low at 8.3 but stable. Chronic kidney disease is noted. No significant metabolic acidosis or electrolyte abnormalities. Chest x-ray unremarkable. Urine analysis unremarkable for any infection. COVID-negative, flu negative. Patient reexamined twice and remains well-appearing. I spoke with Dr. Kumar Kirkland, his oncologist, and that can explain the findings of fever and our work-up. Dr. Kirkland states that patient had Nutramigen which is commonly linked to leukocytosis and transient fever. Given the patient is well-appearing and subjectively and objectively does not have any findings of serious bacterial infection, he recommends discharge with no antibiotics and follow-up outpatient. Lab Data 11/09/22 10:26 11/09/22 10:26 Radiology Impressions Chest X-Ray 11/09/22 09:32 Impression: Negative chest. Laboratory Results WBC 28.0 10^3/uL (4.0-10.0) H 11/09/22 10:26 RBC 2.86 10^6/uL (4.1-5.3) L 11/09/22 10:26 Hgb 8.3 g/dL (11.7-16.6) L 11/09/22 10:26 Hct 26.3 % (42.0-52.0) L 11/09/22 10:26 MCV 92.0 fl (80-94) 11/09/22 10:26 MCH 29.0 pg (28.0-34.0) 11/09/22 10: MCHC 31.6 g/dL (30.0-36.0) 11/09/22 10:26 RDW 18.6 % (12.1-15.1) H 11/09/22 10:26 Plt Count 185 10^3/cmm (130-400) 11/09/22 10: MPV 11.5 fL (7.4-10.4) H 11/09/22 10:26 Neut % (Auto) 87.5 % 11/09/22 10:26 Lymph % (Auto) 2.8 % 11/09/22 10:26 [place] % (Auto) 0.8 % 11/09/22 10: Eos % (Auto) 0.6 % 11/09/22 10:26 Baso % (Auto) 0.2 % 11/09/22 10:26 Neut # (Auto) 24.52 10^3/uL (1.8-7.7) H 11/09/22 10:26 Lymph # (Auto) 0.8 10^3/uL (0.8-4.8) 11/09/22 10:26 [place] # (Auto) 0.2 10^3/uL (0.2-0.9) 11/09/22 10:26 Eos # (Auto) 0.2 10^3/uL (0.0-0.8) 11/09/22 10:26 Baso # (Auto) 0.1 10^3/uL (0.0-0.1) 11/09/22 10: Nucleated RBC % (auto) 0 % 11/09/22 10: Nucleated RBCs # 0.0 /100WBC 11/09/22 10:26 Sodium 139 mmol/L (136-145) 11/09/22 10:26 Potassium 3.5 mmol/L (3.5-5.1) 11/09/22 10:26 Chloride 105 mmol/L (98-107) 11/09/22 10:26 Carbon Dioxide 24 mmol/L (22-29) 11/09/22 10:26 Anion Gap 13.5 (5-19) 11/09/22 10:26 BUN 20 mg/dL (6-20) 11/09/22 10:26 Creatinine 1.4 mg/dL (0.7-1.2) H 11/09/22 10:26 GFR Calculation 52.2 mL/min (90-130) L 11/09/22 10:26 Glucose 179 mg/dL (65-115) H 11/09/22 10:26 Calculated Osmolality 295 mOsm/kg (285-295) 11/09/22 10:26 Calcium 8.8 mg/dL (8.5-10.5) 11/09/22 10:26 Total Bilirubin 0.5 mg/dL (0.15-1.2) 11/09/22 10:26 AST 26 U/L (0-40) 11/09/22 10:26 ALT 27 U/L (0-41) 11/09/22 10:26 Alkaline Phosphatase 116 U/L (40-130) 11/09/22 10:26 Total Protein 6.0 g/dL (6.6-8.7) L 11/09/22 10:26 Albumin 3.1 g/dL (3.5-5.2) L 11/09/22 10:26 Globulin 2.9 g/dL (1.3-4.6) 11/09/22 10:26 Lipase 628 U/L (13-60) H 11/09/22 10:26 Urine Color Yellow (Yellow) 11/09/22 12:08 Urine Appearance Clear (CLEAR) 11/09/22 12:08 Urine pH 5 (5-7) 11/09/22 12:08 Ur Specific [place] 1.020 (1.005-1.030) 11/09/22 12:08 Urine Protein 2+ (Negative) H 11/09/22 12:08 Urine Glucose (UA) Norm (Normal) 11/09/22 12:08 Urine Ketones Negative (Negative) 11/09/22 12:08 Urine Blood Neg (Negative) 11/09/22 12:08 Urine Nitrate Negative (Negative) 11/09/22 12:08 Urine Bilirubin Neg (Negative) 11/09/22 12:08 Urine Urobilinogen Neg mg/dL (Negative) 11/09/22 12:08 Ur Leukocyte Esterase Negative (Negative) 11/09/22 12:08 Urine RBC None /hpf (0-2) 11/09/22 12:08 Urine WBC None /hpf (0-5) 11/09/22 12:08 Ur Squamous Epith Cells 0-4 /hpf (0-5) H 11/09/22 12:08 Amorphous Sediment Not Reportable 11/09/22 12:08 Urine Bacteria None /hpf (NONE) 11/09/22 12:08 Urine Mucus 1+ /hpf 11/09/22 12:08 Influenza Type A Ag negative (Negative) 11/09/22 09:25 Influenza Type B Ag negative (Negative) 11/09/22 09:25 SARS-CoV-2 Ag (Rapid) negative (Negative) 11/09/22 09:25 Discharge Plan Discharge Patient Disposition: Home Clinical Impression: Fever, Encounter for medical screening examination Condition: Stable Prescriptions: No Action atorvastatin 40 mg tablet 40 mg PO BEDTIME allopurinol 300 mg tablet 300 mg PO DAILY omeprazole 40 mg capsule,delayed release(DR/EC) 40 mg PO DAILY levetiracetam [Keppra] 500 mg tablet 1,000 mg PO BID zonisamide [Zonegran] 100 mg capsule 200 mg PO BID amlodipine 10 mg tablet 5 mg PO DAILY Lantus U-100 Insulin 100 unit/mL solution 100 unit SUBCUT BID PRN (Reason: blood sugar) Rx Instructions: sliding scale Eliquis 5 mg tablet 5 mg PO BID montelukast [Singulair] 10 mg tablet 10 mg PO DAILY Qty: 90 2RF furosemide 40 mg tablet 40 mg PO DAILY Qty: 30 0RF Dilaudid 4 mg tablet 4 mg PO Q6H PRN (Reason: pain) 30 Days Qty: 120 0RF fentanyl 25 mcg/hr patch 72 hour 1 patch transdermal Q72H PRN (Reason: Pain) (DME) Bariatric Wheel Chair See Rx Instructions .Route .MEDSUPPLY Qty: 1 0RF Rx Instructions: As directed (DME) Wheel Chair See Rx Instructions .Route .MEDSUPPLY Qty: 1 0RF Rx Instructions: As directed (DME) knee immobilizer See Rx Instructions .Route .MEDSUPPLY Qty: 1 0RF Rx Instructions: As directed ondansetron 4 mg tablet,disintegrating 4 - 8 mg PO Q4H PRN (Reason: nausea and vomiting) Qty: 60 0RF doxycycline hyclate 100 mg capsule 100 mg PO BID 30 Days Qty: 60 3RF diphenhydramine HCl [Benadryl] 25 mg Capsule 25 mg PO DAILY PRN (Reason: Allergy Symptoms) calcium carbonate-vitamin D2 600 mg calcium- 200 unit Tablet 1 tab PO DAILY One-A-Day Men's 50 Plus 400-20-370 mcg Tablet 1 tab PO DAILY aspirin 325 mg Tablet 325 mg PO DAILY albuterol sulfate 90 mcg/actuation HFA aerosol inhaler 2 puff INHALATION Q4H PRN (Reason: Shortness Of Breath) duloxetine 30 mg capsule,delayed release(DR/EC) 30 mg PO DAILY divalproex [Depakote] 500 mg tablet,delayed release (DR/EC) 1,500 mg PO BEDTIME Humalog KwikPen Insulin 200 unit/mL (3 mL) insulin pen 25 unit SUBCUT TID PRN (Reason: blood sugar) Rx Instructions: sliding scale potassium chloride 10 mEq Tablet Extended Release 10 meq PO DAILY Qty: 30 1RF Discharge Orders: Discharge ED (Routine); Ordered 11/09/22 Ordered By: Gurwinder Davey Referrals: Kumar Kirkland MD [Hospitalist] - 4-7 days Kumar Evans DO [Primary Care Provider] - Discharge Diet: Usual diet Discharge Activity: Resume usual activity Patient Instructions: Fever - Adult, Opioid Safety, Pain Management Coding Level of Care Code ED [employer] for Chg Fwd Exam Comprehensive
--- NOTE | 2022-11-09 09:32 | XR_ITS ---
WS: [id number] Portable AP upright chest, 11/09/2022 Clinical Data: cancer pt w/ fever Comparison: Portable chest, 10/28/2022 Findings: No nodules, masses or effusions are seen. The heart is normal. The pulmonary vascularity is not increased. No pneumonia or pneumothorax is seen. There is an infusion catheter entering the left subclavian vein and ending in the superior vena cava. XR/XR chest 1V portable [id number] Impression: Negative chest.
--- NOTE | 2022-11-09 09:47 | PC.NURSE ---
pt was hospitalized last week for infection of unknown source. 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 pt has been recieving tx for infection since june.
[2022-11-09 10:22] VITALS: BP 161/108; PULSE 100; O2SAT 95
[2022-11-09 10:30] LABS: Influenza A by IFA negative (Negative); Influenza B by IFA negative (Negative)
[2022-11-09 10:31] VITALS: PULSE 100; O2SAT 94
[2022-11-09 10:31] LABS: SARS Covid-2 Antigen negative (Negative)
[2022-11-09 10:41] LABS: Basophils # 0.1 10^3/uL (0.0-0.1); Basophils % 0.2 %; Eosinophils # 0.2 10^3/uL (0.0-0.8); Eosinophils % 0.6 %; Hematocrit 26.3 % (42.0-52.0); Hemoglobin 8.3 g/dL (11.7-16.6); Lymphocytes # 0.8 10^3/uL (0.8-4.8); Lymphocytes % 2.8 %; Mean Corpuscular HGB Conc 31.6 g/dL (30.0-36.0); Mean Platelet Volume 11.5 fL (7.4-10.4); Monocytes # 0.2 10^3/uL (0.2-0.9); Monocytes % 0.8 %; Neutrophils # 24.52 10^3/uL (1.8-7.7); Neutrophils % 87.5 %; Nucleated Red Blood Cells % 0 %; Platelet Count 185 10^3/cmm (130-400); Red Blood Count 2.86 10^6/uL (4.1-5.3); Red Cell Distribution Width 18.6 % (12.1-15.1)
[2022-11-09 11:09] LABS: Alanine Aminotransferase 27 U/L (0-41); Albumin Level 3.1 g/dL (3.5-5.2); Alkaline Phosphatase 116 U/L (40-130); Anion Gap 13.5 (5-19); Aspartate Amino Transferase 26 U/L (0-40); Blood Urea Nitrogen 20 mg/dL (6-20); Calcium 8.8 mg/dL (8.5-10.5); Carbon Dioxide 24 mmol/L (22-29); Chloride 105 mmol/L (98-107); Globulin 2.9 g/dL (1.3-4.6); Glomerular Filtration Rate 52.2 mL/min (90-130); Glucose 179 mg/dL (65-115); Osmolality Calculated 295 mOsm/kg (285-295); Potassium 3.5 mmol/L (3.5-5.1); Sodium 139 mmol/L (136-145); Total Bilirubin 0.5 mg/dL (0.15-1.2)
[2022-11-09 11:23] LABS: Slide Review Slide Review Perform
[2022-11-09 11:25] VITALS: BP 136/79; O2SAT 97
[2022-11-09 11:30] LABS: Lipase 628 U/L (13-60)
[2022-11-09 12:31] LABS: Add Urine Microscopic? YES; Bilirubin Urine Neg (Negative); Blood Urine Neg (Negative); Glucose Urine UA Norm (Normal); Ketones Urine Negative (Negative); Leukocyte Esterase Urine Negative (Negative); Nitrate Urine Negative (Negative); Protein Urine 2+ (Negative); Urine Appearance Clear (CLEAR); Urine Color Yellow (Yellow); Urobilinogen Urine Neg (Negative); pH Urine 5 (5-7)
[2022-11-09 12:48] LABS: Mucus Urine 1+ /hpf; Squamous Epithelial Cell Urine 0-4 /hpf (0-5)
[2022-11-09 13:01] VITALS: PULSE 93; O2SAT 99
== END 2022-11-09 13:00 | disposition home or self-care (01) ==
PROVIDERS: Emergency Provider Emergency Medicine; PCP Internal Medicine
DX: R50.9 Fever, unspecified (principal); Z79.01 Long term (current) use of anticoagulants; Z79.82 Long term (current) use of aspirin; Z79.4 Long term (current) use of insulin; Z20.822 Contact with and (suspected) exposure to COVID-19; C25.9 Malignant neoplasm of pancreas, unspecified; Z79.899 Other long term (current) drug therapy; E11.22 Type 2 diabetes mellitus with diabetic chronic kidney disease; I12.9 Hypertensive chronic kidney disease with stage 1 through stage 4 chronic kidney disease, or unspecified chronic kidney disease; N18.9 Chronic kidney disease, unspecified; Z85.6 Personal history of leukemia; E78.5 Hyperlipidemia, unspecified
CPT/HCPCS: 36415; 71045; 80053; 81001; 83690; 85025; 87040; 87426; 87804; 99284

== ENCOUNTER 2022-11-23 08:00 | Oncology outpatient (recurring) (ONCR) | payer MEDICARE, SELFPAY ==
[2022-11-06 11:33] LABS: Basophils % 0.3 %; Eosinophils # 0.2 10^3/uL (0.0-0.8); Hematocrit 28.4 % (42.0-52.0); Lymphocytes # 1.1 10^3/uL (0.8-4.8); Lymphocytes % 11.9 %; Mean Corpuscular HGB Conc 31.7 g/dL (30.0-36.0); Mean Corpuscular Hemoglobin 28.8 pg (28.0-34.0); Mean Corpuscular Volume 90.7 fl (80-94); Mean Platelet Volume 10.8 fL (7.4-10.4); Monocytes % 10.8 %; Neutrophils % 73.8 %; Nucleated Red Blood Cells % 0.2 %; Platelet Count 164 10^3/cmm (130-400); Red Blood Count 3.13 10^6/uL (4.1-5.3); Red Cell Distribution Width 18.9 % (12.1-15.1); White Blood Count 8.8 10^3/uL (4.0-10.0)
[2022-11-06 12:16] LABS: Alanine Aminotransferase 32 U/L (0-41); Albumin Level 3.1 g/dL (3.5-5.2); Alkaline Phosphatase 109 U/L (40-130); Anion Gap 12.7 (5-19); Aspartate Amino Transferase 48 U/L (0-40); Blood Urea Nitrogen 22 mg/dL (6-20); Calcium 8.9 mg/dL (8.5-10.5); Cancer Antigen 19 9 32.82 U/mL (0-35); Carbon Dioxide 26 mmol/L (22-29); Chloride 102 mmol/L (98-107); Globulin 3.2 g/dL (1.3-4.6); Glomerular Filtration Rate 62.4 mL/min (90-130); Glucose 215 mg/dL (65-115); Osmolality Calculated 294 mOsm/kg (285-295); Potassium 3.7 mmol/L (3.5-5.1); Sodium 137 mmol/L (136-145); Total Bilirubin 0.3 mg/dL (0.15-1.2); Total Protein 6.3 g/dL (6.6-8.7)
[2022-11-06] MEDS: palonosetron 0.25 mg/5 mL SDV IVP (14:27)
[2022-11-06] MEDS: famotidine 20 mg/2 mL INJ IVP (14:30)
[2022-11-06 16:35] VITALS: BP 147/94; PULSE 82; RESP 16; TEMP 36.9; O2SAT 96
[2022-11-07 14:55] VITALS: BP 170/94; PULSE 101; RESP 16; TEMP 36.4; O2SAT 96
[2022-11-07] MEDS: pegfilgrastim-bmez 6 mg/0.6 mL SYR SUBCUT (14:57)
[2022-11-20 11:39] LABS: Basophils % 0.2 %; Eosinophils # 0.3 10^3/uL (0.0-0.8); Eosinophils % 2.9 %; Hematocrit 23.3 % (42.0-52.0); Hemoglobin 7.1 g/dL (11.7-16.6); Lymphocytes # 0.9 10^3/uL (0.8-4.8); Mean Corpuscular HGB Conc 30.5 g/dL (30.0-36.0); Mean Corpuscular Hemoglobin 28.5 pg (28.0-34.0); Mean Corpuscular Volume 93.6 fl (80-94); Mean Platelet Volume 9.9 fL (7.4-10.4); Monocytes # 1.1 10^3/uL (0.2-0.9); Neutrophils # 6.73 10^3/uL (1.8-7.7); Neutrophils % 72.4 %; Nucleated Red Blood Cells % 0.2 %; Platelet Count 214 10^3/cmm (130-400); Red Blood Count 2.49 10^6/uL (4.1-5.3); Red Cell Distribution Width 19.9 % (12.1-15.1); White Blood Count 9.3 10^3/uL (4.0-10.0)
[2022-11-20 11:53] LABS: Alanine Aminotransferase 15 U/L (0-41); Albumin Level 3.1 g/dL (3.5-5.2); Alkaline Phosphatase 112 U/L (40-130); Anion Gap 12.5 (5-19); Aspartate Amino Transferase 28 U/L (0-40); Blood Urea Nitrogen 19 mg/dL (6-20); Calcium 9.1 mg/dL (8.5-10.5); Carbon Dioxide 27 mmol/L (22-29); Chloride 101 mmol/L (98-107); Globulin 3.3 g/dL (1.3-4.6); Glomerular Filtration Rate 41.8 mL/min (90-130); Glucose 231 mg/dL (65-115); Osmolality Calculated 294 mOsm/kg (285-295); Potassium 3.5 mmol/L (3.5-5.1); Sodium 137 mmol/L (136-145); Total Bilirubin 0.3 mg/dL (0.15-1.2); Total Protein 6.4 g/dL (6.6-8.7)
--- NOTE | 2022-11-20 13:57 | PC.NURSE ---
1315: Pt returned to unit. type and ccrossmatch drawn. Pt notified of plan, patient does not want to stay for blood today, as the crossmatch will take at least one hour. pt states will return tomorrow for blood and possible treatment. appt given for 8 AM
[2022-11-21] VITALS (10 sets, daily range): BP systolic 121–149; BP diastolic 50–80; PULSE 75–92; RESP 16–18; TEMP 36–36.9; O2SAT 92–98
[2022-11-21] MEDS: sodium chloride 0.9% 250 mL Bag IV (08:50)
[2022-11-21] MEDS: diphenhydrAMINE 25 mg Capsule PO (08:50)
[2022-11-21] MEDS: acetaminophen 325 mg Tablet 650 MG PO (08:50)
[2022-11-22 09:22] LABS: Basophils % 0.3 %; Eosinophils # 0.4 10^3/uL (0.0-0.8); Eosinophils % 4.7 %; Hematocrit 27.7 % (42.0-52.0); Hemoglobin 8.9 g/dL (11.7-16.6); Lymphocytes # 1.2 10^3/uL (0.8-4.8); Lymphocytes % 15.4 %; Mean Corpuscular HGB Conc 32.1 g/dL (30.0-36.0); Mean Corpuscular Hemoglobin 28.9 pg (28.0-34.0); Mean Corpuscular Volume 89.9 fl (80-94); Mean Platelet Volume 9.4 fL (7.4-10.4); Monocytes % 12.5 %; Neutrophils # 5.24 10^3/uL (1.8-7.7); Nucleated Red Blood Cells % 0 %; Platelet Count 246 10^3/cmm (130-400); Red Blood Count 3.08 10^6/uL (4.1-5.3); Red Cell Distribution Width 19.2 % (12.1-15.1); White Blood Count 7.9 10^3/uL (4.0-10.0)
[2022-11-22 09:41] LABS: Alanine Aminotransferase 12 U/L (0-41); Albumin Level 2.9 g/dL (3.5-5.2); Alkaline Phosphatase 105 U/L (40-130); Anion Gap 12.2 (5-19); Aspartate Amino Transferase 22 U/L (0-40); Blood Urea Nitrogen 15 mg/dL (6-20); Carbon Dioxide 27 mmol/L (22-29); Chloride 103 mmol/L (98-107); Globulin 3.2 g/dL (1.3-4.6); Glomerular Filtration Rate 52.2 mL/min (90-130); Glucose 157 mg/dL (65-115); Osmolality Calculated 292 mOsm/kg (285-295); Potassium 3.2 mmol/L (3.5-5.1); Sodium 139 mmol/L (136-145); Total Bilirubin 0.3 mg/dL (0.15-1.2); Total Protein 6.1 g/dL (6.6-8.7)
[2022-11-22] MEDS: famotidine 20 mg/2 mL INJ IVP (11:44)
[2022-11-22] MEDS: palonosetron 0.25 mg/5 mL SDV IVP (11:44)
[2022-11-22] MEDS: sodium chloride 0.9% 250 ML 75 ML IV (11:45)
[2022-11-22 13:48] VITALS: BP 145/76; PULSE 84; RESP 16; TEMP 36.2; O2SAT 95
[2022-11-23] MEDS: acetaminophen 325 mg Tablet 650 MG PO (08:15)
[2022-11-23] MEDS: diphenhydrAMINE 25 mg Capsule PO (08:16)
[2022-11-23] MEDS: sodium chloride 0.9% 250 mL Bag IV (08:16)
[2022-11-23 08:20] VITALS: BP 144/64; PULSE 92; RESP 16; TEMP 36.6; O2SAT 98
[2022-11-23 08:28] VITALS: RESP 16; O2SAT 92
[2022-11-23] MEDS: pegfilgrastim-bmez 6 mg/0.6 mL SYR SUBCUT (08:29)
[2022-11-23 08:35] VITALS: BP 141/79; PULSE 90; RESP 16; TEMP 36.4; O2SAT 94
[2022-11-23 08:50] VITALS: BP 144/76; PULSE 90; RESP 16; TEMP 36.4; O2SAT 95
[2022-11-23 10:10] VITALS: BP 144/76; PULSE 88; RESP 16; TEMP 36.4; O2SAT 96
[2022-11-23 10:20] VITALS: BP 144/76; PULSE 88; RESP 16; TEMP 36.4; O2SAT 96
== END 2022-11-24 23:59 | disposition home or self-care (01) ==
PROVIDERS: PCP Internal Medicine; Visit Provider Internal Medicine Medical Oncology
DX: Z51.11 Encounter for antineoplastic chemotherapy (principal); C25.0 Malignant neoplasm of head of pancreas; C78.7 Secondary malignant neoplasm of liver and intrahepatic bile duct; D50.9 Iron deficiency anemia, unspecified; Z79.899 Other long term (current) drug therapy
CPT/HCPCS: 36430; 36591; 80053; 82378; 85025; 86301; 86850; 86900; 86920; 96367; 96372; 96375; 96401; 96413; 96417; 99215; J1100; J2469; J3490; J7050; J9201; J9264; P9016; Q5120

== ENCOUNTER → 2022-12-12 08:23 | Outpatient (BNVA) | payer MEDICARE, SELFPAY | PROVIDERS: PCP Internal Medicine; Visit Provider Podiatrist Foot & Ankle Surgery | DX: E11.621 Type 2 diabetes mellitus with foot ulcer (principal); Z79.4 Long term (current) use of insulin; L97.522 Non-pressure chronic ulcer of other part of left foot with fat layer exposed; M20.41 Other hammer toe(s) (acquired), right foot; M20.42 Other hammer toe(s) (acquired), left foot; E11.69 Type 2 diabetes mellitus with other specified complication; C91.10 Chronic lymphocytic leukemia of B-cell type not having achieved remission; N18.9 Chronic kidney disease, unspecified; L60.3 Nail dystrophy | CPT/HCPCS: 11042; 11721; 99204 ==

== ENCOUNTER → 2022-12-13 13:00 | Outpatient (BNVA) | payer MEDICARE, SELFPAY | PROVIDERS: PCP Internal Medicine; Visit Provider Student in an Organized Health Care Education/Training Program | DX: T84.54XA Infection and inflammatory reaction due to internal left knee prosthesis, initial encounter (principal); X58.XXXA Exposure to other specified factors, initial encounter; C91.10 Chronic lymphocytic leukemia of B-cell type not having achieved remission | CPT/HCPCS: 99212 ==

== ENCOUNTER 2022-12-18 09:00 | Oncology outpatient (recurring) (ONCR) | payer MEDICARE, SELFPAY ==
[2022-11-27 08:54] LABS: Basophils # 0.1 10^3/uL (0.0-0.1); Basophils % 0.5 %; Eosinophils # 0.3 10^3/uL (0.0-0.8); Eosinophils % 2.2 %; Hematocrit 31.5 % (42.0-52.0); Hemoglobin 9.9 g/dL (11.7-16.6); Lymphocytes # 0.3 10^3/uL (0.8-4.8); Lymphocytes % 2.7 %; Mean Corpuscular HGB Conc 31.4 g/dL (30.0-36.0); Mean Corpuscular Hemoglobin 28.5 pg (28.0-34.0); Mean Corpuscular Volume 90.8 fl (80-94); Mean Platelet Volume 10.6 fL (7.4-10.4); Monocytes # 0.2 10^3/uL (0.2-0.9); Monocytes % 1.2 %; Neutrophils % 93.1 %; Nucleated Red Blood Cells % 0 %; Platelet Count 176 10^3/cmm (130-400); Red Blood Count 3.47 10^6/uL (4.1-5.3); Red Cell Distribution Width 17.2 % (12.1-15.1); White Blood Count 12.6 10^3/uL (4.0-10.0)
[2022-11-27 09:30] LABS: Slide Review Slide Review Perform
[2022-11-27 09:45] VITALS: BP 163/89; PULSE 111; RESP 18; TEMP 37.1; O2SAT 93
[2022-11-29 09:59] LABS: Basophils # 0.1 10^3/uL (0.0-0.1); Basophils % 0.6 %; Eosinophils # 0.2 10^3/uL (0.0-0.8); Eosinophils % 1.6 %; Hematocrit 30.7 % (42.0-52.0); Hemoglobin 9.9 g/dL (11.7-16.6); Lymphocytes # 0.7 10^3/uL (0.8-4.8); Lymphocytes % 7.4 %; Mean Corpuscular HGB Conc 32.2 g/dL (30.0-36.0); Mean Corpuscular Hemoglobin 28.9 pg (28.0-34.0); Mean Corpuscular Volume 89.5 fl (80-94); Mean Platelet Volume 11.1 fL (7.4-10.4); Monocytes # 0.6 10^3/uL (0.2-0.9); Monocytes % 6.6 %; Neutrophils % 82.2 %; Nucleated Red Blood Cells % 0 %; Platelet Count 119 10^3/cmm (130-400); Red Blood Count 3.43 10^6/uL (4.1-5.3); Red Cell Distribution Width 16.8 % (12.1-15.1); White Blood Count 9.7 10^3/uL (4.0-10.0)
[2022-12-06 09:01] LABS: Basophils % 0.4 %; Eosinophils # 0.3 10^3/uL (0.0-0.8); Eosinophils % 3.1 %; Hematocrit 28.2 % (42.0-52.0); Hemoglobin 8.9 g/dL (11.7-16.6); Lymphocytes # 1.4 10^3/uL (0.8-4.8); Lymphocytes % 14.8 %; Mean Corpuscular HGB Conc 31.6 g/dL (30.0-36.0); Mean Corpuscular Hemoglobin 28.8 pg (28.0-34.0); Mean Corpuscular Volume 91.3 fl (80-94); Monocytes # 0.9 10^3/uL (0.2-0.9); Monocytes % 9.4 %; Neutrophils # 6.75 10^3/uL (1.8-7.7); Neutrophils % 70.8 %; Nucleated Red Blood Cells % 0 %; Platelet Count 152 10^3/cmm (130-400); Red Blood Count 3.09 10^6/uL (4.1-5.3); Red Cell Distribution Width 18.3 % (12.1-15.1); White Blood Count 9.5 10^3/uL (4.0-10.0)
[2022-12-06 09:26] LABS: Cancer Antigen 19 9 88.32 U/mL (0-35)
[2022-12-06 10:42] LABS: Alanine Aminotransferase 17 U/L (0-41); Albumin Level 3.3 g/dL (3.5-5.2); Alkaline Phosphatase 117 U/L (40-130); Anion Gap 14.4 (5-19); Aspartate Amino Transferase 22 U/L (0-40); Blood Urea Nitrogen 12 mg/dL (6-20); Calcium 9.6 mg/dL (8.5-10.5); Carbon Dioxide 24 mmol/L (22-29); Chloride 102 mmol/L (98-107); Globulin 2.9 g/dL (1.3-4.6); Glomerular Filtration Rate 52.2 mL/min (90-130); Glucose 252 mg/dL (65-115); Osmolality Calculated 292 mOsm/kg (285-295); Potassium 3.4 mmol/L (3.5-5.1); Sodium 137 mmol/L (136-145); Total Bilirubin 0.3 mg/dL (0.15-1.2); Total Protein 6.2 g/dL (6.6-8.7)
[2022-12-11 08:25] LABS: Basophils % 0.4 %; Eosinophils # 0.4 10^3/uL (0.0-0.8); Eosinophils % 5.1 %; Hematocrit 28.9 % (42.0-52.0); Hemoglobin 9.2 g/dL (11.7-16.6); Lymphocytes # 1.5 10^3/uL (0.8-4.8); Lymphocytes % 21.7 %; Mean Corpuscular HGB Conc 31.8 g/dL (30.0-36.0); Mean Corpuscular Hemoglobin 29.3 pg (28.0-34.0); Mean Platelet Volume 9.6 fL (7.4-10.4); Monocytes # 0.8 10^3/uL (0.2-0.9); Monocytes % 11.6 %; Neutrophils # 4.16 10^3/uL (1.8-7.7); Neutrophils % 60.5 %; Nucleated Red Blood Cells % 0 %; Platelet Count 268 10^3/cmm (130-400); Red Blood Count 3.14 10^6/uL (4.1-5.3); Red Cell Distribution Width 19.3 % (12.1-15.1); White Blood Count 6.9 10^3/uL (4.0-10.0)
[2022-12-11 08:45] LABS: Alanine Aminotransferase 12 U/L (0-41); Albumin Level 3.3 g/dL (3.5-5.2); Alkaline Phosphatase 105 U/L (40-130); Anion Gap 13.2 (5-19); Aspartate Amino Transferase 19 U/L (0-40); Blood Urea Nitrogen 13 mg/dL (6-20); Calcium 8.7 mg/dL (8.5-10.5); Carbon Dioxide 27 mmol/L (22-29); Chloride 102 mmol/L (98-107); Globulin 2.9 g/dL (1.3-4.6); Glomerular Filtration Rate 52.2 mL/min (90-130); Glucose 154 mg/dL (65-115); Osmolality Calculated 291 mOsm/kg (285-295); Potassium 3.2 mmol/L (3.5-5.1); Sodium 139 mmol/L (136-145); Total Bilirubin 0.3 mg/dL (0.15-1.2); Total Protein 6.2 g/dL (6.6-8.7)
[2022-12-18 09:24] LABS: Basophils % 0.4 %; Eosinophils # 0.6 10^3/uL (0.0-0.8); Eosinophils % 7.9 %; Hematocrit 29.1 % (42.0-52.0); Lymphocytes # 1.3 10^3/uL (0.8-4.8); Lymphocytes % 18.9 %; Mean Corpuscular HGB Conc 30.9 g/dL (30.0-36.0); Mean Corpuscular Hemoglobin 28.8 pg (28.0-34.0); Mean Corpuscular Volume 93.3 fl (80-94); Mean Platelet Volume 11.4 fL (7.4-10.4); Monocytes # 0.9 10^3/uL (0.2-0.9); Neutrophils # 4.26 10^3/uL (1.8-7.7); Neutrophils % 60.2 %; Nucleated Red Blood Cells % 0 %; Platelet Count 161 10^3/cmm (130-400); Red Blood Count 3.12 10^6/uL (4.1-5.3); Red Cell Distribution Width 19.4 % (12.1-15.1); White Blood Count 7.1 10^3/uL (4.0-10.0)
[2022-12-18 09:57] LABS: Alanine Aminotransferase 10 U/L (0-41); Albumin Level 3.1 g/dL (3.5-5.2); Alkaline Phosphatase 99 U/L (40-130); Anion Gap 12.1 (5-19); Aspartate Amino Transferase 23 U/L (0-40); Blood Urea Nitrogen 12 mg/dL (6-20); Calcium 9.3 mg/dL (8.5-10.5); Carbon Dioxide 29 mmol/L (22-29); Chloride 105 mmol/L (98-107); Glomerular Filtration Rate 62.4 mL/min (90-130); Glucose 104 mg/dL (65-115); Iron 33 ug/dL (59-158); Osmolality Calculated 296 mOsm/kg (285-295); Percent Saturation 21.5 % (20-50); Potassium 3.1 mmol/L (3.5-5.1); Sodium 143 mmol/L (136-145); Total Bilirubin 0.4 mg/dL (0.15-1.2); Total Iron Binding Capacity 153 mcg/dl; Total Protein 6.1 g/dL (6.6-8.7); Unsaturated Iron Binding 120 ug/dL (112-347)
[2022-12-18] MEDS: ferric carboxy (IVPB) 750 MG in sodium chloride 0.9% (100 ml) 100 ML 345 MG IV (10:41)
[2022-12-18 11:10] VITALS: BP 157/89; PULSE 81; RESP 18; TEMP 36.6; O2SAT 97
== END 2022-12-25 23:59 | disposition home or self-care (01) ==
PROVIDERS: PCP Internal Medicine; Visit Provider Internal Medicine Medical Oncology
DX: C25.0 Malignant neoplasm of head of pancreas (principal); Z79.899 Other long term (current) drug therapy; C91.10 Chronic lymphocytic leukemia of B-cell type not having achieved remission
CPT/HCPCS: 36591; 80053; 82378; 83540; 83550; 85025; 86301; 86850; 86900; 96365; 99215; J1439

== ENCOUNTER 2023-01-04 12:10 | Emergency (ER) | payer MEDICARE, SELFPAY ==
[2023-01-04 12:11] VITALS: BP 150/86; PULSE 85; RESP 18; TEMP 37.2; O2SAT 97
--- NOTE | 2023-01-04 13:11 | CT_ITS ---
WS: [id number] CT ABDOMEN PELVIS TECHNIQUE: Contrast-enhanced CT of the abdomen and pelvis with coronal and sagittal reformatted image s. CLINICAL INFORMATION: know pancreatic ca-concerns about obstruction COMPARISON: CT abdomen pelvis August 31, 2022 DLP: 1332.[address] scans at [facility] use at least one of these dose optimization techniques: automated e xposure control; mA and/or kV adjustment per patient size (includes targeted exams where dose is matc hed to clinical indication); or iterative reconstruction. FINDINGS: No evidence of progressed pancreatic metastatic disease compared to the prior August 2022 study. Inn umerable hepatic metastasis throughout both hepatic lobes. Portal vein and splenic vein remain patent . Normal spleen. Normal portal vein and splenic vein. Large mass in the pancreas with heterogeneous enhancement progre ssed compared to previous measuring 4.8 x 4.6 CM. Associated peripancreatic and adriana hepatis lymphad enopathy. Fluid distended gallbladder. No gallbladder wall thickening or pericholecystic fluid. Necro tic appearing lymph nodes in the adriana hepatis and upper abdomen. Splenic vein appears patent. Pancre atic ductal dilatation. Pancreatic head mass compresses the duodenum although no evidence of obstruct ion. Stomach is decompressed. Mild transverse colon and LEFT descending colon and sigmoid colonic constipation. No evidence of high -grade bowel obstruction. A few normal caliber fluid-filled distended loops of small bowel in the mid abdomen. Adrenal glands are normal. Normal renal parenchymal enhancement. No hydronephrosis. Small LE FT greater than RIGHT renal cysts. Prostate calcification. Mild prostate enlargement. Disc osteophyte complexes in the lower lumbar spine. Small subpleural nodules in RIGHT lower lobe laterally measuring up to 4.4 mm. Tiny subpleural nodule s LEFT lower lobe. Noncalcified nodule RIGHT lower lobe measuring 6.8 mm. A few subpleural opacities in the RIGHT lower lobe. CT/CT abdomen pelvis w con* [id number] IMPRESSION: 1. No evidence of high-grade small or large bowel obstruction. Mild constipati on. 2. Progressed large mass in the pancreatic head with peripancreatic lymphadeno delmi with diffuse hepatic metastatic disease. Necrotic lymph nodes in the uppe r abdomen. 3. Pancreatic head mass compresses the traversing duodenum although no evidenc e of obstruction. 4. No hydronephrosis in either kidney. 5. No other acute findings. Notified Jose Merritt DO at 01/04/2023 3:18 PM.
--- NOTE | 2023-01-04 13:12 | W.ED.ABDPA2 ---
HPI - Abdominal Pain General: Chief Complaint: Abdominal Pain Stated Complaint: Constipation Time Seen by Provider: 01/04/23 13:02 Source: patient and family Mode of arrival: ambulatory Limitations: no limitations History of Present Illness: Mr. Rivera makes his way to the emergency department today accompanied by his spouse. He is here at the behest of both oncologist here as well as oncology at [facility] in [place]. He apparently has a history of pancreatic cancer which recently has been evaluated at [facility] and he was told that he has metastatic disease. He is last chemotherapeutic injection here was in mid November. He is here because he had increasing abdominal pain over the past several days with decreased appetite and no bowel movements for the past 3 days. He is currently on pain control with both fentanyl patch as well as other oral opiates. He is apparently been on a regimen that include has included Senokot but no other agents to help reduce likelihood of opioid induced constipation. He denies any fevers or chills. He denies any vomiting but is nauseated quite a bit but has medications to help control that. He has been drinking fluids but has had decreased oral intake. No prior abdominal surgeries. He has been urinating normally. MD elicited complaint: abdominal pain Severity: moderate Quality: cramping and fullness Exacerbating factors: eating Relieving factors: nothing Associated Symptoms: Reports constipation and nausea; Denies chills, diarrhea, dysuria, fever(s), hematochezia, melena, syncope and vomiting Treatments prior to arrival: prescription analgesics Review of Systems Const: Denies: fever(s) or chills Eyes: Denies: change in vision ENMT: Denies: throat pain, odynophagia, nasal discharge or nasal congestion Card: Denies: chest pain, palpitations, irregular heart rhythm, syncope or pre-syncope Resp: Denies: dyspnea, productive cough or non-productive cough GI: Reports: abdominal pain, nausea and constipation; Denies: vomiting, diarrhea, hematochezia or melena : Denies: flank pain, difficulty urinating, dysuria or urinary frequency Musc: Denies: neck pain, back pain, extremity pain or extremity swelling Skin/Breast: Denies: rash Neuro: Denies: headache(s), numbness in extremities or weakness in extremities PFS ED PFSH: Medical History Acute embolism and thrombosis of left femoral vein Anemia Chronic kidney disease Chronic lymphocytic leukemia Degenerative arthritis Degenerative arthritis of spine Diabetes mellitus, type II Diarrhea Epilepsy In August 2018 he had presented with new onset of epilepsy, presumed idiopathic GERD (gastroesophageal reflux disease) Hyperlipidemia Hypertension Infection of total left knee replacement Pancreatic cancer Surgical History History of knee surgery Left knee implant removed and spacer placed until infection gone. History of left knee replacement S/P total knee arthroplasty (~05/2019) Family History Mother Cancer Lung Unknown Cancer Aunt - Leukemia, AML Brother Diabetes Hypertension Sister Hypertension Denies family history of CAD (coronary artery disease) Clotting disorder Dementia Hyperlipidemia Psychiatric illness Chronic kidney disease (CKD) Suicide Anesthesia complication Bleeding disorder Lung disease Stroke Social History Smoking and tobacco status: never smoked Alcohol intake: current Alcohol intake frequency: holidays/special occasions only Physical Exam Narrative: EXAM NARRATIVE: Appears comfortable. He interacts appropriately and his speech is goal-directed. Const: COMMON NORMALS: no acute distress, patient oriented x3 and alert GENERAL APPEARANCE: cooperative and comfortable NUTRITIONAL APPEARANCE: overweight HENMT: COMMON NORMALS: normocephalic, Normal nasal mucous membranes and turbinates present and moist oral mucous membranes HEAD & SCALP: normocephalic NOSE: Normal nasal mucous membranes and turbinates present Eye: COMMON NORMALS: Equal, round and reactive pupils present, conjunctivae normal and no scleral icterus CONJUNCTIVA: Yes conjunctivae normal PUPIL: Yes Equal, round and reactive pupils present Neck/C-Spine: COMMON NORMALS: full ROM and no lymphadenopathy Resp: COMMON NORMALS: normal respiratory effort, No retractions, No use of accessory muscles and clear to auscultation bilaterally AUSCULTATION: clear to auscultation bilaterally Cardio: COMMON NORMALS: regular rate, regular rhythm, No murmurs present (Cardio) and Peripheral pulses 2+ throughout RATE: regular rate RHYTHM: regular rhythm PERIPHERAL PULSES: Peripheral pulses 2+ throughout GI: COMMON NORMALS: Soft to palpation, non-tender and no masses INSPECTION: Yes central obesity PALPATION: Yes Soft to palpation : COMMON NORMALS: Yes no CVA tenderness BLADDER/KIDNEY EXAM: Yes no CVA tenderness Back/Pelvis: COMMON NORMALS: no CVA tenderness, thoracic and lumbar spine normal to inspection, no thoracic nor lumbar tenderness and thoraco-lumbar ROM normal Extremity: COMMON NORMALS: normal to inspection, full ROM, capillary refill normal, no calf tenderness and no pedal edema Neuro: COMMON NORMALS: patient oriented x3, moves all extremities, no focal motor deficits and no sensory deficits noted SENSORIUM/ORIENTATION: Yes alert Psych: COMMON NORMALS: mental status grossly normal Skin: COMMON NORMALS: no rashes or lesions noted, turgor normal and no jaundice GENERAL SKIN EXAM: no rashes or lesions noted and turgor normal Course Reevaluation(s): Reevaluation #1: Patient remained stable with no new or worrisome findings on reevaluation. We discussed current findings and recommendations with patient and spouse. They voiced understanding and agreed to proceed. He is currently clinically stable for discharge. Time: 16:28 Vital Signs: Vital signs: Vital Signs Temperature 98.9 F 01/04/23 12:11 Pulse Rate 85 01/04/23 12:11 Respiratory Rate 18 01/04/23 12:11 Blood Pressure 150/86 01/04/23 12:11 Pulse Oximetry 97 01/04/23 12:11 Oxygen Delivery Me thod 01/04/23 12:11 MDM - Abdominal Pain Medical Decision Making Patient with a known history of pancreatic cancer who was on chronic opiates for pain control who has had some reduced bowel movements and sensation of early satiety over the past several days and was referred for imaging to ensure there is no evidence of small bowel obstruction or other issues of acute nature. His evaluation today revealed a soft abdomen which was reassuring as it did not suggest clinical bowel obstruction, surgical abdomen etc. He otherwise had no evidence of other significant focal findings on clinical examination. Imaging was obtained which showed obvious pancreatic cancer with evidence of metastatic disease but no evidence of bowel obstruction. There was stool burden and some evidence of constipation but consistent with his clinical picture. Also was noted to have a low potassium but this apparently has been previously noted and his potassium replacement has just been doubled in the last day or so. He did not display any arrhythmias or other concerns. He is currently clinically stable and rather than give him relist or at this time we recommended to go ahead begin MiraLAX regimen starting with 1 to 2 packets twice daily and adjusting based upon his response. We discussed also returning if he did not obtain improvement or resolution of his current symptoms and then we would entertain other therapies. All questions were answered. He is stable at this time without any evidence that he requires further observation or hospitalization. Lab Data I reviewed the patient's lab results. 01/04/23 13:30 01/04/23 13:30 Labs/Radiology: Radiology Impressions Abdomen/Pelvis CT 01/04/23 13:11 IMPRESSION: 1. No evidence of high-grade small or large bowel obstruction. Mild constipation. 2. Progressed large mass in the pancreatic head with peripancreatic lymphadenopathy with diffuse hepatic metastatic disease. Necrotic lymph nodes in the upper abdomen. 3. Pancreatic head mass compresses the traversing duodenum although no evidence of obstruction. 4. No hydronephrosis in either kidney. 5. No other acute findings. Notified Jose Merritt DO at 01/04/2023 3:18 PM. Laboratory Results WBC 9.0 10^3/uL (4.0-10.0) 01/04/23 13:30 RBC 3.49 10^6/uL (4.1-5.3) L 01/04/23 13:30 Hgb 10.0 g/dL (11.7-16.6) L 01/04/23 13:30 Hct 32.8 % (42.0-52.0) L 01/04/23 13:30 MCV 94.0 fl (80-94) 01/04/23 13:30 MCH 28.7 pg (28.0-34.0) 01/04/23 13:30 MCHC 30.5 g/dL (30.0-36.0) 01/04/23 13:30 RDW 18.5 % (12.1-15.1) H 01/04/23 13:30 Plt Count 117 10^3/cmm (130-400) L 01/04/23 13:30 MPV 12.3 fL (7.4-10.4) H 01/04/23 13:30 Neut % (Auto) 58.4 % 01/04/23 13:30 Lymph % (Auto) 14.6 % 01/04/23 13:30 Rabun % (Auto) 16.0 % 01/04/23 13:30 Eos % (Auto) 10.0 % 01/04/23 13:30 Baso % (Auto) 0.6 % 01/04/23 13:30 Neut # (Auto) 5.26 10^3/uL (1.8-7.7) 01/04/23 13:30 Lymph # (Auto) 1.3 10^3/uL (0.8-4.8) 01/04/23 13:30 Rabun # (Auto) 1.4 10^3/uL (0.2-0.9) H 01/04/23 13:30 Eos # (Auto) 0.9 10^3/uL (0.0-0.8) H 01/04/23 13:30 Baso # (Auto) 0.1 10^3/uL (0.0-0.1) 01/04/23 13:30 Nucleated RBC % (auto) 0 % 01/04/23 13:30 Nucleated RBCs # 0.0 /100WBC 01/04/23 13:30 Sodium 139 mmol/L (136-145) 01/04/23 13:30 Potassium 3.0 mmol/L (3.5-5.1) L 01/04/23 13:30 Chloride 99 mmol/L (98-107) 01/04/23 13:30 Carbon Dioxide 29 mmol/L (22-29) 01/04/23 13:30 Anion Gap 14.0 (5-19) 01/04/23 13:30 BUN 11 mg/dL (6-20) 01/04/23 13:30 Creatinine 1.4 mg/dL (0.7-1.2) H 01/04/23 13:30 GFR Calculation 52.2 mL/min (90-130) L 01/04/23 13:30 Glucose 106 mg/dL (65-115) 01/04/23 13:30 Calculated Osmolality 288 mOsm/kg (285-295) 01/04/23 13:30 Calcium 9.1 mg/dL (8.5-10.5) 01/04/23 13:30 Total Bilirubin 1.5 mg/dL (0.15-1.2) H 01/04/23 13:30 AST 60 U/L (0-40) H 01/04/23 13:30 ALT 33 U/L (0-41) 01/04/23 13:30 Alkaline Phosphatase 259 U/L (40-130) H 01/04/23 13:30 Total Protein 6.5 g/dL (6.6-8.7) L 01/04/23 13:30 Albumin 3.5 g/dL (3.5-5.2) 01/04/23 13:30 Globulin 3.0 g/dL (1.3-4.6) 01/04/23 13:30 Discharge Plan Discharge Patient Disposition: Home Clinical Impression: Constipation due to opioid therapy, Hypokalemia, Pancreatic cancer Condition: Stable Prescriptions: No Action atorvastatin 40 mg tablet 40 mg PO BEDTIME allopurinol 300 mg tablet 300 mg PO DAILY omeprazole 40 mg capsule,delayed release(DR/EC) 40 mg PO DAILY levetiracetam [Keppra] 500 mg tablet See Rx Instructions .ROUTE .COMPLEX Rx Instructions: 1,000 mg orally IN THE AM AND 2,000 MG IN THE PM zonisamide [Zonegran] 100 mg capsule 200 mg PO BID amlodipine 10 mg tablet 5 mg PO DAILY Lantus U-100 Insulin 100 unit/mL solution 100 unit SUBCUT BID PRN (Reason: blood sugar) Rx Instructions: sliding scale Eliquis 5 mg tablet 5 mg PO BID (DME) Diabetic Shoes with 3 pairs of inserts See Rx Instructions .Route .MEDSUPPLY Qty: 1 0RF Rx Instructions: As directed by HOME fentanyl 25 mcg/hr patch 72 hour 1 patch transdermal Q72H PRN (Reason: Pain) (DME) Bariatric Wheel Chair See Rx Instructions .Route .MEDSUPPLY Qty: 1 0RF Rx Instructions: As directed (DME) Wheel Chair See Rx Instructions .Route .MEDSUPPLY Qty: 1 0RF Rx Instructions: As directed (DME) knee immobilizer See Rx Instructions .Route .MEDSUPPLY Qty: 1 0RF Rx Instructions: As directed ondansetron 4 mg tablet,disintegrating 4 - 8 mg PO Q4H PRN (Reason: nausea and vomiting) Qty: 60 0RF doxycycline hyclate 100 mg capsule 100 mg PO BID 30 Days Qty: 60 3RF Dilaudid 4 mg tablet 4 mg PO Q6H PRN (Reason: pain) 30 Days Qty: 120 0RF potassium chloride 10 mEq tablet extended release 10 meq PO TID Qty: 90 0RF diphenhydramine HCl [Benadryl] 25 mg Capsule 25 mg PO DAILY PRN (Reason: Allergy Symptoms) calcium carbonate-vitamin D2 600 mg calcium- 200 unit Tablet 1 tab PO DAILY One-A-Day Men's 50 Plus 400-20-370 mcg Tablet 1 tab PO DAILY aspirin 325 mg Tablet 325 mg PO DAILY albuterol sulfate 90 mcg/actuation HFA aerosol inhaler 2 puff INHALATION Q4H PRN (Reason: Shortness Of Breath) duloxetine 30 mg capsule,delayed release(DR/EC) 30 mg PO DAILY divalproex [Depakote] 500 mg tablet,delayed release (DR/EC) 1,500 mg PO BEDTIME Humalog KwikPen Insulin 200 unit/mL (3 mL) insulin pen 25 unit SUBCUT TID PRN (Reason: blood sugar) Rx Instructions: sliding scale Senna-S 8.6-50 mg Tablet 2 tab-cap PO BID prochlorperazine maleate 10 mg tablet 10 mg PO Q6H PRN (Reason: Nausea) furosemide 40 mg tablet 20 mg PO DAILY montelukast 10 mg tablet 10 mg PO DAILY Discharge Orders: Discharge ED (Routine); Ordered 01/04/23 Ordered By: Jose Merritt Referrals: Kumar Evans DO [Primary Care Provider] - Discharge Diet: Advance as tolerated and Diabetic Discharge Activity: Increase activity as tolerated Patient Instructions: Opioid Safety, Pain Management Activity Restrictions/Additional Instructions: As we discussed you do not have evidence of a bowel obstruction today. We did just note that your potassium was low and we encourage you to increase your potassium replacement as previously recommended. Continue all your other usual medications. We recommend beginning with MiraLAX 1 to 2 packets or scoops twice daily until you achieve desired results. If despite these therapies you are still having symptoms or concerns of increasing abdominal pain, no bowel movements, vomiting or other concerns return to the emergency department immediately for reevaluation. Coding Level of Care Code ED Psychology Assistant for Sheyla Cha
[2023-01-04 13:51] LABS: Basophils # 0.1 10^3/uL (0.0-0.1); Basophils % 0.6 %; Eosinophils # 0.9 10^3/uL (0.0-0.8); Hematocrit 32.8 % (42.0-52.0); Lymphocytes # 1.3 10^3/uL (0.8-4.8); Lymphocytes % 14.6 %; Mean Corpuscular HGB Conc 30.5 g/dL (30.0-36.0); Mean Corpuscular Hemoglobin 28.7 pg (28.0-34.0); Mean Platelet Volume 12.3 fL (7.4-10.4); Monocytes # 1.4 10^3/uL (0.2-0.9); Neutrophils # 5.26 10^3/uL (1.8-7.7); Neutrophils % 58.4 %; Nucleated Red Blood Cells % 0 %; Platelet Count 117 10^3/cmm (130-400); Red Blood Count 3.49 10^6/uL (4.1-5.3); Red Cell Distribution Width 18.5 % (12.1-15.1)
[2023-01-04] MEDS: sodium chloride 0.9% 500 ML IV (13:59)
[2023-01-04 14:05] LABS: Alanine Aminotransferase 33 U/L (0-41); Albumin Level 3.5 g/dL (3.5-5.2); Alkaline Phosphatase 259 U/L (40-130); Aspartate Amino Transferase 60 U/L (0-40); Blood Urea Nitrogen 11 mg/dL (6-20); Calcium 9.1 mg/dL (8.5-10.5); Carbon Dioxide 29 mmol/L (22-29); Chloride 99 mmol/L (98-107); Glomerular Filtration Rate 52.2 mL/min (90-130); Glucose 106 mg/dL (65-115); Osmolality Calculated 288 mOsm/kg (285-295); Sodium 139 mmol/L (136-145); Total Bilirubin 1.5 mg/dL (0.15-1.2); Total Protein 6.5 g/dL (6.6-8.7)
[2023-01-04] MEDS: iohexol 350 mg/mL 500 mL Btl (per mL) IV (14:33)
[2023-01-04 16:57] VITALS: BP 143/87; PULSE 86; RESP 18; O2SAT 97
== END 2023-01-04 16:58 | disposition home or self-care (01) ==
PROVIDERS: Emergency Provider Emergency Medicine; PCP Internal Medicine
DX: K59.03 Drug induced constipation (principal); T40.2X5A Adverse effect of other opioids, initial encounter; E87.6 Hypokalemia; C25.9 Malignant neoplasm of pancreas, unspecified; Z79.82 Long term (current) use of aspirin; Z79.01 Long term (current) use of anticoagulants; Z79.4 Long term (current) use of insulin; Z79.891 Long term (current) use of opiate analgesic; E11.22 Type 2 diabetes mellitus with diabetic chronic kidney disease; I12.9 Hypertensive chronic kidney disease with stage 1 through stage 4 chronic kidney disease, or unspecified chronic kidney disease; N18.9 Chronic kidney disease, unspecified; E78.5 Hyperlipidemia, unspecified; Z85.6 Personal history of leukemia
CPT/HCPCS: 74177; 80053; 85025; 99285; J7040; Q9967

== ENCOUNTER 2023-01-21 11:30 | Oncology outpatient (recurring) (ONCR) | payer MEDICARE, SELFPAY ==
[2023-01-10 10:12] LABS: Basophils % 0.3 %; Eosinophils # 1.1 10^3/uL (0.0-0.8); Eosinophils % 16.1 %; Hematocrit 30.8 % (42.0-52.0); Hemoglobin 9.6 g/dL (11.7-16.6); Lymphocytes # 1.1 10^3/uL (0.8-4.8); Lymphocytes % 16.7 %; Mean Corpuscular HGB Conc 31.2 g/dL (30.0-36.0); Mean Corpuscular Hemoglobin 29.3 pg (28.0-34.0); Mean Corpuscular Volume 93.9 fl (80-94); Mean Platelet Volume 12.1 fL (7.4-10.4); Monocytes % 15.5 %; Neutrophils # 3.36 10^3/uL (1.8-7.7); Neutrophils % 50.6 %; Nucleated Red Blood Cells % 0 %; Platelet Count 115 10^3/cmm (130-400); Red Blood Count 3.28 10^6/uL (4.1-5.3); Red Cell Distribution Width 18.5 % (12.1-15.1); White Blood Count 6.6 10^3/uL (4.0-10.0)
[2023-01-10 10:58] LABS: Alanine Aminotransferase 43 U/L (0-41); Albumin Level 3.2 g/dL (3.5-5.2); Alkaline Phosphatase 266 U/L (40-130); Anion Gap 12.4 (5-19); Aspartate Amino Transferase 66 U/L (0-40); Blood Urea Nitrogen 11 mg/dL (6-20); Calcium 8.9 mg/dL (8.5-10.5); Carbon Dioxide 31 mmol/L (22-29); Chloride 98 mmol/L (98-107); Glomerular Filtration Rate 56.9 mL/min (90-130); Glucose 187 mg/dL (65-115); Osmolality Calculated 290 mOsm/kg (285-295); Potassium 3.4 mmol/L (3.5-5.1); Sodium 138 mmol/L (136-145); Total Bilirubin 2.3 mg/dL (0.15-1.2); Total Protein 6.2 g/dL (6.6-8.7)
[2023-01-10 11:20] LABS: Cancer Antigen 19 9 188.5 U/mL (0-35)
[2023-01-14 10:17] VITALS: BP 113/72; PULSE 86; RESP 18; TEMP 36.3; O2SAT 94
[2023-01-14] MEDS: sodium chloride 0.9% 250 ML 75 ML IV (11:20)
[2023-01-14] MEDS: atropine 1 mg/mL SDV 1 mL 0.4 MG IV (11:20)
[2023-01-14] MEDS: palonosetron 0.25 mg/5 mL SDV IVP (11:22)
[2023-01-14] MEDS: leucovorin 980 MG in dextrose 5% 250 ML 500 MG IV (13:18)
[2023-01-14 14:08] VITALS: BP 137/74; PULSE 77; RESP 18; TEMP 36.2; O2SAT 94
[2023-01-16 11:25] VITALS: BP 137/75; PULSE 72; RESP 18; TEMP 36.9; O2SAT 96
[2023-01-18] MEDS: ondansetron 2 mg/ML SDV 2 mL 8 MG IVP (11:15)
[2023-01-18] MEDS: dexamethasone 10 mg/mL INJ 20 MG IVP (11:15)
[2023-01-18] MEDS: sodium chloride 0.9% 1,000 ML 999 ML IV (11:15)
[2023-01-18 11:21] LABS: Basophils % 0.2 %; Eosinophils # 0.8 10^3/uL (0.0-0.8); Eosinophils % 12.9 %; Hematocrit 32.3 % (42.0-52.0); Hemoglobin 10.2 g/dL (11.7-16.6); Lymphocytes # 0.9 10^3/uL (0.8-4.8); Lymphocytes % 15.1 %; Mean Corpuscular HGB Conc 31.6 g/dL (30.0-36.0); Mean Corpuscular Hemoglobin 29.7 pg (28.0-34.0); Mean Corpuscular Volume 94.2 fl (80-94); Mean Platelet Volume 11.8 fL (7.4-10.4); Monocytes # 0.1 10^3/uL (0.2-0.9); Monocytes % 1.5 %; Neutrophils # 4.13 10^3/uL (1.8-7.7); Nucleated Red Blood Cells % 0 %; Platelet Count 79 10^3/cmm (130-400); Red Blood Count 3.43 10^6/uL (4.1-5.3); Red Cell Distribution Width 18.2 % (12.1-15.1); White Blood Count 5.9 10^3/uL (4.0-10.0)
[2023-01-18 11:41] LABS: Alanine Aminotransferase 36 U/L (0-41); Alkaline Phosphatase 303 U/L (40-130); Anion Gap 12.4 (5-19); Aspartate Amino Transferase 61 U/L (0-40); Blood Urea Nitrogen 16 mg/dL (6-20); Calcium 9.6 mg/dL (8.5-10.5); Carbon Dioxide 30 mmol/L (22-29); Chloride 99 mmol/L (98-107); Globulin 3.2 g/dL (1.3-4.6); Glomerular Filtration Rate 62.4 mL/min (90-130); Glucose 209 mg/dL (65-115); Osmolality Calculated 293 mOsm/kg (285-295); Potassium 3.4 mmol/L (3.5-5.1); Sodium 138 mmol/L (136-145); Total Bilirubin 5.9 mg/dL (0.15-1.2); Total Protein 6.2 g/dL (6.6-8.7)
[2023-01-18 12:12] LABS: Slide Review Slide Review Perform
[2023-01-21 11:22] VITALS: BP 112/67; PULSE 91; RESP 14; TEMP 36.2; O2SAT 98
[2023-01-21 11:32] LABS: Basophils % 0.2 %; Eosinophils # 0.6 10^3/uL (0.0-0.8); Eosinophils % 14.9 %; Hematocrit 28.1 % (42.0-52.0); Hemoglobin 8.8 g/dL (11.7-16.6); Lymphocytes # 0.7 10^3/uL (0.8-4.8); Lymphocytes % 17.6 %; Mean Corpuscular HGB Conc 31.3 g/dL (30.0-36.0); Mean Corpuscular Hemoglobin 29.4 pg (28.0-34.0); Mean Platelet Volume 12.8 fL (7.4-10.4); Neutrophils # 2.68 10^3/uL (1.8-7.7); Neutrophils % 66.3 %; Nucleated Red Blood Cells % 0 %; Platelet Count 48 10^3/cmm (130-400); Red Blood Count 2.99 10^6/uL (4.1-5.3); Red Cell Distribution Width 17.8 % (12.1-15.1)
[2023-01-21 11:51] LABS: Alanine Aminotransferase 44 U/L (0-41); Albumin Level 3.1 g/dL (3.5-5.2); Alkaline Phosphatase 257 U/L (40-130); Anion Gap 13.6 (5-19); Aspartate Amino Transferase 65 U/L (0-40); Blood Urea Nitrogen 23 mg/dL (6-20); Calcium 8.7 mg/dL (8.5-10.5); Carbon Dioxide 26 mmol/L (22-29); Chloride 100 mmol/L (98-107); Globulin 2.6 g/dL (1.3-4.6); Glomerular Filtration Rate 52.2 mL/min (90-130); Glucose 220 mg/dL (65-115); Osmolality Calculated 292 mOsm/kg (285-295); Potassium 3.6 mmol/L (3.5-5.1); Sodium 136 mmol/L (136-145); Total Bilirubin 4.9 mg/dL (0.15-1.2); Total Protein 5.7 g/dL (6.6-8.7)
[2023-01-21 12:00] LABS: Slide Review Slide Review Perform
== END 2023-01-22 23:59 | disposition home or self-care (01) ==
PROVIDERS: PCP Internal Medicine; Visit Provider Internal Medicine Medical Oncology
DX: C25.0 Malignant neoplasm of head of pancreas (principal); C78.7 Secondary malignant neoplasm of liver and intrahepatic bile duct; Z79.899 Other long term (current) drug therapy
CPT/HCPCS: 36591; 80053; 82378; 85025; 86301; 96360; 96361; 96368; 96375; 96411; 96413; 96415; 96523; 99214; J0461; J0640; J1100; J2405; J2469; J7030; J7040; J7050; J7060; J9190; J9205

== ENCOUNTER 2023-01-31 11:30 | Outpatient (CLI) | payer MEDICARE, SELFPAY ==
--- NOTE | 2023-01-31 11:00 | US_ITS ---
WS: [id number] RIGHT UPPER QUADRANT ULTRASOUND HISTORY: elevated bilirubin 10.2, r/o obstruction COMPARISON: CT abdomen 01/04/2023 Liver: 19.9 cm in length. Liver is enlarged and heterogeneous. Patient has known metastatic disease. There are multiple scattered hypoechoic masses throughout the liver. The largest measures 4.5 x 4.8 x 5.4 cm. There is mild central bile duct dilatation. Portal Vein: Normal hepatopetal flow with monophasic waveform. Gallbladder: Hydropic distended gallbladder. Transverse diameter is over 5 cm. Gallbladder does not a ppear typically tense but there is sludge in the gallbladder. No pericholecystic fluid. No gallbladde r wall thickening or edema. CBD: 1.2 cm Pancreas: Poorly visualized pancreas. There is a pancreatic head mass which is known. Mass measures a pproximately 4.2 x 2.9 x 3.8 cm. Right kidney: 12.5 cm in length. Normal size and echogenicity. No hydronephrosis or mass. Aorta and IVC: Unremarkable abdominal aorta and IVC. No ascites. US/US gall bladder [id number] IMPRESSION: 1. Mild central and common bile duct dilatation measuring up to 12 mm. Common bile duct was dilated on the prior CT of 01/04/2023 also. 2. Patient has a known pancreatic head mass obstructing the common bile duct. 3. Diffuse metastatic liver disease. 4. Distended, hydropic gallbladder with sludge. Similar appearance of the gall bladder on 01/04/2023. Notified Juana Mathew APRN at 01/31/2023 12:05 PM.
== END 2023-01-31 11:31 | disposition home or self-care (01) ==
LOC: RAD 11:32
PROVIDERS: PCP Internal Medicine; Visit Provider Nurse Practitioner Family
DX: R79.89 Other specified abnormal findings of blood chemistry (principal); K76.89 Other specified diseases of liver; C25.0 Malignant neoplasm of head of pancreas
CPT/HCPCS: 76705

== ENCOUNTER 2023-02-05 14:38 | Outpatient (CLI) | payer MEDICARE, SELFPAY ==
[2023-02-05 15:20] LABS: Urine Appearance Hazy (CLEAR)
[2023-02-05 15:21] LABS: Blood Urine Trace (Negative); Glucose Urine UA Norm (Normal); Ketones Urine 1+ (Negative); Protein Urine 2+ (Negative); pH Urine 5 (5-7)
--- NOTE | 2023-02-05 15:21 | XRR_ITS ---
PROCEDURE INFORMATION: Exam: XR Lumbosacral Spine Exam date and time: 02/05/2023 3:24 PM Age: 57 years old Clinical indication: Low back pain TECHNIQUE: Imaging protocol: Radiologic exam of the lumbosacral spine. Views: 2 or 3 views. COMPARISON: CR XR lumbar spine 2-3V* [id number] 09/24/2018 11:18 AM FINDINGS: Bones/joints: Moderate to severe L5/S1 disc space narrowing with mild lower thoracic and upper lumbar spine disc space narrowing, largely posteriorly. Multilevel productive degenerative endplate changes throughout the spine. Soft tissues: Unremarkable. Vasculature: Scattered vascular calcifications. Stent is seen in the right upper abdomen. XR/XR lumbar spine 2-3V* [id number] IMPRESSION: 1. Moderate to severe L5/S1 disc space narrowing with mild lower thoracic and upper lumbar spine disc space narrowing, largely posteriorly. 2. Multilevel productive degenerative endplate changes throughout the spine. 3. Scattered vascular calcifications.
[2023-02-05 15:24] LABS: Add Urine Microscopic? YES; Bacteria Urine TRACE /hpf; Bilirubin Urine 1+ (Negative); Hyaline Casts Urine RARE /lpf; Leukocyte Esterase Urine 1+ (Negative); Mucus Urine TRACE /hpf; Nitrate Urine Negative (Negative); RBC Urine 0-4 /hpf (0-2); Squamous Epithelial Cell Urine 0-4 /hpf (0-5); Urobilinogen Urine 1 mg/dL (Negative); WBC Urine 15-25 /hpf (0-5)
[2023-02-05 15:25] LABS: Add Urine Culture? Yes
[2023-02-05 15:29] LABS: Urine Color Dark Yellow (Yellow)
== END 2023-02-05 14:39 | disposition home or self-care (01) ==
PROVIDERS: PCP Internal Medicine; Visit Provider Nurse Practitioner Family
DX: M54.50 Low back pain, unspecified (principal); C25.0 Malignant neoplasm of head of pancreas; M48.07 Spinal stenosis, lumbosacral region
CPT/HCPCS: 72100; 81001; 87077; 87086; 87186

== ENCOUNTER 2023-02-18 10:00 | Oncology outpatient (recurring) (ONCR) | payer MEDICARE, SELFPAY ==
[2023-01-28 08:46] LABS: Basophils % 0.5 %; Eosinophils # 0.3 10^3/uL (0.0-0.8); Hematocrit 25.5 % (42.0-52.0); Lymphocytes # 0.8 10^3/uL (0.8-4.8); Mean Corpuscular HGB Conc 31.4 g/dL (30.0-36.0); Mean Corpuscular Hemoglobin 29.3 pg (28.0-34.0); Mean Corpuscular Volume 93.4 fl (80-94); Mean Platelet Volume 11.9 fL (7.4-10.4); Monocytes # 0.2 10^3/uL (0.2-0.9); Neutrophils % 32.5 %; Nucleated Red Blood Cells % 0 %; Platelet Count 73 10^3/cmm (130-400); Red Blood Count 2.73 10^6/uL (4.1-5.3); Red Cell Distribution Width 18.2 % (12.1-15.1)
[2023-01-28 08:55] LABS: Neutrophils # 0.65 10^3/uL (1.8-7.7)
[2023-01-28 09:08] LABS: Alanine Aminotransferase 90 U/L (0-41); Alkaline Phosphatase 393 U/L (40-130); Anion Gap 14.4 (5-19); Aspartate Amino Transferase 128 U/L (0-40); Blood Urea Nitrogen 16 mg/dL (6-20); Calcium 9.1 mg/dL (8.5-10.5); Carbon Dioxide 27 mmol/L (22-29); Chloride 100 mmol/L (98-107); Globulin 2.7 g/dL (1.3-4.6); Glomerular Filtration Rate 41.8 mL/min (90-130); Glucose 174 mg/dL (65-115); Osmolality Calculated 291 mOsm/kg (285-295); Potassium 3.4 mmol/L (3.5-5.1); Sodium 138 mmol/L (136-145); Total Protein 5.7 g/dL (6.6-8.7)
[2023-01-28 09:24] LABS: Total Bilirubin 8.2 mg/dL (0.15-1.2)
[2023-01-28 11:37] LABS: Cancer Antigen 19 9 78.18 U/mL (0-35)
[2023-01-28] MEDS: sodium chloride 0.9% 1,000 ML 500 ML IV (11:49)
[2023-01-28] MEDS: filgrastim-sndz 480 mcg/0.8 mL Syringe SUBCUT (14:41)
[2023-01-29] MEDS: filgrastim-sndz 480 mcg/0.8 mL Syringe SUBCUT (14:06)
[2023-01-29 14:10] VITALS: BP 107/66; PULSE 90; RESP 16; TEMP 36.7; O2SAT 97
[2023-01-31 08:15] LABS: Hematocrit 27.3 % (42.0-52.0); Hemoglobin 8.5 g/dL (11.7-16.6); Mean Corpuscular HGB Conc 31.1 g/dL (30.0-36.0); Mean Corpuscular Hemoglobin 29.2 pg (28.0-34.0); Mean Corpuscular Volume 93.8 fl (80-94); Mean Platelet Volume 11.3 fL (7.4-10.4); Platelet Count 94 10^3/cmm (130-400); Red Blood Count 2.91 10^6/uL (4.1-5.3); Red Cell Distribution Width 19.5 % (12.1-15.1); White Blood Count 6.2 10^3/uL (4.0-10.0)
[2023-01-31 08:27] VITALS: BMI 39.2
[2023-01-31 08:32] LABS: Alanine Aminotransferase 99 U/L (0-41); Albumin Level 2.8 g/dL (3.5-5.2); Alkaline Phosphatase 508 U/L (40-130); Anion Gap 12.6 (5-19); Aspartate Amino Transferase 152 U/L (0-40); Blood Urea Nitrogen 15 mg/dL (6-20); Calcium 9.1 mg/dL (8.5-10.5); Carbon Dioxide 27 mmol/L (22-29); Chloride 101 mmol/L (98-107); Globulin 2.7 g/dL (1.3-4.6); Glomerular Filtration Rate 41.8 mL/min (90-130); Glucose 137 mg/dL (65-115); Osmolality Calculated 287 mOsm/kg (285-295); Potassium 3.6 mmol/L (3.5-5.1); Sodium 137 mmol/L (136-145); Total Protein 5.5 g/dL (6.6-8.7)
[2023-01-31 08:41] LABS: Total Bilirubin 10.2 mg/dL (0.15-1.2)
[2023-01-31 09:01] LABS: Slide Review Slide Review Perform
[2023-01-31 09:02] LABS: Absolute Eosinophils 0.1 10^3/cmm (0.0-0.7); Absolute Segmented Neutrophil 2.9 10/cmm (1.6-7.1); Anisocytosis 1+; Band Neutrophils Absolute 1.1 10^3/cmm (0.0-1.2); Eosinophils 2 %; Lymphocytes 16 %; Monocytes Absolute 0.9 10^3/cmm (0.1-0.6); Platelet Estimate Decreased (Normal); Segmented Neutrophils 47 %; Total Cells Counted 100 (0-100)
[2023-02-04 11:14] LABS: Hematocrit 28.3 % (42.0-52.0); Hemoglobin 8.7 g/dL (11.7-16.6); Mean Corpuscular HGB Conc 30.7 g/dL (30.0-36.0); Mean Corpuscular Hemoglobin 29.4 pg (28.0-34.0); Mean Corpuscular Volume 95.6 fl (80-94); Mean Platelet Volume 12.2 fL (7.4-10.4); Platelet Count 110 10^3/cmm (130-400); Red Blood Count 2.96 10^6/uL (4.1-5.3); Red Cell Distribution Width 19.4 % (12.1-15.1)
[2023-02-04 11:32] LABS: Alanine Aminotransferase 44 U/L (0-41); Albumin Level 2.8 g/dL (3.5-5.2); Alkaline Phosphatase 409 U/L (40-130); Aspartate Amino Transferase 55 U/L (0-40); Blood Urea Nitrogen 15 mg/dL (6-20); Calcium 8.9 mg/dL (8.5-10.5); Carbon Dioxide 28 mmol/L (22-29); Chloride 105 mmol/L (98-107); Globulin 2.9 g/dL (1.3-4.6); Glomerular Filtration Rate 56.9 mL/min (90-130); Glucose 186 mg/dL (65-115); Osmolality Calculated 304 mOsm/kg (285-295); Sodium 144 mmol/L (136-145); Total Bilirubin 3.6 mg/dL (0.15-1.2); Total Protein 5.7 g/dL (6.6-8.7)
[2023-02-04 12:03] LABS: Slide Review Slide Review Perform
[2023-02-04 12:04] LABS: Absolute Neutrophil 4.6 10^3/cmm (1.4-6.5); Absolute Segmented Neutrophil 4.6 10/cmm (1.6-7.1); Eosinophils 1 %; Lymphocytes 12 %; Lymphocytes Absolute 0.8 10^3/cmm (1.2-3.4); Monocytes Absolute 1.2 10^3/cmm (0.1-0.6); Platelet Estimate Decreased (Normal); Segmented Neutrophils 65 %; Total Cells Counted 100 (0-100)
[2023-02-11 09:04] VITALS: BMI 38.7
[2023-02-11 09:06] LABS: Basophils % 0.2 %; Eosinophils # 0.2 10^3/uL (0.0-0.8); Eosinophils % 2.5 %; Hemoglobin 8.2 g/dL (11.7-16.6); Lymphocytes # 0.9 10^3/uL (0.8-4.8); Lymphocytes % 10.9 %; Mean Corpuscular HGB Conc 31.5 g/dL (30.0-36.0); Mean Corpuscular Hemoglobin 30.7 pg (28.0-34.0); Mean Corpuscular Volume 97.4 fl (80-94); Mean Platelet Volume 10.8 fL (7.4-10.4); Monocytes # 0.8 10^3/uL (0.2-0.9); Monocytes % 9.5 %; Neutrophils # 6.35 10^3/uL (1.8-7.7); Neutrophils % 76.2 %; Nucleated Red Blood Cells % 0 %; Platelet Count 187 10^3/cmm (130-400); Red Blood Count 2.67 10^6/uL (4.1-5.3); Red Cell Distribution Width 18.3 % (12.1-15.1); White Blood Count 8.3 10^3/uL (4.0-10.0)
[2023-02-11 09:35] LABS: Alanine Aminotransferase 15 U/L (0-41); Albumin Level 2.8 g/dL (3.5-5.2); Alkaline Phosphatase 219 U/L (40-130); Anion Gap 9.7 (5-19); Aspartate Amino Transferase 28 U/L (0-40); Blood Urea Nitrogen 10 mg/dL (6-20); Calcium 8.6 mg/dL (8.5-10.5); Carbon Dioxide 29 mmol/L (22-29); Chloride 105 mmol/L (98-107); Globulin 2.9 g/dL (1.3-4.6); Glomerular Filtration Rate 56.9 mL/min (90-130); Glucose 124 mg/dL (65-115); Osmolality Calculated 290 mOsm/kg (285-295); Potassium 3.7 mmol/L (3.5-5.1); Sodium 140 mmol/L (136-145); Total Bilirubin 2.1 mg/dL (0.15-1.2); Total Protein 5.7 g/dL (6.6-8.7)
[2023-02-11] MEDS: sodium chloride 0.9% 250 ML 75 ML IV (12:05)
[2023-02-11] MEDS: palonosetron 0.25 mg/5 mL SDV IVP (12:10)
[2023-02-11] MEDS: atropine 1 mg/mL SDV 1 mL 0.4 MG IV (12:46)
[2023-02-11] MEDS: SODIUM CHLORIDE IV (15:25)
[2023-02-11] MEDS: ELASTOMERIC PUMP PUMP IV (15:25)
[2023-02-11] MEDS: FLUOROURACIL IV (15:25)
[2023-02-11 15:35] VITALS: BP 130/81; PULSE 69; RESP 18; TEMP 36.1; O2SAT 100
[2023-02-13 13:45] VITALS: BP 105/66; PULSE 86; RESP 18; TEMP 36.7; O2SAT 96
[2023-02-18] VITALS (12 sets, daily range): BP systolic 130–139; BP diastolic 77–87; PULSE 76–88; RESP 16–18; TEMP 36.2–37.1; O2SAT 96–99; BMI 38.0
[2023-02-18 10:33] LABS: Basophils % 0.7 %; Hemoglobin 7.8 g/dL (11.7-16.6); Lymphocytes # 0.7 10^3/uL (0.8-4.8); Lymphocytes % 21.7 %; Mean Corpuscular HGB Conc 31.2 g/dL (30.0-36.0); Mean Corpuscular Hemoglobin 29.5 pg (28.0-34.0); Mean Corpuscular Volume 94.7 fl (80-94); Mean Platelet Volume 12.2 fL (7.4-10.4); Monocytes # 0.1 10^3/uL (0.2-0.9); Neutrophils # 2.17 10^3/uL (1.8-7.7); Neutrophils % 72.3 %; Nucleated Red Blood Cells % 0 %; Platelet Count 65 10^3/cmm (130-400); Red Blood Count 2.64 10^6/uL (4.1-5.3); Red Cell Distribution Width 17.3 % (12.1-15.1)
[2023-02-18 10:48] LABS: Alanine Aminotransferase 8 U/L (0-41); Albumin Level 2.8 g/dL (3.5-5.2); Alkaline Phosphatase 162 U/L (40-130); Anion Gap 12.7 (5-19); Aspartate Amino Transferase 24 U/L (0-40); Blood Urea Nitrogen 10 mg/dL (6-20); Calcium 8.7 mg/dL (8.5-10.5); Carbon Dioxide 27 mmol/L (22-29); Chloride 104 mmol/L (98-107); Globulin 2.8 g/dL (1.3-4.6); Glucose 227 mg/dL (65-115); Osmolality Calculated 296 mOsm/kg (285-295); Potassium 3.7 mmol/L (3.5-5.1); Sodium 140 mmol/L (136-145); Total Bilirubin 1.5 mg/dL (0.15-1.2); Total Protein 5.6 g/dL (6.6-8.7)
[2023-02-18] MEDS: diphenhydrAMINE 25 mg Capsule PO (11:45)
[2023-02-18] MEDS: acetaminophen 325 mg Tablet 650 MG PO (11:45)
[2023-02-18] MEDS: sodium chloride 0.9% 250 mL Bag IV (11:53)
[2023-02-18] MEDS: FUROsemide 10 mg/mL SDV 2mL 20 MG IVP (14:10)
[2023-02-18] MEDS: ondansetron 4 MG Tablet 8 MG PO (14:25)
== END 2023-02-22 23:59 | disposition home or self-care (01) ==
PROVIDERS: Nurse Practitioner Family; PCP Internal Medicine; Visit Provider Internal Medicine Medical Oncology
DX: C25.0 Malignant neoplasm of head of pancreas (principal); C78.7 Secondary malignant neoplasm of liver and intrahepatic bile duct; Z79.899 Other long term (current) drug therapy; E61.1 Iron deficiency; D70.1 Agranulocytosis secondary to cancer chemotherapy; T45.1X5A Adverse effect of antineoplastic and immunosuppressive drugs, initial encounter
CPT/HCPCS: 36430; 36591; 76705; 80053; 82378; 85007; 85025; 86301; 86850; 86900; 86920; 96360; 96361; 96365; 96366; 96368; 96372; 96374; 96375; 96411; 96413; 96415; 96523; 99214; J0461; J0640; J1100; J1940; J2469; J7030; J7040; J7050; J7060; J9190; J9205; P9040; Q0162; Q5101

== ENCOUNTER 2023-02-26 11:04 | Outpatient (CLI) | payer MEDICARE, SELFPAY ==
[2023-02-26] MEDS: iohexol 350 mg/mL 100 mL Btl IV (11:28)
--- NOTE | 2023-02-26 12:00 | CT_ITS ---
WS: [id number] CT HEAD WITH AND WITHOUT CONTRAST HISTORY: persistent nausea/vomiting; pancreatic cancer; r/o brain met TECHNIQUE: Axial images obtained from the vertex to the skull base. Additional imaging performed at 3 .0 mm axial images status post IV contrast. Bone and soft tissue windows are reviewed. All CT scans at [facility] use at least one of these dose optimization techniques: automated exposure contr ol; mA and/or kV adjustment per patient size (includes targeted exams where dose is matched to clinic al indication); or iterative reconstruction. CONTRAST: Omnipaque 350; 100 mL IV. DLP: 2198.18 mGy.cm COMPARISON: 07/20/2022 No acute intracranial hemorrhage, edema or midline shift. Mild atrophy and small vessel ischemic dise ase. Heavy calcification along the interhemispheric falx. No enhancing mass or vascular malformations identified. Dural venous sinuses are normally enhancing. Visualized beaver of [place] is unremarkable. Paranasal sinuses as visualized: Clear. Mastoid air cells: Clear. Calvarium and scalp: Intact. CT/CT head wo/w con [id number] IMPRESSION: 1. No intracranial hemorrhage or edema. 2. No metastatic lesions are identified within the brain. 3. Mild atrophy and small vessel ischemic disease.
== END 2023-02-26 11:05 | disposition home or self-care (01) ==
LOC: RAD 11:07
PROVIDERS: PCP Internal Medicine; Visit Provider Nurse Practitioner Family
DX: C25.0 Malignant neoplasm of head of pancreas (principal); C91.10 Chronic lymphocytic leukemia of B-cell type not having achieved remission; G31.9 Degenerative disease of nervous system, unspecified; I67.82 Cerebral ischemia
CPT/HCPCS: 70470; Q9967

== ENCOUNTER 2023-03-04 09:00 | Oncology outpatient (recurring) (ONCR) | payer MEDICARE, SELFPAY ==
[2023-02-25 08:38] VITALS: BMI 36.1
[2023-02-25 08:40] LABS: Basophils % 0.2 %; Eosinophils # 0.2 10^3/uL (0.0-0.8); Eosinophils % 4.8 %; Hematocrit 28.6 % (42.0-52.0); Hemoglobin 9.1 g/dL (11.7-16.6); Lymphocytes # 1.1 10^3/uL (0.8-4.8); Lymphocytes % 25.5 %; Mean Corpuscular HGB Conc 31.8 g/dL (30.0-36.0); Mean Corpuscular Hemoglobin 30.1 pg (28.0-34.0); Mean Corpuscular Volume 94.7 fl (80-94); Mean Platelet Volume 10.7 fL (7.4-10.4); Monocytes # 0.5 10^3/uL (0.2-0.9); Monocytes % 12.6 %; Neutrophils # 2.37 10^3/uL (1.8-7.7); Neutrophils % 56.7 %; Nucleated Red Blood Cells % 0 %; Platelet Count 106 10^3/cmm (130-400); Red Blood Count 3.02 10^6/uL (4.1-5.3); Red Cell Distribution Width 16.1 % (12.1-15.1); White Blood Count 4.2 10^3/uL (4.0-10.0)
[2023-02-25 08:56] LABS: Alanine Aminotransferase 6 U/L (0-41); Albumin Level 2.9 g/dL (3.5-5.2); Alkaline Phosphatase 151 U/L (40-130); Anion Gap 15.1 (5-19); Aspartate Amino Transferase 23 U/L (0-40); Blood Urea Nitrogen 15 mg/dL (6-20); Calcium 8.8 mg/dL (8.5-10.5); Carbon Dioxide 25 mmol/L (22-29); Chloride 100 mmol/L (98-107); Globulin 2.9 g/dL (1.3-4.6); Glomerular Filtration Rate 41.8 mL/min (90-130); Glucose 175 mg/dL (65-115); Osmolality Calculated 287 mOsm/kg (285-295); Potassium 4.1 mmol/L (3.5-5.1); Sodium 136 mmol/L (136-145); Total Bilirubin 1.3 mg/dL (0.15-1.2); Total Protein 5.8 g/dL (6.6-8.7)
[2023-02-25 08:59] LABS: Creatinine Clr Calc Pharmacy 60.7053
--- NOTE | 2023-02-25 11:06 | PC.NURSE ---
Helga review unavailable on [employer] documentation. Correct dosing verified using BSA and found to be correct dose, calculated by Jules Bhatt RN also. Sunita
[2023-02-25] MEDS: sodium chloride 0.9% 250 ML 75 ML IV (12:01)
[2023-02-25] MEDS: atropine 1 mg/mL SDV 1 mL 0.4 MG IV (12:02)
[2023-02-25] MEDS: palonosetron 0.25 mg/5 mL SDV IVP (12:02)
[2023-02-25 12:28] LABS: Cancer Antigen 19 9 37.07 U/mL (0-35)
[2023-02-25] MEDS: leucovorin 920 MG in dextrose 5% 250 ML 500 MG IV (14:20)
[2023-02-25] MEDS: SODIUM CHLORIDE IV (14:59)
[2023-02-25] MEDS: ELASTOMERIC PUMP PUMP IV (14:59)
[2023-02-25] MEDS: FLUOROURACIL IV (14:59)
[2023-02-25 15:03] VITALS: BP 124/78; PULSE 74; RESP 18; TEMP 36.3; O2SAT 98
[2023-02-27 13:26] VITALS: BP 101/62; PULSE 71; RESP 18; TEMP 35.9; O2SAT 97
[2023-03-04 08:10] VITALS: BMI 35.9
[2023-03-04 08:31] LABS: Basophils % 1.2 %; Eosinophils # 0.2 10^3/uL (0.0-0.8); Eosinophils % 9.9 %; Hematocrit 29.2 % (42.0-52.0); Hemoglobin 9.3 g/dL (11.7-16.6); Lymphocytes # 0.5 10^3/uL (0.8-4.8); Lymphocytes % 29.6 %; Mean Corpuscular HGB Conc 31.8 g/dL (30.0-36.0); Mean Corpuscular Hemoglobin 30.1 pg (28.0-34.0); Mean Corpuscular Volume 94.5 fl (80-94); Mean Platelet Volume 12.1 fL (7.4-10.4); Monocytes # 0.1 10^3/uL (0.2-0.9); Monocytes % 3.1 %; Neutrophils % 56.2 %; Nucleated Red Blood Cells % 0 %; Platelet Count 47 10^3/cmm (130-400); Red Blood Count 3.09 10^6/uL (4.1-5.3); Red Cell Distribution Width 15.9 % (12.1-15.1); White Blood Count 1.6 10^3/uL (4.0-10.0)
[2023-03-04 08:39] LABS: Neutrophils # 0.91 10^3/uL (1.8-7.7)
[2023-03-04 08:48] LABS: Alanine Aminotransferase 8 U/L (0-41); Albumin Level 2.7 g/dL (3.5-5.2); Alkaline Phosphatase 133 U/L (40-130); Aspartate Amino Transferase 21 U/L (0-40); Blood Urea Nitrogen 13 mg/dL (6-20); Calcium 8.8 mg/dL (8.5-10.5); Carbon Dioxide 26 mmol/L (22-29); Chloride 101 mmol/L (98-107); Glomerular Filtration Rate 68.8 mL/min (90-130); Glucose 171 mg/dL (65-115); Osmolality Calculated 288 mOsm/kg (285-295); Sodium 137 mmol/L (136-145); Total Bilirubin 1.1 mg/dL (0.15-1.2); Total Protein 5.7 g/dL (6.6-8.7)
[2023-03-04 08:58] LABS: Add Urine Microscopic? YES; Bilirubin Urine 1+ (Negative); Blood Urine Neg (Negative); Glucose Urine UA Trace (Normal); Ketones Urine 2+ (Negative); Leukocyte Esterase Urine 1+ (Negative); Nitrate Urine Negative (Negative); Protein Urine 2+ (Negative); Urine Appearance Clear (CLEAR); Urine Color Yellow (Yellow); Urobilinogen Urine Norm (Negative); pH Urine 5 (5-7)
[2023-03-04 09:00] LABS: Bacteria Urine TRACE /hpf; RBC Urine 0-4 /hpf (0-2); Squamous Epithelial Cell Urine 0-4 /hpf (0-5)
[2023-03-04 09:01] LABS: Add Urine Culture? No; Hyaline Casts Urine 0-4 /lpf; Mucus Urine TRACE /hpf
[2023-03-04 09:57] VITALS: BP 126/83; PULSE 80; RESP 16; TEMP 36.3; O2SAT 96
== END 2023-03-07 16:54 | disposition home or self-care (01) ==
PROVIDERS: Nurse Practitioner Family; PCP Internal Medicine; Visit Provider Internal Medicine Medical Oncology
DX: C25.0 Malignant neoplasm of head of pancreas (principal); C78.7 Secondary malignant neoplasm of liver and intrahepatic bile duct; E80.7 Disorder of bilirubin metabolism, unspecified; R11.2 Nausea with vomiting, unspecified; K13.0 Diseases of lips; Z79.2 Long term (current) use of antibiotics; Z79.899 Other long term (current) drug therapy
CPT/HCPCS: 80053; 81001; 82378; 85025; 86301; 87086; 96368; 96375; 96413; 96415; 96416; 96417; 96523; 99214; J0461; J0640; J1100; J2469; J7040; J7050; J7060; J9190; J9205

== ENCOUNTER 2023-03-08 12:36 | Outpatient (CLI) | payer MEDICARE, SELFPAY ==
--- NOTE | 2023-03-08 12:51 | CTR_ITS ---
PROCEDURE INFORMATION: Exam: CT Abdomen And Pelvis Without And With Contrast Exam date and time: 03/08/2023 1:02 PM Age: 58 years old Clinical indication: Condition or disease; Kidney or ureter condition; Cyst of kidney; Primary cancer: Leukemia, pancreas, ; additional info: Complex renal cyst TECHNIQUE: Imaging protocol: Computed tomography of the abdomen and pelvis without and with contrast. Radiation optimization: All CT scans at this facility use at least one of these dose optimization techniques: automated exposure control; mA and/or kV adjustment per patient size (includes targeted exams where dose is matched to clinical indication); or iterative reconstruction. Contrast material: OMNI 350; Contrast volume: 100 ml; Contrast route: INTRAVENOUS (IV); REPORTING DATA: Count of CT and Cardiac NM exams in prior 12 months: This patient has received 6 known CTs and 0 known cardiac nuclear medicine studies in the 12 months prior to the current study. COMPARISON: CT abdomen pelvis w con* [id number] 01/04/2023 2:31 PM RADIATION DOSE METRICS: Total DLP (mGy-cm): 1725.92 FINDINGS: Lungs: Multiple pulmonary nodules are identified compatible with probable metastatic disease increased in size and number compared to the prior exam including bilateral 6 mm nodules image 9 that previously each measured 4 mm. Diaphragm: A small hiatal hernia is present. Liver: Multiple hypodense nodules/masses are noted in the liver and have increased in size and number compared to the prior exam. For example in the left lobe of the liver today there is a 2.5 x 2.5 cm hypodense mass image 12 that previously measured 1.6 x 1.7 cm. In the lower right lobe of the liver, there is a 4.7 x 4.6 cm hypodense mass that previously measured 3.5 x 3.7 cm. Gallbladder and bile ducts: There is pneumobilia. The there is a biliary stent. The gallbladder is partially collapsed. The gallbladder wall is thickened and there is pericholecystic fluid but no cholelithiasis. Pancreas: See Stomach and bowel finding. Spleen: The spleen is normal. Adrenal glands: The adrenal glands are normal. Kidneys and ureters: There is unchanged size of the nonenhancing 2.3 x 2.4 cm hypodense nodule/cyst lower pole left kidney. There are multiple renal hypodensities that cannot be further characterized on the current examination. Stomach and bowel: There is no evidence of intestinal perforation or obstruction. There is no evidence of colitis/diverticulitis. There is moderately excessive colonic stool content. There is wall thickening of the distal stomach that may simply reflect lack of complete distention. There is wall thickening of the duodenal sweep adjacent to the pancreatic mass similar to the prior exam. Appendix: No evidence of appendicitis. Intraperitoneal space: There is a small volume of ascites. This appearance may reflect reactive changes to mild ascites versus cholecystitis. Vasculature: There are numerous benign phleboliths in the pelvis. Lymph nodes: There is a 1.8 cm short axis necrotic appearing lymph node right of the distal esophagus increase in the prior exam where it measured 1.7 cm. Multiple enlarged necrotic appearing peripancreatic lymph nodes have increased in size and number compared to the prior exam including the 2.4 cm short axis lymph node image 27 that previously measured 1.8 cm. There is an increase in the size and number of retroperitoneal lymph nodes with the largest in the left periaortic space measuring 1.3 cm in short axis today compared to 0.8 cm previously. Urinary bladder: There is nonspecific bladder wall thickening. This may be related to incomplete distention. Reproductive: The prostate demonstrates mild nonspecific enlargement. The seminal vesicles are normal. The prostate demonstrates nonspecific parenchymal calcifications. Bones/joints: The hypodense mass in the pancreas measures 5.0 x 4.7 cm today rib previously it measured 4.8 x 4.6 cm. Soft tissues: Unremarkable. CT/CT abdomen pelvis wo/w [id number] IMPRESSION: 1. There is unchanged size of the nonenhancing 2.3 x 2.4 cm hypodense nodule/cyst lower pole left kidney. Additional stable subcentimeter renal hypodensities are too small to characterize. 2. Disease progression with increased size and number of pulmonary nodules, increased size and number of liver masses, increased necrotic appearing adenopathy and larger mass in the head of the pancreas. There is now a small volume of ascites. 3. The gallbladder is partially collapsed. The gallbladder wall is thickened and there is pericholecystic fluid but no cholelithiasis. This appearance is nonspecific in the presence of ascites may reflect reactive changes however cholecystitis cannot be excluded. No gallstones. Biliary stent is present. COMMENTS: Consistent with the [employer]'s Incidental Findings Committee white paper (J Am Lisbeth Radiol 2018): Any incidental renal lesion less than 1 cm or classified as too small to characterize, or any incidental cystic renal lesion characterized as simple-appearing, is likely benign. No follow-up imaging is recommended for these lesions per consensus recommendations based on imaging criteria.
[2023-03-08] MEDS: iohexol 350 mg/mL 500 mL Btl (per mL) IV (13:17)
== END 2023-03-08 12:37 | disposition home or self-care (01) ==
LOC: RAD 12:41
PROVIDERS: PCP Internal Medicine; Visit Provider Registered Nurse
DX: N28.1 Cyst of kidney, acquired (principal); K82.9 Disease of gallbladder, unspecified
CPT/HCPCS: 74178; Q9967

== ENCOUNTER 2023-03-12 08:00 | Oncology outpatient (recurring) (ONCR) | payer MEDICARE, SELFPAY ==
[2023-03-12 08:15] VITALS: BMI 35.0
[2023-03-12 08:29] LABS: Basophils % 0.5 %; Eosinophils # 0.1 10^3/uL (0.0-0.8); Eosinophils % 6.2 %; Hematocrit 27.1 % (42.0-52.0); Hemoglobin 8.6 g/dL (11.7-16.6); Lymphocytes % 50.5 %; Mean Corpuscular HGB Conc 31.7 g/dL (30.0-36.0); Mean Corpuscular Hemoglobin 29.4 pg (28.0-34.0); Mean Corpuscular Volume 92.5 fl (80-94); Mean Platelet Volume 11.5 fL (7.4-10.4); Monocytes # 0.4 10^3/uL (0.2-0.9); Neutrophils % 24.3 %; Nucleated Red Blood Cells % 0 %; Platelet Count 89 10^3/cmm (130-400); Red Blood Count 2.93 10^6/uL (4.1-5.3); White Blood Count 1.9 10^3/uL (4.0-10.0)
[2023-03-12 08:31] LABS: Neutrophils # 0.47 10^3/uL (1.8-7.7)
[2023-03-12 08:53] LABS: Alanine Aminotransferase 6 U/L (0-41); Albumin Level 2.9 g/dL (3.5-5.2); Alkaline Phosphatase 126 U/L (40-130); Aspartate Amino Transferase 15 U/L (0-40); Blood Urea Nitrogen 17 mg/dL (6-20); Calcium 8.6 mg/dL (8.5-10.5); Carbon Dioxide 26 mmol/L (22-29); Chloride 102 mmol/L (98-107); Globulin 2.6 g/dL (1.3-4.6); Glomerular Filtration Rate 44.6 mL/min (90-130); Glucose 103 mg/dL (65-115); Osmolality Calculated 286 mOsm/kg (285-295); Sodium 137 mmol/L (136-145); Total Bilirubin 0.8 mg/dL (0.15-1.2); Total Protein 5.5 g/dL (6.6-8.7)
[2023-03-12] MEDS: LORazepam 2 mg/mL INJ 1 mL 0.5 MG IVP (10:13)
[2023-03-12] MEDS: sodium chloride 0.9% 500 ML 75 ML IV (10:13)
[2023-03-12] MEDS: metoclopramide 5 mg/mL SDV 2 mL 10 MG IVP (10:19)
[2023-03-12 11:02] VITALS: BP 114/67; PULSE 75; RESP 18; TEMP 35.9; O2SAT 96
== END 2023-03-24 23:59 | disposition home or self-care (01) ==
PROVIDERS: Nurse Practitioner Family; PCP Internal Medicine; Visit Provider Internal Medicine Medical Oncology
DX: C25.0 Malignant neoplasm of head of pancreas (principal); C78.7 Secondary malignant neoplasm of liver and intrahepatic bile duct; R11.2 Nausea with vomiting, unspecified; D61.810 Antineoplastic chemotherapy induced pancytopenia; T45.1X5A Adverse effect of antineoplastic and immunosuppressive drugs, initial encounter; Z79.891 Long term (current) use of opiate analgesic; Z79.899 Other long term (current) drug therapy; R91.1 Solitary pulmonary nodule; R59.0 Localized enlarged lymph nodes; F41.9 Anxiety disorder, unspecified
CPT/HCPCS: 80053; 85025; 96361; 96365; 96375; 99215; J1100; J2060; J2765; J7040